=== PATIENT | male | born 1935 | race Caucasian/White ===

== ENCOUNTER → 2018-02-23 07:31 | Outpatient (CLI) | payer MEDICARE, OTHER, SELFPAY ==
[2018-02-23 07:54] LABS: Hematocrit 42.3 % (41-53); Hemoglobin 13.8 g/dL (13.5-17.5); Mean Corpuscular HGB Conc 32.6 % (30-36); Mean Corpuscular Hemoglobin 31.2 PG (26-34); Mean Corpuscular Volume 95.8 fL (80-100); Platelet Count 148 X10^3/uL (150-400); Red Blood Cell Count 4.42 X10^6/uL (4.5-5.9); Red Cell Distribution Width 13.7 % (11.6-14.8)
[2018-02-23 08:07] LABS: Alanine Aminotransferase 39 IU/L (21-72); Albumin 4.1 g/dL (3.5-5.0); Albumin Globulin Ratio 1.7 (1.0-2.8); Alkaline Phosphatase 60 U/L (38-126); Aspartate Aminotransferase 34 IU/L (17-59); BUN Creatinine Ratio 21.3 (6-22); Bilirubin Total 0.8 mg/dL (0.2-1.3); Blood Urea Nitrogen 17 mg/dL (9-20); Calcium 9.4 mg/dL (8.4-10.2); Carbon Dioxide 30 mmol/L (22-32); Chloride 104 mmol/L (98-107); Cholesterol 131 mg/dL (140-199); Estimated Glomerular Filt Rate > 60.0 mL/min (>60); Globulin 2.4 g/dL (1.7-4.1); Glucose 95 mg/dL (80-110); HDL Cholesterol 46 mg/dL (40-60); HEMOLYSIS 17 (0-50); LDL Cholesterol Calculated 72 mg/dL (<100); Potassium 5.1 mmol/L (3.4-5.1); Sodium 142 mmol/L (137-145); Total Protein 6.5 g/dL (6.3-8.2); Triglycerides 65 mg/dL (35-150)
[2018-02-23 08:14] LABS: Add Manual Diff / Slide Review YES; White Blood Cell Count 56.9 X10^3/uL (4.5-11.0)
[2018-02-23 08:38] LABS: Neutrophils Absolute Manual 5121 /uL (3000-5900); Total Cells Counted 100
[2018-02-23 08:40] LABS: Smudge Cells 1+
[2018-02-23 08:48] LABS: Thyroid Stimulating Hormone 2.06 uIU/mL (0.47-4.68)
== END ==
PROVIDERS: Nurse Practitioner Gerontology; PCP Family Medicine; Visit Provider Internal Medicine Cardiovascular Disease
DX: E78.5 Hyperlipidemia, unspecified (principal); I48.1 Persistent atrial fibrillation; Z79.01 Long term (current) use of anticoagulants
CPT/HCPCS: 36415; 80053; 80061; 84443; 85025

== ENCOUNTER → 2018-03-20 11:43 | Outpatient (CLI) | payer MEDICARE, OTHER, SELFPAY | PROVIDERS: PCP Family Medicine; Visit Provider Nurse Practitioner Gerontology | DX: C91.90 Lymphoid leukemia, unspecified not having achieved remission (principal) ==

== ENCOUNTER → 2018-03-28 11:19 | Outpatient (CLI) | payer MEDICARE, OTHER, SELFPAY ==
[2018-03-28 11:30] LABS: Bacteria Urine None Seen; RBC Urine None Seen (0-5/HPF); WBC Urine None Seen (0-5/HPF)
[2018-03-28 11:46] LABS: Appearance Urine UA CLEAR; Bilirubin Urine UA NEGATIVE (NEGATIVE); Color Urine UA YELLOW; Glucose Urine UA NEGATIVE (Normal); Ketones Urine UA NEGATIVE (NEGATIVE); Leukocyte Esterase Urine UA NEGATIVE (NEGATIVE); Nitrite Urine UA Negative (Negative); Occult Blood Urine UA NEGATIVE (Negative); Protein Urine UA NEGATIVE (Negative); Specific Gravity Urine UA 1.015 (1.000-1.035); Urobilinogen Urine UA 0.2 E.U./dL (0.2)
[2018-03-28 12:46] LABS: Culture Indicated Urine Cult Not Indicated; Squamous Epithelial Cell Urine 0-1 /HPF
== END ==
PROVIDERS: PCP Family Medicine; Visit Provider Orthopaedic Surgery
DX: M17.0 Bilateral primary osteoarthritis of knee (principal); M17.12 Unilateral primary osteoarthritis, left knee; M25.562 Pain in left knee
CPT/HCPCS: 81001

== ENCOUNTER 2018-03-29 10:05 | Day surgery (SDC) | payer MEDICARE, OTHER, SELFPAY ==
[2018-03-20 10:57] VITALS: BMI 25.4
[2018-03-29] VITALS (11 sets, daily range): BP systolic 105–152; BP diastolic 62–98; PULSE 57–112; RESP 14–18; TEMP 36.1–36.7; O2SAT 91–100; BMI 25.3
[2018-03-29] MEDS: LACTATED RINGERS 1,000 ML 42 ML IV ×2 (11:15→14:55)
[2018-03-29] MEDS: CELECOXIB 200 MG CAPSULE PO (11:16)
[2018-03-29] MEDS: PREGABALIN 75 MG CAPSULE PO (11:16)
[2018-03-29] MEDS: ACETAMINOPHEN 325 MG TABLET 975 MG PO ×3 (11:16→21:40)
[2018-03-29] MEDS: VANCOMYCIN 1,000 MG/200 ML FROZ.PIGGY 200 MG IV (11:24)
--- NOTE | 2018-03-29 12:15 | PM.PREOP ---
Pre-operative Note Interval Note Pre-op Check: Yes History & Physical Reviewed by Physician and Yes Exam Performed Changes: Yes
--- NOTE | 2018-03-29 12:19 | P.OP_ITS ---
Operative Date/Time/Diagnoses Date of procedure: 03/29/18 Time of procedure: 12:54 Pre-op diagnosis: Left knee osteoarthritis Post-op diagnosis: same Procedure & Clinicians Procedure: Left total knee arthroplasty Same procedure as scheduled: Yes Indications: The patient has had progressively worsening left knee pain with radiographic changes consistent with arthritis. Non-operative management has failed and the patient has requested total knee replacement. The risks, benefits and alternatives to surgery were discussed with the patient prior to proceeding. Risks discussed included, but were not limited to, failure to relieve pain, stiffness, infection, nerve damage, deep venous thrombosis, pulmonary embolism, stroke, coma, heart attack, permanent paralysis and , as well as the potential need for eventual revision of the prosthetic. Surgeon: Janice Perry Supervisor Acoustical Tile Carpenters: Diana Ma Anesthesia Type: General and Spinal Operative Notes Findings: Severe left knee osteoarthritis, adequate stability Closure Type: primary Specimen(s): none sent Implants & Drains: Perry and Nephnasreen Browning BCS2 FEMUR 6, TIBIA 5, POLY 9, PATELLA 35 BY 9 Estimated Blood Loss (mL): 200 Blood products transfused: none Tourniquet time (min): 75 Procedure in detail: THE PATIENT WAS SEEN IN THE PRE-OPERATIVE AREA, WHERE THE PATIENT IDENTIFIED THE LEFT KNEE THE OPERATIVE SITE AND THIS WAS MARKED WITH MY INITIALS. THE PATIENT RECEIVED PRE-OPERATIVE ANTIBIOTICS, AND WAS TAKEN TO THE OPERATING ROOM AND PLACED ON THE OPERATIVE TABLE IN THE SUPINE POSITION. AFTER SATISFACTORY ANESTHESIA, A AD OPERATIONS SPECIALIST OUT WAS PERFORMED. THE LEFT LEG WAS ENCIRCLED WITH A TOURNIQUET ABOUT THE PROXIMAL THIGH, AND THE LEG WAS PREPARED FROM THE TOES TO THE TOURNIQUET WITH CHLOROPREP IN THE USUAL FASHION AND DRAPED THROUGH STERILE DRAPES. THE LEG WAS ELEVATED AND EXSANGUINATED WITH [employer] BANDAGE AND THE TOURNIQUET INFLATED TO [250] MMHG PRESSURE. THE KNEE WAS APPROACHED THROUGH AN APPROXIMATELY 18 CM INCISION CENTERED OVER THE PATELLA AND CARRIED INTO THE KNEE THROUGH A MEDIAL PARAPATELLAR ARTHROTOMY. A PORTION OF THE MEDIAL AND LATERAL MENISCUS WAS RESECTED. SOFT TISSUE WAS CAREFULLY MOBILIZED AROUND THE PATELLA THE PATELLA WAS MEASURED WITH A CALIPER. BONE WAS RESECTED FROM THE PATELLA AND THE PATELLAR HEIGHT WAS RECONSTITUTED WITH UP AN APPROPRIATE SIZED PATELLAR COMPONENT. FOR A COVER WAS THEN PLACED ON THE PATELLA. A SMALL AMOUNT OF ADDITIONAL MEDIAL AND LATERAL MENISCUS WAS RESECTED. THE VISIONARE GUIDE FIT WELL TO THE DISTAL FEMUR. IT LOOKED LIKE AN APPROPRIATE DISTAL FEMORAL CUT AND THE CUT WAS MADE WITHOUT DIFFICULTY. THE ROTATION WAS ASSESSED AND THE APPROPRIATE SIZE FEMORAL GUIDE WAS PLACED ON THE DISTAL FEMUR AND FINISHING CUTS WERE MADE. THERE IS NO EVIDENCE OF NOTCHING. THE ANTERIOR, POSTERIOR AND CHAMFER CUTS WERE THEN MADE. THE POSTERIOR OSTEOPHYTES AND SOFT TISSUES WERE THEN REMOVED. THE POSTERIOR CAPSULE WAS INJECTED WITH PART OF A MIXTURE OF 60 ML 0.25% MARCAINE MIXED WITH 20 ML EXPAREL FOR POST OPERATIVE PAIN CONTROL. THE REMAINDER OF THIS MIXTURE WAS INJECTED INTO THE CAPSULE AND SUBCUTANEOUS TISSUES DURING CEMENT CURING. THE TIBIA WAS PREPARED AND THE VISIONAIRE GUIDE FIT WELL TO THE DISTAL TIBIA. THE ROTATION WAS ASSESSED. THE PATIENT WAS PLACED IN EXTENSION RESIDUAL MEDIAL AND LATERAL MENISCUS WELL ANY RESIDUAL BONE WAS CAREFULLY RESECTED. [NO] ADDITIONAL TIBIA WAS RESECTED. HEMOSTASIS WAS ACHIEVED ESPECIALLY POSTERIORLY. ADDITIONAL LOCAL WAS INJECTED INTO THE POSTERIOR CAPSULE. THE EXTENSION GAP WAS ASSESSED AND ADDITIONAL RELEASES FOR GAP BALANCING WERE PERFORMED NECESSARY. IT WAS CHECKED WITH THE GAP PAPER MILL MANAGER. THE FEMORAL COMPONENT WAS TRIAL WAS PLACED AND THE NOTCH WAS FINISHED. TRIAL TIBIAL AND FEMORAL COMPONENTS WERE THEN PLACED AND THE KNEE PLACED THROUGH A RANGE OF MOTION. RANGE OF MOTION WAS [ 0-130], WITH GOOD STABILITY THROUGHOUT THE RANGE. THE TRIALS WERE THEN REMOVED, AND THE TIBIA WAS FINISHED. THE BONE WAS PREPARED WITH PULSATILE LAVAGE, AND DRIED WITH A SPONGE. CEMENT WAS APPLIED AND THE FINAL PROSTHETICS PLACED. EXCESS CEMENT WAS REMOVED DURING AND AFTER CEMENT CURING. A BRIEF BETADINE SOAK WAS PERFORMED. AFTER CONFIRMING THERE WAS NO EXTRUDED CEMENT POSTERIORLY, THE FINAL TIBIAL INSERT WAS PLACED. THE KNEE WAS COPIOUSLY IRRIGATED AND THE TOURNIQUET DEFLATED. HEMOSTASIS WAS OBTAINED WITH THE BOVIE. A DRAIN WAS PLACED AND BROUGHT OUT SUPEROLATERALLY. THE CAPSULE WAS CLOSED WITH INTERRUPTED # 1 BLACK BRAIDED SUTURE. THE TRACKING OF THE PATELLA WAS SPECIFICALLY TESTED. THE SUBCUTANEOUS LAYER WAS CLOSED WITH BARBED SUTURES, AND THE SKIN WITH A RUNNING 3-0 V-LOCK SUTURE AND SURGICAL GLUE. AN AQUACEL AG DRESSING WAS APPLIED AND THE PATIENT WAS TAKEN TO RECOVERY HAVING TOLERATED THE PROCEDURE WELL. Complications: none Condition: stable Disposition: same day surgery Plan for aftercare: The patient will be maintained on a standard total knee replacement protocol with weight bearing as tolerated. The patient will receive PRADAXA and sequential compression devices for DVT prophylaxis. The patient will be discharged home when safe for the home environment.
[2018-03-29] MEDS: CEFAZOLIN 2 GM/100 ML FROZ.PIGGY IV ×2 (12:25→19:43)
--- NOTE | 2018-03-29 13:02 | SUR.OPER ---
Supine on padded OR bed. Pillow under head, arms secured on padded armboards <90 degree abduction. Safety belt across torso. Non-operative leg secured with tape over blanket over lower leg. Operative leg secured in DeMayo/Brad positioner. Foam padded brace at thigh of operative leg.
[2018-03-29] MEDS: BUPIVACAINE LIPOSOME 266 MG/20 ML VIAL INJ (13:11)
[2018-03-29] MEDS: BUPIVACAINE 0.25% W/ EPI VIAL 50 ML INJ (13:11)
[2018-03-29] MEDS: POVIDONE-IODINE 15 ML, SODIUM CHLORIDE 0.9% 250 ML TOP (13:13)
--- NOTE | 2018-03-29 14:46 | DI.RAD.S_ITS ---
PROCEDURE: XR KNEE LT 1TO2V INDICATIONS: LEFT TOTAL KNEE TECHNIQUE: 2 view(s) of the knee acquired. COMPARISON: None. FINDINGS: Bones: Patient is status post knee joint arthroplasty. Hardware components are in expected positions. Visualized bony structures are intact. Soft tissues: Overlying postoperative changes are noted. A postoperative drain has been placed. IMPRESSION: Normal postoperative examination. Dictated by: Nando Cooley M.D. on 03/29/2018 at 14:53 Approved by: Nando Cooley M.D. on 03/29/2018 at 14:54
[2018-03-29] MEDS: OXYCODONE IR 5 MG TABLET PO ×2 (16:47→21:54)
[2018-03-29] MEDS: LACTATED RINGERS 1,000 ML 125 ML IV (16:50)
[2018-03-29] MEDS: ONDANSETRON 4 MG/2 ML INJ IV (19:43)
[2018-03-29] MEDS: DOCUSATE 100 MG CAPSULE PO (20:25)
[2018-03-29] MEDS: ASPIRIN EC 81 MG TABLET PO (20:25)
[2018-03-30 00:08] VITALS: BP 139/71; PULSE 84; RESP 18; TEMP 37; O2SAT 98
[2018-03-30] MEDS: OXYCODONE IR 5 MG TABLET PO ×2 (02:33→07:48)
[2018-03-30] MEDS: CEFAZOLIN 2 GM/100 ML FROZ.PIGGY IV (03:37)
[2018-03-30 05:19] VITALS: BP 120/65; PULSE 83; RESP 18; TEMP 36.7; O2SAT 95
[2018-03-30 06:15] LABS: Hematocrit 36.4 % (41-53); Hemoglobin 12.1 g/dL (13.5-17.5)
--- NOTE | 2018-03-30 07:36 | PM.DS.1 ---
History of Present Illness Date Patient Seen: 03/30/18 Chief complaint: *[id number] left total knee arthroplasty *OPB* Narrative: Patient was seen bedside postop day 1. Status post left TKA. Patient is doing well as pain was well controlled and he is ready to go home today. Discharge Providers Primary care physician: Tiffani Son DO Consults: 03/29/18 16:31 Consult to Discharge Planning Routine Comment: Consult to Physical Therapy Evaluate & Treat Comment: Physician Instructions: postop TKA protocol Consult to Respiratory Therapy Evaluate & Treat Comment: Physician Instructions: Evaluate and treat Discharge provider: Salome Cantu PA-C Summary Discharge Diagnosis: Left knee osteoarthritis Hospital Course: Patient was admitted post left total knee replacement on 03/29/2018. Tolerated the procedure well with no major complications. Was seen by Physical therapy recommending be discharged home with outpatient PT. Patient was stable and ready for discharge on 03/30/2018. Condition patient discharged improved code status is full. Status at Discharge Cognitive/behavioral status at discharge: Alert and oriented x4 Functional status at discharge: uses cane/walker Overall status at discharge: patient is progressing back to baseline Time Spent with Patient Less than 30 minutes Exam Vital Signs (past 8 hours): - 03/30/18 00:08 03/30/18 05:19 Temperature 98.6 F 98.1 F Pulse Rate 84 83 Respiratory Rate 18 18 Blood Pressure 139/71 H 120/65 Pulse Oximetry 98 95 Oxygen Delivery Method Room Air Narrative Exam Narrative: Patient is well-developed well-nourished in no acute distress. Patient alert oriented x3. Examination of the left knee shows the surgical dressings are clean dry and intact with minimal drainage. There is minimal drainage in his Hemovac. He has full range of motion at the ankle is calves are soft and compressible. He is neurovascularly intact in this extremity. Objective Labs Result Diagrams: 03/30/18 05:57 Labs: Laboratory Results - last 24 hr 03/30/18 05:57 Hgb 12.1 L Hct 36.4 L Discharge Plan Discharge Plan Patient Disposition: Home, Self-Care Discharge Med Rec/Prescriptions Prescriptions: New acetaminophen 325 mg Tablet 1,000 mg PO TID Qty: 0 RF: 0 aspirin 81 mg Tablet,Delayed Release (Dr/Ec) 81 mg PO BID Qty: 0 RF: 0 docusate sodium 100 mg Capsule 100 mg PO BID Qty: 0 RF: 0 oxycodone 5 mg Tablet 5 mg PO Q3HR PRN (Reason: Pain, Moderate (4-6)) Qty: 0 RF: 0 Continue amlodipine [Norvasc] 5 MG tablet 5 mg PO QDAY Qty: 90 RF: 3 varicella-zoster [id number]-AS01B (PF) [Shingrix (PF)] 50 mcg/0.5 mL suspension for reconstitution 0.5 ml IM ONCE Qty: 1 RF: 0 acetaminophen [Tylenol Extra Strength] 500 mg Tablet 1,000 mg PO QAM RF: 0 dabigatran etexilate [Pradaxa] 150 mg Capsule 150 mg PO BID RF: 0 atorvastatin [Lipitor] 20 MG tablet 20 mg PO QAM RF: 0 irbesartan-hydrochlorothiazide 150 MG/12.5 MG tablet 2 tab PO QAM RF: 0 Discharge Orders: Discharge (Order); Ordered 03/30/18 Ordered By: Salome Cantu Provider Discharge Instructions Diet: Diet as Tolerated and Regular Wound Care Report to your healthcare provider any signs of infection, such as:: chills, fever, night sweats, increased pain and unusual drainage Dressing: Keep letty wrap on until tomorrow, keep Aqaucel dressing on until second post-op visit. Visit Report/Discharge Packet Instructions: DI for Knee Replacement Stand Alone Forms: Surgery Discharge Discharge Data Primary Care Provider: Tiffani Son Attending Provider: Janice Perry
[2018-03-30 07:40] VITALS: BP 118/70; PULSE 76; RESP 18; TEMP 36.7; O2SAT 97
[2018-03-30] MEDS: hydroCHLOROthiazide 12.5 MG CAPSULE PO (08:57)
[2018-03-30] MEDS: AMLODIPINE 5 MG TABLET PO (08:57)
[2018-03-30] MEDS: ATORVASTATIN 20 MG TABLET PO (08:57)
[2018-03-30] MEDS: ASPIRIN EC 81 MG TABLET PO (08:58)
[2018-03-30] MEDS: DOCUSATE 100 MG CAPSULE PO (08:58)
[2018-03-30] MEDS: IRBESARTAN 150 MG TABLET PO (08:59)
--- NOTE | 2018-03-30 09:10 | PT.IPTN ---
Current Diagnoses Unilateral primary osteoarthritis, left knee (03/29/18) Surgery Performed Operation Date: 03/29/18 12:00 Actual Procedures p Left Total Knee Arthroplasty(Left) - Janice Perry MD Physical Therapy Treatment Note M2 PT-IP Current Condition Start: 03/29/18 17:18 Freq: NEEDED Status: Active Protocol: Document 03/29/18 17:19 EA (Rec: 03/29/18 17:33 EA [id number]) Physical Therapy Current Condition Current Condition Evaluation Date 03/29/18 Treatment Diagnosis Left TKA Onset Date 03/29/18 Weight Bearing Status Weight Bearing Status Full Weight Bearing M3 PT-IP Subjective Start: 03/29/18 17:18 Freq: NEEDED Status: Active Protocol: Document 03/30/18 09:10 GGD (Rec: 03/30/18 11:31 GGD [id number]) Subjective Physical Therapy Visit Type Type Treatment Note Visit Start Time 08:40 Visit Stop Time 09:10 Total Visit Minutes 30 Number of POWER OPERATOR Visits 1 Physical Therapy Visit Comments Patient Comments Pt states he doing go and feels ready to go home. Therapy Pain Assessment Pain When Pain Assessed At Rest Pain Present Pain Present Pain Reported Location Left Knee Intensity 1 Scale Used Numeric (1 - 10) M4 PT-IP Mobility and Gait Start: 03/29/18 17:18 Freq: NEEDED Status: Active Protocol: Document 03/30/18 09:10 GGD (Rec: 03/30/18 11:31 GGD [id number]) PT-Transfer Assessment Sit to and From Stand Sit to and from Stand Contact Guard Assistance Equipment Transfer Assistive Device Gait Belt Front Wheeled Walker Transfers Transfer Destination Chair Gait Assessment Gait Gait Assistance Required: Standby Assistance Distance (Feet) (feet) 80 Assistive Devices Assistive Device Gait Belt Front Wheeled Walker Gait Deviations General Gait Pattern Antalgic Factors Limiting Gait Function Factors Limiting Gait Function Decreased Activity Tolerance Decreased Strength Limited Range of Motion Pain Comments Gait Comments cues for gait techinque. M5 PT-IP Objective Assessments Start: 03/29/18 17:18 Freq: NEEDED Status: Active Protocol: Document 03/29/18 17:19 EA (Rec: 03/29/18 17:33 EA [id number]) Orientation Orientation/Cognition Level of Alertness Alert Orientation Date Year Place Language Function Ability No Deficits Noted Safety Awareness Understands Safety Issues Memory Description No Deficits Noted Gross Range of Motion Upper Extremity ROM Assessment Within Functional Limits Lower Extremity ROM Assessment Within Functional Limits Impairments left knee ROM: 0-45 knee flexion Strength Upper Extremity Strength Assessment Within Functional Limits Lower Extremity Strength Assessment Within Functional Limits Hip HIP ABD/ Flexion 3+/5 with pain Knee not tested due to pre-caution Ankle WFL Coordination Assessment Gross Coordination Gross Coordination WNL Assessment Finger to Nose Test Normal Performance Pronation/Supination Test Normal Performance Foot Tapping Test Normal Performance Heel on Mehta Test Normal Performance Sensation Assessment Sensation Gross Sensation WNL Light Touch Intact Proprioception (Position) Intact M6 PT-IP Treatment Start: 03/29/18 17:18 Freq: NEEDED Status: Active Protocol: Document 03/30/18 09:10 GGD (Rec: 03/30/18 11:31 GGD [id number]) Physical Therapy Treatment Exercises Exercises Ankle Pumps Quad Sets Heel Slides Straight Leg Raises Short Arc Quads Seated Knee Flexion/Extension M7 PT-IP Assessment and Plan Start: 03/29/18 17:18 Freq: NEEDED Status: Active Protocol: Document 03/30/18 09:10 GGD (Rec: 03/30/18 11:31 GGD [id number]) PT Summary Assessment and Plan Summary Assessment Summary Pt improved with gait. He had no unsteadiness with gait or LOB. He needed cues for knee flexion with gait. Frequency of Treatment Frequency Of Treatment Twice a Day Treatment Plan Physical Therapy Treatment Plan Bed Mobility Training Transfer Training Gait Training Therapeutic Exercise Balance Retraining Post Op Education Discharge Planning Hot or Cold Pack Neuromuscular Re-ed Manual Therapy Recommendations To Nursing Amount of Assist Needed Standby Assistance Discharge Recommendations PT Discharge Recommendations Home with Assistance
[2018-03-30] MEDS: DABIGATRAN 75 MG CAPSULE 150 MG PO (09:36)
[2018-03-30] MEDS: ACETAMINOPHEN 325 MG TABLET 975 MG PO (09:44)
--- NOTE | 2018-03-30 12:17 | PC.NURSE ---
Pt taken by wheelchair to ER entrance. Pain is tolerable. IV removed prior to departure.
--- NOTE | 2018-03-30 12:19 | CM.DANOTE ---
Discharge Planning/Care Management CM Discharge Assessment Start: 03/30/18 12:17 Freq: Status: Active Protocol: Document 03/30/18 12:18 (Rec: 03/30/18 12:19 [id number]) Discharge Planning Assessment History Provided By Patient Medical Record Has Patient been admitted in last 30 No days? Is this patient on Medicare? Yes Prior Living Arrangements House Household Members spouse Type of transporation used prior to Drives own vehicle admit Independent with ADL's Yes Is patient alert and oriented? Yes Referrals Initiated None needed Discharge Plan Home Transportation Arrangement SPOUSE TO DRIVE PATIENT HOME. Review Status Complete Next Review Type Discharge Review
== END 2018-03-30 12:19 | disposition home or self-care (01) ==
LOC: OR 10:09 → AC 10:10
PROVIDERS: Family Provider Internal Medicine; PCP Family Medicine; Visit Provider Orthopaedic Surgery
PROC: 0SRD0JZ Replacement of Left Knee Joint with Synthetic Substitute, Open Approach (ICD-10-PCS; CPT 27447; principal; 2018-03-29 12:00)
DX: M17.12 Unilateral primary osteoarthritis, left knee (principal); Z87.891 Personal history of nicotine dependence
CPT/HCPCS: 27447; 36415; 73560; 85014; 85018; 97116; 97161; 97530; 97535; C1776; C9290; J0690; J2250; J2405; J2704; J3010; J3370

== ENCOUNTER → 2018-05-10 08:05 | Outpatient (CLI) | payer MEDICARE, OTHER, SELFPAY ==
[2018-03-29 16:55] VITALS: BMI 25.3
[2018-05-10 08:28] LABS: Hematocrit 37.7 % (41-53); Hemoglobin 12.2 g/dL (13.5-17.5); Mean Corpuscular HGB Conc 32.4 % (30-36); Mean Corpuscular Hemoglobin 29.8 PG (26-34); Mean Corpuscular Volume 91.9 fL (80-100); Platelet Count 219 X10^3/uL (150-400); Red Cell Distribution Width 14.5 % (11.6-14.8)
[2018-05-10 08:36] LABS: Alanine Aminotransferase 27 IU/L (21-72); Albumin 3.9 g/dL (3.5-5.0); Albumin Globulin Ratio 1.6 (1.0-2.8); Alkaline Phosphatase 78 U/L (38-126); Aspartate Aminotransferase 24 IU/L (17-59); BUN Creatinine Ratio 17.5 (6-22); Bilirubin Total 0.7 mg/dL (0.2-1.3); Blood Urea Nitrogen 14 mg/dL (9-20); Calcium 9.4 mg/dL (8.4-10.2); Carbon Dioxide 30 mmol/L (22-32); Chloride 105 mmol/L (98-107); Estimated Glomerular Filt Rate > 60.0 mL/min (>60); Globulin 2.4 g/dL (1.7-4.1); Glucose 94 mg/dL (80-110); HEMOLYSIS < 15 (0-50); Lactate Dehydrogenase 424 U/L (313-618); Potassium 4.5 mmol/L (3.4-5.1); Sodium 143 mmol/L (137-145); Total Protein 6.3 g/dL (6.3-8.2)
[2018-05-10 08:39] LABS: Add Manual Diff / Slide Review YES; White Blood Cell Count 69.8 X10^3/uL (4.5-11.0)
--- NOTE | 2018-05-10 09:02 | PC.NURSE ---
Critical lab result received WBC 71.2, lymphocytes 89.5. feed elevator worker aware.
[2018-05-10 09:19] LABS: Neutrophils Absolute Manual 6282 /uL (3000-5900); Total Cells Counted 100
[2018-05-10 09:23] LABS: Smudge Cells 2+
== END ==
PROVIDERS: Nurse Practitioner Gerontology; Family Provider Internal Medicine; PCP Family Medicine; Visit Provider Internal Medicine Hematology & Oncology
DX: C91.90 Lymphoid leukemia, unspecified not having achieved remission (principal)
CPT/HCPCS: 36415; 80053; 83615; 85025

== ENCOUNTER → 2018-06-07 13:23 | Outpatient (CLI) | payer MEDICARE, OTHER, SELFPAY ==
[2018-03-29 16:55] VITALS: BMI 25.3
[2018-06-07 14:01] LABS: Hemoglobin 12.2 g/dL (13.5-17.5); Mean Corpuscular Volume 92.9 fL (80-100)
[2018-06-07 14:07] LABS: Hematocrit 38.8 % (41-53); Mean Corpuscular HGB Conc 31.4 % (30-36); Mean Corpuscular Hemoglobin 29.2 PG (26-34); Platelet Count 197 X10^3/uL (150-400); Red Blood Cell Count 4.18 X10^6/uL (4.5-5.9)
[2018-06-07 14:10] LABS: Add Manual Diff / Slide Review YES; White Blood Cell Count 73.7 X10^3/uL (4.5-11.0)
[2018-06-07 14:20] LABS: Alanine Aminotransferase 34 IU/L (21-72); Albumin 3.9 g/dL (3.5-5.0); Albumin Globulin Ratio 1.8 (1.0-2.8); Alkaline Phosphatase 60 U/L (38-126); Aspartate Aminotransferase 32 IU/L (17-59); BUN Creatinine Ratio 28.8 (6-22); Bilirubin Total 0.6 mg/dL (0.2-1.3); Blood Urea Nitrogen 23 mg/dL (9-20); Calcium 9.2 mg/dL (8.4-10.2); Carbon Dioxide 24 mmol/L (22-32); Chloride 107 mmol/L (98-107); Estimated Glomerular Filt Rate > 60.0 mL/min (>60); Globulin 2.2 g/dL (1.7-4.1); Glucose 114 mg/dL (80-110); HEMOLYSIS < 15 (0-50); Lactate Dehydrogenase 507 U/L (313-618); Potassium 4.2 mmol/L (3.4-5.1); Sodium 143 mmol/L (137-145); Total Protein 6.1 g/dL (6.3-8.2)
[2018-06-07 14:24] LABS: Anisocytosis 1+; Neutrophils Absolute Manual 14740 /uL (3000-5900); Poikilocytosis 1+; Total Cells Counted 100
[2018-06-07 14:25] LABS: Ovalocytes 1+; Smudge Cells 2+
== END ==
PROVIDERS: Family Provider Internal Medicine; PCP Family Medicine; Visit Provider Internal Medicine Hematology & Oncology
DX: C91.90 Lymphoid leukemia, unspecified not having achieved remission (principal)
CPT/HCPCS: 36415; 80053; 83615; 85025

== ENCOUNTER → 2018-07-09 10:14 | Outpatient (CLI) | payer MEDICARE, OTHER, SELFPAY ==
[2018-03-29 16:55] VITALS: BMI 25.3
[2018-07-09 12:14] LABS: Prostate Specific Antigen 0.294 ng/mL (0.10-4.00)
== END ==
PROVIDERS: Family Provider Family Medicine; PCP Family Medicine; Visit Provider Urology
DX: C61 Malignant neoplasm of prostate (principal)
CPT/HCPCS: 36415; 84153

== ENCOUNTER → 2018-09-03 14:52 | Outpatient (REF) | payer MEDICARE, OTHER, SELFPAY ==
[2018-03-29 16:55] VITALS: BMI 25.3
== END ==
LOC: LAB 14:52
PROVIDERS: Family Provider Family Medicine; PCP Family Medicine; Visit Provider Physician Assistant
DX: Z48.817 Encounter for surgical aftercare following surgery on the skin and subcutaneous tissue (principal)
CPT/HCPCS: 87070; 87075; 87186; 87205

== ENCOUNTER → 2018-10-17 08:13 | Outpatient (CLI) | payer MEDICARE, OTHER, SELFPAY ==
[2018-03-29 16:55] VITALS: BMI 25.3
[2018-10-17 08:42] LABS: Alanine Aminotransferase 37 IU/L (21-72); Albumin 4.1 g/dL (3.5-5.0); Albumin Globulin Ratio 1.8 (1.0-2.8); Alkaline Phosphatase 59 U/L (38-126); Aspartate Aminotransferase 31 IU/L (17-59); BUN Creatinine Ratio 22.5 (6-22); Bilirubin Total 0.8 mg/dL (0.2-1.3); Blood Urea Nitrogen 18 mg/dL (9-20); Calcium 9.2 mg/dL (8.4-10.2); Carbon Dioxide 27 mmol/L (22-32); Chloride 103 mmol/L (98-107); Estimated Glomerular Filt Rate > 60.0 mL/min (>60); Globulin 2.3 g/dL (1.7-4.1); Glucose 88 mg/dL (80-110); HEMOLYSIS < 15 (0-50); Lactate Dehydrogenase 509 U/L (313-618); Potassium 4.7 mmol/L (3.4-5.1); Sodium 138 mmol/L (137-145); Total Protein 6.4 g/dL (6.3-8.2)
[2018-10-17 08:52] LABS: Hematocrit 39.4 % (41-53); Mean Corpuscular HGB Conc 30.5 % (30-36); Mean Corpuscular Volume 91.8 fL (80-100); Platelet Count 141 X10^3/uL (150-400); Red Blood Cell Count 4.29 X10^6/uL (4.5-5.9); Red Cell Distribution Width 15.5 % (11.6-14.8)
[2018-10-17 08:55] LABS: Add Manual Diff / Slide Review YES
[2018-10-17 09:15] LABS: Neutrophils Absolute Manual 0 /uL (3000-5900); RBC Morphology Normal Morphology; Smudge Cells 2+; Total Cells Counted 100
[2018-10-18 13:41] LABS: Beta-2-Microglobulin 3.41 mg/L (< 2.52)
== END ==
PROVIDERS: Family Provider Family Medicine; PCP Family Medicine; Visit Provider Internal Medicine Hematology & Oncology
DX: C91.10 Chronic lymphocytic leukemia of B-cell type not having achieved remission (principal); I48.91 Unspecified atrial fibrillation
CPT/HCPCS: 36415; 80053; 82232; 83615; 85025

== ENCOUNTER → 2019-02-19 09:38 | Outpatient (CLI) | payer MEDICARE, OTHER, SELFPAY ==
[2018-03-29 16:55] VITALS: BMI 25.3
== END ==
PROVIDERS: Family Provider Family Medicine; PCP Family Medicine; Visit Provider Internal Medicine Hematology & Oncology
DX: C95.90 Leukemia, unspecified not having achieved remission (principal)
CPT/HCPCS: 36415; 81263; 81405; 82232; 88184; 88185; 88237; 88264; 88271

== ENCOUNTER → 2019-03-18 07:24 | Outpatient (CLI) | payer MEDICARE, OTHER, SELFPAY ==
[2018-03-29 16:55] VITALS: BMI 25.3
[2019-03-18 08:35] LABS: BUN Creatinine Ratio 26.3 (6-22); Blood Urea Nitrogen 21 mg/dL (9-20); Calcium 9.4 mg/dL (8.4-10.2); Carbon Dioxide 28 mmol/L (22-32); Chloride 104 mmol/L (98-107); Cholesterol 143 mg/dL (140-199); Estimated Glomerular Filt Rate > 60.0 mL/min (>60); Glucose 101 mg/dL (80-110); HDL Cholesterol 36 mg/dL (40-60); HEMOLYSIS < 15 (0-50); LDL Cholesterol Calculated 93 mg/dL (<100); Potassium 4.2 mmol/L (3.4-5.1); Sodium 138 mmol/L (137-145); Triglycerides 68 mg/dL (35-150)
[2019-03-18 08:40] LABS: Hematocrit 36.5 % (41-53); Hemoglobin 11.2 g/dL (13.5-17.5); Mean Corpuscular HGB Conc 30.6 % (30-36); Mean Corpuscular Hemoglobin 28.3 PG (26-34); Mean Corpuscular Volume 92.3 fL (80-100); Platelet Count 125 X10^3/uL (150-400); Red Blood Cell Count 3.95 X10^6/uL (4.5-5.9); Red Cell Distribution Width 15.7 % (11.6-14.8)
[2019-03-18 08:50] LABS: Add Manual Diff / Slide Review YES; White Blood Cell Count 113.2 X10^3/uL (4.5-11.0)
[2019-03-18 09:27] LABS: Neutrophils Absolute Manual 5660 /uL (3000-5900); Total Cells Counted 100
[2019-03-18 09:28] LABS: Smudge Cells 1+
== END ==
PROVIDERS: PCP Family Medicine; Visit Provider Internal Medicine Cardiovascular Disease
DX: I10 Essential (primary) hypertension (principal); E78.5 Hyperlipidemia, unspecified
CPT/HCPCS: 36415; 80048; 80061; 85025

== ENCOUNTER → 2019-03-20 14:20 | Outpatient (CLI) | payer MEDICARE, OTHER, SELFPAY ==
[2018-03-20 12:35] LABS: Hematocrit 41.4 % (41-53); Hemoglobin 13.5 g/dL (13.5-17.5); Mean Corpuscular HGB Conc 32.7 % (30-36); Mean Corpuscular Volume 94.7 fL (80-100); Platelet Count 159 X10^3/uL (150-400); Red Blood Cell Count 4.37 X10^6/uL (4.5-5.9); Red Cell Distribution Width 13.8 % (11.6-14.8)
[2018-03-20 12:47] LABS: White Blood Cell Count 56.3 X10^3/uL (4.5-11.0)
[2018-03-20 12:59] LABS: Alanine Aminotransferase 40 IU/L (21-72); Albumin 4.2 g/dL (3.5-5.0); Albumin Globulin Ratio 1.8 (1.0-2.8); Alkaline Phosphatase 71 U/L (38-126); Aspartate Aminotransferase 36 IU/L (17-59); BUN Creatinine Ratio 16.7 (6-22); Bilirubin Total 0.9 mg/dL (0.2-1.3); Blood Urea Nitrogen 15 mg/dL (9-20); Calcium 9.7 mg/dL (8.4-10.2); Carbon Dioxide 29 mmol/L (22-32); Chloride 103 mmol/L (98-107); Estimated Glomerular Filt Rate > 60.0 mL/min (>60); Globulin 2.3 g/dL (1.7-4.1); Glucose 93 mg/dL (80-110); HEMOLYSIS < 15 (0-50); Lactate Dehydrogenase 519 U/L (313-618); Neutrophils Absolute Manual 9571 /uL (3000-5900); Potassium 4.5 mmol/L (3.4-5.1); RBC Morphology Normal Morphology; Sodium 139 mmol/L (137-145); Total Cells Counted 100; Total Protein 6.5 g/dL (6.3-8.2)
[2018-03-20 13:00] LABS: Smudge Cells 4+
[2018-03-22 15:14] LABS: Beta-2-Microglobulin 3.26 mg/L (< 2.52)
[2018-03-29 16:55] VITALS: BMI 25.3
== END ==
PROVIDERS: Family Provider Family Medicine; PCP Family Medicine; Visit Provider Nurse Practitioner Gerontology
DX: C91.90 Lymphoid leukemia, unspecified not having achieved remission (principal)
CPT/HCPCS: 36415; 80053; 82232; 83615; 85025

== ENCOUNTER → 2019-07-08 13:40 | Oncology outpatient (ONC) | payer MEDICARE, OTHER, SELFPAY ==
[2018-02-23 12:45] VITALS: BP 142/77; PULSE 74; RESP 16; TEMP 36.8; O2SAT 98
--- NOTE | 2018-02-23 13:32 | ONC.APRN.PN ---
Assessment and Plan (1) CLL (chronic lymphocytic leukemia) Current visit: No Status: Acute 02/23/18 13:34 Patient a very pleasant 82-year-old male with an underlying diagnosis of CLL. Patient has measurable disease in the marrow and lymph nodes. Prognosis based on DARBY stage as well as FISH is excellent. Specifically DARBY stage I and del 13q. Patient's CBC demonstrates a white count that is very slowly climbing upward. Thirty-eight, 44, 45, 56. Reassuringly hemoglobin normal at 13.9 hematocrit also normal 42.3. Platelets 148. Lymphocytes are high at 62 atypical lymphs 24%. Alkaline phosphatase normal at 60. Renal function is normal. No red flags whatsoever on exam today. In fact the patient reports his night sweats are less intense also less frequent. He has no palpable adenopathy no hepatosplenomegaly. I will have the patient return in 1 month for repeat CBC. If white count continues to climb I will have him see 1 of the oncologists. Otherwise return to clinic in 3 months for provider visit, CBC, CMP, LDH, beta microglobulin. During the interval he will undergo Right TKR. Patient and verbalize understanding and agree with above POC. 02/23/18 13:43 - Time Spent with Patient 35 mins PN -Subjective Interval history: The patient is a 82 year old Male who is being seen in the clinic 02/23/2018. He carries a diagnosis of chronic lymphocytic leukemia with a del 13q (good prognosis). Rubin presents for 3 month clinical evaluation today. he has no new complaints whatsoever on exam today, overall feeling well. He is scheduled with Dr Janice Perry for Right TKR march 29, this has been delayed twice due to a fib (on pradaxa ). He states he is having fewer night sweats. Now only very intermittently. He denies recent illness or infections. No change with activity tolerance, he continues to walk his dog Rosalba (excentos) daily x 60 minutes. No chest pain, no shortness of breath. No change in appetite, weight is stable. Specifically no early satiety. No new lumps or bumps. No new pain. Past Medical History The patient's past medical history is significant for: 1) Chronic lymphocytic leukemia. Diagnosis: -08/17/2017. Peripheral Flow cytometry. Abnormal CD5 positive monoclonal B-cell population identified. CD10 negative. Abnormal B-cell comprised 70% and the total white blood cell count. No blasts identified. Clinical staging workup: -09/01/2017. CT neck chest abdomen and pelvis with contrast. Subcentimeter adenopathy in the neck, axilla, and mediastinum. Nonspecific abnormality head of the pancreas measuring 85 mm identified. -09/08/2017. Bone marrow biopsy with aspirate. Hypercellular marrow (75% cellularity) with extensive involvement of CLL. Adequate background trilineage hematopoiesis. Megakaryocyte hyperplasia. No reticulin fibrosis. Decreased stainable iron. Flow cytometry from the aspirate confirming CD5 positive B-cell population with immunophenotype consistent with CLL. Prognosis: -Darby stage I -CLL FISH panel: Deletion 13 q. 2) Arrythmia 3) Prostate cancer, status post radiation Aug-October 2017. Dr. Conklin. In remission. 4) Hypertension 5) Hypercholesterolemia. Results - Imaging Additional studies: Procedures CLOSURE SKIN & SUBCUTANEOUS NEC (01/24/10) Closed [endoscopic] biopsy of large intestine (10/08/13) Endoscopic polypectomy of large intestine (10/08/13) Home Medications and Allergies Home Medications Medication Instructions Recorded Confirmed Type amlodipine [Norvasc] 5 mg PO QDAY #90 tab 12/01/17 02/21/18 Rx atorvastatin [Lipitor] 20 mg PO HS #90 tab 12/01/17 02/21/18 Rx irbesartan-hydrochlorothiazide 2 tab PO QDAY #180 tab 12/01/17 02/21/18 Rx dabigatran etexilate 150 mg capsule 150 mg PO BID #180 cap 01/17/18 02/21/18 Rx varicella-zoster glycoE [id number] 0.5 ml IM ONCE #1 each 02/21/18 Rx adj(PF) 50 mcg/0.5 mL IM susp, kit Allergies Allergy/AdvReac Type Severity Reaction Status Date / Time No Known Allergies Allergy Uncoded 12/06/17 11:53 Exam Vital signs: Last Vital Signs Temp 98.2 F 02/23/18 12:45 Pulse 74 02/23/18 12:45 Resp 16 02/23/18 12:45 BP 142/77 H 02/23/18 12:45 Pulse Ox 98 02/23/18 12:45 Narrative: well appearing - Constitutional positive no acute distress, positive average body habitus - Routine HEENT Exam Eye: Present: conjunctivae pink. Absent: conjunctival icterus, scleral injection ENT: Absent: mucous membranes moist - Routine Neck Exam Absent: supple, lymphadenopathy - Routine Chest/Breast/Axilla Exam Axillae: Absent: lymphadenopathy, mass - Routine Respiratory Exam Present: Clear to auscultation bilaterally. Absent: rales, rhonchi, wheezes - Routine Cardiovascular Exam Present: RRR, S1, S2. Absent: JVD Comments: not in a fib at time of exam - Routine Abdominal Exam Present: soft, normoactive bowel sounds. Absent: tenderness, distended, organomegaly, mass Palpation/Percussion: Absent: hepatomegaly, splenomegaly - Routine Extremities Exam Absent: edema, calf tenderness - Routine Skin Exam Present: intact, normal turgor. Absent: petechiae, rash - Routine Neurological Exam Present: alert, oriented X3 - Routine Psychiatric Exam Present: normal affect
--- NOTE | 2018-03-20 16:37 | PC.NURSE ---
WBC elevated to 56.3 only slightly higher than when he was seen by THERAPIST OCCUPATIONAL in late January and he was considered stable by her at that time. Pt is schedule for a LI on Mar 29. Follow up with THERAPIST OCCUPATIONAL will be on May 28.
--- NOTE | 2018-05-11 15:11 | P.PNONC_ITS ---
PN -Subjective Interval history: INTERIM EVENTS Patient reported that he underwent left knee total replacement on March 29, 2018. He is still having mild knee pain. He is using cane today in the clinic. Otherwise patient reports that he has good appetite. Likely due to recent surgery, patient lost some weight from 80.966 kg on 02/21/2018 to current 76.1. He denies any fever or chills. Patient continues to experience night sweats, but he claims that the symptoms are getting better. He used to have to change clothes quite often, now it is much less so. He denies any shortness of breath or chest pain. He denies any abdominal pain, bloating or fullness, diarrhea or constipation. He denies any musculoskeletal pain Pred pain denies any lumps and bumps. ONCOLOGICAL HISTORY Diagnosis: : CLL, diagnosed by peripheral flow cytometry. Abnormal CD5 positive monoclonal B-cell population identified. CD10 negative. Abnormal B-cell comprised 70% and the total white blood cell count. No blasts identified. 09/01/2017: CT neck chest abdomen and pelvis with contrast: subcentimeter adenopathy in the neck, axilla, and mediastinum. Nonspecific abnormality head of the pancreas measuring 85 mm identified. 09/08/2017: Bone marrow biopsy with aspirate: Hypercellular marrow for age (75% cellularity) with extensive involvement of CLL. Adequate background trilineage hematopoiesis. Megakaryocyte hyperplasia. No reticulin fibrosis. Decreased stainable iron. Flow cytometry from the aspirate confirming CD5 positive B- cell population with immunophenotype consistent with CLL. CLL FISH: del 13q. Darby stage I Comorbidities: Arrythmia, Prostate cancer, status post radiation Aug-October 2017. Dr. Conklin. In remission., Hypertension and Hypercholesterolemia. - Additional ROS All systems PM: reviewed and no additional remarkable complaints except as stated Home Medications and Allergies Home Medications Medication Instructions Recorded Confirmed Type amlodipine [Norvasc] 5 mg PO QDAY #90 tab 12/01/17 03/29/18 Rx varicella-zoster glycoE [id number] 0.5 ml IM ONCE #1 each 02/21/18 03/30/18 Rx adj(PF) 50 mcg/0.5 mL IM susp, kit acetaminophen [Tylenol Extra 1,000 mg PO QAM 03/20/18 03/29/18 History Strength] atorvastatin [Lipitor] 20 mg PO QAM 03/20/18 03/29/18 History irbesartan-hydrochlorothiazide 2 tab PO QAM 03/20/18 03/29/18 History acetaminophen 1,000 mg PO TID #0 tab 03/30/18 Rx aspirin 81 mg PO BID #0 tab 03/30/18 Rx docusate sodium 100 mg PO BID #0 cap 03/30/18 Rx oxycodone 5 mg PO Q3HR PRN #0 tab 03/30/18 Rx dabigatran etexilate 150 mg capsule 150 mg PO BID #180 cap 04/02/18 Rx oxycodone Q4-6H PRN 05/11/18 History Allergies Allergy/AdvReac Type Severity Reaction Status Date / Time No Known Allergies Allergy Uncoded 12/06/17 11:53 Exam Vital signs: Temperature 96.7, heart rate 71, respiratory rate 18, blood pressure 134/82, saturation 97% on room air, weight 171.9 lb. Narrative: General: WDWN, NAD, accompanied by her , He is with cane s/p recent left knee replacement. pleasant and very cooperative. HEENT: Normocephalic atraumatic, extraocular muscle movement intact. Pupils are round equal and reactive to light and accommodations. Anicteric sclera. Neck: Supple, no palpable thyromegaly and no palpable lymph nodes. Respiratory: Clear to auscultation, no wheezes. Cardiovascular regular rate and rhythm, S1-S2 normal, no murmurs gallops or rubs. Abdomen: Soft nontender, bowel sounds normal, no palpable organomegaly. Lower extremities: No palpable pedal edema. Neurological exam: Patient is awake and alert and oriented x3, nonfocal on my examination Results - Labs . Labs from May 10, 2018. WBC 69.8, hemoglobin 12.2, hematocrit 37.7, platelets 219 - Imaging Additional studies: Procedures CLOSURE SKIN & SUBCUTANEOUS NEC (01/24/10) Closed [endoscopic] biopsy of large intestine (10/08/13) Endoscopic polypectomy of large intestine (10/08/13) Assessment and Plan (1) CLL (chronic lymphocytic leukemia) Current visit: Yes I reviewed the lab results with the patient. I explained to the patient at his that overall the total white cell count is slowly climbing up. The hemoglobin and hematocrit level have been stable but it is lower than before. The platelet counts have been stable. I talked with the patient since he is just 3 weeks after the left knee replacement and he is still in the process of recuperation, and clinically there is no clear evidence of B symptoms, and there is no palpable enlarged spleen or enlarged liver or enlarged lymph nodes, I would recommend that we continue current active surveillance but more frequent than before. I will bring him back in about 1 month and I will repeat the CBC and CMP with LDH. Patient will continue to take Pradaxa for the diagnosis of his atrial fibrillation.
[2018-05-11 15:18] VITALS: BP 129/79; PULSE 92; RESP 18; TEMP 36.7; O2SAT 98
[2018-06-08 08:09] VITALS: BP 133/71; PULSE 69; RESP 16; TEMP 36.9; O2SAT 100
--- NOTE | 2018-06-08 08:13 | P.PNONC_ITS ---
PN -Subjective Interval history: Chief Complaint: 82-year-old gentleman with Darby stage 0 CLL on active surveillance. Interim events Since his previous visit, patient reported that the left knee has improved every day. Patient had a surgery to the left knee on March 29, 2018. He said he does not have any night sweats or fever. He denies any enlarged lymph nodes. He denies nausea or vomiting. He denies any abdominal pain or fullness. Patient has had CLL book and he is reading. He is aware of the Darby stage. His weight has been slowly increasing. Oncological history Diagnosis: : CLL, diagnosed by peripheral flow cytometry. Abnormal CD5 positive monoclonal B-cell population identified. CD10 negative. Abnormal B-cell comprised 70% and the total white blood cell count. No blasts identified. 09/01/2017: CT neck chest abdomen and pelvis with contrast: subcentimeter adenopathy in the neck, axilla, and mediastinum. Nonspecific abnormality head of the pancreas measuring 85 mm identified. 09/08/2017: Bone marrow biopsy with aspirate: Hypercellular marrow for age (75% cellularity) with extensive involvement of CLL. Adequate background trilineage hematopoiesis. Megakaryocyte hyperplasia. No reticulin fibrosis. Decreased stainable iron. Flow cytometry from the aspirate confirming CD5 positive B- cell population with immunophenotype consistent with CLL. CLL FISH: del 13q. Darby stage 0 Comorbidities: Arrythmia, Prostate cancer, status post radiation Aug-October 2017. Dr. Conklin. In remission., Hypertension and Hypercholesterolemia. - Additional ROS All systems PM: reviewed and no additional remarkable complaints except as stated Home Medications and Allergies Home Medications Medication Instructions Recorded Confirmed Type amlodipine [Norvasc] 5 mg PO QDAY #90 tab 12/01/17 05/17/18 Rx varicella-zoster glycoE [id number] 0.5 ml IM ONCE #1 each 02/21/18 05/17/18 Rx adj(PF) 50 mcg/0.5 mL IM susp, kit acetaminophen [Tylenol Extra 1,000 mg PO QAM 03/20/18 05/17/18 History Strength] atorvastatin [Lipitor] 20 mg PO QAM 03/20/18 05/17/18 History irbesartan-hydrochlorothiazide 2 tab PO QAM 03/20/18 05/17/18 History acetaminophen 1,000 mg PO TID #0 tab 03/30/18 05/17/18 Rx oxycodone 5 mg PO Q3HR PRN #0 tab 03/30/18 05/17/18 Rx dabigatran etexilate 150 mg capsule 150 mg PO BID #180 cap 04/02/18 05/17/18 Rx oxycodone Q4-6H PRN 05/11/18 05/17/18 History Allergies Allergy/AdvReac Type Severity Reaction Status Date / Time No Known Drug Allergies Allergy Verified 06/08/18 08:11 Exam Vital signs: Temperature 98.4?, heart rate 69, respiratory rate 16, blood pressure 133/71, oxygenation 100% on room air, weight 77.2 kilos, ECOG 1. Narrative: Constitutional: Well developed, well nourished, not in any acute respiratory distress, average body habitus, well groomed, pleasant and cooperative. HEENT: Normocephalic atraumatic. Extraocular muscle movement intact. Pupils are round, equal and reactive to light and accommodations. Anicteric sclera. No hearing difficulty; Oral mucus membrane moist and without ulcers. Neck: Supple, symmetrical, and tracheal midline; No palpable thyromegaly and no palpable lymph nodes. Respiratory: No use of accessory muscles. Clear to auscultation, and no wheezes or rales or rubs. Cardiovascular: Regular rate and rhythm, S1 and S2 normal, no murmurs gallops or rubs. No JVD. No pitting edema of lower extremities. Abdomen: Soft, nontender, non-distended, bowel sounds normal, no palpable organomegaly, no hernia, no palpable masses. Lower extremities: No palpable pedal edema. Lymphatic: no palpable lymph nodes in the neck, axillae, or groins. Musculoskeletal: normal gait and station, no clubbing, no cyanosis, no pitting edema. Skin: no rashes, no ulcers, no petechiae Neurological: Awake and alert and oriented x3. CN II-XII grossly intact. No focal motor or sensory deficit. Psychiatric: Good judgment, good insight, normal affect, normal thought process , cooperative, no depression, no anxiety. Results - Labs Lab results from June 07, 2018: WBC 73.7, hemoglobin 12.2, hematocrit 38.8, platelets 197, PSA is 0.443, LDH 507, - Imaging Additional studies: Procedures CLOSURE SKIN & SUBCUTANEOUS NEC (01/24/10) Closed [endoscopic] biopsy of large intestine (10/08/13) Endoscopic polypectomy of large intestine (10/08/13) Assessment and Plan (1) CLL (chronic lymphocytic leukemia) Darby stage 0. No B symptoms, no lymphadenopathy or hepatosplenomegaly, no anemia and no thrombocytopenia. I talked with the patient that I will continue current active surveillance. I will bring the patient back in about a month and repeat CBC CMP, beta 2 microglobulin, and LDH. (2) Atrial fibrillation with controlled ventricular response Patient is being followed by his primary care provider. I encouraged the patient continue to take Pradaxa as instructed. - Time Spent with Patient Plan to have the patient come back in 1 month, repeat CBC, CMP, LDH, and beta 2 microglobulin.
[2018-07-09 10:20] LABS: Hematocrit 40.4 % (41-53); Hemoglobin 12.8 g/dL (13.5-17.5); Mean Corpuscular HGB Conc 31.6 % (30-36); Mean Corpuscular Hemoglobin 28.7 PG (26-34); Mean Corpuscular Volume 90.9 fL (80-100); Platelet Count 200 X10^3/uL (150-400); Red Blood Cell Count 4.44 X10^6/uL (4.5-5.9); Red Cell Distribution Width 15.2 % (11.6-14.8)
[2018-07-09 10:27] LABS: Add Manual Diff / Slide Review YES; White Blood Cell Count 81.1 X10^3/uL (4.5-11.0)
[2018-07-09 10:36] LABS: Alanine Aminotransferase 33 IU/L (21-72); Albumin 4.3 g/dL (3.5-5.0); Alkaline Phosphatase 71 U/L (38-126); Aspartate Aminotransferase 34 IU/L (17-59); BUN Creatinine Ratio 18.9 (6-22); Bilirubin Total 0.5 mg/dL (0.2-1.3); Blood Urea Nitrogen 17 mg/dL (9-20); Calcium 9.3 mg/dL (8.4-10.2); Carbon Dioxide 27 mmol/L (22-32); Chloride 104 mmol/L (98-107); Estimated Glomerular Filt Rate > 60.0 mL/min (>60); Globulin 2.2 g/dL (1.7-4.1); Glucose 120 mg/dL (80-110); HEMOLYSIS < 15 (0-50); Lactate Dehydrogenase 584 U/L (313-618); Potassium 4.4 mmol/L (3.4-5.1); Sodium 142 mmol/L (137-145); Total Protein 6.5 g/dL (6.3-8.2)
--- NOTE | 2018-07-09 10:50 | PC.NURSE ---
critical value WBC 81.1 called in by Alfredo in lab. Lab result placed in Dr Toure's box for review today. Pt sees on 07/13. Previous WBC was 73. Note attached to labs asking if anything needs to be done today.
[2018-07-09 11:14] LABS: Neutrophils Absolute Manual 6488 /uL (3000-5900); RBC Morphology Normal Morphology; Smudge Cells 2+; Total Cells Counted 100
[2018-07-11 15:41] LABS: Beta-2-Microglobulin 3.76 mg/L (< 2.52)
[2018-07-13 14:45] VITALS: BP 146/95; PULSE 100; RESP 20; TEMP 36.6; O2SAT 97
--- NOTE | 2018-07-13 14:45 | ONC.PN ---
PN -Subjective Interval history: 82-year-old gentleman with CLL on active surveillance. After the Mar 29, 2018 left knee surgery, the left keen swelling has been getting better. Dr. Janice Perry did the surgery. No shortness of breath. About 3 weeks ago, he had a cold, and now still with some dry cough. No black-out. No palpitation. No chest pain. He continues to complain of persistent but stable night sweats. No weight loss. No low loss of appetite. Oncology History : : CLL, diagnosed by peripheral flow cytometry. Abnormal CD5 positive monoclonal B-cell population identified. CD10 negative. Abnormal B-cell comprised 70% and the total white blood cell count. No blasts identified. 09/01/2017: CT neck chest abdomen and pelvis with contrast: subcentimeter adenopathy in the neck, axilla, and mediastinum. Nonspecific abnormality head of the pancreas measuring 85 mm identified. 09/08/2017: Bone marrow biopsy with aspirate: Hypercellular marrow for age (75% cellularity) with extensive involvement of CLL. Adequate background trilineage hematopoiesis. Megakaryocyte hyperplasia. No reticulin fibrosis. Decreased stainable iron. Flow cytometry from the aspirate confirming CD5 positive B-cell population with immunophenotype consistent with CLL. CLL FISH: del 13q. Comorbidities: Arrythmia, Prostate cancer, status post radiation Aug-October 2017. Dr. Conklin. In remission., Hypertension and Hypercholesterolemia. - Patient Self-Reported Symptoms SR Constitution: Weight loss/gain SR Genitourinary issues: Frequent urination - Additional ROS All systems PM: reviewed and no additional remarkable complaints except as stated Home Medications and Allergies Home Medications Medication Instructions Recorded Confirmed Type amlodipine [Norvasc] 5 mg PO QDAY #90 tab 12/01/17 07/13/18 Rx varicella-zoster glycoE [id number] 0.5 ml IM ONCE #1 each 02/21/18 07/13/18 Rx adj(PF) 50 mcg/0.5 mL IM susp, kit acetaminophen [Tylenol Extra 1,000 mg PO QAM 03/20/18 07/13/18 History Strength] atorvastatin [Lipitor] 25 mg PO QAM 03/20/18 07/13/18 History irbesartan-hydrochlorothiazide 2 tab PO QAM 07/24/18 11/16/18 History oxycodone 1 - 2 tab PO Q4-6H PRN 05/11/18 07/13/18 History dabigatran etexilate 150 mg capsule 150 mg PO BID #180 cap 07/02/18 07/13/18 Rx Allergies Allergy/AdvReac Type Severity Reaction Status Date / Time No Known Drug Allergies Allergy Verified 06/08/18 08:11 Exam Vital signs: Last Vital Signs Temp 97.9 F 07/13/18 14:45 Pulse 100 H 07/13/18 14:45 Resp 20 07/13/18 14:45 BP 146/95 H 07/13/18 14:45 Pulse Ox 97 07/13/18 14:45 ECOG 1 Narrative: Constitutional: Well developed, well nourished, not in any acute respiratory distress, average body habitus, well groomed, pleasant and cooperative. Accompanied by his to the clinic today. HEENT: Normocephalic atraumatic. Extraocular muscle movement intact. Pupils are round, equal and reactive to light and accommodations. Anicteric sclera. No hearing difficulty; Oral mucus membrane moist and without ulcers. Neck: Supple, symmetrical, and tracheal midline; No palpable thyromegaly and no palpable lymph nodes. Respiratory: No use of accessory muscles. Clear to auscultation, and no wheezes or rales or rubs. Cardiovascular: Regular rate and rhythm, S1 and S2 normal, no murmurs gallops or rubs. No JVD. No pitting edema of lower extremities. Abdomen: Soft, nontender, non-distended, bowel sounds normal, no palpable organomegaly, no hernia, no palpable masses. Lower extremities: No palpable pedal edema. Lymphatic: Tiny probably 0.5-1 cm lymph nodes palpable in the axilla bilaterally. No palpable lymph nodes in the neck. Musculoskeletal: normal gait and station, no clubbing, no cyanosis, no pitting edema. Skin: no rashes, no ulcers, no petechiae Neurological: Awake and alert and oriented x3. CN II-XII grossly intact. No focal motor or sensory deficit. Psychiatric: Good judgment, good insight, normal affect, normal thought process, cooperative, no depression, no anxiety. Results - Labs Laboratory Last Values WBC 81.1 X10^3/uL (4.5-11.0) H* 07/09/18 10:07 RBC 4.44 X10^6/uL (4.5-5.9) L 07/09/18 10:07 Hgb 12.8 g/dL (13.5-17.5) L 07/09/18 10:07 Hct 40.4 % (41-53) L 07/09/18 10:07 MCV 90.9 fL (80-100) 07/09/18 10:07 MCH 28.7 PG (26-34) 07/09/18 10:07 MCHC 31.6 % (30-36) 07/09/18 10:07 RDW 15.2 % (11.6-14.8) H 07/09/18 10:07 Plt Count 200 X10^3/uL (150-400) 07/09/18 10:07 Neut % (Auto) Not Reportable 07/09/18 10:07 Lymph % (Auto) Not Reportable 07/09/18 10:07 [place] % (Auto) Not Reportable 07/09/18 10:07 Eos % (Auto) Not Reportable 07/09/18 10:07 Baso % (Auto) Not Reportable 07/09/18 10:07 Total Counted 100 07/09/18 10:07 Seg Neutrophils % 8.0 % (38-70) L 07/09/18 10:07 Lymphocytes % (Manual) 52.0 % (25-45) H 07/09/18 10:07 Atypical Lymphs % 35.0 % (-0) H 07/09/18 10:07 Monocytes % (Manual) 4.0 % (2-11) 07/09/18 10:07 Eosinophils % (Manual) 1.0 % (2-4) L 07/09/18 10:07 Neutrophils # (Manual) 6488 /uL (1693-0725) H 07/09/18 10:07 Smudge Cells 2+ H 07/09/18 10:07 RBC Morphology Normal morphology 07/09/18 10:07 Sodium 142 mmol/L (137-145) 07/09/18 10:07 Potassium 4.4 mmol/L (3.4-5.1) 07/09/18 10:07 Chloride 104 mmol/L (98-107) 07/09/18 10:07 Carbon Dioxide 27 mmol/L (22-32) 07/09/18 10:07 BUN 17 mg/dL (9-20) 07/09/18 10:07 Creatinine 0.90 mg/dL (0.66-1.25) 07/09/18 10:07 Estimated GFR > 60.0 mL/min (>60) 07/09/18 10:07 BUN/Creatinine Ratio 18.9 (6-22) 07/09/18 10:07 Glucose 120 mg/dL (80-110) H 07/09/18 10:07 Calcium 9.3 mg/dL (8.4-10.2) 07/09/18 10:07 Total Bilirubin 0.5 mg/dL (0.2-1.3) 07/09/18 10:07 AST 34 IU/L (17-59) 07/09/18 10:07 ALT 33 IU/L (21-72) 07/09/18 10:07 Alkaline Phosphatase 71 U/L (38-126) 07/09/18 10:07 Lactate Dehydrogenase 584 U/L (313-618) 07/09/18 10:07 Total Protein 6.5 g/dL (6.3-8.2) 07/09/18 10:07 Albumin 4.3 g/dL (3.5-5.0) 07/09/18 10:07 Globulin 2.2 g/dL (1.7-4.1) 07/09/18 10:07 Albumin/Globulin Ratio 2.0 (1.0-2.8) 07/09/18 10:07 Bhjp-3-[id number] 3.76 mg/L (< 2.52) H 07/09/18 10:07 - Imaging Additional studies: Procedures CLOSURE SKIN & SUBCUTANEOUS NEC (01/24/10) Closed [endoscopic] biopsy of large intestine (10/08/13) Endoscopic polypectomy of large intestine (10/08/13) Assessment and Plan (1) CLL (chronic lymphocytic leukemia) Problem details: Diagnosed 08/17/2017 by peripheral flow cytometry. CT 09/01/2017 NCAP: subcentimeter adenopathy in the neck, axilla, and mediastinum. BMB/Bx (09/08/2017): hypercellular marrow for age (75% cellularity) with extensive involvement of CLL. Adequate background trilineage hematopoiesis. Megakaryocyte hyperplasia. No reticulin fibrosis. Decreased stainable iron. Flow cytometry from the BM aspirate confirming CD5 positive B-cell population with immunophenotype consistent with CLL. CLL FISH: del 13q. Assessment: Once again I reviewed the indications for initiating the treatment with CLL. I talked with the patient and his that the absolute white cell count is not an absolute indication for starting any treatment. More importantly, we are looking at whether the patient has severe B symptoms, anemia or thrombocytopenia, or bulky lymph nodes or splenomegaly etc. After discussing with the patient, he is adamant that he would like to continue the current surveillance, and will come back in about a month for evaluation. We will repeat CBC, CMP, LDH, B2M. Plan: RTC in one month, CBC, CMP, LDH, B2M. (2) Atrial fibrillation with controlled ventricular response Patient is being followed by his primary care provider. I encouraged the patient continue to take Pradaxa as instructed.
--- NOTE | 2018-07-13 14:52 | P.PNONC_ITS ---
PN -Subjective Interval history: 82-year-old gentleman with CLL on active surveillance. After the Mar 29, 2018 left knee surgery, the left keen swelling has been getting better. Dr. Janice Perry did the surgery. No shortness of breath. About 3 weeks ago, he had a cold , and now still with some dry cough. No black-out. No palpitation. No chest pain. He continues to complain of persistent but stable night sweats. No weight loss. No low loss of appetite. Oncology History : : CLL, diagnosed by peripheral flow cytometry. Abnormal CD5 positive monoclonal B-cell population identified. CD10 negative. Abnormal B-cell comprised 70% and the total white blood cell count. No blasts identified. 09/01/2017: CT neck chest abdomen and pelvis with contrast: subcentimeter adenopathy in the neck, axilla, and mediastinum. Nonspecific abnormality head of the pancreas measuring 85 mm identified. 09/08/2017: Bone marrow biopsy with aspirate: Hypercellular marrow for age (75% cellularity) with extensive involvement of CLL. Adequate background trilineage hematopoiesis. Megakaryocyte hyperplasia. No reticulin fibrosis. Decreased stainable iron. Flow cytometry from the aspirate confirming CD5 positive B- cell population with immunophenotype consistent with CLL. CLL FISH: del 13q. Comorbidities: Arrythmia, Prostate cancer, status post radiation Aug-October 2017. Dr. Conklin. In remission., Hypertension and Hypercholesterolemia. - Patient Self-Reported Symptoms SR Constitution: Weight loss/gain SR Genitourinary issues: Frequent urination - Additional ROS All systems PM: reviewed and no additional remarkable complaints except as stated Home Medications and Allergies Home Medications Medication Instructions Recorded Confirmed Type amlodipine [Norvasc] 5 mg PO QDAY #90 tab 12/01/17 07/13/18 Rx varicella-zoster glycoE [id number] 0.5 ml IM ONCE #1 each 02/21/18 07/13/18 Rx adj(PF) 50 mcg/0.5 mL IM susp, kit acetaminophen [Tylenol Extra 1,000 mg PO QAM 03/20/18 07/13/18 History Strength] atorvastatin [Lipitor] 25 mg PO QAM 03/20/18 07/13/18 History irbesartan-hydrochlorothiazide 2 tab PO QAM 07/24/18 11/16/18 History oxycodone 1 - 2 tab PO Q4-6H PRN 05/11/18 07/13/18 History dabigatran etexilate 150 mg capsule 150 mg PO BID #180 cap 07/02/18 07/13/18 Rx Allergies Allergy/AdvReac Type Severity Reaction Status Date / Time No Known Drug Allergies Allergy Verified 06/08/18 08:11 Exam Vital signs: Last Vital Signs Temp 97.9 F 07/13/18 14:45 Pulse 100 H 07/13/18 14:45 Resp 20 07/13/18 14:45 BP 146/95 H 07/13/18 14:45 Pulse Ox 97 07/13/18 14:45 ECOG 1 Narrative: Constitutional: Well developed, well nourished, not in any acute respiratory distress, average body habitus, well groomed, pleasant and cooperative. Accompanied by his to the clinic today. HEENT: Normocephalic atraumatic. Extraocular muscle movement intact. Pupils are round, equal and reactive to light and accommodations. Anicteric sclera. No hearing difficulty; Oral mucus membrane moist and without ulcers. Neck: Supple, symmetrical, and tracheal midline; No palpable thyromegaly and no palpable lymph nodes. Respiratory: No use of accessory muscles. Clear to auscultation, and no wheezes or rales or rubs. Cardiovascular: Regular rate and rhythm, S1 and S2 normal, no murmurs gallops or rubs. No JVD. No pitting edema of lower extremities. Abdomen: Soft, nontender, non-distended, bowel sounds normal, no palpable organomegaly, no hernia, no palpable masses. Lower extremities: No palpable pedal edema. Lymphatic: Tiny probably 0.5-1 cm lymph nodes palpable in the axilla bilaterally. No palpable lymph nodes in the neck. Musculoskeletal: normal gait and station, no clubbing, no cyanosis, no pitting edema. Skin: no rashes, no ulcers, no petechiae Neurological: Awake and alert and oriented x3. CN II-XII grossly intact. No focal motor or sensory deficit. Psychiatric: Good judgment, good insight, normal affect, normal thought process , cooperative, no depression, no anxiety. Results - Labs Laboratory Last Values WBC 81.1 X10^3/uL (4.5-11.0) H* 07/09/18 10:07 RBC 4.44 X10^6/uL (4.5-5.9) L 07/09/18 10:07 Hgb 12.8 g/dL (13.5-17.5) L 07/09/18 10:07 Hct 40.4 % (41-53) L 07/09/18 10:07 MCV 90.9 fL (80-100) 07/09/18 10:07 MCH 28.7 PG (26-34) 07/09/18 10:07 MCHC 31.6 % (30-36) 07/09/18 10:07 RDW 15.2 % (11.6-14.8) H 07/09/18 10:07 Plt Count 200 X10^3/uL (150-400) 07/09/18 10:07 Neut % (Auto) Not Reportable 07/09/18 10:07 Lymph % (Auto) Not Reportable 07/09/18 10:07 [place] % (Auto) Not Reportable 07/09/18 10:07 Eos % (Auto) Not Reportable 07/09/18 10:07 Baso % (Auto) Not Reportable 07/09/18 10:07 Total Counted 100 07/09/18 10:07 Seg Neutrophils % 8.0 % (38-70) L 07/09/18 10:07 Lymphocytes % (Manual) 52.0 % (25-45) H 07/09/18 10:07 Atypical Lymphs % 35.0 % (-0) H 07/09/18 10:07 Monocytes % (Manual) 4.0 % (2-11) 07/09/18 10:07 Eosinophils % (Manual) 1.0 % (2-4) L 07/09/18 10:07 Neutrophils # (Manual) 6488 /uL (1659-5156) H 07/09/18 10:07 Smudge Cells 2+ H 07/09/18 10:07 RBC Morphology Normal morphology 07/09/18 10:07 Sodium 142 mmol/L (137-145) 07/09/18 10:07 Potassium 4.4 mmol/L (3.4-5.1) 07/09/18 10:07 Chloride 104 mmol/L (98-107) 07/09/18 10:07 Carbon Dioxide 27 mmol/L (22-32) 07/09/18 10:07 BUN 17 mg/dL (9-20) 07/09/18 10:07 Creatinine 0.90 mg/dL (0.66-1.25) 07/09/18 10:07 Estimated GFR > 60.0 mL/min (>60) 07/09/18 10:07 BUN/Creatinine Ratio 18.9 (6-22) 07/09/18 10:07 Glucose 120 mg/dL (80-110) H 07/09/18 10:07 Calcium 9.3 mg/dL (8.4-10.2) 07/09/18 10:07 Total Bilirubin 0.5 mg/dL (0.2-1.3) 07/09/18 10:07 AST 34 IU/L (17-59) 07/09/18 10:07 ALT 33 IU/L (21-72) 07/09/18 10:07 Alkaline Phosphatase 71 U/L (38-126) 07/09/18 10:07 Lactate Dehydrogenase 584 U/L (313-618) 07/09/18 10:07 Total Protein 6.5 g/dL (6.3-8.2) 07/09/18 10:07 Albumin 4.3 g/dL (3.5-5.0) 07/09/18 10:07 Globulin 2.2 g/dL (1.7-4.1) 07/09/18 10:07 Albumin/Globulin Ratio 2.0 (1.0-2.8) 07/09/18 10:07 Xsvn-4-Rxdjccfcduujf 3.76 mg/L (< 2.52) H 07/09/18 10:07 - Imaging Additional studies: Procedures CLOSURE SKIN & SUBCUTANEOUS NEC (01/24/10) Closed [endoscopic] biopsy of large intestine (10/08/13) Endoscopic polypectomy of large intestine (10/08/13) Assessment and Plan (1) CLL (chronic lymphocytic leukemia) Problem details: Diagnosed 08/17/2017 by peripheral flow cytometry. CT 2017 NCAP: subcentimeter adenopathy in the neck, axilla, and mediastinum. BMB/ Bx (09/08/2017): hypercellular marrow for age (75% cellularity) with extensive involvement of CLL. Adequate background trilineage hematopoiesis. Megakaryocyte hyperplasia. No reticulin fibrosis. Decreased stainable iron. Flow cytometry from the BM aspirate confirming CD5 positive B-cell population with immunophenotype consistent with CLL. CLL FISH: del 13q. Assessment: Once again I reviewed the indications for initiating the treatment with CLL. I talked with the patient and his that the absolute white cell count is not an absolute indication for starting any treatment. More importantly , we are looking at whether the patient has severe B symptoms, anemia or thrombocytopenia, or bulky lymph nodes or splenomegaly etc. After discussing with the patient, he is adamant that he would like to continue the current surveillance, and will come back in about a month for evaluation. We will repeat CBC, CMP, LDH, B2M. Plan: RTC in one month, CBC, CMP, LDH, B2M. (2) Atrial fibrillation with controlled ventricular response Patient is being followed by his primary care provider. I encouraged the patient continue to take Pradaxa as instructed.
[2018-08-07 09:36] LABS: Hematocrit 38.1 % (41-53); Hemoglobin 12.3 g/dL (13.5-17.5); Mean Corpuscular HGB Conc 32.3 % (30-36); Mean Corpuscular Volume 89.9 fL (80-100); Platelet Count 170 X10^3/uL (150-400); Red Blood Cell Count 4.24 X10^6/uL (4.5-5.9); Red Cell Distribution Width 15.4 % (11.6-14.8)
[2018-08-07 09:38] LABS: Add Manual Diff / Slide Review YES
[2018-08-07 09:40] LABS: Alanine Aminotransferase 37 IU/L (21-72); Albumin Globulin Ratio 1.8 (1.0-2.8); Alkaline Phosphatase 67 U/L (38-126); Aspartate Aminotransferase 31 IU/L (17-59); BUN Creatinine Ratio 21.4 (6-22); Bilirubin Total 0.8 mg/dL (0.2-1.3); Blood Urea Nitrogen 15 mg/dL (9-20); Calcium 9.1 mg/dL (8.4-10.2); Carbon Dioxide 25 mmol/L (22-32); Chloride 105 mmol/L (98-107); Estimated Glomerular Filt Rate > 60.0 mL/min (>60); Globulin 2.2 g/dL (1.7-4.1); Glucose 72 mg/dL (80-110); HEMOLYSIS < 15 (0-50); Lactate Dehydrogenase 507 U/L (313-618); Potassium 4.3 mmol/L (3.4-5.1); Sodium 142 mmol/L (137-145); Total Protein 6.2 g/dL (6.3-8.2)
[2018-08-07 09:54] LABS: Neutrophils Absolute Manual 2070 /uL (3000-5900); RBC Morphology Normal Morphology; Smudge Cells 1+; Total Cells Counted 100
--- NOTE | 2018-08-07 13:17 | PC.NURSE ---
Critical value of WBC 69 reported by lab. This result was faxed over to Dr Toure at [facility]. Noted previous WBC count was higher a month ago at 81. Pt sees Dr Toure next week.
[2018-08-08 17:01] LABS: Beta-2-Microglobulin 3.63 mg/L (< 2.52)
--- NOTE | 2018-08-13 13:33 | ONC.PN ---
PN -Subjective Interval history: 82-year-old gentleman with CLL on active surveillance. He came in here today for scheduled follow-up visit. Clinically patient reports no new signs or symptoms. His left knee surgery has recuperated very nice. He is walking without any problems. He denies any fever or chills. Patient continues to have night sweats which has been stable. Patient denies any shortness of breath. Patient continues to have atrial fibrillation and is taking Pradaxa. He is going to see medical grade shoemaker next week. Oncology History : : CLL, diagnosed by peripheral flow cytometry. Abnormal CD5 positive monoclonal B-cell population identified. CD10 negative. Abnormal B-cell comprised 70% and the total white blood cell count. No blasts identified. 09/01/2017: CT neck chest abdomen and pelvis with contrast: subcentimeter adenopathy in the neck, axilla, and mediastinum. Nonspecific abnormality head of the pancreas measuring 85 mm identified. 09/08/2017: Bone marrow biopsy with aspirate: Hypercellular marrow for age (75% cellularity) with extensive involvement of CLL. Adequate background trilineage hematopoiesis. Megakaryocyte hyperplasia. No reticulin fibrosis. Decreased stainable iron. Flow cytometry from the aspirate confirming CD5 positive B-cell population with immunophenotype consistent with CLL. CLL FISH: del 13q. Comorbidities: Arrythmia, Prostate cancer, status post radiation Aug-October 2017. Dr. Conklin. In remission., Hypertension and Hypercholesterolemia. - Patient Self-Reported Symptoms SR Constitution: Weight loss/gain SR ears, nose, mouth, throat issues: Cough SR respiratory issues: Cough, Mucous SR Genitourinary issues: Frequent urination - Additional ROS All systems PM: reviewed and no additional remarkable complaints except as stated Home Medications and Allergies Home Medications Medication Instructions Recorded Confirmed Type amlodipine [Norvasc] 5 mg PO QDAY #90 tab 12/01/17 07/27/18 Rx atorvastatin [Lipitor] 25 mg PO QAM 03/20/18 07/27/18 History irbesartan-hydrochlorothiazide 2 tab PO QAM 03/20/18 07/27/18 History dabigatran etexilate 150 mg capsule 150 mg PO BID #180 cap 07/02/18 07/27/18 Rx fluticasone 50 mcg/actuation nasal 2 spray NASAL DAILY #9.9 gram 07/27/18 Rx spray,suspension Allergies Allergy/AdvReac Type Severity Reaction Status Date / Time No Known Drug Allergies Allergy Verified 07/27/18 10:25 Exam Vital signs: Last Vital Signs Temp 97.9 F 07/13/18 14:45 Pulse 100 H 07/13/18 14:45 Resp 20 07/13/18 14:45 BP 146/95 H 07/13/18 14:45 Pulse Ox 97 07/13/18 14:45 ECOG 1 Narrative: Constitutional: Well developed, well nourished, not in any acute respiratory distress, average body habitus, well groomed, pleasant and cooperative. Accompanied by his to the clinic today. HEENT: Normocephalic atraumatic. Extraocular muscle movement intact. Pupils are round, equal and reactive to light and accommodations. Anicteric sclera. No hearing difficulty; Oral mucus membrane moist and without ulcers. Neck: Supple, symmetrical, and tracheal midline; No palpable thyromegaly and no palpable lymph nodes. Respiratory: No use of accessory muscles. Clear to auscultation, and no wheezes or rales or rubs. Cardiovascular: Regular rate and rhythm, S1 and S2 normal, no murmurs gallops or rubs. No JVD. No pitting edema of lower extremities. Abdomen: Soft, nontender, non-distended, bowel sounds normal, no palpable organomegaly, no hernia, no palpable masses. Lower extremities: No palpable pedal edema. Lymphatic: Tiny probably 0.5-1 cm lymph nodes palpable in the axilla bilaterally. No palpable lymph nodes in the neck. Musculoskeletal: normal gait and station, no clubbing, no cyanosis, no pitting edema. Skin: no rashes, no ulcers, no petechiae Neurological: Awake and alert and oriented x3. CN II-XII grossly intact. No focal motor or sensory deficit. Psychiatric: Good judgment, good insight, normal affect, normal thought process, cooperative, no depression, no anxiety. Results - Labs Laboratory Last Values WBC 69.0 X10^3/uL (4.5-11.0) H* 08/07/18 09:10 RBC 4.24 X10^6/uL (4.5-5.9) L 08/07/18 09:10 Hgb 12.3 g/dL (13.5-17.5) L 08/07/18 09:10 Hct 38.1 % (41-53) L 08/07/18 09:10 MCV 89.9 fL (80-100) 08/07/18 09:10 MCH 29.0 PG (26-34) 08/07/18 09:10 MCHC 32.3 % (30-36) 08/07/18 09:10 RDW 15.4 % (11.6-14.8) H 08/07/18 09:10 Plt Count 170 X10^3/uL (150-400) 08/07/18 09:10 Neut % (Auto) Not Reportable 08/07/18 09:10 Lymph % (Auto) Not Reportable 08/07/18 09:10 [place] % (Auto) Not Reportable 08/07/18 09:10 Eos % (Auto) Not Reportable 08/07/18 09:10 Baso % (Auto) Not Reportable 08/07/18 09:10 Total Counted 100 08/07/18 09:10 Seg Neutrophils % 3.0 % (38-70) L 08/07/18 09:10 Lymphocytes % (Manual) 76.0 % (25-45) H 08/07/18 09:10 Atypical Lymphs % 9.0 % (-0) H 08/07/18 09:10 Monocytes % (Manual) 11.0 % (2-11) 08/07/18 09:10 Eosinophils % (Manual) 1.0 % (2-4) L 08/07/18 09:10 Neutrophils # (Manual) 2070 /uL (6303-7953) L 08/07/18 09:10 Smudge Cells 1+ H 08/07/18 09:10 RBC Morphology Normal morphology 08/07/18 09:10 Sodium 142 mmol/L (137-145) 08/07/18 09:10 Potassium 4.3 mmol/L (3.4-5.1) 08/07/18 09:10 Chloride 105 mmol/L (98-107) 08/07/18 09:10 Carbon Dioxide 25 mmol/L (22-32) 08/07/18 09:10 BUN 15 mg/dL (9-20) 08/07/18 09:10 Creatinine 0.70 mg/dL (0.66-1.25) 08/07/18 09:10 Estimated GFR > 60.0 mL/min (>60) 08/07/18 09:10 BUN/Creatinine Ratio 21.4 (6-22) 08/07/18 09:10 Glucose 72 mg/dL (80-110) L 08/07/18 09:10 Calcium 9.1 mg/dL (8.4-10.2) 08/07/18 09:10 Total Bilirubin 0.8 mg/dL (0.2-1.3) 08/07/18 09:10 AST 31 IU/L (17-59) 08/07/18 09:10 ALT 37 IU/L (21-72) 08/07/18 09:10 Alkaline Phosphatase 67 U/L (38-126) 08/07/18 09:10 Lactate Dehydrogenase 507 U/L (313-618) 08/07/18 09:10 Total Protein 6.2 g/dL (6.3-8.2) L 08/07/18 09:10 Albumin 4.0 g/dL (3.5-5.0) 08/07/18 09:10 Globulin 2.2 g/dL (1.7-4.1) 08/07/18 09:10 Albumin/Globulin Ratio 1.8 (1.0-2.8) 08/07/18 09:10 Cajg-3-Rhyqdzxdgtrfn 3.63 mg/L (< 2.52) H 08/07/18 09:10 - Imaging Additional studies: Procedures CLOSURE SKIN & SUBCUTANEOUS NEC (01/24/10) Closed [endoscopic] biopsy of large intestine (10/08/13) Endoscopic polypectomy of large intestine (10/08/13) Assessment and Plan (1) CLL (chronic lymphocytic leukemia) Problem details: Diagnosed 08/17/2017 by peripheral flow cytometry. CT 09/01/2017 NCAP: subcentimeter adenopathy in the neck, axilla, and mediastinum. BMB/Bx (09/08/2017): hypercellular marrow for age (75% cellularity) with extensive involvement of CLL. Adequate background trilineage hematopoiesis. Megakaryocyte hyperplasia. No reticulin fibrosis. Decreased stainable iron. Flow cytometry from the BM aspirate confirming CD5 positive B-cell population with immunophenotype consistent with CLL. CLL FISH: del 13q. Assessment: I reviewed today's lab results and also did physical examination. I do not think there is any evidence of progression of his underlying CLL. I will continue current active surveillance. Plan: RTC in TWO months, CBC, CMP, LDH, B2M. Instructed him to call for any concerns or questions. (2) Atrial fibrillation with controlled ventricular response Patient is being followed by his primary care provider. I encouraged the patient continue to take Pradaxa as instructed.
--- NOTE | 2018-08-13 13:43 | P.PNONC_ITS ---
PN -Subjective Interval history: 82-year-old gentleman with CLL on active surveillance. He came in here today for scheduled follow-up visit. Clinically patient reports no new signs or symptoms. His left knee surgery has recuperated very nice. He is walking without any problems. He denies any fever or chills. Patient continues to have night sweats which has been stable. Patient denies any shortness of breath. Patient continues to have atrial fibrillation and is taking Pradaxa. He is going to see wood heel cementer next week. Oncology History : : CLL, diagnosed by peripheral flow cytometry. Abnormal CD5 positive monoclonal B-cell population identified. CD10 negative. Abnormal B-cell comprised 70% and the total white blood cell count. No blasts identified. 09/01/2017: CT neck chest abdomen and pelvis with contrast: subcentimeter adenopathy in the neck, axilla, and mediastinum. Nonspecific abnormality head of the pancreas measuring 85 mm identified. 09/08/2017: Bone marrow biopsy with aspirate: Hypercellular marrow for age (75% cellularity) with extensive involvement of CLL. Adequate background trilineage hematopoiesis. Megakaryocyte hyperplasia. No reticulin fibrosis. Decreased stainable iron. Flow cytometry from the aspirate confirming CD5 positive B- cell population with immunophenotype consistent with CLL. CLL FISH: del 13q. Comorbidities: Arrythmia, Prostate cancer, status post radiation Aug-October 2017. Dr. Conklin. In remission., Hypertension and Hypercholesterolemia. - Patient Self-Reported Symptoms SR Constitution: Weight loss/gain SR ears, nose, mouth, throat issues: Cough SR respiratory issues: Cough, Mucous SR Genitourinary issues: Frequent urination - Additional ROS All systems PM: reviewed and no additional remarkable complaints except as stated Home Medications and Allergies Home Medications Medication Instructions Recorded Confirmed Type amlodipine [Norvasc] 5 mg PO QDAY #90 tab 12/01/17 07/27/18 Rx atorvastatin [Lipitor] 25 mg PO QAM 03/20/18 07/27/18 History irbesartan-hydrochlorothiazide 2 tab PO QAM 03/20/18 07/27/18 History dabigatran etexilate 150 mg capsule 150 mg PO BID #180 cap 07/02/18 07/27/18 Rx fluticasone 50 mcg/actuation nasal 2 spray NASAL DAILY #9.9 gram 07/27/18 Rx spray,suspension Allergies Allergy/AdvReac Type Severity Reaction Status Date / Time No Known Drug Allergies Allergy Verified 07/27/18 10:25 Exam Vital signs: Last Vital Signs Temp 97.9 F 07/13/18 14:45 Pulse 100 H 07/13/18 14:45 Resp 20 07/13/18 14:45 BP 146/95 H 07/13/18 14:45 Pulse Ox 97 07/13/18 14:45 ECOG 1 Narrative: Constitutional: Well developed, well nourished, not in any acute respiratory distress, average body habitus, well groomed, pleasant and cooperative. Accompanied by his to the clinic today. HEENT: Normocephalic atraumatic. Extraocular muscle movement intact. Pupils are round, equal and reactive to light and accommodations. Anicteric sclera. No hearing difficulty; Oral mucus membrane moist and without ulcers. Neck: Supple, symmetrical, and tracheal midline; No palpable thyromegaly and no palpable lymph nodes. Respiratory: No use of accessory muscles. Clear to auscultation, and no wheezes or rales or rubs. Cardiovascular: Regular rate and rhythm, S1 and S2 normal, no murmurs gallops or rubs. No JVD. No pitting edema of lower extremities. Abdomen: Soft, nontender, non-distended, bowel sounds normal, no palpable organomegaly, no hernia, no palpable masses. Lower extremities: No palpable pedal edema. Lymphatic: Tiny probably 0.5-1 cm lymph nodes palpable in the axilla bilaterally. No palpable lymph nodes in the neck. Musculoskeletal: normal gait and station, no clubbing, no cyanosis, no pitting edema. Skin: no rashes, no ulcers, no petechiae Neurological: Awake and alert and oriented x3. CN II-XII grossly intact. No focal motor or sensory deficit. Psychiatric: Good judgment, good insight, normal affect, normal thought process , cooperative, no depression, no anxiety. Results - Labs Laboratory Last Values WBC 69.0 X10^3/uL (4.5-11.0) H* 08/07/18 09:10 RBC 4.24 X10^6/uL (4.5-5.9) L 08/07/18 09:10 Hgb 12.3 g/dL (13.5-17.5) L 08/07/18 09:10 Hct 38.1 % (41-53) L 08/07/18 09:10 MCV 89.9 fL (80-100) 08/07/18 09:10 MCH 29.0 PG (26-34) 08/07/18 09:10 MCHC 32.3 % (30-36) 08/07/18 09:10 RDW 15.4 % (11.6-14.8) H 08/07/18 09:10 Plt Count 170 X10^3/uL (150-400) 08/07/18 09:10 Neut % (Auto) Not Reportable 08/07/18 09:10 Lymph % (Auto) Not Reportable 08/07/18 09:10 [place] % (Auto) Not Reportable 08/07/18 09:10 Eos % (Auto) Not Reportable 08/07/18 09:10 Baso % (Auto) Not Reportable 08/07/18 09:10 Total Counted 100 08/07/18 09:10 Seg Neutrophils % 3.0 % (38-70) L 08/07/18 09:10 Lymphocytes % (Manual) 76.0 % (25-45) H 08/07/18 09:10 Atypical Lymphs % 9.0 % (-0) H 08/07/18 09:10 Monocytes % (Manual) 11.0 % (2-11) 08/07/18 09:10 Eosinophils % (Manual) 1.0 % (2-4) L 08/07/18 09:10 Neutrophils # (Manual) 2070 /uL (2299-4180) L 08/07/18 09:10 Smudge Cells 1+ H 08/07/18 09:10 RBC Morphology Normal morphology 08/07/18 09:10 Sodium 142 mmol/L (137-145) 08/07/18 09:10 Potassium 4.3 mmol/L (3.4-5.1) 08/07/18 09:10 Chloride 105 mmol/L (98-107) 08/07/18 09:10 Carbon Dioxide 25 mmol/L (22-32) 08/07/18 09:10 BUN 15 mg/dL (9-20) 08/07/18 09:10 Creatinine 0.70 mg/dL (0.66-1.25) 08/07/18 09:10 Estimated GFR > 60.0 mL/min (>60) 08/07/18 09:10 BUN/Creatinine Ratio 21.4 (6-22) 08/07/18 09:10 Glucose 72 mg/dL (80-110) L 08/07/18 09:10 Calcium 9.1 mg/dL (8.4-10.2) 08/07/18 09:10 Total Bilirubin 0.8 mg/dL (0.2-1.3) 08/07/18 09:10 AST 31 IU/L (17-59) 08/07/18 09:10 ALT 37 IU/L (21-72) 08/07/18 09:10 Alkaline Phosphatase 67 U/L (38-126) 08/07/18 09:10 Lactate Dehydrogenase 507 U/L (313-618) 08/07/18 09:10 Total Protein 6.2 g/dL (6.3-8.2) L 08/07/18 09:10 Albumin 4.0 g/dL (3.5-5.0) 08/07/18 09:10 Globulin 2.2 g/dL (1.7-4.1) 08/07/18 09:10 Albumin/Globulin Ratio 1.8 (1.0-2.8) 08/07/18 09:10 Onyc-7-[place]ots[place]ppwslyk 3.63 mg/L (< 2.52) H 08/07/18 09:10 - Imaging Additional studies: Procedures CLOSURE SKIN & SUBCUTANEOUS NEC (01/24/10) Closed [endoscopic] biopsy of large intestine (10/08/13) Endoscopic polypectomy of large intestine (10/08/13) Assessment and Plan (1) CLL (chronic lymphocytic leukemia) Problem details: Diagnosed 08/17/2017 by peripheral flow cytometry. CT 09/01/2017 NCAP: subcentimeter adenopathy in the neck, axilla, and mediastinum. BMB/Bx (2017): hypercellular marrow for age (75% cellularity) with extensive involvement of CLL. Adequate background trilineage hematopoiesis. Megakaryocyte hyperplasia. No reticulin fibrosis. Decreased stainable iron. Flow cytometry from the BM aspirate confirming CD5 positive B-cell population with immunophenotype consistent with CLL. CLL FISH: del 13q. Assessment: I reviewed today's lab results and also did physical examination. I do not think there is any evidence of progression of his underlying CLL. I will continue current active surveillance. Plan: RTC in TWO months, CBC, CMP, LDH, B2M. Instructed him to call for any concerns or questions. (2) Atrial fibrillation with controlled ventricular response Patient is being followed by his primary care provider. I encouraged the patient continue to take Pradaxa as instructed.
--- NOTE | 2018-10-22 14:35 | P.PNONC_ITS ---
PN -Subjective Interval history: 83-year-old gentleman with CLL on active surveillance. He came in here today for scheduled follow-up visit. Clinically patient reports no new signs or symptoms. He denies any fever or chills. Patient continues to have some night sweats which has improved since last visit. Patient denies any shortness of jaret th. He denies any lumps or bumps. Patient continues to have atrial fibrillation and is taking Pradaxa. Oncology History : : CLL, diagnosed by peripheral flow cytometry. Abnormal CD5 positive monoclonal B-cell population identified. CD10 negative. Abnormal B-cell comprised 70% and the total white blood cell count. No blasts identified. 09/01/2017: CT neck chest abdomen and pelvis with contrast: subcentimeter adenopathy in the neck, axilla, and mediastinum. Nonspecific abnormality head of the pancreas measuring 85 mm identified. 09/08/2017: Bone marrow biopsy with aspirate: Hypercellular marrow for age (75% cellularity) with extensive involvement of CLL. Adequate background trilineage hematopoiesis. Megakaryocyte hyperplasia. No reticulin fibrosis. Decreased stainable iron. Flow cytometry from the aspirate confirming CD5 positive B-cell population with immunophenotype consistent with CLL. CLL FISH: del 13q. Comorbidities: Arrythmia, Prostate cancer, status post radiation Aug-October 2017. Dr. Conklin. In remission., Hypertension and Hypercholesterolemia. - Patient Self-Reported Symptoms SR Constitution: Weight loss/gain SR ears, nose, mouth, throat issues: Cough SR respiratory issues: Cough, Mucous SR Genitourinary issues: Frequent urination - Additional ROS All systems PM: reviewed and no additional remarkable complaints except as stated Home Medications and Allergies Home Medications Medication Instructions Recorded Confirmed Type amlodipine [Norvasc] 5 mg PO QDAY #90 tab 12/01/17 09/21/18 Rx irbesartan-hydrochlorothiazide 2 tab PO QAM 03/20/18 09/21/18 History dabigatran etexilate 150 mg capsule 150 mg PO BID #180 cap 07/02/18 09/21/18 Rx atorvastatin 20 mg tablet 20 mg PO QAM tab 09/21/18 09/21/18 History Allergies Allergy/AdvReac Type Severity Reaction Status Date / Time No Known Drug Allergies Allergy Verified 09/21/18 15:34 Exam Vital signs: Last Vital Signs Temp 97.8 F 02/25/19 14:37 Pulse 70 10/22/18 14:37 Resp 18 10/22/18 14:37 BP 130/72 10/22/18 14:37 Pulse Ox 97 10/22/18 14:37 ECOG 1 Narrative: Constitutional: Well developed, well nourished, NAD, well groomed, pleasant and cooperative. Accompanied by his to the clinic today. HEENT: Normocephalic atraumatic. Extraocular muscle movement intact. Pupils are round, equal and reactive to light and accommodations. Anicteric sclera. No hearing difficulty; Oral mucus membrane moist and without ulcers. Neck: Supple, symmetrical, and tracheal midline; No palpable thyromegaly and no palpable lymph nodes. Respiratory: No use of accessory muscles. Clear to auscultation, and no wheezes or rales or rubs. Cardiovascular: Regular rate and rhythm, S1 and S2 normal, no murmurs gallops or rubs. No JVD. No pitting edema of lower extremities. Abdomen: Soft, nontender, non-distended, bowel sounds normal, no palpable organomegaly, no hernia, no palpable masses. Lower extremities: No palpable pedal edema. Lymphatic: Tiny probably 0.5-1 cm lymph nodes palpable in the axilla bilaterall y. No palpable lymph nodes in the neck. Musculoskeletal: normal gait and station, no clubbing, no cyanosis, no pitting edema. Skin: no rashes, no ulcers, no petechiae Neurological: Awake and alert and oriented x3. CN II-XII grossly intact. No focal motor or sensory deficit. Psychiatric: Good judgment, good insight, normal affect, normal thought process, cooperative, no depression, no anxiety. Results - Labs 10/17/2018, WBC 87.0, RBC 4.29, hemoglobin 12.0, hematocrit 39.4, platelets 141, percent lymphocytes 76%. Sodium 138, potassium 4.7, chloride 103, BUN 18, creatinine 0.8, BUN 22.5, glucose 88, calcium 9.2, total bilirubin 0.8, AST 31, ALT 37, alk-phos 59, LDH 509, total protein 6.4, albumin 4.1, beta 2 microglobulin 3.41. - Imaging Additional studies: Procedures CLOSURE SKIN & SUBCUTANEOUS NEC (01/24/10) Closed [endoscopic] biopsy of large intestine (10/08/13) Endoscopic polypectomy of large intestine (10/08/13) Assessment and Plan (1) CLL (chronic lymphocytic leukemia) Problem details: Diagnosed 08/17/2017 by peripheral flow cytometry. CT 09/01/2017 NCAP: subcentimeter adenopathy in the neck, axilla, and mediastinum. BMB/Bx (09/08/2017): hypercellular marrow for age (75% cellularity) with extensive involvement of CLL. Adequate background trilineage hematopoiesis. Megakaryocyte hyperplasia. No reticulin fibrosis. Decreased stainable iron. Flow cytometry from the BM aspirate confirming CD5 positive B-cell population with immunophenotype consistent with CLL. CLL FISH: del 13q. Assessment: I reviewed today's lab results. Patient's white cell count slightly increased. Patient has a stable hemoglobin and stable platelets. On my physical examination, no splenomegaly palpable. I talked with the patient that clinically, I think that his symptoms signs or symptoms are stable. I would recommend continue active surveillance. Plan: 1. RTC in 2 months, CBC, CMP, LDH, B2M. 2. Instructed him to call for any concerns or questions. (2) Atrial fibrillation with controlled ventricular response Assessment and Plan: Patient is being followed by his primary care provider. I encouraged the patient continue to take Pradaxa as instructed.
[2018-10-22 14:37] VITALS: BP 130/72; PULSE 70; RESP 18; TEMP 36.6; O2SAT 97
[2018-12-17 08:07] LABS: Hematocrit 39.6 % (41-53); Hemoglobin 12.2 g/dL (13.5-17.5); Mean Corpuscular HGB Conc 30.7 % (30-36); Mean Corpuscular Hemoglobin 28.3 PG (26-34); Mean Corpuscular Volume 92.2 fL (80-100); Platelet Count 132 X10^3/uL (150-400); Red Cell Distribution Width 15.9 % (11.6-14.8)
[2018-12-17 08:09] LABS: Add Manual Diff / Slide Review YES
[2018-12-17 08:27] LABS: Alanine Aminotransferase 30 IU/L (21-72); Albumin Globulin Ratio 2.1 (1.0-2.8); Alkaline Phosphatase 68 U/L (38-126); Aspartate Aminotransferase 23 IU/L (17-59); BUN Creatinine Ratio 18.9 (6-22); Bilirubin Total 0.7 mg/dL (0.2-1.3); Blood Urea Nitrogen 17 mg/dL (9-20); Calcium 9.1 mg/dL (8.4-10.2); Carbon Dioxide 26 mmol/L (22-32); Chloride 105 mmol/L (98-107); Estimated Glomerular Filt Rate > 60.0 mL/min (>60); Globulin 1.9 g/dL (1.7-4.1); Glucose 96 mg/dL (80-110); HEMOLYSIS < 15 (0-50); Lactate Dehydrogenase 458 U/L (313-618); Potassium 3.5 mmol/L (3.4-5.1); Sodium 140 mmol/L (137-145); Total Protein 5.9 g/dL (6.3-8.2)
[2018-12-17 08:30] LABS: Neutrophils Absolute Manual 4212 /uL (3000-5900); Total Cells Counted 100
[2018-12-17 08:32] LABS: RBC Morphology Normal Morphology
[2018-12-17 08:33] LABS: Smudge Cells 2+
[2018-12-17 08:52] LABS: White Blood Cell Count 105.3 X10^3/uL (4.5-11.0)
--- NOTE | 2018-12-17 09:12 | PC.NURSE ---
Received critical lab result, WBC 105.3. Pt's previous WBC on 10/17/18 was 87.0. Pt has appt with Dr. Toure on 12/20. Will notify Dr. Toure of results.
--- NOTE | 2018-12-18 10:41 | PC.NURSE ---
dr. Toure aware of most WBC result, no new orders received.
[2018-12-20 13:03] VITALS: BP 131/89; PULSE 85; RESP 18; TEMP 36.8; O2SAT 97
--- NOTE | 2018-12-20 13:19 | P.PNONC_ITS ---
PN -Subjective Interval history: 83-year-old gentleman with CLL on active surveillance. He came in here today for scheduled follow-up visit. He is accompanied by his . Patient said that he does not have any new symptoms. More specifically, patient denies any fever or chills. He denies weight loss or night sweats. Denies nausea or vomi ting. Denies abdominal pain or fullness. Denies any bleeding events. Patient continues to have atrial fibrillation and is taking Pradaxa. Oncology History : : CLL, diagnosed by peripheral flow cytometry. Abnormal CD5 positive monoclonal B-cell population identified. CD10 negative. Abnormal B-cell comprised 70% and the total white blood cell count. No blasts identified. 09/01/2017: CT neck chest abdomen and pelvis with contrast: subcentimeter adenopathy in the neck, axilla, and mediastinum. Nonspecific abnormality head of the pancreas measuring 85 mm identified. 09/08/2017: Bone marrow biopsy with aspirate: Hypercellular marrow for age (75% cellularity) with extensive involvement of CLL. Adequate background trilineage hematopoiesis. Megakaryocyte hyperplasia. No reticulin fibrosis. Decreased stainable iron. Flow cytometry from the aspirate confirming CD5 positive B-cell population with immunophenotype consistent with CLL. CLL FISH: del 13q. Comorbidities: Arrythmia, Prostate cancer, status post radiation Aug-October 2017. Dr. Conklin. In remission., Hypertension and Hypercholesterolemia. - Patient Self-Reported Symptoms SR Constitution: Weight loss/gain SR ears, nose, mouth, throat issues: Cough SR respiratory issues: Cough, Mucous SR Genitourinary issues: Frequent urination - Additional ROS All systems PM: reviewed and no additional remarkable complaints except as state d Home Medications and Allergies Home Medications Medication Instructions Recorded Confirmed Type amlodipine [Norvasc] 5 mg PO QDAY #90 tab 12/01/17 12/20/18 Rx irbesartan-hydrochlorothiazide 2 tab PO QAM 03/20/18 12/20/18 History dabigatran etexilate 150 mg capsule 150 mg PO BID #180 cap 07/02/18 12/20/18 Rx atorvastatin 20 mg tablet 20 mg PO QAM tab 09/21/18 12/20/18 History Allergies Allergy/AdvReac Type Severity Reaction Status Date / Time No Known Drug Allergies Allergy Verified 09/21/18 15:34 Exam Vital signs: Vital Signs Temp Pulse Resp BP Pulse Ox 12/20/18 13:03 98.3 F 85 18 131/89 97 Intake and Output 12/19/18 12/20/18 12/20/18 23:59 07:59 15:59 Other: Weight 79.5 kg Patient Weight 12/20/18 23:59 Weight 79.5 kg ECOG 1 Narrative: Constitutional: Well developed, well nourished, NAD, well groomed, pleasant and cooperative. Accompanied by his to the clinic today. HEENT: Normocephalic atraumatic. Extraocular muscle movement intact. Pupils are round, equal and reactive to light and accommodations. Anicteric sclera. No hearing difficulty; Oral mucus membrane moist and without ulcers. Neck: Supple, symmetrical, and tracheal midline; No palpable thyromegaly and no palpable lymph nodes. Respiratory: No use of accessory muscles. Clear to auscultation, and no wheezes or rales or rubs. Cardiovascular: Regular rate and rhythm, S1 and S2 normal, no murmurs gallops or rubs. No JVD. No pitting edema of lower extremities. Abdomen: Soft, nontender, non-distended, bowel sounds normal, no palpable organomegaly, no hernia, no palpable masses. Lower extremities: No palpable pedal edema. Lymphatic: Tiny probably 0.5-1 cm lymph nodes palpable in the axilla bilaterally. No palpable lymph nodes in the neck. Musculoskeletal: normal gait and station, no clubbing, no cyanosis, no pitting edema. Skin: no rashes, no ulcers, no petechiae Neurological: Awake and alert and oriented x3. CN II-XII grossly intact. No focal motor or sensory deficit. Psychiatric: Good judgment, good insight, normal affect, normal thought process, cooperative, no depression, no anxiety. Results - Labs Laboratory Last Values WBC 105.3 X10^3/uL (4.5-11.0) H* 12/17/18 07:25 RBC 4.30 X10^6/uL (4.5-5.9) L 12/17/18 07:25 Hgb 12.2 g/dL (13.5-17.5) L 12/17/18 07:25 Hct 39.6 % (41-53) L 12/17/18 07:25 MCV 92.2 fL (80-100) 12/17/18 07:25 MCH 28.3 PG (26-34) 12/17/18 07:25 MCHC 30.7 % (30-36) 12/17/18 07:25 RDW 15.9 % (11.6-14.8) H 12/17/18 07:25 Plt Count 132 X10^3/uL (150-400) L 12/17/18 07:25 Neut % (Auto) Not Reportable 12/17/18 07:25 Lymph % (Auto) Not Reportable 12/17/18 07:25 [place] % (Auto) Not Reportable 12/17/18 07:25 Eos % (Auto) Not Reportable 12/17/18 07:25 Baso % (Auto) Not Reportable 12/17/18 07:25 Lymph # (Auto) Not Reportable 12/17/18 07:25 [place] # (Auto) Not Reportable 12/17/18 07:25 Baso # (Auto) Not Reportable 12/17/18 07:25 Total Counted 100 12/17/18 07:25 Seg Neutrophils % 4.0 % (38-70) L 12/17/18 07:25 Lymphocytes % (Manual) 56.0 % (25-45) H 12/17/18 07:25 Atypical Lymphs % 39.0 % (-0) H 12/17/18 07:25 Monocytes % (Manual) 1.0 % (2-11) L 12/17/18 07:25 Eosinophils % (Manual) 1.0 % (2-4) L 08/07/18 09:10 Neutrophils # (Manual) 4212 /uL (6895-3238) 12/17/18 07:25 Smudge Cells 2+ H 12/17/18 07:25 RBC Morphology Normal morphology 12/17/18 07:25 Sodium 140 mmol/L (137-145) 12/17/18 07:25 Potassium 3.5 mmol/L (3.4-5.1) 12/17/18 07:25 Chloride 105 mmol/L (98-107) 12/17/18 07:25 Carbon Dioxide 26 mmol/L (22-32) 12/17/18 07:25 BUN 17 mg/dL (9-20) 12/17/18 07:25 Creatinine 0.90 mg/dL (0.66-1.25) 12/17/18 07:25 Estimated GFR > 60.0 mL/min (>60) 12/17/18 07:25 BUN/Creatinine Ratio 18.9 (6-22) 12/17/18 07:25 Glucose 96 mg/dL (80-110) 12/17/18 07:25 Calcium 9.1 mg/dL (8.4-10.2) 12/17/18 07:25 Total Bilirubin 0.7 mg/dL (0.2-1.3) 12/17/18 07:25 AST 23 IU/L (17-59) 12/17/18 07:25 ALT 30 IU/L (21-72) 12/17/18 07:25 Alkaline Phosphatase 68 U/L (38-126) 12/17/18 07:25 Lactate Dehydrogenase 458 U/L (313-618) 12/17/18 07:25 Total Protein 5.9 g/dL (6.3-8.2) L 12/17/18 07:25 Albumin 4.0 g/dL (3.5-5.0) 12/17/18 07:25 Globulin 1.9 g/dL (1.7-4.1) 12/17/18 07:25 Albumin/Globulin Ratio 2.1 (1.0-2.8) 12/17/18 07:25 Tyqd-7-Tyfbgjeggxjuf 3.30 mg/L (< 2.52) H 12/17/18 07:25 - Imaging Additional studies: Procedures CLOSURE SKIN & SUBCUTANEOUS NEC (01/24/10) Closed [endoscopic] biopsy of large intestine (10/08/13) Endoscopic polypectomy of large intestine (10/08/13) Assessment and Plan (1) CLL (chronic lymphocytic leukemia) Problem details: Diagnosed 08/17/2017 by peripheral flow cytometry. CT 09/01/2017 NCAP: subcentimeter adenopathy in the neck, axilla, and mediastinum. BMB/Bx (09/08/2017): hypercellular marrow for age (75% cellularity) with extensive involvement of CLL. Adequate background trilineage hematopoiesis. Megakaryocyte hyperplasia. No reticulin fibrosis. Decreased stainable iron. Flow cytometry from the BM aspirate confirming CD5 positive B-cell population with immunophenotype consistent with CLL. CLL FISH: del 13q. Assessment: I reviewed today's lab results. Patient's white cell count increased signifcantly . Patient has a stable hemoglobin. But his platelets seem to be slowing drifting down. On my physical examination, no splenomegaly palpable. I talked with the patient that I will monitor him more frequently. I will bring the patient back in a month and repeat the laboratory tests. If the thrombocytopenia continues to get worse, I will recommend we start treatment with venetoclax Plan: 1. RTC in 1 month, CBC, CMP, LDH, B2M. 2. Instructed him to call for any concerns or questions. (2) Atrial fibrillation with controlled ventricular response Assessment and Plan: Patient is being followed by his primary care provider. I encouraged the patient continue to take Pradaxa as instructed.
[2019-01-09 12:24] LABS: Hematocrit 38.3 % (41-53); Hemoglobin 11.9 g/dL (13.5-17.5); Mean Corpuscular Hemoglobin 28.2 PG (26-34); Platelet Count 138 X10^3/uL (150-400)
[2019-01-09 12:27] LABS: Add Manual Diff / Slide Review YES; White Blood Cell Count 116.7 X10^3/uL (4.5-11.0)
[2019-01-09 12:32] LABS: Alanine Aminotransferase 33 IU/L (21-72); Albumin 4.3 g/dL (3.5-5.0); Alkaline Phosphatase 79 U/L (38-126); Aspartate Aminotransferase 37 IU/L (17-59); BUN Creatinine Ratio 21.3 (6-22); Bilirubin Total 0.9 mg/dL (0.2-1.3); Blood Urea Nitrogen 17 mg/dL (9-20); Calcium 9.3 mg/dL (8.4-10.2); Carbon Dioxide 24 mmol/L (22-32); Chloride 104 mmol/L (98-107); Estimated Glomerular Filt Rate > 60.0 mL/min (>60); Globulin 2.2 g/dL (1.7-4.1); Glucose 96 mg/dL (80-110); HEMOLYSIS < 15 (0-50); Lactate Dehydrogenase 630 U/L (313-618); Potassium 4.4 mmol/L (3.4-5.1); Sodium 138 mmol/L (137-145); Total Protein 6.5 g/dL (6.3-8.2)
[2019-01-09 12:47] LABS: Neutrophils Absolute Manual 2334 /uL (3000-5900); RBC Morphology Normal Morphology; Smudge Cells 2+; Total Cells Counted 100
[2019-01-11 12:15] LABS: Beta-2-Microglobulin 3.57 mg/L (< 2.52)
--- NOTE | 2019-01-14 09:25 | P.PNONC_ITS ---
PN -Subjective Interval history: 83-year-old gentleman with CLL on active surveillance. He came in here today for scheduled follow-up visit. Patient said that he does not have any new symptoms. He denies any fever or chills. He denies weight loss or night sweats. Denies nausea or vomiting. Denies abdominal pain or fullness. Denies any blee ding events. Patient continues to have atrial fibrillation and is taking Pradaxa. Oncology History : : CLL, diagnosed by peripheral flow cytometry. Abnormal CD5 positive monoclonal B-cell population identified. CD10 negative. Abnormal B-cell comprised 70% and the total white blood cell count. No blasts identified. 09/01/2017: CT neck chest abdomen and pelvis with contrast: subcentimeter adenopathy in the neck, axilla, and mediastinum. Nonspecific abnormality head of the pancreas measuring 85 mm identified. 09/08/2017: Bone marrow biopsy with aspirate: Hypercellular marrow for age (75% cellularity) with extensive involvement of CLL. Adequate background trilineage hematopoiesis. Megakaryocyte hyperplasia. No reticulin fibrosis. Decreased stainable iron. Flow cytometry from the aspirate confirming CD5 positive B-cell population with immunophenotype consistent with CLL. CLL FISH: del 13q. Comorbidities: Arrythmia, Prostate cancer, status post radiation Aug-October 2017. Dr. Conklin. In remission., Hypertension and Hypercholesterolemia. - Patient Self-Reported Symptoms SR Constitution: Weight loss/gain SR ears, nose, mouth, throat issues: Cough SR respiratory issues: Cough, Mucous SR Genitourinary issues: Frequent urination - Additional ROS All systems PM: reviewed and no additional remarkable complaints except as stated Home Medications and Allergies Home Medications Medication Instructions Recorded Confirmed Type amlodipine [Norvasc] 5 mg PO QDAY #90 tab 12/01/17 01/14/19 Rx dabigatran etexilate 150 mg capsule 150 mg PO BID #180 cap 12/28/18 01/14/19 Rx atorvastatin 20 mg tablet 20 mg PO QAM #90 tab 01/02/19 01/14/19 Rx irbesartan 150 2 tab PO QAM #180 tab 01/02/19 01/14/19 Rx mg-hydrochlorothiazide 12.5 mg tablet Allergies Allergy/AdvReac Type Severity Reaction Status Date / Time No Known Drug Allergies Allergy Verified 09/21/18 15:34 Exam Vital signs: Last Vital Signs Temp 98.1 F 01/14/19 14:57 Pulse 88 01/14/19 14:57 Resp 16 01/14/19 14:57 BP 144/83 H 01/14/19 14:57 Pulse Ox 96 01/14/19 14:57 ECOG 1 Narrative: Constitutional: Well developed, well nourished, NAD, well groomed, pleasant and cooperative. Accompanied by his to the clinic today. HEENT: Normocephalic atraumatic. Extraocular muscle movement intact. Pupils are round, equal and reactive to light and accommodations. Anicteric sclera. No hearing difficulty; Oral mucus membrane moist and without ulcers. Neck: Supple, symmetrical, and tracheal midline; No palpable thyromegaly and no palpable lymph nodes. Respiratory: No use of accessory muscles. Clear to auscultation, and no wheezes or rales or rubs. Cardiovascular: Regular rate and rhythm, S1 and S2 normal, no murmurs gallops or rubs. No JVD. No pitting edema of lower extremities. Abdomen: Soft, nontender, non-distended, bowel sounds normal, no palpable organomegaly, no hernia, no palpable masses. Lower extremities: No palpable pedal edema. Lymphatic: Tiny probably 0.5-1 cm lymph nodes palpable in the axilla bilaterally. No palpable lymph nodes in the neck. Musculoskeletal: normal gait and station, no clubbing, no cyanosis, no pitting edema. Skin: no rashes, no ulcers, no petechiae Neurological: Awake and alert and oriented x3. CN II-XII grossly intact. No focal motor or sensory deficit. Psychiatric: Good judgment, good insight, normal affect, normal thought process, cooperative, no depression, no anxiety. Results - Labs Laboratory Last Values WBC 116.7 X10^3/uL (4.5-11.0) H* 01/09/19 12:10 RBC 4.20 X10^6/uL (4.5-5.9) L 01/09/19 12:10 Hgb 11.9 g/dL (13.5-17.5) L 01/09/19 12:10 Hct 38.3 % (41-53) L 01/09/19 12:10 MCV 91.0 fL (80-100) 01/09/19 12:10 MCH 28.2 PG (26-34) 01/09/19 12:10 MCHC 31.0 % (30-36) 01/09/19 12:10 RDW 16.0 % (11.6-14.8) H 01/09/19 12:10 Plt Count 138 X10^3/uL (150-400) L 01/09/19 12:10 Neut % (Auto) Not Reportable 01/09/19 12:10 Lymph % (Auto) Not Reportable 01/09/19 12:10 [place] % (Auto) Not Reportable 01/09/19 12:10 Eos % (Auto) Not Reportable 01/09/19 12:10 Baso % (Auto) Not Reportable 01/09/19 12:10 Lymph # (Auto) Not Reportable 01/09/19 12:10 [place] # (Auto) Not Reportable 01/09/19 12:10 Baso # (Auto) Not Reportable 01/09/19 12:10 Total Counted 100 01/09/19 12:10 Seg Neutrophils % 2.0 % (38-70) L 01/09/19 12:10 Lymphocytes % (Manual) 87.0 % (25-45) H 01/09/19 12:10 Atypical Lymphs % 10.0 % (-0) H 01/09/19 12:10 Monocytes % (Manual) 1.0 % (2-11) L 01/09/19 12:10 Eosinophils % (Manual) 1.0 % (2-4) L 08/07/18 09:10 Neutrophils # (Manual) 2334 /uL (9285-0072) L 01/09/19 12:10 Smudge Cells 2+ H 01/09/19 12:10 RBC Morphology Normal morphology 01/09/19 12:10 Sodium 138 mmol/L (137-145) 01/09/19 12:10 Potassium 4.4 mmol/L (3.4-5.1) 01/09/19 12:10 Chloride 104 mmol/L (98-107) 01/09/19 12:10 Carbon Dioxide 24 mmol/L (22-32) 01/09/19 12:10 BUN 17 mg/dL (9-20) 01/09/19 12:10 Creatinine 0.80 mg/dL (0.66-1.25) 01/09/19 12:10 Estimated GFR > 60.0 mL/min (>60) 01/09/19 12:10 BUN/Creatinine Ratio 21.3 (6-22) 01/09/19 12:10 Glucose 96 mg/dL (80-110) 01/09/19 12:10 Uric Acid 6.0 mg/dL (3.5-8.5) 01/09/19 12:10 Calcium 9.3 mg/dL (8.4-10.2) 01/09/19 12:10 Total Bilirubin 0.9 mg/dL (0.2-1.3) 01/09/19 12:10 AST 37 IU/L (17-59) 01/09/19 12:10 ALT 33 IU/L (21-72) 01/09/19 12:10 Alkaline Phosphatase 79 U/L (38-126) 01/09/19 12:10 Lactate Dehydrogenase 630 U/L (313-618) H 01/09/19 12:10 Total Protein 6.5 g/dL (6.3-8.2) 01/09/19 12:10 Albumin 4.3 g/dL (3.5-5.0) 01/09/19 12:10 Globulin 2.2 g/dL (1.7-4.1) 01/09/19 12:10 Albumin/Globulin Ratio 2.0 (1.0-2.8) 01/09/19 12:10 Gmhc-5-Lpafszynjilri 3.57 mg/L (< 2.52) H 01/09/19 12:10 - Imaging Additional studies: Procedures CLOSURE SKIN & SUBCUTANEOUS NEC (01/24/10) Closed [endoscopic] biopsy of large intestine (10/08/13) Endoscopic polypectomy of large intestine (10/08/13) Assessment and Plan (1) CLL (chronic lymphocytic leukemia) Overview: Diagnosed 08/17/2017 by peripheral flow cytometry. CT 09/01/2017 NCAP: subcentimeter adenopathy in the neck, axilla, and mediastinum. BMB/Bx (09/08/2017): hypercellular marrow for age (75% cellularity) with extensive involvement of CLL. Adequate background trilineage hematopoiesis. Megakaryocyte hyperplasia. No reticulin fibrosis. Decreased stainable iron. Flow cytometry from the BM aspirate confirming CD5 positive B-cell population with immunophenotype consistent with CLL. CLL FISH: del 13q. Assessment: I reviewed the lab tests with the patient. Patient's LDH level is increased at the hemoglobin level slightly decreased compared to last visit. I am going to bring him back in about a month and repeat the tests. We will decide about if we need to start treatment for example with venetoclax Plan: 1. RTC in 1 month, CBC, CMP, LDH, B2M. 2. Instructed him to call for any concerns or questions. (2) Atrial fibrillation with controlled ventricular response Assessment and Plan: Patient is being followed by his primary care provider. I encouraged the patient continue to take Pradaxa as instructed.
[2019-01-14 14:57] VITALS: BP 144/83; PULSE 88; RESP 16; TEMP 36.7; O2SAT 96
[2019-02-12 09:58] LABS: Hemoglobin 11.1 g/dL (13.5-17.5); Mean Corpuscular Hemoglobin 28.7 PG (26-34); Mean Corpuscular Volume 92.7 fL (80-100); Platelet Count 132 X10^3/uL (150-400); Red Blood Cell Count 3.88 X10^6/uL (4.5-5.9); Red Cell Distribution Width 16.5 % (11.6-14.8)
[2019-02-12 09:59] LABS: Add Manual Diff / Slide Review YES; White Blood Cell Count 107.6 X10^3/uL (4.5-11.0)
--- NOTE | 2019-02-12 10:06 | PC.NURSE ---
Recieved critical lab value call from lab WBC 107.6. Triage aware.
[2019-02-12 10:17] LABS: Neutrophils Absolute Manual 2152 /uL (3000-5900); Platelet Morphology Comment U2; RBC Morphology Normal Morphology; Total Cells Counted 100
[2019-02-12 10:33] LABS: Alanine Aminotransferase 33 IU/L (21-72); Alkaline Phosphatase 69 U/L (38-126); Aspartate Aminotransferase 34 IU/L (17-59); BUN Creatinine Ratio 21.3 (6-22); Bilirubin Total 0.7 mg/dL (0.2-1.3); Blood Urea Nitrogen 17 mg/dL (9-20); Calcium 9.5 mg/dL (8.4-10.2); Carbon Dioxide 27 mmol/L (22-32); Chloride 106 mmol/L (98-107); Estimated Glomerular Filt Rate > 60.0 mL/min (>60); Glucose 99 mg/dL (80-110); HEMOLYSIS < 15 (0-50); Lactate Dehydrogenase 510 U/L (313-618); Potassium 4.6 mmol/L (3.4-5.1); Sodium 140 mmol/L (137-145)
[2019-02-18 11:46] VITALS: BP 131/71; PULSE 91; RESP 16; TEMP 36.8; O2SAT 99
--- NOTE | 2019-02-18 11:50 | P.PNONC_ITS ---
PN -Subjective Interval history: 83-year-old gentleman with CLL on active surveillance. Patient continues to have atrial fibrillation and is taking Pradaxa. Patient reported that since his previous visit, patient has felt that he is more tired than before. Usually in the afternoon he has to stay in house. He denies any fever or chills. Denies any new lumps and bumps. Oncology History : : CLL, diagnosed by peripheral flow cytometry. Abnormal CD5 positive monoclonal B-cell population identified. CD10 negative. Abnormal B-cell comprised 70% and the total white blood cell count. No blasts identified. 09/01/2017: CT neck chest abdomen and pelvis with contrast: subcentimeter adenopathy in the neck, axilla, and mediastinum. Nonspecific abnormality head of the pancreas measuring 85 mm identified. 09/08/2017: Bone marrow biopsy with aspirate: Hypercellular marrow for age (75% cellularity) with extensive involvement of CLL. Adequate background trilineage hematopoiesis. Megakaryocyte hyperplasia. No reticulin fibrosis. Decreased stainable iron. Flow cytometry from the aspirate confirming CD5 positive B-cell population with immunophenotype consistent with CLL. CLL FISH: del 13q. Comorbidities: Arrythmia, Prostate cancer, status post radiation Aug-October 2017. Dr. Conklin. In remission., Hypertension and Hypercholesterolemia. - Patient Self-Reported Symptoms SR Constitution: Weight loss/gain SR ears, nose, mouth, throat issues: Cough SR respiratory issues: Cough, Mucous SR Genitourinary issues: Frequent urination - Additional ROS All systems PM: reviewed and no additional remarkable complaints except as stated Home Medications and Allergies Home Medications Medication Instructions Recorded Confirmed Type dabigatran etexilate 150 mg capsule 150 mg PO BID #180 cap 12/28/18 02/18/19 Rx atorvastatin 20 mg tablet 20 mg PO QAM #90 tab 01/02/19 02/18/19 Rx irbesartan 150 2 tab PO QAM #180 tab 01/02/19 02/18/19 Rx mg-hydrochlorothiazide 12.5 mg tablet amlodipine [Norvasc] 5 mg PO QDAY #90 tab 01/22/19 02/18/19 Rx Allergies Allergy/AdvReac Type Severity Reaction Status Date / Time No Known Drug Allergies Allergy Verified 09/21/18 15:34 Exam Vital signs: Last Vital Signs Temp 98.2 F 02/18/19 11:46 Pulse 91 H 02/18/19 11:46 Resp 16 02/18/19 11:46 BP 131/71 02/18/19 11:46 Pulse Ox 99 02/18/19 11:46 ECOG 1 Narrative: Constitutional: Well developed, well nourished, NAD, well groomed, pleasant and cooperative. Accompanied by his to the clinic today. HEENT: Normocephalic atraumatic. Extraocular muscle movement intact. Pupils are round, equal and reactive to light and accommodations. Anicteric sclera. No hearing difficulty; Oral mucus membrane moist and without ulcers. Neck: Supple, symmetrical, and tracheal midline; No palpable thyromegaly and no palpable lymph nodes. Respiratory: No use of accessory muscles. Clear to auscultation, and no wheezes or rales or rubs. Cardiovascular: Regular rate and rhythm, S1 and S2 normal, no murmurs gallops or rubs. No JVD. No pitting edema of lower extremities. Abdomen: Soft, nontender, non-distended, bowel sounds normal, no palpable organomegaly, no hernia, no palpable masses. Lower extremities: No palpable pedal edema. Lymphatic: Tiny probably 0.5-1 cm lymph nodes palpable in the axilla bilaterally. No palpable lymph nodes in the neck. Musculoskeletal: normal gait and station, no clubbing, no cyanosis, no pitting edema. Skin: no rashes, no ulcers, no petechiae Neurological: Awake and alert and oriented x3. CN II-XII grossly intact. No focal motor or sensory deficit. Psychiatric: Good judgment, good insight, normal affect, normal thought process, cooperative, no depression, no anxiety. Results - Labs Laboratory Last Values WBC 107.6 X10^3/uL (4.5-11.0) H* 02/12/19 09:41 RBC 3.88 X10^6/uL (4.5-5.9) L 02/12/19 09:41 Hgb 11.1 g/dL (13.5-17.5) L 02/12/19 09:41 Hct 36.0 % (41-53) L 02/12/19 09:41 MCV 92.7 fL (80-100) 02/12/19 09:41 MCH 28.7 PG (26-34) 02/12/19 09:41 MCHC 31.0 % (30-36) 02/12/19 09:41 RDW 16.5 % (11.6-14.8) H 02/12/19 09:41 Plt Count 132 X10^3/uL (150-400) L 02/12/19 09:41 Neut % (Auto) Not Reportable 02/12/19 09:41 Lymph % (Auto) Not Reportable 02/12/19 09:41 [place] % (Auto) Not Reportable 02/12/19 09:41 Eos % (Auto) Not Reportable 02/12/19 09:41 Baso % (Auto) Not Reportable 02/12/19 09:41 Lymph # (Auto) Not Reportable 02/12/19 09:41 [place] # (Auto) Not Reportable 02/12/19 09:41 Baso # (Auto) Not Reportable 02/12/19 09:41 Total Counted 100 02/12/19 09:41 Seg Neutrophils % 2.0 % (38-70) L 02/12/19 09:41 Lymphocytes % (Manual) 81.0 % (25-45) H 02/12/19 09:41 Atypical Lymphs % 11.0 % (-0) H 02/12/19 09:41 Monocytes % (Manual) 4.0 % (2-11) 02/12/19 09:41 Eosinophils % (Manual) 2.0 % (2-4) 02/12/19 09:41 Neutrophils # (Manual) 2152 /uL (1879-2890) L 02/12/19 09:41 Smudge Cells 2+ H 01/09/19 12:10 Plt Morphology Comment U2 02/12/19 09:41 RBC Morphology Normal morphology 02/12/19 09:41 Sodium 140 mmol/L (137-145) 02/12/19 09:41 Potassium 4.6 mmol/L (3.4-5.1) 02/12/19 09:41 Chloride 106 mmol/L (98-107) 02/12/19 09:41 Carbon Dioxide 27 mmol/L (22-32) 02/12/19 09:41 BUN 17 mg/dL (9-20) 02/12/19 09:41 Creatinine 0.80 mg/dL (0.66-1.25) 02/12/19 09:41 Estimated GFR > 60.0 mL/min (>60) 02/12/19 09:41 BUN/Creatinine Ratio 21.3 (6-22) 02/12/19 09:41 Glucose 99 mg/dL (80-110) 02/12/19 09:41 Uric Acid 6.0 mg/dL (3.5-8.5) 01/09/19 12:10 Calcium 9.5 mg/dL (8.4-10.2) 02/12/19 09:41 Total Bilirubin 0.7 mg/dL (0.2-1.3) 02/12/19 09:41 AST 34 IU/L (17-59) 02/12/19 09:41 ALT 33 IU/L (21-72) 02/12/19 09:41 Alkaline Phosphatase 69 U/L (38-126) 02/12/19 09:41 Lactate Dehydrogenase 510 U/L (313-618) 02/12/19 09:41 Total Protein 6.0 g/dL (6.3-8.2) L 02/12/19 09:41 Albumin 4.0 g/dL (3.5-5.0) 02/12/19 09:41 Globulin 2.0 g/dL (1.7-4.1) 02/12/19 09:41 Albumin/Globulin Ratio 2.0 (1.0-2.8) 02/12/19 09:41 Dclq-9-Zossyprivbpfk 3.57 mg/L (< 2.52) H 01/09/19 12:10 - Imaging Additional studies: Procedures CLOSURE SKIN & SUBCUTANEOUS NEC (01/24/10) Closed [endoscopic] biopsy of large intestine (10/08/13) Endoscopic polypectomy of large intestine (10/08/13) Assessment and Plan (1) CLL (chronic lymphocytic leukemia) Overview: Diagnosed 08/17/2017 by peripheral flow cytometry. CT 09/01/2017 NCAP: subcentimeter adenopathy in the neck, axilla, and mediastinum. BMB/Bx ( 09/08/2017): hypercellular marrow for age (75% cellularity) with extensive involvement of CLL. Adequate background trilineage hematopoiesis. Megakaryocyte hyperplasia. No reticulin fibrosis. Decreased stainable iron. Flow cytometry from the BM aspirate confirming CD5 positive B-cell population with immunophenotype consistent with CLL. CLL FISH: del 13q. Assessment: Today I reviewed the lab tests with the patient. Patient has is slowly declining hemoglobin as well as platelet counts. Clinically he is complaining more fatigue. I talked with him and his that I would recommend a more complete restaging studies and will discuss proceeding with therapy with venetoclax with or without obinutuzumab. Plan: 1. PET CT 2. PB for FISH CLL, IgVH mutation analysis, and p53 mutation analysis 3. RTC in 2 weeks for follow up visit. 4. Instructed him to call for any concerns or questions. (2) Atrial fibrillation with controlled ventricular response Assessment and Plan: Patient is being followed by his primary care provider. I encouraged the patient continue to take Pradaxa as instructed.
[2019-03-18 11:48] VITALS: BP 120/67; PULSE 80; RESP 20; TEMP 36.4; O2SAT 98
--- NOTE | 2019-03-18 12:30 | P.PNONC_ITS ---
PN -Subjective Interval history: 83-year-old gentleman with CLL on active surveillance. Patient continues to have atrial fibrillation and is taking Pradaxa. He reports more tired, and run down easily. no fever, no chills. He denies any fever or chills. Denies any new lumps and bumps. Oncology History : : CLL, diagnosed by peripheral flow cytometry. Abnormal CD5 positive monoclonal B-cell population identified. CD10 negative. Abnormal B-cell comprised 70% and the total white blood cell count. No blasts identified. 09/01/2017: CT neck chest abdomen and pelvis with contrast: subcentimeter adenopathy in the neck, axilla, and mediastinum. Nonspecific abnormality head of the pancreas measuring 85 mm identified. 09/08/2017: Bone marrow biopsy with aspirate: Hypercellular marrow for age (75% cellularity) with extensive involvement of CLL. Adequate background trilineage hematopoiesis. Megakaryocyte hyperplasia. No reticulin fibrosis. Decreased stainable iron. Flow cytometry from the aspirate confirming CD5 positive B-cell population with immunophenotype consistent with CLL. CLL FISH: del 13q. Comorbidities: Arrythmia, Prostate cancer, status post radiation Aug-October 2017. Dr. Conklin. In remission., Hypertension and Hypercholesterolemia. - Patient Self-Reported Symptoms SR Constitution: Weight loss/gain SR ears, nose, mouth, throat issues: Cough SR respiratory issues: Cough, Mucous SR Genitourinary issues: Frequent urination SR Hematologic issues: Bleeding/bruising - Additional ROS All systems PM: reviewed and no additional remarkable complaints except as stated Home Medications and Allergies Home Medications Medication Instructions Recorded Confirmed Type atorvastatin 20 mg tablet 20 mg PO QAM #90 tab 01/02/19 03/18/19 Rx irbesartan 150 2 tab PO QAM #180 tab 01/02/19 03/18/19 Rx mg-hydrochlorothiazide 12.5 mg tablet RX: amlodipine [Norvasc] 5 mg PO QDAY #90 tab 01/22/19 03/18/19 Rx apixaban 5 mg tablet 5 mg PO BID #60 tab 03/22/19 Rx Allergies Allergy/AdvReac Type Severity Reaction Status Date / Time No Known Drug Allergies Allergy Verified 09/21/18 15:34 Exam Vital signs: Vital Signs Temp Pulse Resp BP Pulse Ox 03/18/19 11:48 97.6 F 80 20 120/67 98 Intake and Output 03/17/19 03/18/19 03/18/19 23:59 07:59 15:59 Other: Weight 79.7 kg Patient Weight 03/18/19 23:59 Weight 79.7 kg - Constitutional positive no acute distress, positive cooperative - Routine HEENT Exam Head: Present: normocephalic, atraumatic Eye: Present: EOMI, PERRL, normal accommodation. Absent: conjunctival icterus - Routine Neck Exam Present: supple - Routine Respiratory Exam Present: Clear to auscultation bilaterally. Absent: wheezes - Routine Cardiovascular Exam Present: RRR, S1, S2. Absent: murmur, gallop, rubs - Routine Abdominal Exam Present: soft, normoactive bowel sounds. Absent: tenderness, distended, organomegaly - Routine Extremities Exam Absent: edema - Routine Neurological Exam Present: alert, oriented X3, CN II-XII intact. Absent: sensory deficit, motor deficit - Routine Psychiatric Exam Present: normal affect Results - Labs Laboratory Last Values WBC 107.6 X10^3/uL (4.5-11.0) H* 02/12/19 09:41 RBC 3.88 X10^6/uL (4.5-5.9) L 02/12/19 09:41 Hgb 11.1 g/dL (13.5-17.5) L 02/12/19 09:41 Hct 36.0 % (41-53) L 02/12/19 09:41 MCV 92.7 fL (80-100) 02/12/19 09:41 MCH 28.7 PG (26-34) 02/12/19 09:41 MCHC 31.0 % (30-36) 02/12/19 09:41 RDW 16.5 % (11.6-14.8) H 02/12/19 09:41 Plt Count 132 X10^3/uL (150-400) L 02/12/19 09:41 Neut % (Auto) Not Reportable 02/12/19 09:41 Lymph % (Auto) Not Reportable 02/12/19 09:41 [place] % (Auto) Not Reportable 02/12/19 09:41 Eos % (Auto) Not Reportable 02/12/19 09:41 Baso % (Auto) Not Reportable 02/12/19 09:41 Lymph # (Auto) Not Reportable 02/12/19 09:41 [place] # (Auto) Not Reportable 02/12/19 09:41 Baso # (Auto) Not Reportable 02/12/19 09:41 Total Counted 100 02/12/19 09:41 Seg Neutrophils % 2.0 % (38-70) L 02/12/19 09:41 Lymphocytes % (Manual) 81.0 % (25-45) H 02/12/19 09:41 Atypical Lymphs % 11.0 % (-0) H 02/12/19 09:41 Monocytes % (Manual) 4.0 % (2-11) 02/12/19 09:41 Eosinophils % (Manual) 2.0 % (2-4) 02/12/19 09:41 Neutrophils # (Manual) 2152 /uL (6451-2758) L 02/12/19 09:41 Smudge Cells 2+ H 01/09/19 12:10 Plt Morphology Comment U2 02/12/19 09:41 RBC Morphology Normal morphology 02/12/19 09:41 Sodium 140 mmol/L (137-145) 02/12/19 09:41 Potassium 4.6 mmol/L (3.4-5.1) 02/12/19 09:41 Chloride 106 mmol/L (98-107) 02/12/19 09:41 Carbon Dioxide 27 mmol/L (22-32) 02/12/19 09:41 BUN 17 mg/dL (9-20) 02/12/19 09:41 Creatinine 0.80 mg/dL (0.66-1.25) 02/12/19 09:41 Estimated GFR > 60.0 mL/min (>60) 02/12/19 09:41 BUN/Creatinine Ratio 21.3 (6-22) 02/12/19 09:41 Glucose 99 mg/dL (80-110) 02/12/19 09:41 Uric Acid 6.0 mg/dL (3.5-8.5) 01/09/19 12:10 Calcium 9.5 mg/dL (8.4-10.2) 02/12/19 09:41 Total Bilirubin 0.7 mg/dL (0.2-1.3) 02/12/19 09:41 AST 34 IU/L (17-59) 02/12/19 09:41 ALT 33 IU/L (21-72) 02/12/19 09:41 Alkaline Phosphatase 69 U/L (38-126) 02/12/19 09:41 Lactate Dehydrogenase 510 U/L (313-618) 02/12/19 09:41 Total Protein 6.0 g/dL (6.3-8.2) L 02/12/19 09:41 Albumin 4.0 g/dL (3.5-5.0) 02/12/19 09:41 Globulin 2.0 g/dL (1.7-4.1) 02/12/19 09:41 Albumin/Globulin Ratio 2.0 (1.0-2.8) 02/12/19 09:41 Yxez-1-Vbsjgtqkkhgbm 3.57 mg/L (< 2.52) H 01/09/19 12:10 - Imaging Additional studies: Procedures CLOSURE SKIN & SUBCUTANEOUS NEC (01/24/10) Closed [endoscopic] biopsy of large intestine (10/08/13) Endoscopic polypectomy of large intestine (10/08/13) Assessment and Plan (1) CLL (chronic lymphocytic leukemia) Overview: Diagnosed 08/17/2017 by peripheral flow cytometry. CT 09/01/2017 NCAP: subcentimeter adenopathy in the neck, axilla, and mediastinum. BMB/Bx (09/08/2017): hypercellular marrow for age (75% cellularity) with extensive involvement of CLL. Adequate background trilineage hematopoiesis. Megakaryocyte hyperplasia. No reticulin fibrosis. Decreased stainable iron. Flow cytometry from the BM aspirate confirming CD5 positive B-cell population with immunophenotype consistent with CLL. CLL FISH: del 13q. Assessment: I reviewed the PET scan results with the patient. It showed that the spleen is enlarged. But it did not show any bulky lymphadenopathy. Clinically patient has some symptoms including grade 1 fatigue. 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 Overall patient has aN intermediate risk category. Patient said that the have a plan to travel for the next couple of months. Today I focused our discussion on the newly approved regimen venetoclax adn obinutuzumab. I talked with them that this is a highly effective treatment with a defined duration compared to the other regimen people usually use, for example, ibrutinib. In his situation, because of the occurrence of atrial fibrillation and he is on chronic anticoagulation, ibrutinib is not the ideal option. Patient voiced understanding., I also give a copy of the FDA approval note. Patient said they are going to think about it and talk with their kids. When he comes back for the follow-up visit, he will talk about if they will proceed with treatment. Plan: 1. RTC on 06/03/2019, CBC, CMP 2. Instructed him to call for any concerns or questions. (2) Atrial fibrillation with controlled ventricular response Assessment and Plan: Patient is being followed by his primary care provider. I encouraged the patient continue to take Pradaxa as instructed.
--- NOTE | 2019-03-19 10:50 | ONC.SCHED ---
Left msg for patient to reschedule his apt
--- NOTE | 2019-03-25 10:07 | ONC.SCHED ---
Patient left to make a schedule change and I returned the call.
[2019-05-23 09:15] LABS: Hematocrit 34.5 % (41-53); Mean Corpuscular HGB Conc 31.9 % (30-36); Mean Corpuscular Hemoglobin 29.9 PG (26-34); Mean Corpuscular Volume 93.6 fL (80-100); Platelet Count 139 X10^3/uL (150-400); Red Blood Cell Count 3.69 X10^6/uL (4.5-5.9); Red Cell Distribution Width 17.6 % (11.6-14.8)
[2019-05-23 09:17] LABS: Alanine Aminotransferase 25 IU/L (21-72); Albumin 4.2 g/dL (3.5-5.0); Albumin Globulin Ratio 1.9 (1.0-2.8); Alkaline Phosphatase 74 U/L (38-126); Aspartate Aminotransferase 44 IU/L (17-59); BUN Creatinine Ratio 23.8 (6-22); Bilirubin Total 0.9 mg/dL (0.2-1.3); Blood Urea Nitrogen 19 mg/dL (9-20); Calcium 9.4 mg/dL (8.4-10.2); Carbon Dioxide 27 mmol/L (22-32); Chloride 104 mmol/L (98-107); Estimated Glomerular Filt Rate > 60.0 mL/min (>60); Globulin 2.2 g/dL (1.7-4.1); Glucose 90 mg/dL (80-110); HEMOLYSIS < 15 (0-50); Potassium 4.1 mmol/L (3.4-5.1); Sodium 141 mmol/L (137-145); Total Protein 6.4 g/dL (6.3-8.2); Uric Acid 6.9 mg/dL (3.5-8.5)
[2019-05-23 09:18] LABS: Cholesterol 145 mg/dL (140-199); HDL Cholesterol 40 mg/dL (40-60); LDL Cholesterol Calculated 92 mg/dL (<100); Triglycerides 65 mg/dL (35-150)
[2019-05-23 09:19] LABS: Add Manual Diff / Slide Review YES; White Blood Cell Count 169.2 X10^3/uL (4.5-11.0)
[2019-05-23 09:59] LABS: Neutrophils Absolute Manual 5076 /uL (3000-5900); Total Cells Counted 100
[2019-05-23 10:01] LABS: Smudge Cells 2+
--- NOTE | 2019-05-23 11:01 | PC.NURSE ---
Dr. roman aware of pt's WBC 169.2, no new orders received.
[2019-05-30 15:43] VITALS: BP 135/81; PULSE 74; RESP 18; TEMP 36.9; O2SAT 98
--- NOTE | 2019-05-30 16:04 | ONC.PN ---
PN -Subjective Interval history: ID/CC: 83-year-old gentleman with CLL on active surveillance. Interim Events: He is reporting mild night sweats. Weight stable. No fever. No new lumps. No abdominal pain, and no bleeding. Oncology History : : CLL, diagnosed by peripheral flow cytometry. Abnormal CD5 positive monoclonal B-cell population identified. CD10 negative. Abnormal B-cell comprised 70% and the total white blood cell count. No blasts identified. 09/01/2017: CT neck chest abdomen and pelvis with contrast: subcentimeter adenopathy in the neck, axilla, and mediastinum. Nonspecific abnormality head of the pancreas measuring 85 mm identified. 09/08/2017: Bone marrow biopsy with aspirate: Hypercellular marrow for age (75% cellularity) with extensive involvement of CLL. Adequate background trilineage hematopoiesis. Megakaryocyte hyperplasia. No reticulin fibrosis. Decreased stainable iron. Flow cytometry from the aspirate confirming CD5 positive B-cell population with immunophenotype consistent with CLL. CLL FISH: del 13q. Comorbidities: Arrythmia, Prostate cancer, status post radiation Aug-October 2017. Dr. Conklin. In remission., Hypertension and Hypercholesterolemia. - Patient Self-Reported Symptoms SR Constitution: Night Sweats SR ears, nose, mouth, throat issues: Cough SR respiratory issues: Cough, Mucous SR Genitourinary issues: Frequent urination SR Hematologic issues: Bleeding/bruising - Additional ROS All systems PM: reviewed and no additional remarkable complaints except as stated Home Medications and Allergies Home Medications Medication Instructions Recorded Confirmed Type atorvastatin 20 mg tablet 20 mg PO QAM #90 tab 01/02/19 05/30/19 Rx irbesartan 150 2 tab PO QAM #180 tab 01/02/19 05/30/19 Rx mg-hydrochlorothiazide 12.5 mg tablet amlodipine [Norvasc] 5 mg PO QDAY #90 tab 01/22/19 05/30/19 Rx apixaban 5 mg tablet 5 mg PO BID #60 tab 03/22/19 05/30/19 Rx Allergies Allergy/AdvReac Type Severity Reaction Status Date / Time No Known Drug Allergies Allergy Verified 09/21/18 15:34 Exam Vital signs: Vital Signs Temp Pulse Resp BP Pulse Ox 05/30/19 15:43 98.4 F 74 18 135/81 98 Intake and Output 10/11/1305/30/19 05/30/19 07:59 15:59 23:59 Other: Weight 79.4 kg Patient Weight 05/30/19 23:59 Weight 79.4 kg - Constitutional positive no acute distress, positive obese, positive cooperative - Routine HEENT Exam Head: Present: normocephalic, atraumatic Eye: Present: EOMI, PERRL, normal accommodation. Absent: conjunctival icterus - Routine Neck Exam Present: supple, full ROM - Routine Chest/Breast/Axilla Exam Axillae: Absent: lymphadenopathy - Routine Respiratory Exam Present: Clear to auscultation bilaterally. Absent: wheezes - Routine Cardiovascular Exam Present: RRR, S1, S2. Absent: murmur, gallop, rubs - Routine Abdominal Exam Present: soft, normoactive bowel sounds. Absent: tenderness, distended, organomegaly - Routine Extremities Exam Absent: edema - Routine Neurological Exam Present: alert, oriented X3, CN II-XII intact. Absent: sensory deficit, motor deficit, normal reflexes - Routine Psychiatric Exam Present: normal affect, normal thought process Results - Labs Laboratory Last Values WBC 169.2 X10^3/uL (4.5-11.0) H* 05/23/19 07:42 RBC 3.69 X10^6/uL (4.5-5.9) L 05/23/19 07:42 Hgb 11.0 g/dL (13.5-17.5) L 05/23/19 07:42 Hct 34.5 % (41-53) L 05/23/19 07:42 MCV 93.6 fL (80-100) 05/23/19 07:42 MCH 29.9 PG (26-34) 05/23/19 07:42 MCHC 31.9 % (30-36) 05/23/19 07:42 RDW 17.6 % (11.6-14.8) H 05/23/19 07:42 Plt Count 139 X10^3/uL (150-400) L 05/23/19 07:42 Neut % (Auto) Not Reportable 05/23/19 07:42 Lymph % (Auto) Not Reportable 05/23/19 07:42 [place] % (Auto) Not Reportable 05/23/19 07:42 Eos % (Auto) Not Reportable 05/23/19 07:42 Baso % (Auto) Not Reportable 05/23/19 07:42 Lymph # (Auto) Not Reportable 05/23/19 07:42 [place] # (Auto) Not Reportable 05/23/19 07:42 Baso # (Auto) Not Reportable 05/23/19 07:42 Total Counted 100 05/23/19 07:42 Seg Neutrophils % 3.0 % (38-70) L 05/23/19 07:42 Lymphocytes % (Manual) 63.0 % (25-45) H 05/23/19 07:42 Atypical Lymphs % 28.0 % (-0) H 05/23/19 07:42 Monocytes % (Manual) 1.0 % (2-11) L 05/23/19 07:42 Eosinophils % (Manual) 2.0 % (2-4) 02/12/19 09:41 Blast Cells % 5.0 % (-0) H 05/23/19 07:42 Neutrophils # (Manual) 5076 /uL (7490-9985) 05/23/19 07:42 Smudge Cells 2+ H 05/23/19 07:42 Plt Morphology Comment U2 02/12/19 09:41 RBC Morphology See below 05/23/19 07:42 Sodium 141 mmol/L (137-145) 05/23/19 07:42 Potassium 4.1 mmol/L (3.4-5.1) 05/23/19 07:42 Chloride 104 mmol/L (98-107) 05/23/19 07:42 Carbon Dioxide 27 mmol/L (22-32) 05/23/19 07:42 BUN 19 mg/dL (9-20) 05/23/19 07:42 Creatinine 0.80 mg/dL (0.66-1.25) 05/23/19 07:42 Estimated GFR > 60.0 mL/min (>60) 05/23/19 07:42 BUN/Creatinine Ratio 23.8 (6-22) H 05/23/19 07:42 Glucose 90 mg/dL (80-110) 05/23/19 07:42 Uric Acid 6.9 mg/dL (3.5-8.5) 05/23/19 07:42 Calcium 9.4 mg/dL (8.4-10.2) 05/23/19 07:42 Total Bilirubin 0.9 mg/dL (0.2-1.3) 05/23/19 07:42 AST 44 IU/L (17-59) 05/23/19 07:42 ALT 25 IU/L (21-72) 05/23/19 07:42 Alkaline Phosphatase 74 U/L (38-126) 05/23/19 07:42 Lactate Dehydrogenase 510 U/L (313-618) 02/12/19 09:41 Total Protein 6.4 g/dL (6.3-8.2) 05/23/19 07:42 Albumin 4.2 g/dL (3.5-5.0) 05/23/19 07:42 Globulin 2.2 g/dL (1.7-4.1) 05/23/19 07:42 Albumin/Globulin Ratio 1.9 (1.0-2.8) 05/23/19 07:42 Boyf-0-Caucjvkcxxuxo 3.57 mg/L (< 2.52) H 01/09/19 12:10 Triglycerides 65 mg/dL (35-150) 05/23/19 07:42 Cholesterol 145 mg/dL (140-199) 05/23/19 07:42 LDL Cholesterol, Calc 92 mg/dL (<100) 05/23/19 07:42 HDL Cholesterol 40 mg/dL (40-60) 05/23/19 07:42 - Imaging Additional studies: Procedures CLOSURE SKIN & SUBCUTANEOUS NEC (01/24/10) Closed [endoscopic] biopsy of large intestine (10/08/13) Endoscopic polypectomy of large intestine (10/08/13) Assessment and Plan (1) CLL (chronic lymphocytic leukemia) Overview: Diagnosed 08/17/2017 by peripheral flow cytometry. CT 09/01/2017 NCAP: subcentimeter adenopathy in the neck, axilla, and mediastinum. BMB/Bx (09/08/2017): hypercellular marrow for age (75% cellularity) with extensive involvement of CLL. Adequate background trilineage hematopoiesis. Megakaryocyte hyperplasia. No reticulin fibrosis. Decreased stainable iron. Flow cytometry from the BM aspirate confirming CD5 positive B-cell population with immunophenotype consistent with CLL. CLL FISH: del 13q. Assessment: Today I talked with the patient about the treatment again. Patient's total white cell count continues to climb. However I emphasized that the absolute number of the to the white cell count is not it determining factor in deciding about the treatment. However patient does have gradually worsening anemia, gradually worsening thrombocytopenia even though mild and mild splenomegaly. Clinically patient has some night sweats. In my opinion it is reasonable to start therapy now. Patient has already set up a vacation until July 01. After discussion, we agreed to initiate therapy around 07/15/2019. Plan: 1. Pre-auth: Venetoclax/Obinutuzumab to be started 07/15/2019 2. RTC on 07/15/2019, CBC, CMP, uric acid (2) Atrial fibrillation with controlled ventricular response Assessment and Plan: Patient is being followed by his primary care provider. I encouraged the patient continue to take Pradaxa as instructed.
--- NOTE | 2019-06-04 13:58 | PC.NURSE ---
2nd OPINION: Patient called wanting to know if ok to put a hold on plan to start his venclexta/obinituzumab on 07/15. He is trying to get a referral from his primary for a second opinion. This nurse told him to just leave that date until he knows when he has an appt for the second opinion and that she will give this info on to Dr. Toure and will inform patient at [phone] of any response.
--- NOTE | 2019-06-11 10:23 | PC.NURSE ---
Jocelyn's was informed per this nurse that once they meet with Dr. Toure and have decided to go ahead with treatment here that they will fill out a consent form with him and a chemotherapy teaching will be scheduled in the week before treatment.
[2019-07-02 10:43] LABS: Hematocrit 34.8 % (41-53); Hemoglobin 11.1 g/dL (13.5-17.5); Mean Corpuscular Hemoglobin 30.2 PG (26-34); Mean Corpuscular Volume 94.6 fL (80-100); Platelet Count 126 X10^3/uL (150-400); Red Blood Cell Count 3.68 X10^6/uL (4.5-5.9); Red Cell Distribution Width 16.1 % (11.6-14.8)
[2019-07-02 10:45] LABS: Add Manual Diff / Slide Review YES; White Blood Cell Count 165.5 X10^3/uL (4.5-11.0)
[2019-07-02 10:59] LABS: HEMOLYSIS < 15 (0-50)
[2019-07-02 11:04] LABS: Alanine Aminotransferase 20 IU/L (<50); Albumin 4.1 g/dL (3.5-5.0); Alkaline Phosphatase 80 U/L (38-126); Aspartate Aminotransferase 31 IU/L (17-59); BUN Creatinine Ratio 27.5 (6-22); Blood Urea Nitrogen 22 mg/dL (9-20); Calcium 9.6 mg/dL (8.4-10.2); Carbon Dioxide 28 mmol/L (22-32); Chloride 105 mmol/L (98-107); Estimated Glomerular Filt Rate > 60.0 mL/min (>60); Globulin 2.1 g/dL (1.7-4.1); Glucose 89 mg/dL (80-110); Potassium 3.4 mmol/L (3.4-5.1); Sodium 139 mmol/L (137-145); Total Protein 6.2 g/dL (6.3-8.2); Uric Acid 7.6 mg/dL (3.5-8.5)
[2019-07-02 11:35] LABS: Neutrophils Absolute Manual 9930 /uL (3000-5900); Total Cells Counted 100
[2019-07-02 11:36] LABS: Smudge Cells 2+
[2019-07-02 11:48] LABS: Prostate Specific Antigen 0.193 ng/mL (0.10-4.00)
[2019-07-02 15:29] LABS: Cholesterol 164 mg/dL (140-199); HDL Cholesterol 36 mg/dL (40-60); LDL Cholesterol Calculated 111 mg/dL (<100); Triglycerides 86 mg/dL (35-150)
[2019-07-08 13:52] VITALS: BP 133/82; PULSE 85; RESP 16; TEMP 36.7; O2SAT 97
--- NOTE | 2019-07-08 13:55 | P.PNONC_ITS ---
PN -Subjective Interval history: ID/CC: 83-year-old gentleman with CLL on active surveillance. Interim Events: He is reporting the same amount of night sweats. Weight stable. No fever. No new lumps. No abdominal pain, and no bleeding. A little bit more tired. Oncology History : : CLL, diagnosed by peripheral flow cytometry. Abnormal CD5 positive monoclonal B-cell population identified. CD10 negative. Abnormal B-cell comprised 70% and the total white blood cell count. No blasts identified. 09/01/2017: CT neck chest abdomen and pelvis with contrast: subcentimeter adenopathy in the neck, axilla, and mediastinum. Nonspecific abnormality head of the pancreas measuring 85 mm identified. 09/08/2017: Bone marrow biopsy with aspirate: Hypercellular marrow for age (75% cellularity) with extensive involvement of CLL. Adequate background trilineage hematopoiesis. Megakaryocyte hyperplasia. No reticulin fibrosis. Decreased stainable iron. Flow cytometry from the aspirate confirming CD5 positive B-cell population with immunophenotype consistent with CLL. CLL FISH: del 13q. Comorbidities: Arrythmia, Prostate cancer, status post radiation Aug-October 2017. Dr. Conklin. In remission., Hypertension and Hypercholesterolemia. - Patient Self-Reported Symptoms SR Constitution: Night Sweats SR ears, nose, mouth, throat issues: Cough SR respiratory issues: Cough, Mucous SR Genitourinary issues: Frequent urination SR Hematologic issues: Bleeding/bruising - Additional ROS All systems PM: reviewed and no additional remarkable complaints except as stated Home Medications and Allergies Home Medications Medication Instructions Recorded Confirmed Type atorvastatin 20 mg tablet 20 mg PO QAM #90 tab 01/02/19 05/30/19 Rx irbesartan 150 2 tab PO QAM #180 tab 01/02/19 05/30/19 Rx mg-hydrochlorothiazide 12.5 mg tablet amlodipine [Norvasc] 5 mg PO QDAY #90 tab 01/22/19 05/30/19 Rx apixaban 5 mg tablet 5 mg PO BID #60 tab 03/22/19 05/30/19 Rx Allergies Allergy/AdvReac Type Severity Reaction Status Date / Time No Known Drug Allergies Allergy Verified 09/21/18 15:34 Exam Vital signs: Vital Signs Temp Pulse Resp BP Pulse Ox 07/08/19 13:52 98.1 F 85 16 133/82 97 Intake and Output 07/07/19 07/08/19 07/08/19 23:59 07:59 15:59 Other: Weight 80 kg Patient Weight 07/08/19 23:59 Weight 80 kg Narrative: Patient appears comfortable not in any acute respiratory distress. He is pleasant and cooperative. I did not perform a full physical examination. Results - Labs Laboratory Last Values WBC 165.5 X10^3/uL (4.5-11.0) H* 07/02/19 08:48 RBC 3.68 X10^6/uL (4.5-5.9) L 07/02/19 08:48 Hgb 11.1 g/dL (13.5-17.5) L 07/02/19 08:48 Hct 34.8 % (41-53) L 07/02/19 08:48 MCV 94.6 fL (80-100) 07/02/19 08:48 MCH 30.2 PG (26-34) 07/02/19 08:48 MCHC 32.0 % (30-36) 07/02/19 08:48 RDW 16.1 % (11.6-14.8) H 07/02/19 08:48 Plt Count 126 X10^3/uL (150-400) L 07/02/19 08:48 Neut % (Auto) Not Reportable 07/02/19 08:48 Lymph % (Auto) Not Reportable 07/02/19 08:48 M[place]at % (Auto) Not Reportable 07/02/19 08:48 Eos % (Auto) Not Reportable 07/02/19 08:48 Baso % (Auto) Not Reportable 07/02/19 08:48 Lymph # (Auto) Not Reportable 07/02/19 08:48 [place] # (Auto) Not Reportable 07/02/19 08:48 Baso # (Auto) Not Reportable 07/02/19 08:48 Total Counted 100 07/02/19 08:48 Seg Neutrophils % 6.0 % (38-70) L 07/02/19 08:48 Lymphocytes % (Manual) 71.0 % (25-45) H 07/02/19 08:48 Atypical Lymphs % 18.0 % (-0) H 07/02/19 08:48 Monocytes % (Manual) 5.0 % (2-11) 07/02/19 08:48 Eosinophils % (Manual) 2.0 % (2-4) 02/12/19 09:41 Blast Cells % 5.0 % (-0) H 05/23/19 07:42 Neutrophils # (Manual) 9930 /uL (4111-8364) H 07/02/19 08:48 Smudge Cells 2+ H 07/02/19 08:48 Plt Morphology Comment U2 02/12/19 09:41 RBC Morphology See below 07/02/19 08:48 Sodium 139 mmol/L (137-145) 07/02/19 08:48 Potassium 3.4 mmol/L (3.4-5.1) 07/02/19 08:48 Chloride 105 mmol/L (98-107) 07/02/19 08:48 Carbon Dioxide 28 mmol/L (22-32) 07/02/19 08:48 BUN 22 mg/dL (9-20) H 07/02/19 08:48 Creatinine 0.80 mg/dL (0.66-1.25) 07/02/19 08:48 Estimated GFR > 60.0 mL/min (>60) 07/02/19 08:48 BUN/Creatinine Ratio 27.5 (6-22) H 07/02/19 08:48 Glucose 89 mg/dL (80-110) 07/02/19 08:48 Uric Acid 7.6 mg/dL (3.5-8.5) 07/02/19 08:48 Calcium 9.6 mg/dL (8.4-10.2) 07/02/19 08:48 Total Bilirubin 1.0 mg/dL (0.2-1.3) 07/02/19 08:48 AST 31 IU/L (17-59) 07/02/19 08:48 ALT 20 IU/L (<50) 07/02/19 08:48 Alkaline Phosphatase 80 U/L (38-126) 07/02/19 08:48 Lactate Dehydrogenase 510 U/L (313-618) 02/12/19 09:41 Total Protein 6.2 g/dL (6.3-8.2) L 07/02/19 08:48 Albumin 4.1 g/dL (3.5-5.0) 07/02/19 08:48 Globulin 2.1 g/dL (1.7-4.1) 07/02/19 08:48 Albumin/Globulin Ratio 2.0 (1.0-2.8) 07/02/19 08:48 Csat-7-[id number] 3.57 mg/L (< 2.52) H 01/09/19 12:10 Triglycerides 86 mg/dL (35-150) 07/02/19 08:50 Cholesterol 164 mg/dL (140-199) 07/02/19 08:50 LDL Cholesterol, Calc 111 mg/dL (<100) H 07/02/19 08:50 HDL Cholesterol 36 mg/dL (40-60) L 07/02/19 08:50 Prostate Specific Ag 0.193 ng/mL (0.10-4.00) 07/02/19 08:48 - Imaging Additional studies: Procedures CLOSURE SKIN & SUBCUTANEOUS NEC (01/24/10) Closed [endoscopic] biopsy of large intestine (10/08/13) Endoscopic polypectomy of large intestine (10/08/13) Assessment and Plan (1) CLL (chronic lymphocytic leukemia) Overview: Diagnosed 08/17/2017 by peripheral flow cytometry. CT 09/01/2017 NCAP: subcentimeter adenopathy in the neck, axilla, and mediastinum. BMB/Bx (09/08/2017): hypercellular marrow for age (75% cellularity) with extensive involvement of CLL. Adequate background trilineage hematopoiesis. Megakaryocyte hyperplasia. No reticulin fibrosis. Decreased stainable iron. Flow cytometry from the BM aspirate confirming CD5 positive B-cell population with immunophenotype consistent with CLL. CLL FISH: del 13q. Assessment: Today is more of a information session. Currently he and his are interviewing multiple Cancer Centers in order to make a final decision where to get the treatment. He has set up appointments at [facility] and at [facility]. He asked several questions regarding the regimen of obinutuzumab and venetoclax. I explained to the patient that this is a regimen from [place] trial CLL14. It has shown a significant benefit in treating p atients with CLL compared to obinutuzumab and chlorambucil. It is a defined course of chemotherapy. I explained to the patient about the need for ramp-up of the venetoclax. I explained to him that venetoclax carries the risk of tumor lysis syndrome. Fatality has reported during the clinical trials. Patient voiced understanding. They are going to continue their interviewing process and will call us for follow-up visit. Plan: Patient will continue their interviewing process at [facility] and [facility] He will call us for follow up visit. (2) Atrial fibrillation with controlled ventricular response Patient is being followed by his primary care provider. I encouraged the patient continue to take Pradaxa as instructed.
== END ==
PROVIDERS: Family Provider Family Medicine; PCP Family Medicine; Visit Provider Internal Medicine Hematology & Oncology
DX: C91.10 Chronic lymphocytic leukemia of B-cell type not having achieved remission (principal); I10 Essential (primary) hypertension; E78.00 Pure hypercholesterolemia, unspecified; I48.91 Unspecified atrial fibrillation; Z79.01 Long term (current) use of anticoagulants; Z85.46 Personal history of malignant neoplasm of prostate
CPT/HCPCS: 36415; 80053; 80061; 82232; 83615; 84153; 84550; 85025; 99214; 99215

== ENCOUNTER → 2020-03-28 08:06 | Outpatient (CLI) | payer MEDICARE, OTHER, SELFPAY ==
[2018-03-29 16:55] VITALS: BMI 25.3
[2020-03-28 08:59] LABS: Add Manual Diff / Slide Review NO; Basophils Absolute Auto 0 /uL (0-100); Basophils Percent Auto 0.4 % (0-2); Eosinophils Absolute Auto 0 /uL (0-450); Eosinophils Percent Auto 0.2 % (2-4); Hematocrit 38.3 % (41-53); Hemoglobin 12.9 g/dL (13.5-17.5); Lymphocytes Absolute Auto 500 /uL (1100-4500); Lymphocytes Percent Auto 17.2 % (25-40); Mean Corpuscular HGB Conc 33.8 % (30-36); Mean Corpuscular Hemoglobin 30.8 PG (26-34); Mean Corpuscular Volume 90.9 fL (80-100); Monocytes Absolute Auto 500 /uL (0-900); Monocytes Percent Auto 15.8 % (3-14); Neutrophils Absolute Auto 2000 /uL (1500-7000); Neutrophils Percent Auto 66.4 % (50-75); Platelet Count 141 X10^3/uL (150-400); Red Blood Cell Count 4.21 X10^6/uL (4.5-5.9); Red Cell Distribution Width 18.7 % (11.6-14.8); White Blood Cell Count 3.1 X10^3/uL (4.5-11.0)
[2020-03-28 09:15] LABS: BUN Creatinine Ratio 22.2 (6-22); Blood Urea Nitrogen 16 mg/dL (9-20); Calcium 9.8 mg/dL (8.4-10.2); Carbon Dioxide 27 mmol/L (22-32); Chloride 108 mmol/L (98-107); Cholesterol 157 mg/dL (140-199); Estimated Glomerular Filt Rate > 60.0 mL/min (>60); Glucose 91 mg/dL (80-110); HDL Cholesterol 61 mg/dL (40-60); HEMOLYSIS < 15 (0-50); LDL Cholesterol Calculated 83 mg/dL (<100); Potassium 4.7 mmol/L (3.4-5.1); Sodium 140 mmol/L (137-145); Triglycerides 67 mg/dL (35-150)
== END ==
PROVIDERS: Family Provider Family Medicine; PCP Family Medicine; Referring Provider Internal Medicine Cardiovascular Disease; Visit Provider Internal Medicine Cardiovascular Disease
DX: I10 Essential (primary) hypertension (principal)
CPT/HCPCS: 36415; 80048; 80061; 85025

== ENCOUNTER → 2020-07-03 09:55 | Outpatient (CLI) | payer MEDICARE, OTHER, SELFPAY ==
[2018-03-29 16:55] VITALS: BMI 25.3
[2020-07-03 12:00] LABS: Alanine Aminotransferase 28 IU/L (<50); Albumin 4.2 g/dL (3.5-5.0); Albumin Globulin Ratio 1.8 (1.0-2.8); Alkaline Phosphatase 98 U/L (38-126); Aspartate Aminotransferase 30 IU/L (17-59); BUN Creatinine Ratio 21.9 (6-22); Bilirubin Total 1.5 mg/dL (0.2-1.3); Blood Urea Nitrogen 16 mg/dL (9-20); Calcium 9.5 mg/dL (8.4-10.2); Carbon Dioxide 27 mmol/L (22-32); Chloride 103 mmol/L (98-107); Cholesterol 130 mg/dL (140-199); Estimated Glomerular Filt Rate > 60.0 mL/min (>60); Globulin 2.4 g/dL (1.7-4.1); Glucose 89 mg/dL (80-110); HDL Cholesterol 49 mg/dL (40-60); HEMOLYSIS < 15 (0-50); LDL Cholesterol Calculated 69 mg/dL (<100); Potassium 3.9 mmol/L (3.4-5.1); Sodium 136 mmol/L (137-145); Total Protein 6.6 g/dL (6.3-8.2); Triglycerides 62 mg/dL (35-150)
[2020-07-03 12:30] LABS: Prostate Specific Antigen 0.221 ng/mL (0.10-4.00)
== END ==
PROVIDERS: Family Provider Family Medicine; PCP Family Medicine; Referring Provider Urology; Visit Provider Urology
DX: Z85.46 Personal history of malignant neoplasm of prostate (principal); E78.5 Hyperlipidemia, unspecified; I10 Essential (primary) hypertension; Z79.01 Long term (current) use of anticoagulants
CPT/HCPCS: 36415; 80053; 80061; 84153

== ENCOUNTER → 2020-09-23 10:19 | Outpatient (CLI) | payer MEDICARE, OTHER, SELFPAY ==
[2018-03-29 16:55] VITALS: BMI 25.3
[2020-09-23] MEDS: COVID-19 VACC #1, MRNA(MOD) 100 MCG/0.5 ML VIAL IM (10:23)
== END ==
PROVIDERS: Family Provider Family Medicine; PCP Family Medicine; Visit Provider Internal Medicine
DX: Z23 Encounter for immunization (principal)
CPT/HCPCS: 0011A; 91301

== ENCOUNTER → 2020-10-21 10:10 | Outpatient (CLI) | payer MEDICARE, OTHER, SELFPAY ==
[2018-03-29 16:55] VITALS: BMI 25.3
[2020-10-21] MEDS: COVID-19 VACC #2, MRNA(MOD) 100 MCG/0.5 ML VIAL IM (10:16)
== END ==
PROVIDERS: Family Provider Family Medicine; PCP Family Medicine; Visit Provider Internal Medicine
DX: Z23 Encounter for immunization (principal)
CPT/HCPCS: 0012A; 91301

== ENCOUNTER → 2021-04-22 08:09 | Outpatient (CLI) | payer MEDICARE, OTHER, SELFPAY ==
[2018-03-29 16:55] VITALS: BMI 25.3
[2021-04-22 08:46] LABS: Add Manual Diff / Slide Review NO; Basophils Absolute Auto 0 /uL (0-100); Basophils Percent Auto 0.7 % (0-2); Eosinophils Absolute Auto 100 /uL (0-450); Eosinophils Percent Auto 2.9 % (2-4); Hematocrit 40.7 % (41-53); Hemoglobin 13.6 g/dL (13.5-17.5); Lymphocytes Absolute Auto 800 /uL (1100-4500); Lymphocytes Percent Auto 17.6 % (25-40); Mean Corpuscular HGB Conc 33.4 % (30-36); Mean Corpuscular Hemoglobin 31.1 PG (26-34); Mean Corpuscular Volume 93.1 fL (80-100); Monocytes Absolute Auto 500 /uL (0-900); Monocytes Percent Auto 11.8 % (3-14); Neutrophils Absolute Auto 3000 /uL (1500-7000); Platelet Count 171 X10^3/uL (150-400); Red Blood Cell Count 4.37 X10^6/uL (4.5-5.9); White Blood Cell Count 4.5 X10^3/uL (4.5-11.0)
[2021-04-22 09:08] LABS: BUN Creatinine Ratio 23.4 (6-22); Blood Urea Nitrogen 15 mg/dL (9-20); Calcium 9.7 mg/dL (8.4-10.2); Carbon Dioxide 28 mmol/L (22-32); Chloride 105 mmol/L (98-107); Cholesterol 151 mg/dL (140-199); Estimated Glomerular Filt Rate > 60.0 mL/min (>60); Glucose 101 mg/dL (80-110); HDL Cholesterol 57 mg/dL (40-60); HEMOLYSIS < 15 (0-50); LDL Cholesterol Calculated 74 mg/dL (<100); Potassium 4.1 mmol/L (3.4-5.1); Sodium 139 mmol/L (137-145); Triglycerides 100 mg/dL (35-150)
== END ==
PROVIDERS: Family Provider Family Medicine; PCP Family Medicine; Referring Provider Internal Medicine Cardiovascular Disease; Visit Provider Internal Medicine Cardiovascular Disease
DX: E78.5 Hyperlipidemia, unspecified (principal); I10 Essential (primary) hypertension
CPT/HCPCS: 36415; 80048; 80061; 85025

== ENCOUNTER → 2021-06-28 12:26 | Outpatient (CLI) | payer MEDICARE, OTHER, SELFPAY ==
[2018-03-29 16:55] VITALS: BMI 25.3
[2021-06-28 13:12] LABS: COVID19 -Nasal RAPID POSITIVE (Negative)
== END ==
PROVIDERS: Family Provider Family Medicine; PCP Family Medicine; Visit Provider Nurse Practitioner Family
DX: U07.1 COVID-19 (principal)
CPT/HCPCS: 87635

== ENCOUNTER 2021-07-07 12:47 | Emergency (ER) | payer MEDICARE, OTHER, SELFPAY ==
[2021-07-05 10:22] VITALS: BMI 25.3
[2021-07-07 12:50] VITALS: BP 142/90; PULSE 115; RESP 28; TEMP 38.3; O2SAT 94
--- NOTE | 2021-07-07 13:23 | DI.RAD.S_ITS ---
PROCEDURE: XR CHEST 1V INDICATIONS: flu-like symptoms TECHNIQUE: One view of the chest was acquired. COMPARISON: [facility], , CHEST 2 VIEW, 03/28/2017, 8:24. FINDINGS: Surgical changes and devices: None. Lungs and pleura: Lungs are clear. No pleural effusions or pneumothorax. Mediastinum: The cardiac contours are within normal limits. The aorta demonstrates calcification and tortuosity. Bones and chest wall: No suspicious bony lesions. Age-appropriate bony degenerative changes are seen. Overlying soft tissues appear unremarkable. IMPRESSION: No focal infiltrates are seen. If there is clinical concern for a developing pulmonary process, a short-term followup chest series (with PA and lateral views, performed in deep inspiration) is suggested for further evaluation. Dictated by: Nando Cooley M.D. on 07/07/2021 at 12:50 Approved by: Nando Cooley M.D. on 07/07/2021 at 12:50
--- NOTE | 2021-07-07 13:42 | ED.FEVER ---
HPI - Fever General Chief Complaint: Fever Stated Complaint: Covid + 06/28, confusion,cough x14 Time Seen by Provider: 07/07/21 13:10 Source: patient Mode of arrival: Ambulatory Limitations: no limitations History of Present Illness HPI Narrative: Patient is a 85-year-old male with history of atrial fibrillation, stable CLL, prostate cancer, known COVID, presenting today day with fever body aches and decreased oral intake. He was diagnosed with COVID on the 29 of June started having symptoms the day before. He is fully vaccinated. He continues to have fever body aches and decreased appetite. Sent in by his ?better half for decreased appetite. He is currently in AFib rate is in the low 100s, anticoagulation with Eliquis. He denies any chest pain palpitation shortness of breath no nausea or vomiting. Feels like mouth is dry. Related Data Home Medications Medication Instructions Recorded Confirmed atorvastatin 20 mg tablet (Lipitor) 20 mg PO QPM tab 09/18/20 06/28/21 Previous Rx's Medication Instructions Recorded irbesartan 150 2 tab PO QAM #180 tab 01/02/19 mg-hydrochlorothiazide 12.5 mg tablet amlodipine 5 mg tablet (Norvasc) 5 mg PO QDAY #90 tab 01/22/19 apixaban 5 mg tablet (Eliquis) 5 mg PO BID #60 tab 03/22/19 benzonatate 100 mg capsule 100 mg PO BID PRN #20 cap 06/28/21 (Tesgail Denson) Allergies Allergy/AdvReac Type Severity Reaction Status Date / Time No Known Drug Allergies Allergy Verified 06/28/21 12:26 Review of Systems Review of Systems Narrative: GENERAL: See HPI HEENT: Denies sinus pain, ear pain, sore throat, difficulty swallowing, neck pain RESPIRATORY: Denies dyspnea, cough, wheezing, hemoptysis, sputum. CARDIOVASCULAR: Atrial fibrillation GASTROINTESTINAL: Denies nausea, vomiting, abdominal pain, diarrhea, constipation, melena. : Denies dysuria, frequency, incontinence, hematuria, urinary retention, flank pain. MUSCULOSKELETAL: Denies weakness, joint pain, or bony pain SKIN: No rash, no erythema, no pruritus NEUROLOGIC: Denies weakness, dizziness, headache, numbness, change in speech, confusion PSYCHIATRIC: No concerning psychosocial issues. 12 point review of systems is negative except for those stated above and HPI Patient History Medical History (Updated 07/07/21 @ 15:44 by Jami Munoz DO) Atrial fibrillation with controlled ventricular response (12/11/17) BCC (basal cell carcinoma), ear CLL (chronic lymphocytic leukemia) Hearing loss (~2007) History of cardiac radiofrequency ablation (RFA) (10/09/17) History of malignant neoplasm of prostate (12/01/17) Hyperlipidemia (10/09/17) Hypertension (10/09/17) Leukemia (~2016) Multiple actinic keratoses (08/13/02) Primary osteoarthritis of left knee (12/01/17) Prostate cancer (~2011) Skin cancer (~2009) Squamous cell skin cancer Vision abnormalities Surgical History (Updated 03/29/19 @ 20:30 by Devendra Toure MD) History of bilateral cataract extraction History of cardiac radiofrequency ablation (RFA) (~2003) History of cataract removal with insertion of prosthetic lens (~2014) History of inguinal hernia repair (~2012) History of knee replacement History of vasectomy Status post colonoscopy (10/08/13) Family History Brother Age: 79 Dementia Sister Age: 88 Dementia Brother No problems noted. Father No problems noted. Mother No problems noted. Sister No problems noted. Social History household members: spouse Smoking Status: Former smoker alcohol intake: current Smoking Status: Former smoker alcohol intake frequency: 0-2 drinks per day Substance Use Type: does not use Exam Initial Vital Signs Initial Vital Signs: Vital Signs Temperature 100.9 F H 07/07/21 12:50 Pulse Rate 115 H 07/07/21 12:50 Respiratory Rate 28 H 07/07/21 12:50 Blood Pressure 142/90 H 07/07/21 12:50 Pulse Oximetry 94 07/07/21 12:50 GENERAL: 85-year-old appears well and younger than stated age HEENT: Head atraumatic,EOMI, pupils reactive, face symmetric, dry mucous membranes CARDIOVASCULAR: Irregularly irregular no murmur RESPIRATORY: Breath sounds equal bilaterally, no wheezes rales or rhonchi. ABDOMEN: Soft, nontender. Normoactive bowel sounds all 4 quadrants. No guarding or rebound. EXTREMITIES: Normal range of motion, no clubbing or edema. Neurovascularly intact NEUROLOGICAL: Alert and oriented x4.Normal gait and speech. SKIN: Warm, dry, no laceration, no petechiae, no rashes or lesions. Course Orders Ordered: Discontinued Medications Acetaminophen (Acetaminophen 325 Mg Tablet) 975 mg PO NOW ONE Stop: 07/07/21 13:43 Last Admin: 07/07/21 14:11 Dose: 975 mg Documented by: MARLIN Sodium Chloride (Normal Saline 0.9%) 1,000 mls @ 250 mls/hr IV CONT LINSEY Last Infusion: 07/07/21 15:55 Dose: 0 mls/hr Documented by: Admin: 07/07/21 14:11 Dose: 250 mls/hr Documented by: MARLIN Sodium Chloride (Normal Saline 0.9%) 1,000 mls @ 200 mls/hr IV CONT LINSEY Last Admin: 07/07/21 13:49 Dose: Not Given Documented by: MARLIN Vital Signs Vital signs: Vital Signs - 8 hr 07/07/21 12:50 07/07/21 13:54 07/07/21 14:00 Temperature 100.9 F H Pulse Rate 115 H 105 H 102 H Respiratory Rate 28 H 17 17 Blood Pressure 142/90 H 107/70 Pulse Oximetry 94 95 94 07/07/21 14:30 07/07/21 15:00 07/07/21 15:30 Temperature Pulse Rate 102 H 96 H 100 H Respiratory Rate 25 H 17 16 Blood Pressure 126/82 133/82 107/63 Pulse Oximetry 97 92 95 MDM - Fever Lab Data Result diagrams: 07/07/21 13:06 07/07/21 13:06 Labs: Lab Results 07/07/21 07/07/21 07/07/21 Range/Units 13:06 13:06 13:06 WBC 3.5 L (4.5-11.0) X10^3/uL RBC 4.51 (4.5-5.9) X10^6/uL Hgb 14.2 (13.5-17.5) g/dL Hct 41.0 (41-53) % MCV 91.0 (80-100) fL MCH 31.5 (26-34) PG MCHC 34.6 (30-36) % RDW 14.5 (11.6-14.8) % Plt Count 168 (150-400) X10^3/uL Neut % (Auto) 77.7 H (50-75) % Lymph % (Auto) 11.6 L (25-40) % [place] % (Auto) 9.7 (3-14) % Eos % (Auto) 0.8 L (2-4) % Baso % (Auto) 0.2 (0-2) % Neut # (Auto) 2700 (8101-6961) /uL Lymph # (Auto) 400 L (7254-0692) /uL [place] # (Auto) 300 (0-900) /uL Eos # (Auto) 0 (0-450) /uL Baso # (Auto) 0 (0-100) /uL D-Dimer 267 H (<230) ng/mL Sodium (137-145) mmol/L Potassium (3.4-5.1) mmol/L Chloride (98-107) mmol/L Carbon Dioxide (22-32) mmol/L BUN (9-20) mg/dL Creatinine (0.66-1.25) mg/dL Estimated GFR (>60) mL/min BUN/Creatinine Ratio (6-22) Glucose (80-110) mg/dL Lactate (0.7-2.1) mmol/L Calcium (8.4-10.2) mg/dL Ferritin (18-464) ng/mL Total Bilirubin (0.2-1.3) mg/dL AST (17-59) IU/L ALT (<50) IU/L Alkaline Phosphatase (38-126) U/L Lactate Dehydrogenase (313-618) U/L Total Creatine Kinase (55-170) U/L CK-MB (CK-2) CK-MB (CK-2) Rel Index Troponin I (0.01-0.034) ng/mL C-Reactive Protein (<1.0) mg/dL NT-Pro-B Natriuret Pep (<450) pg/mL Total Protein (6.3-8.2) g/dL Albumin (3.5-5.0) g/dL Globulin (1.7-4.1) g/dL Albumin/Globulin Ratio (1.0-2.8) Procalcitonin 0.08 (<0.5) ng/mL 07/07/21 07/07/21 07/07/21 Range/Units 13:06 13:06 13:06 WBC (4.5-11.0) X10^3/uL RBC (4.5-5.9) X10^6/uL Hgb (13.5-17.5) g/dL Hct (41-53) % MCV (80-100) fL MCH (26-34) PG MCHC (30-36) % RDW (11.6-14.8) % Plt Count (150-400) X10^3/uL Neut % (Auto) (50-75) % Lymph % (Auto) (25-40) % [place] % (Auto) (3-14) % Eos % (Auto) (2-4) % Baso % (Auto) (0-2) % Neut # (Auto) (4318-9998) /uL Lymph # (Auto) (2902-4073) /uL [place] # (Auto) (0-900) /uL Eos # (Auto) (0-450) /uL Baso # (Auto) (0-100) /uL D-Dimer (<230) ng/mL Sodium 133 L (137-145) mmol/L Potassium 3.4 (3.4-5.1) mmol/L Chloride 96 L (98-107) mmol/L Carbon Dioxide 26 (22-32) mmol/L BUN 14 (9-20) mg/dL Creatinine 0.71 (0.66-1.25) mg/dL Estimated GFR > 60.0 (>60) mL/min BUN/Creatinine Ratio 19.7 (6-22) Glucose 107 (80-110) mg/dL Lactate 1.4 (0.7-2.1) mmol/L Calcium 9.1 (8.4-10.2) mg/dL Ferritin 237 (18-464) ng/mL Total Bilirubin 1.1 (0.2-1.3) mg/dL AST 46 (17-59) IU/L ALT 42 (<50) IU/L Alkaline Phosphatase 132 H (38-126) U/L Lactate Dehydrogenase 587 (313-618) U/L Total Creatine Kinase 63 (55-170) U/L CK-MB (CK-2) TNP CK-MB (CK-2) Rel Index TNP Troponin I < 0.012 (0.01-0.034) ng/mL C-Reactive Protein 3.4 H (<1.0) mg/dL NT-Pro-B Natriuret Pep 2170 H (<450) pg/mL Total Protein 6.6 (6.3-8.2) g/dL Albumin 4.2 (3.5-5.0) g/dL Globulin 2.4 (1.7-4.1) g/dL Albumin/Globulin Ratio 1.8 (1.0-2.8) Procalcitonin (<0.5) ng/mL Imaging Data Chest x-ray: Radiologist's Impression: PROCEDURE:? XR CHEST 1V ? INDICATIONS:? flu-like symptoms ? TECHNIQUE:? One view of the chest was acquired.? ? COMPARISON:? [facility], , CHEST 2 VIEW, 03/28/2017, 8:24. ? FINDINGS:? ? Surgical changes and devices:? None.? ? Lungs and pleura:? Lungs are clear.? No pleural effusions or pneumothorax.? ? Mediastinum:? The cardiac contours are within normal limits. The aorta demonstrates calcification and tortuosity. ? Bones and chest wall:? No suspicious bony lesions.? Age-appropriate bony degenerative changes are seen. ? Overlying soft tissues appear unremarkable.? IMPRESSION:? No focal infiltrates are seen. ? If there is clinical concern for a developing pulmonary process, a short-term followup chest series (with PA and lateral views, performed in deep inspiration) is suggested for further evaluation. ? ? ? Dictated by: Nando Cooley M.D. on 07/07/2021 at 12:50 ? ? ECG Data Interpretation: Atrial fibrillation rate [address] changes MDM Narrative Medical decision making narrative: Patient is a 85-year-old male well into his course of COVID surprisingly looks well. Slightly dehydrated with dry mucous membranes but tolerating oral fluids. He is not requiring oxygen does not appear septic. He is overall feeling significantly better. At this time discussed with him to increase fluids. Discharge Plan Departure Patient Disposition: Home Clinical Impression: COVID-19 Instructions: DI for COVID-19 (Suspected or Confirmed ) Activity Restrictions/Additional Instructions: * if you have not yet been vaccinated is still recommended and encouraged that you do so once your infection has passed At home: -Monitor oxygen with pulse oximeter. Less 90% 2 times -Wash hands frequently. -Stay isolated at home please follow the isolation instructions below. -Increase fluid intake. -you may take Tylenol as directed if needed for pain or fever Emergency warning signs for COVID-19: - Difficulty breathing or shortness of breath, oxygen less than 90% - Persistent pain or pressure in the chest - New confusion or inability to arouse - Bluish lips or face CDC Guidelines for home isolation: - Stay away from others - Limit contact with pets and animals: If you must care for a pet, wash your hands before and after interacting with them - Wear a mask while in public all places - Cover your mouth and nose with a tissue when you cough or sneeze. Dispose of tissues in a lined trash can and wash your hands immediately with soap and water for at least 20 seconds. If soap and water are not available, clean hands with alcohol-based hand acquisitions logistics analyst that contains at least 60% alcohol. - Clean your hands often with soap and water for at least 20 seconds - Avoid touching your eyes, nose and mouth with unwashed hands - Do not share dishes, drinking glasses, cups, eating utensils, towels, or bedding with other people in your home. After using these items, wash them thoroughly with soap and water or put in the desk clerk. - Clean high-touch surfaces in your isolation area (?sick room? and bathroom) every day; let a caregiver clean and disinfect high-touch surfaces in other areas of the home. Clean the area or item with soap and water or another detergent if it is dirty. Then, use a household disinfectant. Prescriptions: No Action benzonatate [Tessalon Perles] 100 mg capsule 100 mg PO BID PRN (Reason: cough) Qty: 20 RF: 0 irbesartan-hydrochlorothiazide 150-12.5 mg tablet 2 tab PO QAM Qty: 180 RF: 3 amlodipine [Norvasc] 5 mg tablet 5 mg PO QDAY Qty: 90 RF: 3 Eliquis 5 mg tablet 5 mg PO BID Qty: 60 RF: 0 atorvastatin [Lipitor] 20 mg tablet 20 mg PO QPM RF: 0 Referrals: Tiffani Son DO [Primary Care Provider] -
[2021-07-07 13:43] LABS: Add Manual Diff / Slide Review NO; Basophils Absolute Auto 0 /uL (0-100); Basophils Percent Auto 0.2 % (0-2); Eosinophils Absolute Auto 0 /uL (0-450); Eosinophils Percent Auto 0.8 % (2-4); Hemoglobin 14.2 g/dL (13.5-17.5); Lymphocytes Absolute Auto 400 /uL (1100-4500); Lymphocytes Percent Auto 11.6 % (25-40); Mean Corpuscular HGB Conc 34.6 % (30-36); Mean Corpuscular Hemoglobin 31.5 PG (26-34); Monocytes Absolute Auto 300 /uL (0-900); Monocytes Percent Auto 9.7 % (3-14); Neutrophils Absolute Auto 2700 /uL (1500-7000); Neutrophils Percent Auto 77.7 % (50-75); Platelet Count 168 X10^3/uL (150-400); Red Blood Cell Count 4.51 X10^6/uL (4.5-5.9); Red Cell Distribution Width 14.5 % (11.6-14.8); White Blood Cell Count 3.5 X10^3/uL (4.5-11.0)
[2021-07-07 13:52] LABS: Lactate (Lactic Acid) 1.4 mmol/L (0.7-2.1); Lactate Dehydrogenase 587 U/L (313-618)
[2021-07-07 13:54] VITALS: PULSE 105; RESP 17; O2SAT 95
[2021-07-07 13:54] LABS: Alanine Aminotransferase 42 IU/L (<50); Albumin 4.2 g/dL (3.5-5.0); Albumin Globulin Ratio 1.8 (1.0-2.8); Alkaline Phosphatase 132 U/L (38-126); Aspartate Aminotransferase 46 IU/L (17-59); BUN Creatinine Ratio 19.7 (6-22); Bilirubin Total 1.1 mg/dL (0.2-1.3); Blood Urea Nitrogen 14 mg/dL (9-20); C-Reactive Protein Quant 3.4 mg/dL (<1.0); Calcium 9.1 mg/dL (8.4-10.2); Carbon Dioxide 26 mmol/L (22-32); Chloride 96 mmol/L (98-107); Creatine Kinase 63 U/L (55-170); Estimated Glomerular Filt Rate > 60.0 mL/min (>60); Globulin 2.4 g/dL (1.7-4.1); Glucose 107 mg/dL (80-110); HEMOLYSIS < 15 (0-50); Potassium 3.4 mmol/L (3.4-5.1); Sodium 133 mmol/L (137-145); Total Protein 6.6 g/dL (6.3-8.2)
[2021-07-07 14:00] VITALS: BP 107/70; PULSE 102; RESP 17; O2SAT 94
[2021-07-07 14:03] LABS: Troponin I < 0.012 ng/mL (0.01-0.034)
[2021-07-07 14:05] LABS: D Dimer 267 ng/mL (<230)
[2021-07-07 14:08] LABS: Procalcitonin 0.08 ng/mL (<0.5)
[2021-07-07] MEDS: SODIUM CHLORIDE 0.9% 1,000 ML 250 ML IV (14:11)
[2021-07-07] MEDS: ACETAMINOPHEN 325 MG TABLET 975 MG PO (14:11)
[2021-07-07 14:28] LABS: Ferritin 237 ng/mL (18-464)
[2021-07-07 14:30] VITALS: BP 126/82; PULSE 102; RESP 25; O2SAT 97
[2021-07-07 15:00] VITALS: BP 133/82; PULSE 96; RESP 17; O2SAT 92
[2021-07-07 15:09] LABS: NT-proBNP (BNP-Adult 18+) 2170 pg/mL (<450)
[2021-07-07 15:30] VITALS: BP 107/63; PULSE 100; RESP 16; O2SAT 95
[2021-07-08 08:45] LABS: Acinetobacter baumannii Not Detected (Not Detect); Candida albicans Not Detected (Not Detect); E. coli Not Detected (Not Detect); Enterobacter cloacae complex Not Detected (Not Detect); Enterobacteriaceae species Detected (Not Detect); Enterococcus species Not Detected (Not Detect); Haemophilus influenzae Not Detected (Not Detect); KPC (carbapenem-resist gene) Not Detected (Not Detect); Listeria monocytogenes Not Detected (Not Detect); Methicillin-resistant gene Not Detected (Not Detect); Neisseria meningitidis Not Detected (Not Detect); Proteus species Not Detected (Not Detect); Pseudomonas aeruginosa Not Detected (Not Detect); Serratia marcescens Not Detected (Not Detect); Staphylococcus species Not Detected (Not Detect); Streptococcus agalactiae (Gr B Not Detected (Not Detect); Streptococcus pneumonia Not Detected (Not Detect); Streptococcus pyogenes (Gr A) Not Detected (Not Detect); Streptococcus species Not Detected (Not Detect); Vancomycin-rest genes A/B Not Detected (Not Detect)
[2021-07-08 08:46] LABS: Candida glabrata Not Detected (Not Detect); Candida krusei Not Detected (Not Detect); Candida parapsilosis Not Detected (Not Detect); Candida tropicalis Not Detected (Not Detect)
== END 2021-07-07 15:58 | disposition home or self-care (01) ==
PROVIDERS: Emergency Provider Emergency Medicine; Family Provider Family Medicine; PCP Family Medicine
DX: U07.1 COVID-19 (principal); B96.1 Klebsiella pneumoniae [K. pneumoniae] as the cause of diseases classified elsewhere; I48.91 Unspecified atrial fibrillation; Z79.01 Long term (current) use of anticoagulants
CPT/HCPCS: 36415; 71045; 80053; 82550; 82728; 83605; 83615; 83880; 84145; 84484; 85025; 85379; 86140; 87040; 87150; 87186; 87205; 93005; 93010; 96360; 96361; 99284

== ENCOUNTER 2021-07-08 11:02 | Emergency (ER) | payer MEDICARE, OTHER, SELFPAY ==
[2021-07-05 10:22] VITALS: BMI 25.3
[2021-07-08] VITALS (8 sets, daily range): BP systolic 108–130; BP diastolic 59–79; PULSE 82–109; RESP 14–34; TEMP 36.7–37; O2SAT 93–98; BMI 25.5
--- NOTE | 2021-07-08 11:18 | ED.GENADULT ---
HPI - General Adult General Chief complaint: Recheck/Abnormal Lab/Rx Stated complaint: Blood problems- ER doc said to be admitted Time Seen by Provider: 07/08/21 11:09 History of Present Illness HPI narrative: Patient is a kelly 85-year-old male history of CLL, atrial fibrillation on Eliquis presenting today at my request. I saw and evaluated for yesterday he has known COVID he actually started having symptoms June 23 tested positive on June 28. Yesterday he was still not feeling well and blood cultures came back positive today for Klebsiella pneumonia and Enterobacter. I called him he actually said that he was doing much better he continues to feel well. Yesterday unfortunately urinalysis was never collected but his workup was otherwise negative. He did have low-grade temperature here in the ED. Currently he is afebrile appears well and has no complaints. states today that he has lost 12 lb since his diagnosis of COVID. Related Data Home Medications Medication Instructions Recorded Confirmed atorvastatin 20 mg tablet (Lipitor) 20 mg PO QPM tab 09/18/20 06/28/21 Previous Rx's Medication Instructions Recorded irbesartan 150 2 tab PO QAM #180 tab 01/02/19 mg-hydrochlorothiazide 12.5 mg tablet amlodipine 5 mg tablet (Norvasc) 5 mg PO QDAY #90 tab 01/22/19 apixaban 5 mg tablet (Eliquis) 5 mg PO BID #60 tab 03/22/19 benzonatate 100 mg capsule 100 mg PO BID PRN #20 cap 06/28/21 (Tessalon Jarett) cefdinir 300 mg capsule 300 mg PO Q12H #14 cap 07/08/21 Allergies Allergy/AdvReac Type Severity Reaction Status Date / Time No Known Drug Allergies Allergy Verified 06/28/21 12:26 Review of Systems Review of Systems Narrative: GENERAL: See HPI HEENT: Denies sinus pain, ear pain, sore throat, difficulty swallowing, neck pain RESPIRATORY: Denies dyspnea, cough, wheezing, hemoptysis, sputum. CARDIOVASCULAR: Denies chest pain, palpitations, orthopnea, edema GASTROINTESTINAL: Denies nausea, vomiting, abdominal pain, diarrhea, constipation, melena. : Denies dysuria, frequency, incontinence, hematuria, urinary retention, flank pain. MUSCULOSKELETAL: Denies weakness, joint pain, or bony pain SKIN: No rash, no erythema, no pruritus NEUROLOGIC: Denies weakness, dizziness, headache, numbness, change in speech, confusion PSYCHIATRIC: No concerning psychosocial issues. 12 point review of systems is negative except for those stated above and HPI Patient History Medical History (Updated 07/08/21 @ 14:52 by Jami Munoz DO) Atrial fibrillation with controlled ventricular response (12/11/17) BCC (basal cell carcinoma), ear CLL (chronic lymphocytic leukemia) Hearing loss (~2007) History of cardiac radiofrequency ablation (RFA) (10/09/17) History of malignant neoplasm of prostate (12/01/17) Hyperlipidemia (10/09/17) Hypertension (10/09/17) Leukemia (~2016) Multiple actinic keratoses (08/13/02) Primary osteoarthritis of left knee (12/01/17) Prostate cancer (~2011) Skin cancer (~2009) Squamous cell skin cancer Vision abnormalities Surgical History (Updated 03/29/19 @ 20:30 by Devendra Toure MD) History of bilateral cataract extraction History of cardiac radiofrequency ablation (RFA) (~2003) History of cataract removal with insertion of prosthetic lens (~2014) History of inguinal hernia repair (~2012) History of knee replacement History of vasectomy Status post colonoscopy (10/08/13) Family History Brother Age: 79 Dementia Sister Age: 88 Dementia Brother No problems noted. Father No problems noted. Mother No problems noted. Sister No problems noted. Social History household members: spouse Smoking Status: Former smoker alcohol intake: current Smoking Status: Former smoker alcohol intake frequency: 0-2 drinks per day Substance Use Type: does not use Exam Initial Vital Signs Initial Vital Signs: Vital Signs Temperature 98.1 F 07/08/21 11:19 Pulse Rate 109 H 07/08/21 11:19 Respiratory Rate 22 07/08/21 11:19 Blood Pressure 125/79 07/08/21 11:19 Pulse Oximetry 98 07/08/21 11:19 GENERAL: Alert pleasant 85-year-old male no acute distress in no acute distress. HEENT: Head atraumatic,EOMI, pupils reactive, face symmetric, moist mucous membranes CARDIOVASCULAR: Regular rate and rhythm without murmurs, rubs or gallops. RESPIRATORY: Breath sounds equal bilaterally, no wheezes rales or rhonchi. ABDOMEN: Soft, nontender. Normoactive bowel sounds all 4 quadrants. No guarding or rebound. EXTREMITIES: Normal range of motion, no clubbing or edema. Neurovascularly intact NEUROLOGICAL: Alert and oriented x4.Normal gait and speech. Cranial nerves II through XII grossly intact. Good [id number], good [id number], strength equal bilaterally, no dysarthria or aphasia, sensation in tact to soft touch bilaterally, no visual changes, no facial droop] SKIN: Warm, dry, no laceration, no petechiae, no rashes or lesions. Course Orders Ordered: ED Orders 07/08/21 11:20 Complete Blood Count AUTO DIFF Stat Comprehensive Metabolic Panel Stat Lactate (Lactic Acid) Stat Procalcitonin Stat Troponin & CK Cardiac Panel Stat 07/08/21 11:48 EKG-12 Lead Stat 07/08/21 12:00 Blood Culture Stat 07/08/21 12:06 COVID19 - ADMIT (KNIFE GRINDER swab/PCR) Stat 07/08/21 14:00 Urinalysis and Microscopic Stat Discontinued Medications Ceftriaxone Sodium 2,000 mg/ (Sodium Chloride) 100 mls @ 200 mls/hr IV NOW ONE Stop: 07/08/21 11:10 Last Infusion: 07/08/21 13:58 Dose: 0 mls/hr Documented by: Admin: 07/08/21 12:34 Dose: 200 mls/hr Documented by: VKIY Sodium Chloride (Normal Saline 0.9%) 1,000 mls @ 125 mls/hr IV CONT LINSEY Last Infusion: 07/08/21 15:19 Dose: 125 mls/hr Documented by: Admin: 07/08/21 12:34 Dose: 125 mls/hr Documented by: VIKY Vital Signs Vital signs: Vital Signs - 8 hr 07/08/21 11:19 07/08/21 12:04 07/08/21 12:30 Temperature 98.1 F Pulse Rate 109 H 103 H 96 H Respiratory Rate 22 24 15 Blood Pressure 125/79 116/66 Pulse Oximetry 98 97 97 07/08/21 13:00 07/08/21 13:30 07/08/21 14:00 Temperature Pulse Rate 88 92 H 101 H Respiratory Rate 14 19 34 H Blood Pressure 108/59 L 117/64 111/70 Pulse Oximetry 98 98 98 07/08/21 14:30 07/08/21 15:00 Temperature 98.6 F Pulse Rate 82 93 H Respiratory Rate 17 16 Blood Pressure 129/72 130/68 Pulse Oximetry 97 94 Medical Decision Making Lab Data Result diagrams: 07/08/21 11:20 07/08/21 11:20 Labs: Lab Results 07/08/21 07/08/21 07/08/21 Range/Units 11:20 11:20 11:20 WBC 4.0 L (4.5-11.0) X10^3/uL RBC 4.59 (4.5-5.9) X10^6/uL Hgb 14.4 (13.5-17.5) g/dL Hct 41.9 (41-53) % MCV 91.2 (80-100) fL MCH 31.3 (26-34) PG MCHC 34.3 (30-36) % RDW 14.3 (11.6-14.8) % Plt Count 188 (150-400) X10^3/uL Neut % (Auto) 80.8 H (50-75) % Lymph % (Auto) 8.8 L (25-40) % [place] % (Auto) 8.7 (3-14) % Eos % (Auto) 1.5 L (2-4) % Baso % (Auto) 0.2 (0-2) % Neut # (Auto) 3200 (0455-9681) /uL Lymph # (Auto) 400 L (0638-1539) /uL [place] # (Auto) 300 (0-900) /uL Eos # (Auto) 100 (0-450) /uL Baso # (Auto) 0 (0-100) /uL Sodium 130 L (137-145) mmol/L Potassium 3.3 L (3.4-5.1) mmol/L Chloride 95 L (98-107) mmol/L Carbon Dioxide 27 (22-32) mmol/L BUN 15 (9-20) mg/dL Creatinine 0.80 (0.66-1.25) mg/dL Estimated GFR > 60.0 (>60) mL/min BUN/Creatinine Ratio 18.8 (6-22) Glucose 113 H (80-110) mg/dL Lactate 1.3 (0.7-2.1) mmol/L Calcium 9.0 (8.4-10.2) mg/dL Total Bilirubin 1.2 (0.2-1.3) mg/dL AST 44 (17-59) IU/L ALT 38 (<50) IU/L Alkaline Phosphatase 126 (38-126) U/L Total Creatine Kinase 74 (55-170) U/L CK-MB (CK-2) TNP CK-MB (CK-2) Rel Index TNP Troponin I 0.017 (0.01-0.034) ng/mL Total Protein 6.6 (6.3-8.2) g/dL Albumin 4.1 (3.5-5.0) g/dL Globulin 2.5 (1.7-4.1) g/dL Albumin/Globulin Ratio 1.6 (1.0-2.8) Procalcitonin 0.09 (<0.5) ng/mL Urine Color Urine Appearance Urine pH (4.5-8.0) Ur Specific [place] (1.000-1.035) Urine Protein (Negative) Urine Glucose (UA) (Negative) g/dL Urine Ketones (NEGATIVE) Urine Occult Blood (Negative) Urine Nitrate (Negative) Urine Bilirubin (NEGATIVE) Urine Urobilinogen (0.2) E.U./dL Ur Leukocyte Esterase (NEGATIVE) Urine RBC (0-5/HPF) Urine WBC (0-5/HPF) Ur Squamous Epith Cells (0-5/HPF) Urine Bacteria (None) Hyaline Casts (None) Urine Mucus (Negative) Ur Culture Indicated? SARS-CoV-2 (PCR) (Negative) 07/08/21 07/08/21 Range/Units 12:06 14:00 WBC (4.5-11.0) X10^3/uL RBC (4.5-5.9) X10^6/uL Hgb (13.5-17.5) g/dL Hct (41-53) % MCV (80-100) fL MCH (26-34) PG MCHC (30-36) % RDW (11.6-14.8) % Plt Count (150-400) X10^3/uL Neut % (Auto) (50-75) % Lymph % (Auto) (25-40) % [place] % (Auto) (3-14) % Eos % (Auto) (2-4) % Baso % (Auto) (0-2) % Neut # (Auto) (8502-1986) /uL Lymph # (Auto) (4740-7983) /uL [place] # (Auto) (0-900) /uL Eos # (Auto) (0-450) /uL Baso # (Auto) (0-100) /uL Sodium (137-145) mmol/L Potassium (3.4-5.1) mmol/L Chloride (98-107) mmol/L Carbon Dioxide (22-32) mmol/L BUN (9-20) mg/dL Creatinine (0.66-1.25) mg/dL Estimated GFR (>60) mL/min BUN/Creatinine Ratio (6-22) Glucose (80-110) mg/dL Lactate (0.7-2.1) mmol/L Calcium (8.4-10.2) mg/dL Total Bilirubin (0.2-1.3) mg/dL AST (17-59) IU/L ALT (<50) IU/L Alkaline Phosphatase (38-126) U/L Total Creatine Kinase (55-170) U/L CK-MB (CK-2) CK-MB (CK-2) Rel Index Troponin I (0.01-0.034) ng/mL Total Protein (6.3-8.2) g/dL Albumin (3.5-5.0) g/dL Globulin (1.7-4.1) g/dL Albumin/Globulin Ratio (1.0-2.8) Procalcitonin (<0.5) ng/mL Urine Color Yellow Urine Appearance Clear Urine pH 7.0 (4.5-8.0) Ur Specific [place] 1.010 (1.000-1.035) Urine Protein Trace H (Negative) Urine Glucose (UA) Negative (Negative) g/dL Urine Ketones Negative (NEGATIVE) Urine Occult Blood Negative (Negative) Urine Nitrate Negative (Negative) Urine Bilirubin Negative (NEGATIVE) Urine Urobilinogen 1.0 (0.2) E.U./dL Ur Leukocyte Esterase Negative (NEGATIVE) Urine RBC None seen (0-5/HPF) Urine WBC 0-1/hpf (0-5/HPF) Ur Squamous Epith Cells 0-1 /hpf (0-5/HPF) Urine Bacteria Occasional (0-1) (None) Hyaline Casts 1-5/lpf (None) Urine Mucus 1+ H (Negative) Ur Culture Indicated? Cult not indicated SARS-CoV-2 (PCR) Positive H (Negative) MDM Narrative Medical decision making narrative: Patient overall continues to look well blood work continues to be reassuring. Of course he continues to be COVID positive but is not really symptomatic from his COVID. O2 sats remain well above 90%. He is given 2 g of Rocephin in the emergency department. 12:53-Dr. Mobley updated on patient's symptoms and test results at this time since patient appears well and feels while he has repeat blood cultures pending at this time can be treated as an outpatient with oral cefdinir Bed status is extremely limited multiple people boarding in the emergency department. At this time I do think it is reasonable for patient to be treated as an outpatient. He received 1 dose of 2000 mg Rocephin. Will send him home on cefdinir as recommended for 1 week I have called and spoken with Dr. Carvalho on-call for patient's primary care provider. At this time he agrees to follow up with patient in the clinic. Patient is made aware that if he should have any new or worsening symptoms at to return to the emergency department. Discharge Plan Departure Patient Disposition: Home Clinical Impression: Bacteremia Instructions: Bacteremia Activity Restrictions/Additional Instructions: *You have been diagnosed with to have bacteria in your blood stream *What to do: At this time he received 1 dose of IV antibiotics you have blood cultures pending. Overall you look very good. I have discussed with the hospitalist him he agrees that you can go home with antibiotics. *Continue to take medications as directed Cefdinir 300 mg twice daily for 7 days--> SENT TO [facility] *Follow up with your primary care provider in 2-3 days *Return to ER if you should have increasing weakness, persistent fevers, cough shortness of breath or any new, worsening or concerning symptoms Prescriptions: New cefdinir 300 mg capsule 300 mg PO Q12H Qty: 14 RF: 0 No Action benzonatate [Tessalon Perles] 100 mg capsule 100 mg PO BID PRN (Reason: cough) Qty: 20 RF: 0 irbesartan-hydrochlorothiazide 150-12.5 mg tablet 2 tab PO QAM Qty: 180 RF: 3 amlodipine [Norvasc] 5 mg tablet 5 mg PO QDAY Qty: 90 RF: 3 Eliquis 5 mg tablet 5 mg PO BID Qty: 60 RF: 0 atorvastatin [Lipitor] 20 mg tablet 20 mg PO QPM RF: 0 Referrals: Tiffani Son DO [Primary Care Provider] -
[2021-07-08 11:27] LABS: Add Manual Diff / Slide Review NO; Basophils Absolute Auto 0 /uL (0-100); Basophils Percent Auto 0.2 % (0-2); Eosinophils Absolute Auto 100 /uL (0-450); Eosinophils Percent Auto 1.5 % (2-4); Hematocrit 41.9 % (41-53); Hemoglobin 14.4 g/dL (13.5-17.5); Lymphocytes Absolute Auto 400 /uL (1100-4500); Lymphocytes Percent Auto 8.8 % (25-40); Mean Corpuscular HGB Conc 34.3 % (30-36); Mean Corpuscular Hemoglobin 31.3 PG (26-34); Mean Corpuscular Volume 91.2 fL (80-100); Monocytes Absolute Auto 300 /uL (0-900); Monocytes Percent Auto 8.7 % (3-14); Neutrophils Absolute Auto 3200 /uL (1500-7000); Neutrophils Percent Auto 80.8 % (50-75); Platelet Count 188 X10^3/uL (150-400); Red Blood Cell Count 4.59 X10^6/uL (4.5-5.9); Red Cell Distribution Width 14.3 % (11.6-14.8)
[2021-07-08 11:39] LABS: Lactate (Lactic Acid) 1.3 mmol/L (0.7-2.1)
[2021-07-08 11:41] LABS: Alanine Aminotransferase 38 IU/L (<50); Albumin 4.1 g/dL (3.5-5.0); Albumin Globulin Ratio 1.6 (1.0-2.8); Alkaline Phosphatase 126 U/L (38-126); Aspartate Aminotransferase 44 IU/L (17-59); BUN Creatinine Ratio 18.8 (6-22); Bilirubin Total 1.2 mg/dL (0.2-1.3); Blood Urea Nitrogen 15 mg/dL (9-20); Carbon Dioxide 27 mmol/L (22-32); Chloride 95 mmol/L (98-107); Creatine Kinase 74 U/L (55-170); Estimated Glomerular Filt Rate > 60.0 mL/min (>60); Globulin 2.5 g/dL (1.7-4.1); Glucose 113 mg/dL (80-110); HEMOLYSIS < 15 (0-50); Potassium 3.3 mmol/L (3.4-5.1); Sodium 130 mmol/L (137-145); Total Protein 6.6 g/dL (6.3-8.2)
[2021-07-08 11:52] LABS: Troponin I 0.017 ng/mL (0.01-0.034)
[2021-07-08 11:57] LABS: Procalcitonin 0.09 ng/mL (<0.5)
--- NOTE | 2021-07-08 12:03 | PC.NURSE ---
Patient reports chills, has had no appetite due to loss of smell and taste.
[2021-07-08] MEDS: SODIUM CHLORIDE 0.9% 1,000 ML 125 ML IV (12:34)
[2021-07-08] MEDS: cefTRIAXone 2,000 MG in SODIUM CHLORIDE 0.9% 100 ML 200 ML IV (12:34)
[2021-07-08 13:00] LABS: COVID19 - ADMIT (NP swab/PCR) POSITIVE (Negative)
[2021-07-08 14:13] LABS: Appearance Urine UA CLEAR; Bilirubin Urine UA NEGATIVE (NEGATIVE); Color Urine UA YELLOW; Glucose Urine UA NEGATIVE (Negative); Ketones Urine UA NEGATIVE (NEGATIVE); Leukocyte Esterase Urine UA NEGATIVE (NEGATIVE); Nitrite Urine UA NEGATIVE (Negative); Occult Blood Urine UA NEGATIVE (Negative); Protein Urine UA TRACE (Negative)
[2021-07-08 14:38] LABS: Bacteria Urine Occasional (0-1); Hyaline Casts Urine 1-5/LPF; Mucus Urine 1+ (Negative); RBC Urine None Seen (0-5/HPF); Squamous Epithelial Cell Urine 0-1 /HPF (0-5/HPF); WBC Urine 0-1/HPF (0-5/HPF)
[2021-07-08 14:39] LABS: Culture Indicated Urine Cult Not Indicated
== END 2021-07-08 15:20 | disposition home or self-care (01) ==
PROVIDERS: Emergency Provider Emergency Medicine; Family Provider Family Medicine; PCP Family Medicine
DX: U07.1 COVID-19 (principal); R78.81 Bacteremia; B96.1 Klebsiella pneumoniae [K. pneumoniae] as the cause of diseases classified elsewhere; I10 Essential (primary) hypertension
CPT/HCPCS: 36415; 80053; 81001; 82550; 83605; 84145; 84484; 85025; 87040; 87635; 93005; 93010; 96361; 96365; 99284; C9803; J0696

== ENCOUNTER 2021-07-10 06:13 | Emergency (ER) | payer MEDICARE, OTHER, SELFPAY ==
[2021-07-05 10:22] VITALS: BMI 25.3
[2021-07-10] VITALS (7 sets, daily range): BP systolic 129–138; BP diastolic 73–74; PULSE 92–105; RESP 18; TEMP 36.5; O2SAT 97–99; BMI 25.5
[2021-07-10 06:58] LABS: Add Manual Diff / Slide Review NO; Basophils Absolute Auto 0 /uL (0-100); Basophils Percent Auto 0.4 % (0-2); Eosinophils Absolute Auto 0 /uL (0-450); Eosinophils Percent Auto 1.5 % (2-4); Hemoglobin 13.9 g/dL (13.5-17.5); Lymphocytes Absolute Auto 200 /uL (1100-4500); Lymphocytes Percent Auto 8.6 % (25-40); Mean Corpuscular HGB Conc 34.7 % (30-36); Mean Corpuscular Hemoglobin 31.3 PG (26-34); Mean Corpuscular Volume 90.3 fL (80-100); Monocytes Absolute Auto 200 /uL (0-900); Monocytes Percent Auto 7.7 % (3-14); Neutrophils Absolute Auto 2300 /uL (1500-7000); Neutrophils Percent Auto 81.8 % (50-75); Platelet Count 165 X10^3/uL (150-400); Red Blood Cell Count 4.43 X10^6/uL (4.5-5.9); Red Cell Distribution Width 14.6 % (11.6-14.8); White Blood Cell Count 2.8 X10^3/uL (4.5-11.0)
[2021-07-10 07:04] LABS: Alanine Aminotransferase 34 IU/L (<50); Albumin 3.6 g/dL (3.5-5.0); Albumin Globulin Ratio 1.4 (1.0-2.8); Alkaline Phosphatase 116 U/L (38-126); Aspartate Aminotransferase 45 IU/L (17-59); BUN Creatinine Ratio 18.3 (6-22); Bilirubin Total 1.1 mg/dL (0.2-1.3); Blood Urea Nitrogen 13 mg/dL (9-20); Calcium 8.7 mg/dL (8.4-10.2); Carbon Dioxide 26 mmol/L (22-32); Chloride 94 mmol/L (98-107); Estimated Glomerular Filt Rate > 60.0 mL/min (>60); Globulin 2.5 g/dL (1.7-4.1); Glucose 102 mg/dL (80-110); HEMOLYSIS < 15 (0-50); Sodium 130 mmol/L (137-145); Total Protein 6.1 g/dL (6.3-8.2)
--- NOTE | 2021-07-10 07:11 | ED.AMS ---
HPI - Altered Mental Status General Chief Complaint: Altered Mental Status Stated Complaint: having trouble sleeping, continued symptoms Time Seen by Provider: 07/10/21 06:24 Source: patient Mode of arrival: Ambulatory Limitations: no limitations History of Present Illness HPI narrative: The patient is concerned about memory issues. He apparently is having difficulty sleeping. His indicates he is losing his thoughts in mid conversation. He has no history of head injury, he has no headache. He recently has injured COVID-19. He was diagnosed on June 29. He thinks symptoms started June 23. He has been seen here in follow-up, this is his 3rd visit in rapid sequence. On the 1st visit he had an evaluation for his breathing, chest x-ray was clear. Labs included blood cultures. He had a positive Klebsiella culture. He was called back and re-evaluated. Follow-up cultures are no growth. He presents now with insomnia, in apparent memory issues. He has no visual changes, no speech changes, no numbness or weakness. He has no difficulty walking. He has no fever, chills or sweats. He is anticoagulated. He is having no chest pain, palpitations, or sensation of near syncope. Related Data Home Medications Medication Instructions Recorded Confirmed atorvastatin 20 mg tablet (Lipitor) 20 mg PO QPM tab 09/18/20 06/28/21 Previous Rx's Medication Instructions Recorded irbesartan 150 2 tab PO QAM #180 tab 01/02/19 mg-hydrochlorothiazide 12.5 mg tablet amlodipine 5 mg tablet (Norvasc) 5 mg PO QDAY #90 tab 01/22/19 apixaban 5 mg tablet (Eliquis) 5 mg PO BID #60 tab 03/22/19 cefdinir 300 mg capsule 300 mg PO Q12H #14 cap 07/08/21 benzonatate 100 mg capsule 100 mg PO BID PRN #20 cap 07/09/21 (Tesgail Densno) Allergies Allergy/AdvReac Type Severity Reaction Status Date / Time No Known Drug Allergies Allergy Verified 06/28/21 12:26 Review of Systems Review of Systems ROS Unobtainable: All systems reviewed & are unremarkable except as noted in HPI and below Constitutional Constitutional: Denies anorexia, Denies body ache(s), Denies chills, Denies fatigue, Denies fever(s) and Denies weakness Comments: Complains of insomnia. See HPI. Eyes Eyes: Denies change in vision and Denies loss of vision ENT Ears, Nose, Mouth, and Throat: Denies dizziness, Denies sinus pressure and Denies sore throat Cardiovascular Cardiovascular: Denies chest pain, Denies syncope, Denies pedal edema, Denies edema, Denies irregular heart rhythm and Denies dyspnea Respiratory Respiratory: Denies chest congestion, Denies cough and Denies dyspnea Gastrointestinal Gastrointestinal: Denies abdominal pain, Denies constipation, Denies nausea and Denies vomiting Genitourinary Comments: No urinary complaints. Musculoskeletal Musculoskeletal: Denies arthralgias, Denies back pain and Denies arthralgias Integumentary/Breasts Skin/Breast: Denies lesions and Denies rash Neurologic Neurologic: Denies behavioral changes, Denies confusion, Denies dizziness, Denies syncope, Denies loss of vision and Denies weakness Psychiatric Psychiatric: Denies anxiety, Denies behavioral changes and Denies confusion Endocrine Endocrine: Denies fatigue Hematologic/Lymphatic On Anticoagulants: Yes Patient History Medical History Atrial fibrillation with controlled ventricular response (12/11/17) BCC (basal cell carcinoma), ear CLL (chronic lymphocytic leukemia) (~2016) Hearing loss (~2007) History of cardiac radiofrequency ablation (RFA) (10/09/17) History of malignant neoplasm of prostate (12/01/17) Hyperlipidemia (10/09/17) Hypertension (10/09/17) Multiple actinic keratoses (08/13/02) Primary osteoarthritis of left knee (12/01/17) Prostate cancer (~2011) Skin cancer (~2009) Squamous cell skin cancer Trigger finger of left hand Vision abnormalities Surgical History History of bilateral cataract extraction History of cardiac radiofrequency ablation (RFA) (~2003) History of cataract removal with insertion of prosthetic lens (~2014) History of inguinal hernia repair (~2012) History of meniscectomy of left knee History of total left knee replacement (~11/2017) History of total right knee replacement History of vasectomy Status post colonoscopy (10/08/13) Family History Brother Age: 79 Dementia Sister Age: 88 Dementia Brother No problems noted. Father No problems noted. Mother No problems noted. Sister No problems noted. Social History household members: spouse Smoking Status: Former smoker alcohol intake: current Smoking Status: Former smoker alcohol intake frequency: 0-2 drinks per day Substance Use Type: does not use Exam Initial Vital Signs Initial Vital Signs: Vital Signs Temperature 97.7 F 07/10/21 06:20 Pulse Rate 105 H 07/10/21 06:20 Respiratory Rate 18 07/10/21 06:20 Blood Pressure 138/73 07/10/21 06:20 Pulse Oximetry 98 07/10/21 06:20 Const General: cooperative, comfortable, well developed and well groomed HENMT Head: normocephalic and atraumatic Throat: posterior oropharynx normal Eyes Conjunctivae: conjunctivae normal Sclera: sclerae normal Pupils: PERRL and other (No nystagmus) EOM: EOM intact bilaterally Neck Neck: full ROM and No JVD Resp Effort & Inspection: normal respiratory effort Auscultation: clear to auscultation bilaterally Cardio Rate: regular rate Rhythm: regular rhythm Heart Sounds: S1 normal, S2 normal and no murmurs GI Inspection: normal to inspection Palpation: soft, No mass and No tender Auscultation: normal bowel sounds Back/Spine/Pelvis Back: normal to inspection Skin General: no rashes or lesions noted Neuro General: patient alert, patient awake, patient oriented x3 and no focal motor deficits Extrem General: normal to inspection, full ROM, no pedal edema and no calf tenderness Psych Mental Status: mental status grossly normal Course Orders Ordered: ED Orders 07/10/21 06:45 CMP [Comprehensive Metabolic Panel] Stat Complete Blood Count AUTO DIFF Stat Lactate (Lactic Acid) Stat Procalcitonin Stat 07/10/21 08:13 CT head/brain wo con Stat Discontinued Medications Potassium Chloride (Potassium Chloride 20 Meq Tab) 40 meq PO NOW ONE Stop: 07/10/21 08:06 Last Admin: 07/10/21 08:34 Dose: 40 meq Documented by: EDIN Vital Signs Vital signs: Vital Signs - 8 hr 07/10/21 06:20 07/10/21 07:59 07/10/21 08:00 Temperature 97.7 F Pulse Rate 105 H 96 H 92 H Respiratory Rate 18 Blood Pressure 138/73 129/74 Pulse Oximetry 98 99 97 MDM - Altered Mental Status Lab Data Result diagrams: 07/10/21 06:45 07/10/21 06:45 Labs: Lab Results 07/10/21 07/10/21 07/10/21 Range/Units 06:45 06:45 06:45 WBC 2.8 L (4.5-11.0) X10^3/uL RBC 4.43 L (4.5-5.9) X10^6/uL Hgb 13.9 (13.5-17.5) g/dL Hct 40.0 L (41-53) % MCV 90.3 (80-100) fL MCH 31.3 (26-34) PG MCHC 34.7 (30-36) % RDW 14.6 (11.6-14.8) % Plt Count 165 (150-400) X10^3/uL Neut % (Auto) 81.8 H (50-75) % Lymph % (Auto) 8.6 L (25-40) % Mobile % (Auto) 7.7 (3-14) % Eos % (Auto) 1.5 L (2-4) % Baso % (Auto) 0.4 (0-2) % Neut # (Auto) 2300 (6874-2583) /uL Lymph # (Auto) 200 L (1238-8388) /uL Mobile # (Auto) 200 (0-900) /uL Eos # (Auto) 0 (0-450) /uL Baso # (Auto) 0 (0-100) /uL Sodium 130 L (137-145) mmol/L Potassium 3.0 L (3.4-5.1) mmol/L Chloride 94 L (98-107) mmol/L Carbon Dioxide 26 (22-32) mmol/L BUN 13 (9-20) mg/dL Creatinine 0.71 (0.66-1.25) mg/dL Estimated GFR > 60.0 (>60) mL/min BUN/Creatinine Ratio 18.3 (6-22) Glucose 102 (80-110) mg/dL Lactate 1.3 (0.7-2.1) mmol/L Calcium 8.7 (8.4-10.2) mg/dL Total Bilirubin 1.1 (0.2-1.3) mg/dL AST 45 (17-59) IU/L ALT 34 (<50) IU/L Alkaline Phosphatase 116 (38-126) U/L Total Protein 6.1 L (6.3-8.2) g/dL Albumin 3.6 (3.5-5.0) g/dL Globulin 2.5 (1.7-4.1) g/dL Albumin/Globulin Ratio 1.4 (1.0-2.8) Procalcitonin (<0.5) ng/mL 07/10/21 Range/Units 06:45 WBC (4.5-11.0) X10^3/uL RBC (4.5-5.9) X10^6/uL Hgb (13.5-17.5) g/dL Hct (41-53) % MCV (80-100) fL MCH (26-34) PG MCHC (30-36) % RDW (11.6-14.8) % Plt Count (150-400) X10^3/uL Neut % (Auto) (50-75) % Lymph % (Auto) (25-40) % Mobile % (Auto) (3-14) % Eos % (Auto) (2-4) % Baso % (Auto) (0-2) % Neut # (Auto) (8748-8023) /uL Lymph # (Auto) (3695-7122) /uL Mobile # (Auto) (0-900) /uL Eos # (Auto) (0-450) /uL Baso # (Auto) (0-100) /uL Sodium (137-145) mmol/L Potassium (3.4-5.1) mmol/L Chloride (98-107) mmol/L Carbon Dioxide (22-32) mmol/L BUN (9-20) mg/dL Creatinine (0.66-1.25) mg/dL Estimated GFR (>60) mL/min BUN/Creatinine Ratio (6-22) Glucose (80-110) mg/dL Lactate (0.7-2.1) mmol/L Calcium (8.4-10.2) mg/dL Total Bilirubin (0.2-1.3) mg/dL AST (17-59) IU/L ALT (<50) IU/L Alkaline Phosphatase (38-126) U/L Total Protein (6.3-8.2) g/dL Albumin (3.5-5.0) g/dL Globulin (1.7-4.1) g/dL Albumin/Globulin Ratio (1.0-2.8) Procalcitonin 0.10 (<0.5) ng/mL Imaging Data CT scan - head: Radiologist's Impression: [address] [address] [address] Scan Report Signed Patient: Rubin Cabrera MR#: [id number] : 1935 Acct:[id number] Age/Sex: 85 / M Date of Service: 07/10/21 Loc: ED Accession Number: [id number] ?? Procedure: CT head/brain wo con Ordering Provider: Fabrice Solis MD PROCEDURE:? CT HEAD/BRAIN WO CON ? INDICATIONS:? Mental status changes ? TECHNIQUE:? Noncontrast 4.5 mm thick angled axial sections acquired from the foramen magnum to the vertex, with coronal and sagittal reformats.? For radiation dose reduction, the following was used:? automated exposure control, adjustment of mA and/or kV according to patient size.? ? COMPARISON:? [facility], CT, NECK/CHEST/ABD/PEL W CONTRAST, 09/01/2017, 12:01. ? FINDINGS:? Image quality:? Excellent.? ? CSF spaces:? Basal cisterns are patent.? No extra-axial fluid collections.? The ventricles are symmetric in size and shape.? ? Brain:? No intracranial bleeds or masses.? There is cerebral volume loss for age, with resultant ventricular and sulcal prominence.? There are periventricular and deep white matter chronic small vessel ischemic changes.? There is intracranial internal carotid artery atherosclerosis.? ? Skull and face:? Calvarium and visualized facial bones appear intact, without suspicious lesions.? ? 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 ? Sinuses:? Visualized sinuses and mastoids are clear.? ? IMPRESSION:? ? Moderate atrophy and chronic ischemic change without intracranial hemorrhage or mass effect. ? 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 ? ? Approved by: Forrest Velez M.D. on 07/10/2021 at 7:57? MDM Narrative Medical decision making narrative: The patient has no obvious memory deficits or disorientation in my interview. There is no obvious suggestion of ongoing infection that could affect his memory. 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 This may be an issue. I gave him potassium due to hyperkalemia, I do not see this is a chronic issue. This should be rechecked with his PCM. He should discuss his memory issues with his PCM. Discharge Plan Departure Patient Disposition: Home Clinical Impression: Intermittent memory loss, Acute hypokalemia Instructions: DI for Altered Mental Status, Hypokalemia Activity Restrictions/Additional Instructions: Head CT reveals a degree of hardening of the arteries, but no obvious acute injury. There is no suggestion of infection or other issues that may be affecting your memory. Your potassium level was a little low, urine all medications that significantly impact her potassium. Follow-up with your doctor to recheck the potassium, and discuss memory issues. Return here as needed. Prescriptions: No Action irbesartan-hydrochlorothiazide 150-12.5 mg tablet 2 tab PO QAM Qty: 180 RF: 3 amlodipine [Norvasc] 5 mg tablet 5 mg PO QDAY Qty: 90 RF: 3 Eliquis 5 mg tablet 5 mg PO BID Qty: 60 RF: 0 benzonatate [Tessalon Perles] 100 mg capsule 100 mg PO BID PRN (Reason: cough) Qty: 20 RF: 0 atorvastatin [Lipitor] 20 mg tablet 20 mg PO QPM RF: 0 cefdinir 300 mg capsule 300 mg PO Q12H Qty: 14 RF: 0 Referrals: Tiffani Son DO [Primary Care Provider] -
--- NOTE | 2021-07-10 08:13 | DI.CT.S_ITS ---
PROCEDURE: CT HEAD/BRAIN WO CON INDICATIONS: Mental status changes TECHNIQUE: Noncontrast 4.5 mm thick angled axial sections acquired from the foramen magnum to the vertex, with coronal and sagittal reformats. For radiation dose reduction, the following was used: automated exposure control, adjustment of mA and/or kV according to patient size. COMPARISON: [facility], CT, NECK/CHEST/ABD/PEL W CONTRAST, 09/01/2017, 12:01. FINDINGS: Image quality: Excellent. CSF spaces: Basal cisterns are patent. No extra-axial fluid collections. The ventricles are symmetric in size and shape. Brain: No intracranial bleeds or masses. There is cerebral volume loss for age, with resultant ventricular and sulcal prominence. There are periventricular and deep white matter chronic small vessel ischemic changes. There is intracranial internal carotid artery atherosclerosis. Skull and face: Calvarium and visualized facial bones appear intact, without suspicious lesions. 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 Sinuses: Visualized sinuses and mastoids are clear. IMPRESSION: Moderate atrophy and chronic ischemic change without intracranial hemorrhage or mass effect. 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 on 07/10/2021 at 7:57
[2021-07-10] MEDS: POTASSIUM CHLORIDE 20 MEQ TAB 40 MEQ PO (08:34)
[2021-07-10 08:38] LABS: Lactate (Lactic Acid) 1.3 mmol/L (0.7-2.1)
== END 2021-07-10 09:51 | disposition home or self-care (01) ==
PROVIDERS: Emergency Medicine; Emergency Provider Emergency Medicine; Family Provider Family Medicine; PCP Family Medicine
DX: R41.3 Other amnesia (principal); E87.6 Hypokalemia
CPT/HCPCS: 70450; 80053; 83605; 84145; 85025; 99283; 99284

== ENCOUNTER 2021-07-14 16:17 | Emergency (ER) | payer MEDICARE, OTHER, SELFPAY ==
[2021-07-05 10:22] VITALS: BMI 25.3
[2021-07-14] VITALS (16 sets, daily range): BP systolic 88–156; BP diastolic 57–84; PULSE 98–119; RESP 17–26; TEMP 36.5; O2SAT 91–99; BMI 25.8
--- NOTE | 2021-07-14 16:50 | DI.RAD.S_ITS ---
PROCEDURE: XR CHEST 1V INDICATIONS: suspected sepsis TECHNIQUE: One view of the chest was acquired. COMPARISON: [facility], [place], XR CHEST 1V, 07/07/2021, 13:29. [facility], [place], CHEST 2 VIEW, 03/28/2017, 8:24. FINDINGS: Surgical changes and devices: None. Lungs and pleura: Increased right lung and left lung airspace opacity. No pleural effusions or pneumothorax. Mediastinum: Mediastinal contours appear unchanged. Heart size appears prominent, unchanged. Bones and chest wall: No suspicious bony lesions. Overlying soft tissues appear unremarkable. IMPRESSION: Increased bilateral patchy airspace opacity. Findings most consistent with multifocal pneumonia. Dictated by: Trevor Reddy M.D. on 07/14/2021 at 17:24 Approved by: Trevor Reddy M.D. on 07/14/2021 at 17:30
[2021-07-14] MEDS: SODIUM CHLORIDE 0.9% 1,000 ML 1000 ML IV ×2 (17:16→22:05)
[2021-07-14 17:27] LABS: Add Manual Diff / Slide Review NO; Basophils Absolute Auto 0 /uL (0-100); Basophils Percent Auto 0.2 % (0-2); Eosinophils Absolute Auto 0 /uL (0-450); Eosinophils Percent Auto 0.5 % (2-4); Hematocrit 39.1 % (41-53); Hemoglobin 13.5 g/dL (13.5-17.5); Lymphocytes Absolute Auto 200 /uL (1100-4500); Lymphocytes Percent Auto 4.7 % (25-40); Mean Corpuscular HGB Conc 34.5 % (30-36); Mean Corpuscular Hemoglobin 30.8 PG (26-34); Mean Corpuscular Volume 89.3 fL (80-100); Monocytes Absolute Auto 200 /uL (0-900); Monocytes Percent Auto 4.9 % (3-14); Neutrophils Absolute Auto 3200 /uL (1500-7000); Neutrophils Percent Auto 89.7 % (50-75); Platelet Count 179 X10^3/uL (150-400); Red Blood Cell Count 4.38 X10^6/uL (4.5-5.9); White Blood Cell Count 3.6 X10^3/uL (4.5-11.0)
[2021-07-14 17:41] LABS: Alanine Aminotransferase 60 IU/L (<50); Albumin 3.4 g/dL (3.5-5.0); Albumin Globulin Ratio 1.4 (1.0-2.8); Alkaline Phosphatase 114 U/L (38-126); Aspartate Aminotransferase 77 IU/L (17-59); BUN Creatinine Ratio 22.9 (6-22); Bilirubin Total 0.9 mg/dL (0.2-1.3); Blood Urea Nitrogen 19 mg/dL (9-20); Calcium 8.9 mg/dL (8.4-10.2); Carbon Dioxide 24 mmol/L (22-32); Chloride 94 mmol/L (98-107); Estimated Glomerular Filt Rate > 60.0 mL/min (>60); Globulin 2.4 g/dL (1.7-4.1); Glucose 110 mg/dL (80-110); HEMOLYSIS < 15 (0-50); Lipase 419 U/L (23-300); Potassium 3.2 mmol/L (3.4-5.1); Sodium 127 mmol/L (137-145); Total Protein 5.8 g/dL (6.3-8.2)
[2021-07-14 17:42] LABS: Lactate (Lactic Acid) 1.3 mmol/L (0.7-2.1)
[2021-07-14 17:56] LABS: Procalcitonin 0.18 ng/mL (<0.5)
--- NOTE | 2021-07-14 18:11 | ED_ITS ---
HPI - Fever General Chief Complaint: Fever Stated Complaint: Fatigue/feeling poorly COVID + Time Seen by Provider: 07/14/21 18:10 Source: patient Mode of arrival: Ambulatory Limitations: no limitations History of Present Illness HPI Narrative: 85-year-old male former smoker returns to the emergency department for generalized weakness. He has been here multiple times recently and has had COVID since the beginning of June. He denies any chest pain or difficulty in breathing. He has had no nausea or vomiting denies any change in his appetite. He states that he feels dizzy and lightheaded upon standing and worn out and fatigued. He denies any change in bowel habits and has no urinary complaints. Related Data Home Medications Medication Instructions Recorded Confirmed atorvastatin 20 mg tablet (Lipitor) 20 mg PO QPM tab 09/18/20 06/28/21 Previous Rx's Medication Instructions Recorded irbesartan 150 2 tab PO QAM #180 tab 01/02/19 mg-hydrochlorothiazide 12.5 mg tablet amlodipine 5 mg tablet (Norvasc) 5 mg PO QDAY #90 tab 01/22/19 apixaban 5 mg tablet (Eliquis) 5 mg PO BID #60 tab 03/22/19 benzonatate 100 mg capsule 100 mg PO BID PRN #20 cap 07/09/21 (Cristela Denson) Allergies Allergy/AdvReac Type Severity Reaction Status Date / Time No Known Drug Allergies Allergy Verified 07/14/21 16:44 Review of Systems Review of Systems Narrative: GENERAL: See HPI HEENT: Denies sinus pain, ear pain, sore throat, difficulty swallowing, dizziness. RESPIRATORY: Denies dyspnea, cough, wheezing, hemoptysis, sputum. CARDIOVASCULAR: Denies chest pain, palpitations, orthopnea, edema, GASTROINTESTINAL: Denies nausea, vomiting, abdominal pain, diarrhea, constipation, melena. : Denies dysuria, frequency, incontinence, hematuria, urinary retention. MUSCULOSKELETAL: denies weakness, joint pain, or bony pain SKIN: Denies rash, skin lesions, or other NEUROLOGIC: Denies weakness, headache, numbness, change in speech, confusion, seizures, incoordination. PSYCHIATRIC: No concerning psychosocial issues. 12 point review of systems is negative except for those stated above Patient History Medical History Atrial fibrillation with controlled ventricular response (12/11/17) BCC (basal cell carcinoma), ear CLL (chronic lymphocytic leukemia) (~2016) Hearing loss (~2007) History of cardiac radiofrequency ablation (RFA) (10/09/17) History of malignant neoplasm of prostate (12/01/17) Hyperlipidemia (10/09/17) Hypertension (10/09/17) Multiple actinic keratoses (08/13/02) Primary osteoarthritis of left knee (12/01/17) Prostate cancer (~2011) Skin cancer (~2009) Squamous cell skin cancer Trigger finger of left hand Vision abnormalities Surgical History History of bilateral cataract extraction History of cardiac radiofrequency ablation (RFA) (~2003) History of cataract removal with insertion of prosthetic lens (~2014) History of inguinal hernia repair (~2012) History of meniscectomy of left knee History of total left knee replacement (~11/2017) History of total right knee replacement History of vasectomy Status post colonoscopy (10/08/13) Family History Brother Age: 79 Dementia Sister Age: 88 Dementia Brother No problems noted. Father No problems noted. Mother No problems noted. Sister No problems noted. Social History household members: spouse Smoking Status: Former smoker alcohol intake: current Smoking Status: Former smoker alcohol intake frequency: 0-2 drinks per day Substance Use Type: does not use Exam Narrative Exam Narrative: GENERAL: [85 year old patient appears stated age. Well-developed patient, in mild distress. HEAD: Atraumatic. Normocephalic. EYES: Pupils equal round and reactive. Extraocular motions intact. No scleral icterus. No injection or drainage. ENT: Nose without bleeding, purulent drainage. Throat without erythema, tonsillar hypertrophy or exudate. Airway patent. NECK: Trachea midline. Non tender CARDIOVASCULAR: Regular rate and rhythm without murmurs, gallops, or rubs. RESPIRATORY: Clear to auscultation. Breath sounds equal bilaterally. No wheezes, rales, or rhonchi. GASTROINTESTINAL: Abdomen soft, non-tender, nondistended. EXTREMITIES: No edema or joint tenderness. BACK: Nontender without deformity or crepitance. No flank tenderness. NEURO: AOx3. SKIN: No rash or erythema of visible areas Initial Vital Signs Initial Vital Signs: Vital Signs Temperature 97.7 F 07/14/21 16:37 Pulse Rate 108 H 07/14/21 16:37 Respiratory Rate 20 07/14/21 16:37 Blood Pressure 88/57 L 07/14/21 16:37 Pulse Oximetry 94 07/14/21 16:37 Course Orders Ordered: ED Orders 07/14/21 16:50 XR chest 1V Stat EKG-12 Lead Stat RT Consult Eval and Treat Now 07/14/21 17:10 CRP [C-Reactive Protein Quant] Stat Complete Blood Count AUTO DIFF Stat Comprehensive Metabolic Panel Stat LDH [Lactate Dehydrogenase] Stat Lactate (Lactic Acid) Stat Lipase Stat Procalcitonin Stat 07/14/21 18:30 Respiratory Panel (Film Array) Stat 07/14/21 19:05 Blood Culture Stat 07/14/21 20:00 ABG [Arterial Blood Gas] Stat Discontinued Medications Sodium Chloride (Normal Saline 0.9%) 1,000 mls @ 1,000 mls/hr IV BOLUS ONE Stop: 07/14/21 17:49 Last Infusion: 07/14/21 18:59 Dose: 0 mls/hr Documented by: Admin: 07/14/21 17:16 Dose: 1,000 mls/hr Documented by: VLADIMIR Sodium Chloride (Normal Saline 0.9%) 1,000 mls @ 1,000 mls/hr IV BOLUS ONE Stop: 07/14/21 22:57 Last Infusion: 07/14/21 23:29 Dose: 0 mls/hr Documented by: Admin: 07/14/21 22:05 Dose: 1,000 mls/hr Documented by: GARCIA Vital Signs Vital signs: Vital Signs - 8 hr 07/14/21 17:22 07/14/21 18:49 07/14/21 19:00 Pulse Rate 109 H 99 H 98 H Pulse Rate [Orthostatic Lying] Pulse Rate [Orthostatic Sitting] Pulse Rate [Orthostatic Standing] Respiratory Rate 22 17 22 Blood Pressure 111/59 L 132/71 Blood Pressure [Orthostatic Lying] Blood Pressure [Orthostatic Sitting] Blood Pressure [Orthostatic Standing] Pulse Oximetry 95 96 95 07/14/21 19:30 07/14/21 20:00 07/14/21 20:03 Pulse Rate 107 H 101 H 100 H Pulse Rate [Orthostatic Lying] Pulse Rate [Orthostatic Sitting] Pulse Rate [Orthostatic Standing] Respiratory Rate 17 24 24 Blood Pressure 120/73 139/84 Blood Pressure [Orthostatic Lying] Blood Pressure [Orthostatic Sitting] Blood Pressure [Orthostatic Standing] Pulse Oximetry 95 94 93 07/14/21 20:30 07/14/21 20:46 07/14/21 20:48 Pulse Rate 98 H 108 H Pulse Rate [Orthostatic Lying] Pulse Rate [Orthostatic Sitting] Pulse Rate [Orthostatic Standing] Respiratory Rate 22 25 H Blood Pressure 123/73 128/67 126/60 Blood Pressure [Orthostatic Lying] Blood Pressure [Orthostatic Sitting] Blood Pressure [Orthostatic Standing] Pulse Oximetry 95 91 07/14/21 20:50 07/14/21 21:00 07/14/21 21:30 Pulse Rate 110 H 104 H Pulse Rate [Orthostatic Lying] 104 H Pulse Rate [Orthostatic Sitting] 110 H Pulse Rate [Orthostatic Standing] 119 H Respiratory Rate 26 H 24 Blood Pressure 113/69 133/80 Blood Pressure [Orthostatic Lying] 123/73 Blood Pressure [Orthostatic Sitting] 128/67 Blood Pressure [Orthostatic Standing] 126/61 Pulse Oximetry 95 99 07/14/21 22:00 07/14/21 22:30 07/14/21 23:00 Pulse Rate 104 H 100 H 99 H Pulse Rate [Orthostatic Lying] Pulse Rate [Orthostatic Sitting] Pulse Rate [Orthostatic Standing] Respiratory Rate 22 22 24 Blood Pressure 128/79 156/79 H 156/82 H Blood Pressure [Orthostatic Lying] Blood Pressure [Orthostatic Sitting] Blood Pressure [Orthostatic Standing] Pulse Oximetry 96 95 96 MDM - Fever Lab Data Result diagrams: 07/14/21 17:10 07/14/21 17:10 Labs: Lab Results 07/14/21 07/14/21 07/14/21 Range/Units 17:10 17:10 17:10 WBC 3.6 L (4.5-11.0) X10^3/uL RBC 4.38 L (4.5-5.9) X10^6/uL Hgb 13.5 (13.5-17.5) g/dL Hct 39.1 L (41-53) % MCV 89.3 (80-100) fL MCH 30.8 (26-34) PG MCHC 34.5 (30-36) % RDW 14.0 (11.6-14.8) % Plt Count 179 (150-400) X10^3/uL Neut % (Auto) 89.7 H (50-75) % Lymph % (Auto) 4.7 L (25-40) % [place] % (Auto) 4.9 (3-14) % Eos % (Auto) 0.5 L (2-4) % Baso % (Auto) 0.2 (0-2) % Neut # (Auto) 3200 (6361-5806) /uL Lymph # (Auto) 200 L (8283-8177) /uL [place] # (Auto) 200 (0-900) /uL Eos # (Auto) 0 (0-450) /uL Baso # (Auto) 0 (0-100) /uL ABG pH (7.35-7.45) ABG pCO2 (35-45) mmHg ABG pO2 (80-100) mmHg ABG HCO3 (22-26) mmol/L ABG Total CO2 (21-31) mmol/L ABG O2 Saturation (95-100) % ABG Base Excess (-2-2) mmol/L FiO2 Sodium 127 L (137-145) mmol/L Potassium 3.2 L (3.4-5.1) mmol/L Chloride 94 L (98-107) mmol/L Carbon Dioxide 24 (22-32) mmol/L BUN 19 (9-20) mg/dL Creatinine 0.83 (0.66-1.25) mg/dL Estimated GFR > 60.0 (>60) mL/min BUN/Creatinine Ratio 22.9 H (6-22) Glucose 110 (80-110) mg/dL Lactate 1.3 (0.7-2.1) mmol/L Calcium 8.9 (8.4-10.2) mg/dL Total Bilirubin 0.9 (0.2-1.3) mg/dL AST 77 H (17-59) IU/L ALT 60 H (<50) IU/L Alkaline Phosphatase 114 (38-126) U/L Lactate Dehydrogenase (313-618) U/L C-Reactive Protein (<1.0) mg/dL Total Protein 5.8 L (6.3-8.2) g/dL Albumin 3.4 L (3.5-5.0) g/dL Globulin 2.4 (1.7-4.1) g/dL Albumin/Globulin Ratio 1.4 (1.0-2.8) Lipase 419 H (23-300) U/L Procalcitonin 0.18 (<0.5) ng/mL Chlamy pneumoniae PCR (Not Detect) Adenovirus (PCR) (Not Detect) B. pertussis DNA (PCR) (Not Detecte) B.parapertussis DNA PCR (Not Detecte) Coronavirus OC43 (PCR) (Not Detect) Coronavirus HKU1 (PCR) (Not Detect) Coronavirus 229E (PCR) (Not Detect) SARS-CoV-2 (PCR) (Not Detecte) Coronavirus NL63 (PCR) (Not Detect) Human Metapneumovir PCR (Not Detect) Influenza Type A (PCR) (Not Detect) Influenza Type B (PCR) (Not Detect) M. pneumoniae (PCR) (Not Detect) Parainfluenza 1 (PCR) (Not Detect) Parainfluenza 2 (PCR) (Not Detect) Parainfluenza 3 (PCR) (Not Detect) Parainfluenza 4 (PCR) (Not Detect) RSV (PCR) (Not Detect) Entero/Rhino (PCR) (Not Detect) 07/14/21 07/14/21 07/14/21 Range/Units 17:10 18:30 20:00 WBC (4.5-11.0) X10^3/uL RBC (4.5-5.9) X10^6/uL Hgb (13.5-17.5) g/dL Hct (41-53) % MCV (80-100) fL MCH (26-34) PG MCHC (30-36) % RDW (11.6-14.8) % Plt Count (150-400) X10^3/uL Neut % (Auto) (50-75) % Lymph % (Auto) (25-40) % [place] % (Auto) (3-14) % Eos % (Auto) (2-4) % Baso % (Auto) (0-2) % Neut # (Auto) (3518-8432) /uL Lymph # (Auto) (5908-7510) /uL [place] # (Auto) (0-900) /uL Eos # (Auto) (0-450) /uL Baso # (Auto) (0-100) /uL ABG pH 7.48 H (7.35-7.45) ABG pCO2 28.6 L (35-45) mmHg ABG pO2 73 L (80-100) mmHg ABG HCO3 21 L (22-26) mmol/L ABG Total CO2 22 (21-31) mmol/L ABG O2 Saturation 96 (95-100) % ABG Base Excess -2.0 (-2-2) mmol/L FiO2 21 Sodium (137-145) mmol/L Potassium (3.4-5.1) mmol/L Chloride (98-107) mmol/L Carbon Dioxide (22-32) mmol/L BUN (9-20) mg/dL Creatinine (0.66-1.25) mg/dL Estimated GFR (>60) mL/min BUN/Creatinine Ratio (6-22) Glucose (80-110) mg/dL Lactate (0.7-2.1) mmol/L Calcium (8.4-10.2) mg/dL Total Bilirubin (0.2-1.3) mg/dL AST (17-59) IU/L ALT (<50) IU/L Alkaline Phosphatase (38-126) U/L Lactate Dehydrogenase 1094 H D (313-618) U/L C-Reactive Protein 7.6 H (<1.0) mg/dL Total Protein (6.3-8.2) g/dL Albumin (3.5-5.0) g/dL Globulin (1.7-4.1) g/dL Albumin/Globulin Ratio (1.0-2.8) Lipase (23-300) U/L Procalcitonin (<0.5) ng/mL Chlamy pneumoniae PCR Not detected (Not Detect) Adenovirus (PCR) Not detected (Not Detect) B. pertussis DNA (PCR) Not detected (Not Detecte) B.parapertussis DNA PCR Not detected (Not Detecte) Coronavirus OC43 (PCR) Not detected (Not Detect) Coronavirus HKU1 (PCR) Not detected (Not Detect) Coronavirus 229E (PCR) Not detected (Not Detect) SARS-CoV-2 (PCR) Detected H (Not Detecte) Coronavirus NL63 (PCR) Not detected (Not Detect) Human Metapneumovir PCR Not detected (Not Detect) Influenza Type A (PCR) Not detected (Not Detect) Influenza Type B (PCR) Not detected (Not Detect) M. pneumoniae (PCR) Not detected (Not Detect) Parainfluenza 1 (PCR) Not detected (Not Detect) Parainfluenza 2 (PCR) Not detected (Not Detect) Parainfluenza 3 (PCR) Not detected (Not Detect) Parainfluenza 4 (PCR) Not detected (Not Detect) RSV (PCR) Not detected (Not Detect) Entero/Rhino (PCR) Not detected (Not Detect) MDM Narrative Medical decision making narrative: Patient with known COVID has very reassuring history and physical exam. He has significant improvement after above-stated therapies. Orthostatic vital signs improve. He is in no significant respiratory distress, does not require supplemental oxygen. Return precautions discussed and questions answered to his apparent satisfaction Discharge Plan Departure Patient Disposition: Home Clinical Impression: Acute dehydration, COVID-19 Instructions: DI for Dehydration -- Adult Activity Restrictions/Additional Instructions: *You have been diagnosed with [COVID and dehydration. Your physical exam, labs, vital signs and response to fluids are very reassuring *What to do: *Please continue to take your regular medications as directed. [ ] New medication prescriptions sent to your pharmacy: [ ] [ ] New medication written as a paper prescription [x ] No new medications given *Please follow up with your primary care provider in 2-3 days, call for an appointment. Let them know you were seen in the Emergency Department and that we ask that you be seen in follow up. We will electronically transmit a record of today's note if your PCP is in our system *If you do not have a primary care provider please contact the [facility] Resource line at [phone]. They will ask some questions about your medical history and help get you set up with a doctor in the community. *Return to Emergency Department if you should have any new, worsening or concerning symptoms, such as [fever greater than 101 F, shaking chills, worsening pain, persistent vomiting or other bothersome symptoms] Prescriptions: No Action irbesartan-hydrochlorothiazide 150-12.5 mg tablet 2 tab PO QAM Qty: 180 3RF amlodipine [Norvasc] 5 mg tablet 5 mg PO QDAY Qty: 90 3RF Eliquis 5 mg tablet 5 mg PO BID Qty: 60 0RF benzonatate [Tessalon Perles] 100 mg capsule 100 mg PO BID PRN (Reason: cough) Qty: 20 0RF atorvastatin [Lipitor] 20 mg tablet 20 mg PO QPM 0RF Referrals: Tiffani Son DO [Primary Care Provider] -
[2021-07-14 18:55] LABS: C-Reactive Protein Quant 7.6 mg/dL (<1.0); Lactate Dehydrogenase 1094 U/L (313-618)
[2021-07-14 20:09] LABS: Adenovirus Not Detected (Not Detect); B. parapertussis Not Detected (Not Detecte); Bordetella pertussis Not Detected (Not Detecte); Chlamydophila pneumoniae Not Detected (Not Detect); Coronavirus 229E Not Detected (Not Detect); Coronavirus HKU1 Not Detected (Not Detect); Coronavirus NL 63 Not Detected (Not Detect); Coronavirus OC43 Not Detected (Not Detect); Human Metapneumovirus Not Detected (Not Detect); Human Rhinovirus/Enterovirus Not Detected (Not Detect); Influenza A Not Detected (Not Detect); Influenza B Not Detected (Not Detect); Parainfluenza Virus 1 Not Detected (Not Detect); Parainfluenza Virus 2 Not Detected (Not Detect); Parainfluenza Virus 3 Not Detected (Not Detect); Parainfluenza Virus 4 Not Detected (Not Detect); Respiratory Syncytial Virus Not Detected (Not Detect)
[2021-07-14 20:10] LABS: Mycoplasma pneumoniae Not Detected (Not Detect)
[2021-07-14 20:10] LABS: HCO3 ABG 21 mmol/L (22-26); Oxygen Saturation ABG 96 % (95-100); PCO2 ABG 28.6 mmHg (35-45); PO2 ABG 73 mmHg (80-100); TCO2 ABG 22 mmol/L (21-31); pH ABG 7.48 (7.35-7.45)
[2021-07-14 20:11] LABS: Fractionated Inspired Oxygen 21
[2021-07-14 20:11] LABS: SARS- CoV-2 Detected (Not Detecte)
== END 2021-07-14 23:31 | disposition home or self-care (01) ==
PROVIDERS: Emergency Medicine; Emergency Provider Emergency Medicine; Family Provider Family Medicine; PCP Family Medicine
DX: U07.1 COVID-19 (principal); E86.0 Dehydration; I10 Essential (primary) hypertension; Z87.891 Personal history of nicotine dependence
CPT/HCPCS: 36415; 36600; 71045; 80053; 82805; 83605; 83615; 83690; 84145; 85025; 86140; 87040; 87633; 93005; 96360; 96361; 99284

== ENCOUNTER → 2021-07-30 09:33 | Outpatient (CLI) | payer MEDICARE, OTHER, SELFPAY ==
[2021-07-05 10:22] VITALS: BMI 25.3
--- NOTE | 2021-07-30 09:36 | DI.RAD.S_ITS ---
PROCEDURE: XR CHEST 2V INDICATIONS: cough, night sweats TECHNIQUE: 2 views of the chest were acquired. COMPARISON: [facility], CR, XR CHEST 1V, 07/07/2021, 13:29. [facility], CR, XR CHEST 1V, 07/14/2021, 17:11. FINDINGS: Surgical changes and devices: None. Lungs and pleura: Patchy opacities noted in the lungs bilaterally. No pleural effusions or pneumothorax. Mediastinum: Mediastinal contours are normal. Heart size is normal. Bones and chest wall: No suspicious bony abnormalities. Soft tissues appear unremarkable. IMPRESSION: Bilateral lung opacities which could represent persistent multilobar pneumonia versus postinfectious scarring. Dictated by: Margot Faith MD, PhD on 07/30/2021 at 14:50 Approved by: Margot Faith MD, PhD on 07/30/2021 at 14:51
[2021-07-30 10:23] LABS: Add Manual Diff / Slide Review NO; Basophils Absolute Auto 0 /uL (0-100); Basophils Percent Auto 0.4 % (0-2); Eosinophils Absolute Auto 0 /uL (0-450); Eosinophils Percent Auto 0.8 % (2-4); Hematocrit 36.9 % (41-53); Hemoglobin 12.9 g/dL (13.5-17.5); Lymphocytes Absolute Auto 400 /uL (1100-4500); Mean Corpuscular HGB Conc 34.8 % (30-36); Mean Corpuscular Hemoglobin 31.1 PG (26-34); Mean Corpuscular Volume 89.2 fL (80-100); Monocytes Absolute Auto 500 /uL (0-900); Monocytes Percent Auto 7.6 % (3-14); Neutrophils Absolute Auto 5500 /uL (1500-7000); Neutrophils Percent Auto 85.2 % (50-75); Platelet Count 258 X10^3/uL (150-400); Red Blood Cell Count 4.14 X10^6/uL (4.5-5.9); Red Cell Distribution Width 14.2 % (11.6-14.8); White Blood Cell Count 6.4 X10^3/uL (4.5-11.0)
[2021-07-30 10:37] LABS: Alanine Aminotransferase 90 IU/L (<50); Albumin 2.7 g/dL (3.5-5.0); Albumin Globulin Ratio 1.1 (1.0-2.8); Alkaline Phosphatase 154 U/L (38-126); Aspartate Aminotransferase 93 IU/L (17-59); BUN Creatinine Ratio 16.4 (6-22); Bilirubin Total 0.9 mg/dL (0.2-1.3); Blood Urea Nitrogen 10 mg/dL (9-20); Calcium 9.1 mg/dL (8.4-10.2); Carbon Dioxide 31 mmol/L (22-32); Chloride 97 mmol/L (98-107); Estimated Glomerular Filt Rate > 60.0 mL/min (>60); Globulin 2.4 g/dL (1.7-4.1); Glucose 104 mg/dL (80-110); HEMOLYSIS < 15 (0-50); Potassium 3.8 mmol/L (3.4-5.1); Sodium 134 mmol/L (137-145); Total Protein 5.1 g/dL (6.3-8.2)
[2021-07-30 15:31] LABS: C-Reactive Protein Quant 8.6 mg/dL (<1.0); Lactate Dehydrogenase 850 U/L (313-618)
== END ==
PROVIDERS: Family Provider Family Medicine; PCP Family Medicine; Referring Provider Family Medicine; Visit Provider Family Medicine
DX: I10 Essential (primary) hypertension (principal); J18.9 Pneumonia, unspecified organism; U07.1 COVID-19; C91.90 Lymphoid leukemia, unspecified not having achieved remission
CPT/HCPCS: 36415; 71046; 80053; 83615; 85025; 86140

== ENCOUNTER → 2021-10-01 10:01 | Outpatient (CLI) | payer MEDICARE, OTHER, SELFPAY ==
[2021-07-05 10:22] VITALS: BMI 25.3
--- NOTE | 2021-10-01 | DI.RAD.S_ITS ---
PROCEDURE: XR CHEST 2V INDICATIONS: PNEUMONIA TECHNIQUE: 2 views of the chest were acquired. COMPARISON: [facility], CR, XR CHEST 2V, 07/30/2021, 9:33. FINDINGS: Surgical changes and devices: None. Lungs and pleura: Lungs are clear. No pleural effusions or pneumothorax. Interstitial prominence is unchanged compared to the prior study and is likely chronic. Mediastinum: Mediastinal contours are normal. Heart size is normal. Bones and chest wall: No suspicious bony abnormalities. Soft tissues appear unremarkable. IMPRESSION: No acute cardiopulmonary abnormality Dictated by: Mikey Roach M.D. on 10/01/2021 at 14:14 Approved by: Mikey Roach M.D. on 10/01/2021 at 14:14
== END ==
PROVIDERS: Family Provider Family Medicine; PCP Family Medicine; Referring Provider Internal Medicine Hematology & Oncology; Visit Provider Internal Medicine Hematology & Oncology
DX: U07.1 COVID-19 (principal); J12.82 Pneumonia due to coronavirus disease 2019
CPT/HCPCS: 71046

== ENCOUNTER → 2021-11-22 09:30 | Outpatient (CLI) | payer MEDICARE, OTHER, SELFPAY ==
[2021-07-05 10:22] VITALS: BMI 25.3
[2021-11-22 11:26] LABS: Add Manual Diff / Slide Review NO; Basophils Absolute Auto 0 /uL (0-100); Basophils Percent Auto 0.6 % (0-2); Eosinophils Absolute Auto 100 /uL (0-450); Eosinophils Percent Auto 2.2 % (2-4); Hematocrit 39.5 % (41-53); Hemoglobin 13.2 g/dL (13.5-17.5); Lymphocytes Absolute Auto 800 /uL (1100-4500); Lymphocytes Percent Auto 19.5 % (25-40); Mean Corpuscular HGB Conc 33.5 % (30-36); Mean Corpuscular Hemoglobin 30.4 PG (26-34); Mean Corpuscular Volume 90.7 fL (80-100); Monocytes Absolute Auto 500 /uL (0-900); Monocytes Percent Auto 11.6 % (3-14); Neutrophils Absolute Auto 2600 /uL (1500-7000); Neutrophils Percent Auto 66.1 % (50-75); Platelet Count 147 X10^3/uL (150-400); Red Blood Cell Count 4.35 X10^6/uL (4.5-5.9); Red Cell Distribution Width 13.4 % (11.6-14.8)
[2021-11-22 12:41] LABS: Alanine Aminotransferase 31 IU/L (<50); Albumin Globulin Ratio 2.1 (1.0-2.8); Alkaline Phosphatase 82 U/L (38-126); Aspartate Aminotransferase 31 IU/L (17-59); BUN Creatinine Ratio 20.5 (6-22); Bilirubin Total 0.6 mg/dL (0.2-1.3); Blood Urea Nitrogen 15 mg/dL (9-20); Calcium 9.4 mg/dL (8.4-10.2); Carbon Dioxide 26 mmol/L (22-32); Chloride 106 mmol/L (98-107); Estimated Glomerular Filt Rate > 60.0 mL/min (>60); Globulin 1.9 g/dL (1.7-4.1); Glucose 96 mg/dL (80-110); HEMOLYSIS < 15 (0-50); Potassium 4.1 mmol/L (3.4-5.1); Sodium 139 mmol/L (137-145); Total Protein 5.9 g/dL (6.3-8.2)
[2021-11-22 13:09] LABS: Prostate Specific Antigen 0.166 ng/mL (0.10-4.00)
== END ==
PROVIDERS: Family Provider Family Medicine; PCP Family Medicine; Referring Provider Urology; Visit Provider Urology
DX: I10 Essential (primary) hypertension (principal); Z85.46 Personal history of malignant neoplasm of prostate; C91.90 Lymphoid leukemia, unspecified not having achieved remission
CPT/HCPCS: 36415; 80053; 84153; 85025

== ENCOUNTER → 2022-05-04 07:31 | Outpatient (CLI) | payer MEDICARE, OTHER, SELFPAY ==
[2021-07-05 10:22] VITALS: BMI 25.3
[2022-05-04 09:10] LABS: Add Manual Diff / Slide Review NO; Basophils Absolute Auto 0 /uL (0-100); Basophils Percent Auto 0.5 % (0-2); Eosinophils Absolute Auto 100 /uL (0-450); Eosinophils Percent Auto 2.7 % (2-4); Hematocrit 38.9 % (41-53); Hemoglobin 13.2 g/dL (13.5-17.5); Lymphocytes Absolute Auto 1000 /uL (1100-4500); Lymphocytes Percent Auto 24.9 % (25-40); Mean Corpuscular HGB Conc 33.9 % (30-36); Mean Corpuscular Hemoglobin 32.4 PG (26-34); Mean Corpuscular Volume 95.8 fL (80-100); Monocytes Absolute Auto 500 /uL (0-900); Monocytes Percent Auto 11.7 % (3-14); Neutrophils Absolute Auto 2500 /uL (1500-7000); Neutrophils Percent Auto 60.2 % (50-75); Platelet Count 172 X10^3/uL (150-400); Red Blood Cell Count 4.06 X10^6/uL (4.5-5.9); Red Cell Distribution Width 15.7 % (11.6-14.8); White Blood Cell Count 4.2 X10^3/uL (4.5-11.0)
[2022-05-04 09:41] LABS: BUN Creatinine Ratio 19.7 (6-22); Blood Urea Nitrogen 13 mg/dL (9-20); Calcium 9.2 mg/dL (8.4-10.2); Carbon Dioxide 27 mmol/L (22-32); Chloride 107 mmol/L (98-107); Cholesterol 144 mg/dL (140-199); Estimated Glomerular Filt Rate > 60 mL/min (>60); Glucose 95 mg/dL (80-110); HDL Cholesterol 57 mg/dL (40-60); HEMOLYSIS < 15 (0-50); LDL Cholesterol Calculated 76 mg/dL (<100); Sodium 140 mmol/L (137-145); Triglycerides 55 mg/dL (35-150)
== END ==
PROVIDERS: Family Provider Family Medicine; PCP Pediatrics; Referring Provider Internal Medicine Cardiovascular Disease; Visit Provider Internal Medicine Cardiovascular Disease
DX: E78.5 Hyperlipidemia, unspecified (principal); Z79.01 Long term (current) use of anticoagulants; I48.19 Other persistent atrial fibrillation
CPT/HCPCS: 36415; 80048; 80061; 85025

== ENCOUNTER 2022-06-18 16:16 | Emergency (ER) | payer MEDICARE, OTHER, SELFPAY ==
[2021-07-05 10:22] VITALS: BMI 25.3
[2022-06-18] VITALS (10 sets, daily range): BP systolic 160–173; BP diastolic 88–102; PULSE 70–84; RESP 17–20; TEMP 36.6; O2SAT 96–99; BMI 27.3
--- NOTE | 2022-06-18 16:48 | DI.CT.S_ITS ---
PROCEDURE: CT HEAD/BRAIN WO CON INDICATIONS: head injury on eliquis TECHNIQUE: Noncontrast 4.5 mm thick angled axial sections acquired from the foramen magnum to the vertex, with coronal and sagittal reformats. For radiation dose reduction, the following was used: automated exposure control, adjustment of mA and/or kV according to patient size. COMPARISON: None. FINDINGS: Image quality: Excellent. CSF spaces: Basal cisterns are patent. No extra-axial fluid collections. The ventricles are symmetric in size and shape. Brain: No intracranial bleeds or masses. There is cerebral volume loss for age, with resultant ventricular and sulcal prominence. There are periventricular and deep white matter chronic small vessel ischemic changes. There is intracranial internal carotid artery atherosclerosis. Skull and face: Calvarium and visualized facial bones appear intact, without suspicious lesions. Sinuses: Visualized sinuses and mastoids are clear. IMPRESSION: 1. No CT evidence of acute intracranial trauma. 2. No significant soft tissue injury or underlying fracture. 3. Age-appropriate exam. Dictated by: Sri Galeano M.D. on 06/18/2022 at 16:41 Approved by: Sri Galeano M.D. on 06/18/2022 at 16:43
--- NOTE | 2022-06-18 16:48 | DI.CT.S_ITS ---
PROCEDURE: CT CERVICAL SPINE WO CON INDICATIONS: head injury on eliquis TECHNIQUE: Noncontrast 3 mm thick sections acquired from the skull base to the T4 level. Sagittal and coronal reformats were then constructed. For radiation dose reduction, the following was used: automated exposure control, adjustment of mA and/or kV according to patient size. COMPARISON: None. FINDINGS: Image quality: Excellent. Bones: No acute cervical spine fractures or pathologic subluxation. The craniocervical junction is intact. There is mild anterior subluxation of C1 on two. Wispy soft tissue calcifications and soft tissue thickening suggesting pannus formation surround the odontoid process. There are severe multilevel degenerative changes including disc height loss and facet arthropathy from C2 through C7. Moderate anterior endplate spurring is present. Degenerative irregularity of the endplate cortices. Soft tissues: Prevertebral soft tissues are normal in thickness. No paravertebral hematomas. No apical pneumothoraces. Moderate carotid bulb calcification bilaterally. There is soft tissue thickening posterior to the C2 vertebral body causing mild diffuse chronic narrowing the central canal. IMPRESSION: 1. No CT evidence of acute cervical spine trauma. 2. Severe multilevel degeneration. 3. There is soft tissue thickening and dystrophic calcification surrounding the dens and posterior to the C2 vertebral body, potentially related to an arthritic process and probably causing chronic central canal narrowing at this level. Dictated by: Sri Galeano M.D. on 06/18/2022 at 16:32 Approved by: Sri Galeano M.D. on 06/18/2022 at 16:41
--- NOTE | 2022-06-18 16:49 | DI.RAD.S_ITS ---
PROCEDURE: XR RIBS RT MIN 3V W CXR 1V INDICATIONS: fall TECHNIQUE: Three views of the right ribs were acquired, along with a single view chest. COMPARISON: None. FINDINGS: Surgical changes and devices: None. Bones and chest wall: No displaced right rib fractures. Multilevel degenerative changes seen throughout the thoracolumbar spine. Mild chronic appearing vertebral body height loss in the mid and lower thoracolumbar spine.. No suspicious bony lesions. Overlying soft tissues appear unremarkable. Lungs and pleura: No pleural effusions or pneumothorax. Lungs appear clear. Mediastinum: Mediastinal contours appear normal. Heart size is normal. IMPRESSION: 1. No visible displaced acute rib fractures. 2. Probable chronic and degenerative deformities of the thoracolumbar vertebral bodies. 3. No radiographic evidence of underlying lung trauma. Dictated by: Sri Galeano M.D. on 06/18/2022 at 16:52 Approved by: Sri Galeano M.D. on 06/18/2022 at 16:57
--- NOTE | 2022-06-18 16:49 | DI.RAD.S_ITS ---
PROCEDURE: XR WRIST RT MIN 3V INDICATIONS: fall TECHNIQUE: Four views of the wrist were acquired. COMPARISON: None. FINDINGS: Bones: No acute fractures or malalignment. Subcortical cystic changes throughout the carpal region and at the 1st metacarpal head. Joint space loss at the 1st CMC joint. Scaphoid view: No fractures. Soft tissues: Fairly extensive cartilaginous and ligamentous calcification at the triangular fibrocartilage, along the proximal carpal row extending to the base of the thumb. IMPRESSION: 1. No visible fracture. If there is continued concern for occult fracture, immobilization and reimaging in 7-10 days is recommended. 2. Fairly extensive cartilaginous in ligamentous calcification seen throughout the wrist and proximal hand. 3. Osteoarthritic changes present at the 1st CMC joint. Dictated by: Sri Galeano M.D. on 06/18/2022 at 16:28 Approved by: Sri Galeano M.D. on 06/18/2022 at 16:32
--- NOTE | 2022-06-18 17:54 | ED_ITS ---
HPI - Fall <Giuseppe Walden PA-C - Last Filed: 06/18/22 19:48> General Chief Complaint: Trauma Stated Complaint: Fell off steps, Unresposive for .5~1 min Time Seen by Provider: 06/18/22 16:20 Source: patient Mode of arrival: Ambulatory History of Present Illness HPI Narrative: Patient is a 86-year-old male presents to the emergency room today with complaint of fall today at about 4:00 p.m.. Patient states he was walking out to short steps tripped and fell. Does not remember hitting his head but his daughter witnessed the fall and also states she did not witness him hitting his head but saw some scrapes on the back of his head. Patient denies falls in the past denies any neurological concerns that could possibly cause a fall. Also admits to current history of atrial fibrillation and takes Eliquis. Admits to history of CLL dyslipidemia enlarged prostate and post herpetic neuropathy. Patient states she is had CLL for about a year now and has a follow-up coming soon. Related Data Home Medications Medication Instructions Recorded Confirmed atorvastatin 20 mg tablet (Lipitor) 40 mg PO BEDTIME 09/18/20 06/18/22 cholecalciferol (vitamin D3) PO 12/16/21 06/13/22 ergocalciferol (vitamin D2) 1 cap PO DAILY 06/13/22 06/13/22 [Vitamin D2] metoprolol succinate 50 mg 50 mg PO DAILY 06/13/22 06/18/22 tablet,extended release 24 hr niacinamide 500 mg tablet 500 mg PO BID 06/13/22 06/18/22 tamsulosin 0.4 mg capsule 0.4 mg PO DAILY 06/13/22 06/18/22 trospium 20 mg tablet 20 mg PO DAILY 06/13/22 06/18/22 valacyclovir 500 mg tablet 500 mg PO BID 06/13/22 06/18/22 gabapentin 100 mg capsule 300 mg PO BEDTIME 06/18/22 06/18/22 Previous Rx's Medication Instructions Recorded amlodipine 5 mg tablet (Norvasc) 5 mg PO QDAY #90 tabs 01/22/19 apixaban 5 mg tablet (Eliquis) 5 mg PO BID #60 tabs 03/22/19 irbesartan 150 1 tab PO QAM #90 tabs 09/14/21 mg-hydrochlorothiazide 12.5 mg tablet Allergies Allergy/AdvReac Type Severity Reaction Status Date / Time No Known Drug Allergies Allergy Verified 06/18/22 16:54 Review of Systems <Giuseppe Walden PA-C - Last Filed: 06/18/22 19:48> Review of Systems Narrative: R.O.S.: General: No fever, chills or fatigue. Cardiovascular: No chest pain or palpitations Respiratory: No S.O.B. HEENT: No congestion, ear pain, rhinorrhea, sore throat or tinnitus Gastrointestinal: No nausea or vomiting : No urinary concerns Skin: No rash or associated abnormalities Musculoskeletal: No pain in muscles or joints, no limitation of range of motion, no paresthesia or numbness. ?? Neurological: Awake, alert and in not apparent distress. No Headaches, changes in vision or other related neurological concerns. Patient History <Giuseppe Walden PA-C - Last Filed: 06/18/22 19:48> Medical History (Updated 06/18/22 @ 19:42 by Giuseppe Walden PA-C) Atrial fibrillation with controlled ventricular response (12/11/17) BCC (basal cell carcinoma), ear CLL (chronic lymphocytic leukemia) (~2016) COVID-19 Hearing loss (~2007) History of cardiac radiofrequency ablation (RFA) (10/09/17) History of malignant neoplasm of prostate (12/01/17) Hyperlipidemia (10/09/17) Hypertension (10/09/17) Multiple actinic keratoses (08/13/02) Pneumonia Primary osteoarthritis of left knee (12/01/17) Prostate cancer (~2011) Skin cancer (~2009) Squamous cell skin cancer Trigger finger of left hand Vision abnormalities Surgical History History of bilateral cataract extraction History of cardiac radiofrequency ablation (RFA) (~2003) History of cataract removal with insertion of prosthetic lens (~2014) History of inguinal hernia repair (~2012) History of meniscectomy of left knee History of total left knee replacement (~11/2017) History of total right knee replacement History of vasectomy Status post colonoscopy (10/08/13) Family History Brother Age: 80 Dementia Sister Age: 89 Dementia Brother No problems noted. Father No problems noted. Mother No problems noted. Sister No problems noted. Social History household members: spouse Smoking Status: Former smoker alcohol intake: current Smoking Status: Former smoker alcohol intake frequency: 0-2 drinks per day Substance Use Type: does not use Exam <Giuseppe Walden PA-C - Last Filed: 06/18/22 19:48> Narrative Exam Narrative: Physical Exam: ? General: normal appearance, well developed, well nourished, alert, and awake. Not in acute distress. ? Head: Normocephalic, no lesions. Chest: Lungs CTAB, no rales, rhonchi or wheezes. ?? Heart: RRR, no murmurs, rubs or gallops. Eyes: PERRLA, EOM's full, conjunctivae clear. ? Neuro: Physiological, no localizing findings, CN3-12 intact. Patient has good tandem walk tiptoe walk and heel walk. Patient also does good heel-jimenez ma neuvers bilaterally. Patient neurologically and vascularly intact in all extremities. Extremities: Warm, well perfused, FROM, no deformities, no edema. ?? Skin: Normal, no rashes, no lesions noted. ?? PSYCHIATRIC: The mood is good, no blunted affect. Speech is clear. Thought process is linear, thought content is appropriate. The voice is without significant inflection. Gastrointestinal: Soft; NT; ND; Pos BS with Neg. rebound tenderness. No scars or major deformities noted on Visual Inspection. Initial Vital Signs Initial Vital Signs: Vital Signs Temperature 98 F 06/18/22 16:50 Pulse Rate 75 06/18/22 16:50 Respiratory Rate 17 06/18/22 16:50 Blood Pressure 160/88 H 06/18/22 16:50 Pulse Oximetry 99 06/18/22 16:50 Oxygen Delivery Method 06/18/22 16:50 <Chuy Patel DO - Last Filed: 06/18/22 20:39> Initial Vital Signs Initial Vital Signs: Vital Signs Temperature 98 F 06/18/22 16:50 Pulse Rate 75 06/18/22 16:50 Respiratory Rate 17 06/18/22 16:50 Blood Pressure 160/88 H 06/18/22 16:50 Pulse Oximetry 99 06/18/22 16:50 Oxygen Delivery Method 06/18/22 16:50 Course <Giuseppe Walden PA-C - Last Filed: 06/18/22 19:48> Orders Ordered: ED Orders 06/18/22 16:48 CT cervical spine wo con Stat CT head/brain wo con Stat 06/18/22 16:49 XR ribs RT min 3V w CXR1V Stat XR wrist RT min 3V Stat 06/18/22 18:07 EKG-12 Lead Stat 06/18/22 18:25 CBC Auto Diff [Complete Blood Count AUTO DIFF] Stat CMP [Comprehensive Metabolic Panel] Stat PT [Prothrombin Time INR] Stat PTT [Partial Thromboplastin Time] Stat Troponin & CK Cardiac Panel Stat Discontinued Medications Diphtheria/Tetanus/Acell Pertussis (Tet,Diph,Pertuss(Acell),Vac/Pf 0.5 Ml S yringe) 0.5 ml IM .ONCE ONE Stop: 06/18/22 16:58 Last Admin: 06/18/22 18:11 Dose: 0.5 ml Documented By: MEGHANA Vital Signs Vital signs: Vital Signs - 8 hr 06/18/22 16:50 06/18/22 16:51 06/18/22 16:51 Temperature 98 F Pulse Rate 75 79 Respiratory Rate 17 Blood Pressure 160/88 H 173/97 H Pulse Oximetry 99 98 Oxygen Delivery Method Room Air Room Air 06/18/22 17:10 06/18/22 17:30 06/18/22 18:00 Temperature Pulse Rate 76 70 70 Respiratory Rate Blood Pressure Pulse Oximetry 99 99 98 Oxygen Delivery Method Room Air Room Air Room Air 06/18/22 18:30 06/18/22 18:31 06/18/22 18:31 Temperature Pulse Rate 84 79 Respiratory Rate Blood Pressure 172/93 H Pulse Oximetry 98 96 Oxygen Delivery Method Room Air Room Air 06/18/22 19:00 06/18/22 19:01 06/18/22 19:01 Temperature Pulse Rate 71 72 Respiratory Rate Blood Pressure 163/102 H Pulse Oximetry 96 98 Oxygen Delivery Method 06/18/22 19:10 06/18/22 19:10 Temperature Pulse Rate 75 Respiratory Rate 20 Blood Pressure 166/99 H Pulse Oximetry 98 Oxygen Delivery Method <Chuy Patel DO - Last Filed: 06/18/22 20:39> Orders Ordered: ED Orders 06/18/22 16:48 CT cervical spine wo con Stat CT head/brain wo con Stat 06/18/22 16:49 XR ribs RT min 3V w CXR1V Stat XR wrist RT min 3V Stat 06/18/22 18:07 EKG-12 Lead Stat 06/18/22 18:25 CBC Auto Diff [Complete Blood Count AUTO DIFF] Stat CMP [Comprehensive Metabolic Panel] Stat PT [Prothrombin Time INR] Stat PTT [Partial Thromboplastin Time] Stat Troponin & CK Cardiac Panel Stat Discontinued Medications Diphtheria/Tetanus/Acell Pertussis (Tet,Diph,Pertuss(Acell),Vac/Pf 0.5 Ml Syringe) 0.5 ml IM .ONCE ONE Stop: 06/18/22 16:58 Last Admin: 06/18/22 18:11 Dose: 0.5 ml Documented By: MEGHANA Vital Signs Vital signs: Vital Signs - 8 hr 06/18/22 16:50 06/18/22 16:51 06/18/22 16:51 Temperature 98 F Pulse Rate 75 79 Respiratory Rate 17 Blood Pressure 160/88 H 173/97 H Pulse Oximetry 99 98 Oxygen Delivery Method Room Air Room Air 06/18/22 17:10 06/18/22 17:30 06/18/22 18:00 Temperature Pulse Rate 76 70 70 Respiratory Rate Blood Pressure Pulse Oximetry 99 99 98 Oxygen Delivery Method Room Air Room Air Room Air 06/18/22 18:30 06/18/22 18:31 06/18/22 18:31 Temperature Pulse Rate 84 79 Respiratory Rate Blood Pressure 172/93 H Pulse Oximetry 98 96 Oxygen Delivery Method Room Air Room Air 06/18/22 19:00 06/18/22 19:01 06/18/22 19:01 Temperature Pulse Rate 71 72 Respiratory Rate Blood Pressure 163/102 H Pulse Oximetry 96 98 Oxygen Delivery Method 06/18/22 19:10 06/18/22 19:10 Temperature Pulse Rate 75 Respiratory Rate 20 Blood Pressure 166/99 H Pulse Oximetry 98 Oxygen Delivery Method MDM - Fall <Giuseppe Walden PA-C - Last Filed: 06/18/22 19:48> Lab Data Result diagrams: 06/18/22 18:25 06/18/22 18:25 Labs: Lab Results 10/22/22 10/22/22 10/22/22 Range/Units 18:25 18:25 18:25 WBC 5.7 (4.5-11.0) X10^3/uL RBC 4.04 L (4.5-5.9) X10^6/uL Hgb 13.7 (13.5-17.5) g/dL Hct 40.0 L (41-53) % MCV 99.1 (80-100) fL MCH 33.9 (26-34) PG MCHC 34.2 (30-36) % RDW 15.4 H (11.6-14.8) % Plt Count 132 L (150-400) X10^3/uL Neut % (Auto) 76.1 H (50-75) % Lymph % (Auto) 14.8 L (25-40) % Citrus % (Auto) 7.7 (3-14) % Eos % (Auto) 1.0 L (2-4) % Baso % (Auto) 0.4 (0-2) % Neut # (Auto) 4300 (1061-9122) /uL Lymph # (Auto) 800 L (3997-4393) /uL Citrus # (Auto) 400 (0-900) /uL Eos # (Auto) 100 (0-450) /uL Baso # (Auto) 0 (0-100) /uL PT 14.4 H (10.1-12.7) SECONDS INR 1.3 (0.9-1.3) APTT 34 (26-36) SECONDS Sodium 138 (137-145) mmol/L Potassium 3.8 (3.4-5.1) mmol/L Chloride 103 (98-107) mmol/L Carbon Dioxide 24 (22-32) mmol/L BUN 17 (9-20) mg/dL Creatinine 0.67 (0.66-1.25) mg/dL Estimated GFR > 60 (>60) mL/min BUN/Creatinine Ratio 25.4 H (6-22) Glucose 101 (80-110) mg/dL Calcium 9.1 (8.4-10.2) mg/dL Total Bilirubin 0.9 (0.2-1.3) mg/dL AST 49 (17-59) IU/L ALT 61 H (<50) IU/L Alkaline Phosphatase 106 (38-126) U/L Total Creatine Kinase 58 (55-170) U/L CK-MB (CK-2) TNP CK-MB (CK-2) Rel Index TNP Troponin I < 0.012 (0.01-0.034) ng/mL Total Protein 7.1 (6.3-8.2) g/dL Albumin 4.5 (3.5-5.0) g/dL Globulin 2.6 (1.7-4.1) g/dL Albumin/Globulin Ratio 1.7 (1.0-2.8) Urine Dip Bedside Urine Glucose Negative Bedside Urine Bilirubin - Negative Bedside Urine Ketone - Negative Urine Specific [place] 1.015 Bedside Urine Occult Blood - Negative Bedside Urine pH 6.0 Bedside Urine Protein - Negative Bedside Urine Urobilinogen - Negative Bedside Urine Nitrite - Negative Bedside Urine Leukocytes - Negative Esterase Imaging Data CT scan - head: Radiologist's Impression: [address] [address] [address] Scan Report Signed Patient: Rubin Cabrera MR#: [id number] : 1935 Acct:[id number] Age/Sex: 86 / M Date of Service: 06/18/22 Loc: ED Accession Number: [id number] ?? Procedure: CT head/brain wo con Ordering Provider: Candido Burton D.O. PROCEDURE:? CT HEAD/BRAIN WO CON ? INDICATIONS:? head injury on eliquis ? TECHNIQUE:? Noncontrast 4.5 mm thick angled axial sections acquired from the foramen magnum to the vertex, with coronal and sagittal reformats.? For radiation dose reduction, the following was used:? automated exposure control, adjustment of mA and/or kV according to patient size.? ? COMPARISON:? None. ? FINDINGS:? Image quality:? Excellent.? ? CSF spaces:? Basal cisterns are patent.? No extra-axial fluid collections.? The ventricles are symmetric in size and shape.? ? Brain:? No intracranial bleeds or masses.? There is cerebral volume loss for age, with resultant ventricular and sulcal prominence.? There are periventricular and deep white matter chronic small vessel ischemic changes.? There is intracranial internal carotid artery atherosclerosis.? ? Skull and face:? Calvarium and visualized facial bones appear intact, without suspicious lesions.? ? Sinuses:? Visualized sinuses and mastoids are clear.? ? IMPRESSION:? ? 1. No CT evidence of acute intracranial trauma. ? 2. No significant soft tissue injury or underlying fracture.? ? 3. Age-appropriate exam.? ? ? Dictated by: Sri Galeano M.D. on 06/18/2022 at 16:41 ? ? Approved by: Sri Galeano M.D. on 06/18/2022 at 16:43 ? CT - cervical spine: Radiologist's Impression: [address] [address] [address] Scan Report Signed Patient: Rubin Cabrera MR#: [id number] : 1935 Acct:[id number] Age/Sex: 86 / M Date of Service: 06/18/22 Loc: ED Accession Number: [id number] ?? Procedure: CT cervical spine wo con Ordering Provider: Candido Burton D.O. PROCEDURE:? CT CERVICAL SPINE WO CON ? INDICATIONS:? head injury on eliquis ? TECHNIQUE:? Noncontrast 3 mm thick sections acquired from the skull base to the T4 level.? Sagittal and coronal reformats were then constructed.? For radiation dose reduction, the following was used:? automated exposure control, adjustment of mA and/or kV according to patient size.? ? COMPARISON:? None. ? FINDINGS:? Image quality:? Excellent.? ? Bones:? No acute cervical spine fractures or pathologic subluxation.? The craniocervical junction is intact.? There is mild anterior subluxation of C1 on two.? Wispy soft tissue calcifications and soft tissue thickening suggesting pannus formation surround the odontoid process. ? ? There are severe multilevel degenerative changes including disc height loss and facet arthropathy from C2 through C7.? Moderate anterior endplate spurring is pres ent.? Degenerative irregularity of the endplate cortices. ? Soft tissues:? Prevertebral soft tissues are normal in thickness.? No paravertebral hematomas.? No apical pneumothoraces.? Moderate carotid bulb calcification bilaterally.? There is soft tissue thickening posterior to the C2 vertebral body causing mild diffuse chronic narrowing the central canal. ? ? IMPRESSION:? ? 1. No CT evidence of acute cervical spine trauma. ? 2. Severe multilevel degeneration. ? 3. There is soft tissue thickening and dystrophic calcification surrounding the dens and posterior to the C2 vertebral body, potentially related to an arthritic process and probably causing chronic central canal narrowing at this level.? Dictated by: Sri Galeano M.D. on 06/18/2022 at 16:32 ? ? Approved by: Sri Galeano M.D. on 06/18/2022 at 16:41 ? Extremity x-ray #1: Radiologist's Impression: [address] [address] XRay Report Signed Patient: Rubin Cabrera MR#: [id number] : 1935 Acct:[id number] Age/Sex: 86 / M Date of Service: 06/18/22 Loc: ED Accession Number: [id number] ?? Procedure: XR wrist RT min 3V Ordering Provider: Candido Burton D.O. PROCEDURE:? XR WRIST RT MIN 3V ? INDICATIONS: fall ? TECHNIQUE:? Four views of the wrist were acquired.? ? COMPARISON:? None. ? FINDINGS:? ? Bones:? No acute fractures or malalignment.? Subcortical cystic changes throughout the carpal region and at the 1st metacarpal head.? Joint space loss at the 1st CMC joint. ? Scaphoid view:? No fractures. ? Soft tissues:? Fairly extensive cartilaginous and ligamentous calcification at the triangular fibrocartilage, along the proximal carpal row extending to the base of the thumb. ? IMPRESSION:? ? 1. No visible fracture.? If there is continued concern for occult fracture,? immobilization and reimaging in 7-10 days is recommended. ? 2. Fairly extensive cartilaginous in ligamentous calcification seen throughout the wrist and proximal hand. ? 3. Osteoarthritic changes present at the 1st CMC joint.? ? ? Dictated by: Sri Galeano M.D. on 06/18/2022 at 16:28 ? ? Approved by: Sri Galeano M.D. on 06/18/2022 at 16:32 ? X ray of Ribs: Radiologist's Impression: [address] [address] XRay Report Signed Patient: Rubin Cabrera MR#: [id number] : 1935 Acct:[id number] Age/Sex: 86 / M Date of Service: 06/18/22 Loc: ED Accession Number: [id number] ?? Procedure: XR ribs RT min 3V w CXR1V Ordering Provider: Candido Burton D.O. PROCEDURE:? XR RIBS RT MIN 3V W CXR 1V ? INDICATIONS:? fall ? TECHNIQUE:? Three views of the right ribs were acquired, along with a single view chest.? ? ? COMPARISON:? None. ? FINDINGS:? ? Surgical changes and devices:? None.? ? Bones and chest wall:? No displaced right rib fractures.? Multilevel degenerative changes seen throughout the thoracolumbar spine.? Mild chronic appearing vertebral body height loss in the mid and lower thoracolumbar spine..? No suspicious bony lesions.? Overlying soft tissues appear unremarkable.? ? Lungs and pleura:? No pleural effusions or pneumothorax.? Lungs appear clear.? ? Mediastinum:? Mediastinal contours appear normal.? Heart size is normal.? ? IMPRESSION:? ? 1. No visible displaced acute rib fractures. ? 2. Probable chronic and degenerative deformities of the thoracolumbar vertebral bodies. ? 3. No radiographic evidence of underlying lung trauma.? ? Dictated by: Sri Galeano M.D. on 06/18/2022 at 16:52 ? ? Approved by: Sri Galeano M.D. on 06/18/2022 at 16:57 ? ECG Data Interpretation: EKG has Atrial Fibrillation with no obvious left bundle-branch block, ST segment elevation or ST depression with T wave inversion or obvious Q-wave pathology. MDM Narrative Medical decision making narrative: Patient presents to emergency room status post fall denies history of falls and denies any medical conditions that could be related to a fall. Routine labs and diagnostics were done to rule out cardiac pulmonary neurological etiology that could possibly cause fall. If negative patient will be discharged home to follow with his PCP if any concerns arise. Labs and diagnostics were negative for any emergent concerns regarding the patient's fall and brief loss of consciousness. Patient was counseled on urgent emergent concerns and advised to follow his primary care provider should any nonemergent concerns arise. Patient advised to return to the emergency room if any emergent concerns arise. Patient agrees with plan <Chuy Patel DO - Last Filed: 06/18/22 20:39> Lab Data Labs: Lab Results 06/18/22 06/18/22 06/18/22 Range/Units 18:25 18:25 18:25 WBC 5.7 (4.5-11.0) X10^3/uL RBC 4.04 L (4.5-5.9) X10^6/uL Hgb 13.7 (13.5-17.5) g/dL Hct 40.0 L (41-53) % MCV 99.1 (80-100) fL MCH 33.9 (26-34) PG MCHC 34.2 (30-36) % RDW 15.4 H (11.6-14.8) % Plt Count 132 L (150-400) X10^3/uL Neut % (Auto) 76.1 H (50-75) % Lymph % (Auto) 14.8 L (25-40) % Citrus % (Auto) 7.7 (3-14) % Eos % (Auto) 1.0 L (2-4) % Baso % (Auto) 0.4 (0-2) % Neut # (Auto) 4300 (8784-0326) /uL Lymph # (Auto) 800 L (4352-9161) /uL Citrus # (Auto) 400 (0-900) /uL Eos # (Auto) 100 (0-450) /uL Baso # (Auto) 0 (0-100) /uL PT 14.4 H (10.1-12.7) SECONDS INR 1.3 (0.9-1.3) APTT 34 (26-36) SECONDS Sodium 138 (137-145) mmol/L Potassium 3.8 (3.4-5.1) mmol/L Chloride 103 (98-107) mmol/L Carbon Dioxide 24 (22-32) mmol/L BUN 17 (9-20) mg/dL Creatinine 0.67 (0.66-1.25) mg/dL Estimated GFR > 60 (>60) mL/min BUN/Creatinine Ratio 25.4 H (6-22) Glucose 101 (80-110) mg/dL Calcium 9.1 (8.4-10.2) mg/dL Total Bilirubin 0.9 (0.2-1.3) mg/dL AST 49 (17-59) IU/L ALT 61 H (<50) IU/L Alkaline Phosphatase 106 (38-126) U/L Total Creatine Kinase 58 (55-170) U/L CK-MB (CK-2) TNP CK-MB (CK-2) Rel Index TNP Troponin I < 0.012 (0.01-0.034) ng/mL Total Protein 7.1 (6.3-8.2) g/dL Albumin 4.5 (3.5-5.0) g/dL Globulin 2.6 (1.7-4.1) g/dL Albumin/Globulin Ratio 1.7 (1.0-2.8) Urine Dip Bedside Urine Glucose Negative Bedside Urine Bilirubin - Negative Bedside Urine Ketone - Negative Urine Specific [place] 1.015 Bedside Urine Occult Blood - Negative Bedside Urine pH 6.0 Bedside Urine Protein - Negative Bedside Urine Urobilinogen - Negative Bedside Urine Nitrite - Negative Bedside Urine Leukocytes - Negative Esterase Discharge Plan Departure Patient Disposition: Home Clinical Impression: Fall, Chronic lymphocytic leukemia, Atrial fibrillation Instructions: DI for Atrial Fibrillation, How to Prevent Falls Activity Restrictions/Additional Instructions: *You have been diagnosed with fall. Physical exam Labs and diagnostics were don e to rule out potential etiologies for your fall and brief loss of consciousness. Physical exam labs and diagnostics were unremarkable for additional etiologies. Your being discharged now suggested follow-up with your primary care provider in regards to your eye conditions. Also turned to the [facility] room for any emergent concerns arise. [ ] *What to do: *Please continue to take your regular medications as directed. [ ] New medication prescriptions sent to your pharmacy: [ ] [ ] New medication written as a paper prescription [x] No new medications given *Please follow up with your primary care provider in 2-3 days, call for an appointment. Let them know you were seen in the Emergency Department and that we ask that you be seen in follow up. We will electronically transmit a record of today's note if your PCP is in our system *If you do not have a primary care provider please contact the [facility] Resource line at [phone]. They will ask some questions about your medical history and help get you set up with a doctor in the community. *Return to Emergency Department if you should have any new, worsening or concerning symptoms, such as [fever greater than 101 F, shaking chills, worsening pain, persistent vomiting or other bothersome symptoms] Prescriptions: No Action amlodipine [Norvasc] 5 mg tablet 5 mg PO QDAY Qty: 90 3RF Eliquis 5 mg tablet 5 mg PO BID Qty: 60 0RF irbesartan-hydrochlorothiazide 150-12.5 mg tablet 1 tab PO QAM Qty: 90 3RF Hold Instructions: while sick to avoid dehydration cholecalciferol (vitamin D3) PO atorvastatin [Lipitor] 20 mg tablet 40 mg PO BEDTIME metoprolol succinate 50 mg tablet extended release 24 hr 50 mg PO DAILY tamsulosin 0.4 mg capsule 0.4 mg PO DAILY Label Comments: take 1 capsule by mouth once daily trospium 20 mg tablet 20 mg PO DAILY Label Comments: take 1 tablet by mouth every morning valacyclovir 500 mg tablet 500 mg PO BID Label Comments: take 1 tablet by mouth twice a day niacinamide 500 mg tablet 500 mg PO BID ergocalciferol (vitamin D2) [Vitamin D2] 1 cap PO DAILY gabapentin 100 mg capsule 300 mg PO BEDTIME Referrals: Lyly Ford DO [Primary Care Provider] - Visit Report Forms: Patient Portal/API <Chuy Patel DO - Last Filed: 06/18/22 20:39> Cosign ED Attending Cosignature Attestation: Dr Patel Co-Sign Statement: I was available for consultation during this patient's emergency department visit. This chart is signed by myself for administrative purposes only. I did not have direct contact with this patient during this visit. They were seen independently by the APC.
[2022-06-18] MEDS: TET,DIPH,PERTUSS(ACELL),VAC/PF 0.5 ML SYRINGE IM (18:11)
[2022-06-18 18:33] LABS: Add Manual Diff / Slide Review NO; Basophils Absolute Auto 0 /uL (0-100); Basophils Percent Auto 0.4 % (0-2); Eosinophils Absolute Auto 100 /uL (0-450); Hemoglobin 13.7 g/dL (13.5-17.5); Lymphocytes Absolute Auto 800 /uL (1100-4500); Lymphocytes Percent Auto 14.8 % (25-40); Mean Corpuscular HGB Conc 34.2 % (30-36); Mean Corpuscular Hemoglobin 33.9 PG (26-34); Mean Corpuscular Volume 99.1 fL (80-100); Monocytes Absolute Auto 400 /uL (0-900); Monocytes Percent Auto 7.7 % (3-14); Neutrophils Absolute Auto 4300 /uL (1500-7000); Neutrophils Percent Auto 76.1 % (50-75); Platelet Count 132 X10^3/uL (150-400); Red Blood Cell Count 4.04 X10^6/uL (4.5-5.9); Red Cell Distribution Width 15.4 % (11.6-14.8); White Blood Cell Count 5.7 X10^3/uL (4.5-11.0)
[2022-06-18 18:45] LABS: Alanine Aminotransferase 61 IU/L (<50); Albumin 4.5 g/dL (3.5-5.0); Albumin Globulin Ratio 1.7 (1.0-2.8); Alkaline Phosphatase 106 U/L (38-126); Aspartate Aminotransferase 49 IU/L (17-59); BUN Creatinine Ratio 25.4 (6-22); Bilirubin Total 0.9 mg/dL (0.2-1.3); Blood Urea Nitrogen 17 mg/dL (9-20); Calcium 9.1 mg/dL (8.4-10.2); Carbon Dioxide 24 mmol/L (22-32); Chloride 103 mmol/L (98-107); Creatine Kinase 58 U/L (55-170); Estimated Glomerular Filt Rate > 60 mL/min (>60); Globulin 2.6 g/dL (1.7-4.1); Glucose 101 mg/dL (80-110); HEMOLYSIS < 15 (0-50); Potassium 3.8 mmol/L (3.4-5.1); Sodium 138 mmol/L (137-145); Total Protein 7.1 g/dL (6.3-8.2)
[2022-06-18 18:57] LABS: Troponin I < 0.012 ng/mL (0.01-0.034)
[2022-06-18 19:42] LABS: INR 1.3 (0.9-1.3); Prothrombin Time 14.4 SECONDS (10.1-12.7)
[2022-06-18 19:45] LABS: PTT Partial Thromboplastin Tim 34 SECONDS (26-36)
== END 2022-06-18 19:58 | disposition home or self-care (01) ==
PROVIDERS: Emergency Provider Physician Assistant; Family Provider Family Medicine; PCP Family Medicine
DX: S09.90XA Unspecified injury of head, initial encounter (principal); C91.90 Lymphoid leukemia, unspecified not having achieved remission; I48.91 Unspecified atrial fibrillation; Z79.01 Long term (current) use of anticoagulants; W01.0XXA Fall on same level from slipping, tripping and stumbling without subsequent striking against object, initial encounter; Z23 Encounter for immunization
CPT/HCPCS: 36415; 70450; 71101; 72125; 73110; 80053; 81003; 82550; 84484; 85025; 85610; 85730; 90471; 93005; 93010; 99284; 90715

== ENCOUNTER → 2022-11-16 14:56 | Outpatient (CLI) | payer MEDICARE, OTHER, SELFPAY ==
[2021-07-05 10:22] VITALS: BMI 25.3
--- NOTE | 2022-11-16 14:58 | DI.RAD.S_ITS ---
PROCEDURE: XR THORACIC SPINE 3V INDICATIONS: low back pain TECHNIQUE: 3 views of the thoracic spine were acquired. COMPARISON: [facility], CT, NECK/CHEST/ABD/PEL W CONTRAST, 09/01/2017, 12:01. [facility], CR, XR LUMBAR SPINE MIN 4V, 11/16/2022, 15:06. FINDINGS: Bones: No acute fractures or dislocations. Mild height loss at T11, appears unchanged. No suspicious bony lesions. Mild scoliosis. 12 pairs of ribs are noted, and appear intact where visualized. Soft tissues: No paravertebral stripe thickening. IMPRESSION: Mild height loss at T11, unchanged. Dictated by: Trevor Reddy M.D. on 11/16/2022 at 17:13 Approved by: Trevor Reddy M.D. on 11/16/2022 at 17:15
--- NOTE | 2022-11-16 14:58 | DI.RAD.S_ITS ---
PROCEDURE: XR LUMBAR SPINE MIN 4V INDICATIONS: low back pain TECHNIQUE: 5 views of the lumbar spine acquired, including flexion and extension views. COMPARISON: [facility], CT, NECK/CHEST/ABD/PEL W CONTRAST, 09/01/2017, 12:01. FINDINGS: Bones: 5 nonrib-bearing vertebrae are present. Mild levoscoliosis. Minimal height loss at T11, L1, and L2, appears unchanged. No suspicious bony lesions. Lower lumbar spine facet joint hypertrophy. Soft tissues: Overlying bowel gas pattern is normal. No suspicious soft tissue calcifications. Flexion/extension: Decreased range of motion, with preserved normal alignment. IMPRESSION: Mild compression fractures at T11, L1, and L2 appear similar to 2018. Multilevel DDD. Mild levoscoliosis. Dictated by: Trevor Reddy M.D. on 11/16/2022 at 17:09 Approved by: Trevor Reddy M.D. on 11/16/2022 at 17:13
== END ==
PROVIDERS: Family Provider Family Medicine; PCP Family Medicine; Referring Provider Family Medicine; Visit Provider Family Medicine
DX: M51.36 Other intervertebral disc degeneration, lumbar region (principal); M41.9 Scoliosis, unspecified; M48.55XS Collapsed vertebra, not elsewhere classified, thoracolumbar region, sequela of fracture; M48.56XS Collapsed vertebra, not elsewhere classified, lumbar region, sequela of fracture; M54.6 Pain in thoracic spine; M54.50 Low back pain, unspecified
CPT/HCPCS: 72072; 72110

== ENCOUNTER 2023-10-02 02:02 | Observation (INO) | payer MEDICARE, OTHER, SELFPAY ==
[2021-07-05 10:22] VITALS: BMI 25.3
[2023-10-02] VITALS (19 sets, daily range): BP systolic 102–167; BP diastolic 65–93; PULSE 61–92; RESP 10–20; TEMP 35.7–36.7; O2SAT 90–99; BMI 27.3
--- NOTE | 2023-10-02 | PATH_ITS ---
[facility] Accession Number: [id number] No. of containers..03 Tissue . 01 Material submitted: . PART A: gastrointestinal site - ANTRUM PART B: gastrointestinal site - MID GASTRIC LESION PART C: gastrointestinal site - FUNDUS . 01 Diagnosis: A. Stomach, Antrum, Biopsy: Mild chronic gastritis with intestinal metaplasia. Negative for Helicobacter by immunohistochemistry. Intestial metaplasia is present in one of four fragments. Negative for dysplasia and malignancy. . B. Mid Gastric Lesion, Biopsy: Fundic gland polyp. No evidence of Helicobacter organisms on H/E stain. Negative for intestinal metaplasia. Negative for dysplasia and malignancy. . C. Stomach, Fundus, Biopsy: Body-type mucosa with no diagnostic abnormalty. Negative for Helicobacter by immunohistochemistry. Negative for intestinal metaplasia. Negative for dysplasia and malignancy. [facility] 10/05/2023 1832 Local . 01 Electronically signed: . Sharon Guardado MD, Pathologist NPI- [id number] . 01 Gross description: . Part A: ANTRUM: Received in formalin are 3 fragment(s) of soto, soft tissue measuring 0.1 x 0.1 x 0.1 cm to 0.3 x 0.3 x 0.2 cm submitted entirely in 1 cassette(s) Part B: MID GASTRIC LESION: Received in formalin are 2 fragment(s) of soto, soft tissue measuring 0.3 x 0.2 x 0.2 cm to 0.4 x 0.2 x 0.2 cm submitted entirely in 1 cassette(s) Part C: FUNDUS: Received in formalin are 2 fragment(s) of soto, soft tissue measuring 0.3 x 0.3 x 0.2 cm to 0.4 x 0.2 x 0.2 cm submitted entirely in 1 cassette(s) /[facility] 10/03/2023 2228 Local . 01 Microscopic: . A. An immunohistochemical stain was performed to evaluate for Helicobacter organisms and is negative. The control stain showed appropriate reactivity. . C. An immunohistochemical stain was performed to evaluate for Helicobacter organisms and is negative. The control stain showed appropriate reactivity. . * This test was developed and its performance characteristics determined by [facility]. It has not been cleared or approved by the U.S. Food and Drug Administration. The FDA has determined that such clearance or approval is not necessary. This test is used for clinical purposes. It should not be regarded as investigational or for research. . 01 Pathologist provided ICD-10: K31.A0, K31.7 . 01 CPT . 429912, 770142, 439759, [id number] Performed at: 01 [facility] [address] [place] [address], [place], [place] [id number] MD Ramos Zavala MD Phone: [phone]
[2023-10-02 02:54] LABS: Add Manual Diff / Slide Review NO; Basophils Absolute Auto 0 /uL (0-100); Basophils Percent Auto 0.1 % (0-2); Eosinophils Absolute Auto 0 /uL (0-450); Eosinophils Percent Auto 0.5 % (2-4); Hematocrit 31.3 % (41-53); Hemoglobin 10.1 g/dL (13.5-17.5); Lymphocytes Absolute Auto 200 /uL (1100-4500); Lymphocytes Percent Auto 3.8 % (25-40); Mean Corpuscular HGB Conc 32.2 % (30-36); Mean Corpuscular Hemoglobin 25.4 PG (26-34); Mean Corpuscular Volume 78.8 fL (80-100); Monocytes Absolute Auto 400 /uL (0-900); Monocytes Percent Auto 5.7 % (3-14); Neutrophils Absolute Auto 5600 /uL (1500-7000); Neutrophils Percent Auto 89.9 % (50-75); Platelet Count 176 X10^3/uL (150-400); Red Blood Cell Count 3.97 X10^6/uL (4.5-5.9); Red Cell Distribution Width 17.7 % (11.6-14.8); White Blood Cell Count 6.2 X10^3/uL (4.5-11.0)
[2023-10-02] MEDS: ONDANSETRON 4 MG/2 ML INJ IV (02:59)
[2023-10-02] MEDS: PANTOPRAZOLE 40 MG VIAL 80 MG IV (03:00)
[2023-10-02 03:04] LABS: INR 1.3 (0.9-1.3); Prothrombin Time 14.7 SECONDS (9.4-12.5)
[2023-10-02 03:06] LABS: PTT Partial Thromboplastin Tim 35 SECONDS (25.1-36.5)
[2023-10-02 03:07] LABS: Alanine Aminotransferase 29 IU/L (<50); Albumin 4.2 g/dL (3.5-5.0); Albumin Globulin Ratio 1.8 (1.0-2.8); Alkaline Phosphatase 119 U/L (38-126); Aspartate Aminotransferase 30 IU/L (17-59); BUN Creatinine Ratio 25.9 (6-22); Blood Urea Nitrogen 14 mg/dL (9-20); Calcium 9.2 mg/dL (8.4-10.2); Carbon Dioxide 24 mmol/L (22-32); Chloride 103 mmol/L (98-107); Estimated Glomerular Filt Rate > 60 mL/min (>60); Globulin 2.3 g/dL (1.7-4.1); Glucose 125 mg/dL (80-110); HEMOLYSIS < 15 (0-50); Sodium 135 mmol/L (137-145); Total Protein 6.5 g/dL (6.3-8.2)
--- NOTE | 2023-10-02 03:12 | ED_ITS ---
HPI - GI Bleed General Chief complaint: GI Bleed Stated complaint: coughing up blood Time Seen by Provider: 10/02/23 02:22 Source: patient Mode of arrival: Ambulatory History of Present Illness HPI Narrative: This is an 88-year-old man with a history of atrial fibrillation on Eliquis CLL and prostate cancer. He is here with 6 hours of hematemesis reports 5 or 6 episodes of hematemesis of dark red blood. He has not had melena he has not having abdominal pain. He has not had this before. No previous endoscopies to the best of his knowledge. He last took his Eliquis this morning prior to being seen, he did not take the evening dose of Eliquis. Not having chest pain or shortness of breath no diaphoresis no syncope or near-syncope. No history of liver disease. Related Data Home Medications Medication Instructions Recorded Confirmed metoprolol succinate 50 mg 50 mg PO DAILY 06/13/22 08/23/23 tablet,extended release 24 hr atorvastatin 40 mg tablet 40 mg PO DAILY 05/22/23 08/23/23 valacyclovir 500 mg tablet 500 mg PO BID 05/22/23 08/23/23 Previous Rx's Medication Instructions Recorded apixaban 5 mg tablet (Eliquis) 5 mg PO BID #60 tabs 03/22/19 irbesartan 150 See Rx Instructions .Route 01/02/23 mg-hydrochlorothiazide 12.5 mg .COMPLEX #90 tabs tablet amlodipine 5 mg tablet (Norvasc) 5 mg PO QDAY #90 tabs 03/01/23 trazodone 50 mg tablet 25 mg (1/2 x 50 mg) PO BEDTIME PRN 08/23/23 sleep #30 tabs Allergies Allergy/AdvReac Type Severity Reaction Status Date / Time No Known Drug Allergies Allergy Verified 08/23/23 16:06 Patient History Medical History (Updated 10/02/23 @ 03:38 by Rayshawn Grace MD) COVID-19 Pneumonia Trigger finger of left hand Squamous cell skin cancer BCC (basal cell carcinoma), ear Vision abnormalities Hearing loss (~2007) Skin cancer (~2009) Prostate cancer (~2011) Atrial fibrillation with controlled ventricular response (12/11/17) Primary osteoarthritis of left knee (12/01/17) History of malignant neoplasm of prostate (12/01/17) History of cardiac radiofrequency ablation (RFA) (10/09/17) Hypertension (10/09/17) Hyperlipidemia (10/09/17) Multiple actinic keratoses (08/13/02) CLL (chronic lymphocytic leukemia) (~2016) Surgical History History of total right knee replacement History of meniscectomy of left knee History of total left knee replacement (~11/2017) History of vasectomy History of bilateral cataract extraction History of inguinal hernia repair (~2012) Status post colonoscopy (10/08/13) History of cardiac radiofrequency ablation (RFA) (~2003) History of cataract removal with insertion of prosthetic lens (~2014) Family History Brother Age: 81 Dementia Sister Age: 90 Dementia Brother No problems noted. Father No problems noted. Mother No problems noted. Sister No problems noted. Social History household members: spouse Smoking Status: Former smoker alcohol intake: current Smoking Status: Former smoker alcohol intake frequency: 0-2 drinks per day Alcohol type: wine Substance Use Type: does not use Exam Initial Vital Signs Initial Vital Signs: Vital Signs Temperature 97.8 F 10/02/23 02:09 Pulse Rate 84 10/02/23 02:09 Respiratory Rate 16 10/02/23 02:09 Blood Pressure 155/85 H 10/02/23 02:09 Pulse Oximetry 98 10/02/23 02:09 Oxygen Delivery Method Room Air 10/02/23 02:09 Const General: No acute distress [facility] Head: normocephalic and atraumatic Resp Effort & Inspection: normal respiratory effort Auscultation: clear to auscultation bilaterally Cardio Other: Irregularly irregular no murmur rub or gallop GI Inspection: normal to inspection Palpation: soft and No tender Rectal Exam: normal sphincter tone, heme positive stool and other (No melena, stool color is normal) Skin General: no rashes or lesions noted, dry skin and warm Neuro General: patient alert and patient oriented x3 Course Orders Ordered: ED Orders 10/02/23 02:15 EKG-12 Lead Stat 10/02/23 02:35 Complete Blood Count AUTO DIFF Stat Comprehensive Metabolic Panel Stat PTT Partial Thromboplastin Ike Stat Prothrombin Time INR Stat 10/02/23 03:15 Type and Screen Stat 10/02/23 03:40 Consult to General Surgery Stat Acetaminophen (Acetaminophen 325 Mg Tablet) 650 mg PO Q6H LINSEY Amlodipine Besylate (Amlodipine 5 Mg Tablet) 5 mg PO DAILY LINSEY Sodium Chloride (Normal Saline 0.9%) 1,000 mls @ 100 mls/hr IV CONT LINSEY Metoprolol Succinate (Metoprolol Er 50 Mg Tablet) 50 mg PO DAILY LINSEY Morphine Sulfate (Morphine 4 Mg/Ml Inj) 2 mg IV Q2HR LINSEY Naloxone HCl (Naloxone 0.4 Mg/Ml Vial) 0.2 mg IV Q2MIN PRN PRN Reason: Opiate Reversal Ondansetron HCl (Ondansetron 4 Mg/2 Ml Inj) 4 mg IV NOW PRN PRN Reason: Nausea And Vomiting Last Admin: 10/02/23 02:59 Dose: 4 mg Documented By: AB Ondansetron HCl (Ondansetron 4 Mg Odt) 4 mg SL NOW PRN PRN Reason: Nausea And Vomiting Discontinued Medications Pantoprazole Sodium (Pantoprazole 40 Mg Vial) 80 mg IV NOW ONE Stop: 10/02/23 02:16 Last Admin: 10/02/23 03:00 Dose: 80 mg Documented By: Consultations Consultation #1: Discussed with general surgery Dr. Luther, requested consult for endoscopy Consultation #2: D/W Hospitalist, Dr Emanuel, accepts admission Vital Signs Vital signs: Vital Signs - 8 hr 10/02/23 02:09 Temperature 97.8 F Pulse Rate 84 Respiratory Rate 16 Blood Pressure 155/85 H Pulse Oximetry 98 Oxygen Delivery Method Room Air MDM - GI Bleed Lab Data Lab results narrative: CBC with diff remarkable for hemoglobin of 10.1, platelets are normal. In May hemoglobin was 13. CMP is unremarkable, INR slightly prolonged at 1.3. 10/02/23 02:35 10/02/23 02:35 Labs: Lab Results 10/02/23 Range/Units 02:35 WBC 6.2 (4.5-11.0) X10^3/uL RBC 3.97 L (4.5-5.9) X10^6/uL Hgb 10.1 L (13.5-17.5) g/dL Hct 31.3 L (41-53) % MCV 78.8 L (80-100) fL MCH 25.4 L (26-34) PG MCHC 32.2 (30-36) % RDW 17.7 H (11.6-14.8) % Plt Count 176 (150-400) X10^3/uL Neut % (Auto) 89.9 H (50-75) % Lymph % (Auto) 3.8 L (25-40) % [place] % (Auto) 5.7 (3-14) % Eos % (Auto) 0.5 L (2-4) % Baso % (Auto) 0.1 (0-2) % Neut # (Auto) 5600 (0664-0317) /uL Lymph # (Auto) 200 L (9101-8782) /uL [place] # (Auto) 400 (0-900) /uL Eos # (Auto) 0 (0-450) /uL Baso # (Auto) 0 (0-100) /uL PT 14.7 H (9.4-12.5) SECONDS INR 1.3 (0.9-1.3) APTT 35 (25.1-36.5) SECONDS Sodium 135 L (137-145) mmol/L Potassium 4.0 (3.4-5.1) mmol/L Chloride 103 (98-107) mmol/L Carbon Dioxide 24 (22-32) mmol/L BUN 14 (9-20) mg/dL Creatinine 0.54 L (0.66-1.25) mg/dL Estimated GFR > 60 (>60) mL/min BUN/Creatinine Ratio 25.9 H (6-22) Glucose 125 H (80-110) mg/dL Calcium 9.2 (8.4-10.2) mg/dL Total Bilirubin 1.0 (0.2-1.3) mg/dL AST 30 (17-59) IU/L ALT 29 (<50) IU/L Alkaline Phosphatase 119 (38-126) U/L Total Protein 6.5 (6.3-8.2) g/dL Albumin 4.2 (3.5-5.0) g/dL Globulin 2.3 (1.7-4.1) g/dL Albumin/Globulin Ratio 1.8 (1.0-2.8) MDM Narrative Medical decision making narrative: 88-year-old male anticoagulated on Eliquis for atrial fibrillation presenting with hematemesis. He has been normotensive and although he reported multiple episodes of hematemesis prior to being seen is not having ongoing hematemesis and does not have melena on rectal exam. No known history of esophageal varices. He has been given a bolus of IV Protonix, he will be admitted to the hospitalist service with surgery consulting for endoscopy. Discharge Plan Departure Patient Disposition: Admitted As Inpatient Clinical Impression: Acute GI bleeding Admit Date/Time: 10/02/23 03:49 Admit Provider: Chuy Emanuel
[2023-10-02 04:40] LABS: Add Manual Diff / Slide Review NO; Basophils Absolute Auto 0 /uL (0-100); Basophils Percent Auto 0.2 % (0-2); Eosinophils Absolute Auto 0 /uL (0-450); Eosinophils Percent Auto 0.2 % (2-4); Hematocrit 30.2 % (41-53); Hemoglobin 9.7 g/dL (13.5-17.5); Lymphocytes Absolute Auto 300 /uL (1100-4500); Lymphocytes Percent Auto 5.2 % (25-40); Mean Corpuscular HGB Conc 32.1 % (30-36); Mean Corpuscular Hemoglobin 25.4 PG (26-34); Mean Corpuscular Volume 79.3 fL (80-100); Monocytes Absolute Auto 200 /uL (0-900); Monocytes Percent Auto 4.7 % (3-14); Neutrophils Absolute Auto 4600 /uL (1500-7000); Neutrophils Percent Auto 89.7 % (50-75); Platelet Count 157 X10^3/uL (150-400); Red Blood Cell Count 3.81 X10^6/uL (4.5-5.9); Red Cell Distribution Width 17.1 % (11.6-14.8); White Blood Cell Count 5.1 X10^3/uL (4.5-11.0)
--- NOTE | 2023-10-02 05:50 | PC.NURSE ---
Pt arrived AOx4 on room air. SBA from wheelchair to bed. No vomiting, n/v. Tele placed, VS taken. Lungs clear, Afib controlled. Instructed to use call light for any needs.
--- NOTE | 2023-10-02 05:56 | PC.NURSE ---
Dr. Grace completed guiac at bedside, advised this nurse of result
[2023-10-02] MEDS: SODIUM CHLORIDE 0.9% 1,000 ML 100 ML IV (06:08)
[2023-10-02 06:54] LABS: Alanine Aminotransferase 27 IU/L (<50); Albumin Globulin Ratio 1.8 (1.0-2.8); Alkaline Phosphatase 111 U/L (38-126); Aspartate Aminotransferase 29 IU/L (17-59); BUN Creatinine Ratio 24.1 (6-22); Bilirubin Total 1.3 mg/dL (0.2-1.3); Blood Urea Nitrogen 13 mg/dL (9-20); Calcium 9.1 mg/dL (8.4-10.2); Carbon Dioxide 25 mmol/L (22-32); Chloride 103 mmol/L (98-107); Estimated Glomerular Filt Rate > 60 mL/min (>60); Globulin 2.2 g/dL (1.7-4.1); Glucose 112 mg/dL (80-110); HEMOLYSIS < 15 (0-50); Potassium 3.9 mmol/L (3.4-5.1); Sodium 136 mmol/L (137-145); Total Protein 6.2 g/dL (6.3-8.2)
--- NOTE | 2023-10-02 07:16 | P.HP_ITS ---
History of Present Illness History of Present Illness Date Patient Seen: 10/02/23 Time Patient Seen: 07:16 Chief complaint: coughing up blood Narrative: The pt is a 88 yo who is on Eliquis chronically for his a-fib who started developing sudden onset of hemoptysis last night starting around midnight. He has vomited 5-6 episodes of dark bloody emesis prior to coming to the ER tonight. Since admission he has not had any emesis. He denies any pain, NSAIDS use at home, problems with GERD, gastric ulcers in the past. No hx of endoscopy's to his memory, no recent illness, no weight loss. Currently he states he is without complaints. [facility] Medical History (Updated 10/02/23 @ 07:20 by Chuy Emanuel MD) COVID-19 Pneumonia Trigger finger of left hand Squamous cell skin cancer BCC (basal cell carcinoma), ear Vision abnormalities Hearing loss (~2007) Skin cancer (~2009) Prostate cancer (~2011) Atrial fibrillation with controlled ventricular response (12/11/17) Primary osteoarthritis of left knee (12/01/17) History of malignant neoplasm of prostate (12/01/17) History of cardiac radiofrequency ablation (RFA) (10/09/17) Hypertension (10/09/17) Hyperlipidemia (10/09/17) Multiple actinic keratoses (08/13/02) CLL (chronic lymphocytic leukemia) (~2016) Surgical History History of total right knee replacement History of meniscectomy of left knee History of total left knee replacement (~11/2017) History of vasectomy History of bilateral cataract extraction History of inguinal hernia repair (~2012) Status post colonoscopy (10/08/13) History of cardiac radiofrequency ablation (RFA) (~2003) History of cataract removal with insertion of prosthetic lens (~2014) Family History Brother Age: 81 Dementia Sister Age: 90 Dementia Brother No problems noted. Father No problems noted. Mother No problems noted. Sister No problems noted. Social History household members: spouse Smoking Status: Former smoker alcohol intake: current Meds Home Medications and Allergies Home Medications Medication Instructions Recorded Confirmed Type apixaban 5 mg tablet (Eliquis) 5 mg PO BID #60 tabs 03/22/19 10/02/23 Rx metoprolol succinate 50 mg 50 mg PO DAILY 06/13/22 10/02/23 History tablet,extended release 24 hr irbesartan 150 See Rx Instructions .Route 01/02/23 10/02/23 Rx mg-hydrochlorothiazide 12.5 mg .COMPLEX #90 tabs tablet amlodipine 5 mg tablet (Norvasc) 5 mg PO QDAY #90 tabs 03/01/23 10/02/23 Rx atorvastatin 40 mg tablet 40 mg PO DAILY 05/22/23 10/02/23 History valacyclovir 500 mg tablet 500 mg PO BID 05/22/23 10/02/23 History ergocalciferol (vitamin D2) See Rx Instructions .Route .COMPLEX 10/02/23 10/02/23 History niacinamide 500 mg tablet 500 mg PO BID 10/02/23 10/02/23 History Allergies Allergy/AdvReac Type Severity Reaction Status Date / Time No Known Drug Allergies Allergy Verified 08/23/23 16:06 Exam Vital Signs (past 8 hours): - 10/02/23 02:09 10/02/23 02:24 10/02/23 02:25 Temperature 97.8 F Pulse Rate 84 92 H Respiratory Rate 16 Blood Pressure 155/85 H 167/92 H Pulse Oximetry 98 98 Oxygen Delivery Method Room Air Oxygen Flow Rate 10/02/23 02:30 10/02/23 02:46 10/02/23 02:46 Temperature Pulse Rate 92 H 89 Respiratory Rate Blood Pressure 134/90 Pulse Oximetry 99 96 Oxygen Delivery Method Room Air Oxygen Flow Rate 10/02/23 03:00 10/02/23 03:00 10/02/23 03:30 Temperature Pulse Rate 85 83 Respiratory Rate 20 15 Blood Pressure 145/87 H Pulse Oximetry 98 96 Oxygen Delivery Method Room Air Oxygen Flow Rate 10/02/23 03:30 10/02/23 04:00 10/02/23 04:00 Temperature Pulse Rate 88 Respiratory Rate 16 Blood Pressure 141/72 H 142/81 H Pulse Oximetry 97 Oxygen Delivery Method Oxygen Flow Rate 10/02/23 04:30 10/02/23 04:30 10/02/23 05:00 Temperature Pulse Rate 83 Respiratory Rate 14 Blood Pressure 137/81 157/93 H Pulse Oximetry 97 Oxygen Delivery Method Oxygen Flow Rate 10/02/23 05:00 10/02/23 05:41 10/02/23 05:49 Temperature 96.9 F L Pulse Rate 91 H 79 Respiratory Rate 10 L 17 Blood Pressure 147/85 H Pulse Oximetry 97 99 Oxygen Delivery Method Room Air Room Air Oxygen Flow Rate 0 Oxygen Delivery Method Room Air Oxygen Flow Rate 0 Const General: cooperative and healthy appearing Resp Auscultation: clear to auscultation bilaterally Cardio Rate: regular rate Rhythm: regular rhythm Extrem General: no clubbing, cyanosis or edema Objective Labs 10/02/23 04:30 10/02/23 06:10 Labs: Laboratory Results - last 24 hr 10/02/23 10/02/23 10/02/23 02:35 03:15 04:30 WBC 6.2 5.1 RBC 3.97 L 3.81 L Hgb 10.1 L 9.7 L Hct 31.3 L 30.2 L MCV 78.8 L 79.3 L MCH 25.4 L 25.4 L MCHC 32.2 32.1 RDW 17.7 H 17.1 H Plt Count 176 157 Neut % (Auto) 89.9 H 89.7 H Lymph % (Auto) 3.8 L 5.2 L [place] % (Auto) 5.7 4.7 Eos % (Auto) 0.5 L 0.2 L Baso % (Auto) 0.1 0.2 Neut # (Auto) 5600 4600 Lymph # (Auto) 200 L 300 L [place] # (Auto) 400 200 Eos # (Auto) 0 0 Baso # (Auto) 0 0 PT 14.7 H INR 1.3 APTT 35 Sodium 135 L Potassium 4.0 Chloride 103 Carbon Dioxide 24 BUN 14 Creatinine 0.54 L Estimated GFR > 60 BUN/Creatinine Ratio 25.9 H Glucose 125 H Calcium 9.2 Total Bilirubin 1.0 AST 30 ALT 29 Alkaline Phosphatase 119 Total Protein 6.5 Albumin 4.2 Globulin 2.3 Albumin/Globulin Ratio 1.8 Blood Type AB Positive Antibody Screen Negative 10/02/23 06:10 WBC RBC Hgb Hct MCV MCH MCHC RDW Plt Count Neut % (Auto) Lymph % (Auto) [place] % (Auto) Eos % (Auto) Baso % (Auto) Neut # (Auto) Lymph # (Auto) [place] # (Auto) Eos # (Auto) Baso # (Auto) PT INR APTT Sodium 136 L Potassium 3.9 Chloride 103 Carbon Dioxide 25 BUN 13 Creatinine 0.54 L Estimated GFR > 60 BUN/Creatinine Ratio 24.1 H Glucose 112 H Calcium 9.1 Total Bilirubin 1.3 AST 29 ALT 27 Alkaline Phosphatase 111 Total Protein 6.2 L Albumin 4.0 Globulin 2.2 Albumin/Globulin Ratio 1.8 Blood Type Antibody Screen Assessment & Plan Assessment and plan (1) Acute GI bleeding: Status: Acute (2) Atrial fibrillation with controlled ventricular response: Status: Chronic (3) Acute blood loss anemia: Status: Acute Plan Will admit the pt for monitoring, I have discussed the pt's case with the ER provider, monitoring the hgb q6 hours, currently hgb is 9.7, on protonix BID, Dr. Luther, gen surgery has been consulted and will see today. holding the Eliquis, Endoscopy today. appearing very stable at this time.
--- NOTE | 2023-10-02 09:05 | P.CONS_ITS ---
History of Present Illness Consult details Date Patient Seen: 10/02/23 Time Patient Seen: 09:05 Chief complaint: coughing up blood Narrative: Gume is an 88-year-old man who presented to the emergency department yesterday evening complaining of several episodes of hematemesis starting yesterday evening. He has not had any more hematemesis since since admission. He does have some upper abdominal pain this morning. He has not noted any melena or hematochezia. He has never had similar events before. He does take Eliquis for atrial fibrillation. He does not believe he has had an EGD in the past. His hemoglobin was 9.7 on this admission. His baseline hemoglobin is about 13. Meds Home Medications and Allergies Home Medications Medication Instructions Recorded Confirmed Type apixaban 5 mg tablet (Eliquis) 5 mg PO BID #60 tabs 03/22/19 10/02/23 Rx metoprolol succinate 50 mg 50 mg PO DAILY 06/13/22 10/02/23 History tablet,extended release 24 hr irbesartan 150 See Rx Instructions .Route 01/02/23 10/02/23 Rx mg-hydrochlorothiazide 12.5 mg .COMPLEX #90 tabs tablet amlodipine 5 mg tablet (Norvasc) 5 mg PO QDAY #90 tabs 03/01/23 10/02/23 Rx atorvastatin 40 mg tablet 40 mg PO DAILY 05/22/23 10/02/23 History valacyclovir 500 mg tablet 500 mg PO BID 05/22/23 10/02/23 History ergocalciferol (vitamin D2) See Rx Instructions .Route .COMPLEX 10/02/23 10/02/23 History niacinamide 500 mg tablet 500 mg PO BID 10/02/23 10/02/23 History Allergies Allergy/AdvReac Type Severity Reaction Status Date / Time No Known Drug Allergies Allergy Verified 08/23/23 16:06 Exam Vital Signs (past 8 hours): - 10/02/23 02:09 10/02/23 02:24 10/02/23 02:25 Temperature 97.8 F Pulse Rate 84 92 H Respiratory Rate 16 Blood Pressure 155/85 H 167/92 H Pulse Oximetry 98 98 Oxygen Delivery Method Room Air Oxygen Flow Rate 10/02/23 02:30 10/02/23 02:46 10/02/23 02:46 Temperature Pulse Rate 92 H 89 Respiratory Rate Blood Pressure 134/90 Pulse Oximetry 99 96 Oxygen Delivery Method Room Air Oxygen Flow Rate 10/02/23 03:00 10/02/23 03:00 10/02/23 03:30 Temperature Pulse Rate 85 83 Respiratory Rate 20 15 Blood Pressure 145/87 H Pulse Oximetry 98 96 Oxygen Delivery Method Room Air Oxygen Flow Rate 10/02/23 03:30 10/02/23 04:00 10/02/23 04:00 Temperature Pulse Rate 88 Respiratory Rate 16 Blood Pressure 141/72 H 142/81 H Pulse Oximetry 97 Oxygen Delivery Method Oxygen Flow Rate 10/02/23 04:30 10/02/23 04:30 10/02/23 05:00 Temperature Pulse Rate 83 Respiratory Rate 14 Blood Pressure 137/81 157/93 H Pulse Oximetry 97 Oxygen Delivery Method Oxygen Flow Rate 10/02/23 05:00 10/02/23 05:41 10/02/23 05:49 Temperature 96.9 F L Pulse Rate 91 H 79 Respiratory Rate 10 L 17 Blood Pressure 147/85 H Pulse Oximetry 97 99 Oxygen Delivery Method Room Air Room Air Oxygen Flow Rate 0 Oxygen Delivery Method Room Air Oxygen Flow Rate 0 Resp Effort & Inspection: normal respiratory effort GI Palpation: soft Neuro General: patient alert Objective Labs 10/02/23 04:30 10/02/23 06:10 Labs: Laboratory Results - last 24 hr 10/02/23 10/02/23 10/02/23 02:35 03:15 04:30 WBC 6.2 5.1 RBC 3.97 L 3.81 L Hgb 10.1 L 9.7 L Hct 31.3 L 30.2 L MCV 78.8 L 79.3 L MCH 25.4 L 25.4 L MCHC 32.2 32.1 RDW 17.7 H 17.1 H Plt Count 176 157 Neut % (Auto) 89.9 H 89.7 H Lymph % (Auto) 3.8 L 5.2 L [place] % (Auto) 5.7 4.7 Eos % (Auto) 0.5 L 0.2 L Baso % (Auto) 0.1 0.2 Neut # (Auto) 5600 4600 Lymph # (Auto) 200 L 300 L [place] # (Auto) 400 200 Eos # (Auto) 0 0 Baso # (Auto) 0 0 PT 14.7 H INR 1.3 APTT 35 Sodium 135 L Potassium 4.0 Chloride 103 Carbon Dioxide 24 BUN 14 Creatinine 0.54 L Estimated GFR > 60 BUN/Creatinine Ratio 25.9 H Glucose 125 H Calcium 9.2 Total Bilirubin 1.0 AST 30 ALT 29 Alkaline Phosphatase 119 Total Protein 6.5 Albumin 4.2 Globulin 2.3 Albumin/Globulin Ratio 1.8 Blood Type AB Positive Antibody Screen Negative 10/02/23 06:10 WBC RBC Hgb Hct MCV MCH MCHC RDW Plt Count Neut % (Auto) Lymph % (Auto) [place] % (Auto) Eos % (Auto) Baso % (Auto) Neut # (Auto) Lymph # (Auto) [place] # (Auto) Eos # (Auto) Baso # (Auto) PT INR APTT Sodium 136 L Potassium 3.9 Chloride 103 Carbon Dioxide 25 BUN 13 Creatinine 0.54 L Estimated GFR > 60 BUN/Creatinine Ratio 24.1 H Glucose 112 H Calcium 9.1 Total Bilirubin 1.3 AST 29 ALT 27 Alkaline Phosphatase 111 Total Protein 6.2 L Albumin 4.0 Globulin 2.2 Albumin/Globulin Ratio 1.8 Blood Type Antibody Screen [facility] Medical History (Updated 10/02/23 @ 07:20 by Chuy Emanuel MD) COVID-19 Pneumonia Trigger finger of left hand Squamous cell skin cancer BCC (basal cell carcinoma), ear Vision abnormalities Hearing loss (~2007) Skin cancer (~2009) Prostate cancer (~2011) Atrial fibrillation with controlled ventricular response (12/11/17) Primary osteoarthritis of left knee (12/01/17) History of malignant neoplasm of prostate (12/01/17) History of cardiac radiofrequency ablation (RFA) (10/09/17) Hypertension (10/09/17) Hyperlipidemia (10/09/17) Multiple actinic keratoses (08/13/02) CLL (chronic lymphocytic leukemia) (~2016) Surgical History History of total right knee replacement History of meniscectomy of left knee History of total left knee replacement (~11/2017) History of vasectomy History of bilateral cataract extraction History of inguinal hernia repair (~2012) Status post colonoscopy (10/08/13) History of cardiac radiofrequency ablation (RFA) (~2003) History of cataract removal with insertion of prosthetic lens (~2014) Family History Brother Age: 81 Dementia Sister Age: 90 Dementia Brother No problems noted. Father No problems noted. Mother No problems noted. Sister No problems noted. Social History household members: spouse Tobacco & Substance Use Smoking Status: Former smoker alcohol intake: current Assessment & Plan Assessment and plan (1) Acute blood loss anemia: Status: Acute Plan I recommended we proceed with an esophagogastroduodenoscopy for hematemesis. He is NPO and we will plan to proceed this afternoon.
[2023-10-02] MEDS: METOPROLOL ER 50 MG TABLET PO (09:49)
[2023-10-02] MEDS: PANTOPRAZOLE 40 MG VIAL IV (09:49)
[2023-10-02] MEDS: ACETAMINOPHEN 325 MG TABLET 650 MG PO (09:50)
[2023-10-02 10:02] LABS: Add Manual Diff / Slide Review NO; Basophils Absolute Auto 0 /uL (0-100); Basophils Percent Auto 0.4 % (0-2); Eosinophils Absolute Auto 0 /uL (0-450); Hematocrit 31.9 % (41-53); Hemoglobin 10.4 g/dL (13.5-17.5); Lymphocytes Absolute Auto 300 /uL (1100-4500); Lymphocytes Percent Auto 7.2 % (25-40); Mean Corpuscular HGB Conc 32.4 % (30-36); Mean Corpuscular Hemoglobin 25.8 PG (26-34); Mean Corpuscular Volume 79.5 fL (80-100); Monocytes Absolute Auto 400 /uL (0-900); Monocytes Percent Auto 8.2 % (3-14); Neutrophils Absolute Auto 4100 /uL (1500-7000); Neutrophils Percent Auto 84.2 % (50-75); Platelet Count 167 X10^3/uL (150-400); Red Blood Cell Count 4.02 X10^6/uL (4.5-5.9); Red Cell Distribution Width 17.4 % (11.6-14.8); White Blood Cell Count 4.8 X10^3/uL (4.5-11.0)
[2023-10-02 10:50] LABS: Bacteria Urine None Seen; Culture Indicated Urine Cult Not Indicated; RBC Urine None Seen (0-5/HPF); Squamous Epithelial Cell Urine None Seen (0-5/HPF); Urine Volume 10mL (spun); WBC Urine None Seen (0-5/HPF)
--- NOTE | 2023-10-02 11:26 | PC.NURSE ---
Assess- Patient is alert and oriented x4. He denies nausea or emesis. He has been npo, except for a drink of water with his blood pressure medications and tylenol. Up to the bathroom with 1PA, patient is resting now. BT hypoactive x4 quad.
--- NOTE | 2023-10-02 12:00 | P.HP_ITS ---
History of Present Illness History of Present Illness Date Patient Seen: 10/02/23 Time Patient Seen: 10:00 Chief complaint: coughing up blood Narrative: Per overnight provider, The pt is a 88 yo who is on Eliquis chronically for his a-fib who started developing sudden onset of hemoptysis last night starting around midnight. He has vomited 5-6 episodes of dark bloody emesis prior to coming to the ER tonight. Since admission he has not had any emesis. He denies any pain, NSAIDS use at home, problems with GERD, gastric ulcers in the past. No hx of endoscopy's to his memory, no recent illness, no weight loss. Currently he states he is without complaints. To me patient does report intermittent ibuprofen use, but not reguarly. Otherwise history noted above is reconfirmed. Plan for today is for endoscopy this afternoon. He has had no further episodes today. H/h is stable this morning around 10. PFSH Medical History COVID-19 Pneumonia Trigger finger of left hand Squamous cell skin cancer BCC (basal cell carcinoma), ear Vision abnormalities Hearing loss (~2007) Skin cancer (~2009) Prostate cancer (~2011) Atrial fibrillation with controlled ventricular response (12/11/17) Primary osteoarthritis of left knee (12/01/17) History of malignant neoplasm of prostate (12/01/17) History of cardiac radiofrequency ablation (RFA) (10/09/17) Hypertension (10/09/17) Hyperlipidemia (10/09/17) Multiple actinic keratoses (08/13/02) CLL (chronic lymphocytic leukemia) (~2016) Surgical History History of total right knee replacement History of meniscectomy of left knee History of total left knee replacement (~11/2017) History of vasectomy History of bilateral cataract extraction History of inguinal hernia repair (~2012) Status post colonoscopy (10/08/13) History of cardiac radiofrequency ablation (RFA) (~2003) History of cataract removal with insertion of prosthetic lens (~2014) Family History Brother Age: 81 Dementia Sister Age: 90 Dementia Brother No problems noted. Father No problems noted. Mother No problems noted. Sister No problems noted. Social History household members: spouse Smoking Status: Former smoker alcohol intake: current Meds Home Medications and Allergies Home Medications Medication Instructions Recorded Confirmed Type apixaban 5 mg tablet (Eliquis) 5 mg PO BID #60 tabs 03/22/19 10/02/23 Rx metoprolol succinate 50 mg 50 mg PO DAILY 06/13/22 10/02/23 History tablet,extended release 24 hr irbesartan 150 See Rx Instructions .Route 01/02/23 10/02/23 Rx mg-hydrochlorothiazide 12.5 mg .COMPLEX #90 tabs tablet amlodipine 5 mg tablet (Norvasc) 5 mg PO QDAY #90 tabs 03/01/23 10/02/23 Rx atorvastatin 40 mg tablet 40 mg PO DAILY 05/22/23 10/02/23 History valacyclovir 500 mg tablet 500 mg PO BID 05/22/23 10/02/23 History ergocalciferol (vitamin D2) See Rx Instructions .Route .COMPLEX 10/02/23 10/02/23 History niacinamide 500 mg tablet 500 mg PO BID 10/02/23 10/02/23 History Allergies Allergy/AdvReac Type Severity Reaction Status Date / Time No Known Drug Allergies Allergy Verified 08/23/23 16:06 Review of Systems Review of Systems Narrative: All other systems reviewed with the patient and are negative unless otherwise stated. Exam Vital Signs (past 8 hours): - 10/02/23 04:30 10/02/23 04:30 10/02/23 05:00 Temperature Pulse Rate 83 Respiratory Rate 14 Blood Pressure 137/81 157/93 H Pulse Oximetry 97 Oxygen Delivery Method Oxygen Flow Rate 10/02/23 05:00 10/02/23 05:41 10/02/23 05:49 Temperature 96.9 F L Pulse Rate 91 H 79 Respiratory Rate 10 L 17 Blood Pressure 147/85 H Pulse Oximetry 97 99 Oxygen Delivery Method Room Air Room Air Oxygen Flow Rate 0 10/02/23 08:00 Temperature 98.1 F Pulse Rate 65 Respiratory Rate 16 Blood Pressure 141/85 H Pulse Oximetry 98 Oxygen Delivery Method Oxygen Flow Rate Oxygen Delivery Method Room Air Oxygen Flow Rate 0 Narrative Exam Narrative: General:? Patient is well developed and well nourished, in no distress at this time. HEENT:? Normocephalic, atraumatic Chest:? Normal AP diameter and contour without kyphoscoliosis, no tachypnea, equal chest rise bilaterally. Cardio:?regular rate with irregularly irregular rhythm Abdomen: S NT ND. Musculoskeletal:? Muscle strength and tone are equal within normal limits, no deformity. Extremities: No edema or joint effusions. No cyanosis or clubbing. Skin:? Pale,? Warm to touch,dry and intact without rashes, ulcerations or petechiae.? Neuro:? Alert and orientated x3,?no gross deficits noted of cranial nerves. Psych:? Patient has a well-kept appearance, appropriate affect, mental status attitude thought context and judgment are appropriate for age. Objective Labs 10/02/23 09:56 10/02/23 06:10 Labs: Laboratory Results - last 24 hr 10/02/23 10/02/23 10/02/23 02:35 03:15 04:30 WBC 6.2 5.1 RBC 3.97 L 3.81 L Hgb 10.1 L 9.7 L Hct 31.3 L 30.2 L MCV 78.8 L 79.3 L MCH 25.4 L 25.4 L MCHC 32.2 32.1 RDW 17.7 H 17.1 H Plt Count 176 157 Neut % (Auto) 89.9 H 89.7 H Lymph % (Auto) 3.8 L 5.2 L [place] % (Auto) 5.7 4.7 Eos % (Auto) 0.5 L 0.2 L Baso % (Auto) 0.1 0.2 Neut # (Auto) 5600 4600 Lymph # (Auto) 200 L 300 L [place] # (Auto) 400 200 Eos # (Auto) 0 0 Baso # (Auto) 0 0 PT 14.7 H INR 1.3 APTT 35 Sodium 135 L Potassium 4.0 Chloride 103 Carbon Dioxide 24 BUN 14 Creatinine 0.54 L Estimated GFR > 60 BUN/Creatinine Ratio 25.9 H Glucose 125 H Calcium 9.2 Total Bilirubin 1.0 AST 30 ALT 29 Alkaline Phosphatase 119 Total Protein 6.5 Albumin 4.2 Globulin 2.3 Albumin/Globulin Ratio 1.8 Urine RBC Urine WBC Ur Squamous Epith Cells Urine Bacteria Ur Culture Indicated? Vol Urine Centrifuged Blood Type AB Positive Antibody Screen Negative 02/01/1810/02/23 10/02/23 06:10 09:56 10:35 WBC 4.8 RBC 4.02 L Hgb 10.4 L Hct 31.9 L MCV 79.5 L MCH 25.8 L MCHC 32.4 RDW 17.4 H Plt Count 167 Neut % (Auto) 84.2 H Lymph % (Auto) 7.2 L [place] % (Auto) 8.2 Eos % (Auto) 0.0 L Baso % (Auto) 0.4 Neut # (Auto) 4100 Lymph # (Auto) 300 L [place] # (Auto) 400 Eos # (Auto) 0 Baso # (Auto) 0 PT INR APTT Sodium 136 L Potassium 3.9 Chloride 103 Carbon Dioxide 25 BUN 13 Creatinine 0.54 L Estimated GFR > 60 BUN/Creatinine Ratio 24.1 H Glucose 112 H Calcium 9.1 Total Bilirubin 1.3 AST 29 ALT 27 Alkaline Phosphatase 111 Total Protein 6.2 L Albumin 4.0 Globulin 2.2 Albumin/Globulin Ratio 1.8 Urine RBC None seen Urine WBC None seen Ur Squamous Epith Cells None seen Urine Bacteria None seen Ur Culture Indicated? Cult not indicated Vol Urine Centrifuged 10ml (spun) Blood Type Antibody Screen Assessment & Plan Assessment & Plan narrative: 1. Acute blood loss anemia due to presumed upper GI bleed, present on admission - h/h stable around 10 since admission, continue to monitor with frequent q6 h/h for now. - stop eliquis and continue IV PPI BID - EGD planned for this afternoon, appreciate general surgery consultation. 2. persistent atrial fibrillation - continue home metoprolol 3. HTN - can continue home ARB and diuretic and amlodipine. - low threshold to stop if BP lower depending on h/h trend. 4. HLD - continue home atorvastatin 40. Code: Full, surrogate daughter DVT: SCDs I have utilized all available immediate resources to obtain, update, or review the patient's current medications. Dispo: admitted observation, depending on EGD results possible discharge home this afternoon or tomorrow.
[2023-10-02] MEDS: LACTATED RINGERS 1,000 ML 42 ML IV (14:44)
--- NOTE | 2023-10-02 15:53 | PM.OP.EGD ---
Operative Date/Time/Diagnoses Date of procedure: 10/02/23 Time of procedure: 15:53 Pre-op diagnosis: Hematemesis Post-op diagnosis: same Procedure & Clinicians Study performed: Esophagogastroduodenoscopy Same procedure as scheduled: Yes Surgeon: Benigno Lomax Procedure Notes Procedure in detail: Surgeon: Benigno Lomax MD Anesthesia: Caleb Adan MD A timeout was performed. A bite blocked was placed. The patient was positioned in the left lateral decubitus position. Anesthesia was administered. The endoscope was inserted through the bite block and passed through the esophagus and stomach and into the duodenum. The duodenal mucosa appeared normal. The scope was withdrawn into the duodenal bulb and no other abnormalities were seen. The scope was withdrawn into the stomach. There was some mild antritis and random biopsies were taken from the antrum with cold forceps. There was a flat polypoid lesion in the mid to distal third of the gastric body which was biopsied with cold forceps. There was some persistent bleeding from biopsy site and so a hemostatic clip was applied with good effect. The scope was retroflexed and there was some gastritis involving the fundus and random biopsies were taken with cold forceps. The scope was withdrawn into the esophagus and no other abnormalities were seen. The remainder of the esophagus was normal. The scope was withdrawn. The patient was awakened and brought to recovery. Sedation time: 16 minutes Findings: Antritis, gastritis and a flat polypoid lesion in the mid to slightly distal gastric body Post-procedure Disposition: PACU
--- NOTE | 2023-10-02 16:36 | CM.DANOTE ---
DCP Assessment Note Pt is an 88yo M here following blood loss/GI concern. Pt to get an EGD this afternoon. PCP Lyly Ford Payer Medicare and [facility] for [facility] BUTTING SAW OPERATOR reviewed EMR. Per RN, pt eager to dc home. Standby assist no walker. Likely no CM needs. BUTTING SAW OPERATOR entered room and introduced self and role. pt accompanied by spouse and dtr (Pamela, p [phone]). Pt active/indep at baseline. 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 Dtr confirms her and her brother are going to stay with them over the next few days to support pt and spouse after dc. 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 Plan: pt to dc home when stable, no additional CM needs identified. Dtr to transport home and stay with pt for night. CM team will follow as needed. MAURIZIO Velez Discharge Planning/Care Management CM Discharge Assessment Start: 10/02/23 16:35 Freq: Status: Active Protocol: Document 10/02/23 16:35 (Rec: 10/02/23 16:36 [id number]) Discharge Planning Assessment Assigned Orange Grower MAURIZIO Davey DPOA/Assigned Designee Name shameka Muse Contact Information [phone] Advance Directives? Yes: polst Advance Directives on File Yes History Provided By Patient,Medical Record Prior Living Arrangements House Household Members spouse Type of transporation used prior to Drives own vehicle admit Independent with ADL's Yes Is patient alert and oriented? Yes Barriers to Discharge No Discharge Plan Home Transportation Arrangement dtr to drive pt home Referrals Initiated None needed Whiteboard Updated in Patient Room with Yes name and ext. # of Orange Grower Review Status In Process Next Review Type Continued Stay Review
[2023-10-02 17:33] LABS: Add Manual Diff / Slide Review NO; Basophils Absolute Auto 0 /uL (0-100); Basophils Percent Auto 0.3 % (0-2); Eosinophils Absolute Auto 0 /uL (0-450); Hematocrit 32.4 % (41-53); Hemoglobin 10.3 g/dL (13.5-17.5); Lymphocytes Absolute Auto 500 /uL (1100-4500); Lymphocytes Percent Auto 10.8 % (25-40); Mean Corpuscular HGB Conc 31.9 % (30-36); Mean Corpuscular Hemoglobin 25.5 PG (26-34); Mean Corpuscular Volume 80.2 fL (80-100); Monocytes Absolute Auto 600 /uL (0-900); Neutrophils Absolute Auto 3300 /uL (1500-7000); Neutrophils Percent Auto 75.9 % (50-75); Platelet Count 167 X10^3/uL (150-400); Red Blood Cell Count 4.04 X10^6/uL (4.5-5.9); Red Cell Distribution Width 17.7 % (11.6-14.8); White Blood Cell Count 4.4 X10^3/uL (4.5-11.0)
--- NOTE | 2023-10-02 18:30 | PM.DS.1 ---
History of Present Illness History of Present Illness Date Patient Seen: 10/02/23 Time Patient Seen: 18:31 Chief complaint: coughing up blood Narrative: Per overnight provider, The pt is a 88 yo who is on Eliquis chronically for his a-fib who started developing sudden onset of hemoptysis last night starting around midnight. He has vomited 5-6 episodes of dark bloody emesis prior to coming to the ER tonight. Since admission he has not had any emesis. He denies any pain, NSAIDS use at home, problems with GERD, gastric ulcers in the past. No hx of endoscopy's to his memory, no recent illness, no weight loss. Currently he states he is without complaints. To me patient does report intermittent ibuprofen use, but not reguarly. Otherwise history noted above is reconfirmed. Plan for today is for endoscopy this afternoon. He has had no further episodes today. H/h is stable this morning around 10. Discharge Providers Provider Date of admission: 10/02/23 03:49 Discharge Date: 10/02/23 Primary care physician: Lyly Ford DO Consults: 10/02/23 03:40 Consult to General Surgery Stat Comment: Consulting Provider: Cuate Luther Reason for consultation: gi bleed Has provider been notified: Yes 10/02/23 03:52 Consult to Physician Routine Comment: Consulting Provider: Cuate Luther Reason for consultation: GI bleed Has provider been notified: Yes Discharge provider: Henry Mobley DO Summary Hospital Course Discharge Diagnosis: 1. Acute blood loss anemia due to presumed upper GI bleed, present on admission 2. persistent atrial fibrillation 3. HTN 4. HLD Hospital Course: This is an 88 year old male with PMH of persistent afib, HTN, HLD who presented with hematemesis. His Hg was lower than previous values but stayed stable over the course of his admission around 10. He had no recurrence of symptoms during the course of his stay. He had an EGD which showed mild antritis and gastritis and a flat polypoid lesion that was biopsied. Results of biopsy are pending at the time of writing. Recommend continued outpatient follow up with PCP. His home eliquis was held and should continue to be held on discharge pending biopsy results. He was also started on a daily PPI for the gastritis. Recommend reconsideration of eliquis in 2-4 weeks with primary care. No other changes to his home medications were recommended at the time of discharge. Time Spent with Patient Time spent: Less than 30 minutes Exam Vital Signs (past 8 hours): - 10/02/23 13:00 10/02/23 14:35 10/02/23 15:55 Temperature 97.5 F L 97.2 F L 97.2 F L Pulse Rate 65 73 72 Respiratory Rate 16 16 20 Blood Pressure 140/65 152/80 H 102/74 Pulse Oximetry 98 97 90 L Oxygen Delivery Method Room Air Room Air Oxygen Flow Rate 10/02/23 16:01 10/02/23 16:06 10/02/23 16:13 Temperature 97.2 F L Pulse Rate 70 67 83 Respiratory Rate 18 18 16 Blood Pressure 135/88 133/81 129/87 Pulse Oximetry 94 95 95 Oxygen Delivery Method Nasal Cannula Room Air Room Air Oxygen Flow Rate 2 Oxygen Delivery Method Room Air Oxygen Flow Rate 2 Narrative Exam Narrative: General:? Patient is well developed and well nourished, in no distress at this time. HEENT:? Normocephalic, atraumatic Chest:? Normal AP diameter and contour without kyphoscoliosis, no tachypnea, equal chest rise bilaterally. Cardio:?regular rate with irregularly irregular rhythm Abdomen: S NT ND. Musculoskeletal:? Muscle strength and tone are equal within normal limits, no deformity. Extremities: No edema or joint effusions. No cyanosis or clubbing. Skin:? Pale,? Warm to touch,dry and intact without rashes, ulcerations or petechiae.? Neuro:? Alert and orientated x3,?no gross deficits noted of cranial nerves. Psych:? Patient has a well-kept appearance, appropriate affect, mental status attitude thought context and judgment are appropriate for age. Objective Labs 10/02/23 17:28 10/02/23 06:10 Labs: Laboratory Results - last 24 hr 10/02/23 10/02/23 10/02/23 02:35 03:15 04:30 WBC 6.2 5.1 RBC 3.97 L 3.81 L Hgb 10.1 L 9.7 L Hct 31.3 L 30.2 L MCV 78.8 L 79.3 L MCH 25.4 L 25.4 L MCHC 32.2 32.1 RDW 17.7 H 17.1 H Plt Count 176 157 Neut % (Auto) 89.9 H 89.7 H Lymph % (Auto) 3.[address] [place] % (Auto) 5.7 4.7 Eos % (Auto) 0.5 L 0.2 L Baso % (Auto) 0.1 0.2 Neut # (Auto) 5600 4600 Lymph # (Auto) [address] [place] # (Auto) 400 200 Eos # (Auto) 0 0 Baso # (Auto) 0 0 PT 14.7 H INR 1.3 APTT 35 Sodium 135 L Potassium 4.0 Chloride 103 Carbon Dioxide 24 BUN 14 Creatinine 0.54 L Estimated GFR > 60 BUN/Creatinine Ratio 25.9 H Glucose 125 H Calcium 9.2 Total Bilirubin 1.0 AST 30 ALT 29 Alkaline Phosphatase 119 Total Protein 6.5 Albumin 4.2 Globulin 2.3 Albumin/Globulin Ratio 1.8 Urine RBC Urine WBC Ur Squamous Epith Cells Urine Bacteria Ur Culture Indicated? Vol Urine Centrifuged Blood Type AB Positive Antibody Screen Negative 10/02/23 10/02/23 10/02/23 06:10 09:56 10:35 WBC 4.8 RBC 4.02 L Hgb 10.4 L Hct 31.9 L MCV 79.5 L MCH 25.8 L MCHC 32.4 RDW 17.4 H Plt Count 167 Neut % (Auto) 84.2 H Lymph % (Auto) 7.[address] [place] % (Auto) 8.2 Eos % (Auto) 0.0 L Baso % (Auto) 0.4 Neut # (Auto) 4100 Lymph # (Auto) [address] [place] # (Auto) 400 Eos # (Auto) 0 Baso # (Auto) 0 PT INR APTT Sodium 136 L Potassium 3.9 Chloride 103 Carbon Dioxide 25 BUN 13 Creatinine 0.54 L Estimated GFR > 60 BUN/Creatinine Ratio 24.1 H Glucose 112 H Calcium 9.1 Total Bilirubin 1.3 AST 29 ALT 27 Alkaline Phosphatase 111 Total Protein 6.2 L Albumin 4.0 Globulin 2.2 Albumin/Globulin Ratio 1.8 Urine RBC None seen Urine WBC None seen Ur Squamous Epith Cells None seen Urine Bacteria None seen Ur Culture Indicated? Cult not indicated Vol Urine Centrifuged 10ml (spun) Blood Type Antibody Screen 10/02/23 17:28 WBC 4.4 L RBC 4.04 L Hgb 10.3 L Hct 32.4 L MCV 80.2 MCH 25.5 L MCHC 31.9 RDW 17.7 H Plt Count 167 Neut % (Auto) 75.9 H Lymph % (Auto) 10.[address] [place] % (Auto) 13.0 Eos % (Auto) 0.0 L Baso % (Auto) 0.3 Neut # (Auto) 3300 Lymph # (Auto) [address] [place] # (Auto) 600 Eos # (Auto) 0 Baso # (Auto) 0 PT INR APTT Sodium Potassium Chloride Carbon Dioxide BUN Creatinine Estimated GFR BUN/Creatinine Ratio Glucose Calcium Total Bilirubin AST ALT Alkaline Phosphatase Total Protein Albumin Globulin Albumin/Globulin Ratio Urine RBC Urine WBC Ur Squamous Epith Cells Urine Bacteria Ur Culture Indicated? Vol Urine Centrifuged Blood Type Antibody Screen [facility] Medical History COVID-19 Pneumonia Trigger finger of left hand Squamous cell skin cancer BCC (basal cell carcinoma), ear Vision abnormalities Hearing loss (~2007) Skin cancer (~2009) Prostate cancer (~2011) Atrial fibrillation with controlled ventricular response (12/11/17) Primary osteoarthritis of left knee (12/01/17) History of malignant neoplasm of prostate (12/01/17) History of cardiac radiofrequency ablation (RFA) (10/09/17) Hypertension (10/09/17) Hyperlipidemia (10/09/17) Multiple actinic keratoses (08/13/02) CLL (chronic lymphocytic leukemia) (~2016) Surgical History History of total right knee replacement History of meniscectomy of left knee History of total left knee replacement (~11/2017) History of vasectomy History of bilateral cataract extraction History of inguinal hernia repair (~2012) Status post colonoscopy (10/08/13) History of cardiac radiofrequency ablation (RFA) (~2003) History of cataract removal with insertion of prosthetic lens (~2014) Family History Brother Age: 81 Dementia Sister Age: 90 Dementia Brother No problems noted. Father No problems noted. Mother No problems noted. Sister No problems noted. Social History household members: spouse Smoking Status: Former smoker alcohol intake: current Discharge Plan Discharge Plan Patient Disposition: Home Provider Discharge Comment: You were admitted to the hospital with likely stomach bleeding, no discrete source could be found but there were some polyps that were biopsied and mild inflammation. Recommend holding eliquis for 2-4 weeks, starting daily omeprazole / pantoprazole 40 mg. Please follow up with PCP for continued discussion regarding resuming eliquis. Discharge orders & Medications Prescriptions: New pantoprazole 40 mg tablet,delayed release (DR/EC) 40 mg PO DAILY 30 Days Qty: 30 0RF Continued irbesartan-hydrochlorothiazide 150-12.5 mg tablet See Rx Instructions .ROUTE .COMPLEX Qty: 90 3RF Hold Instructions: while sick to avoid dehydration Dose Instruction: TAKE 1 TABLET EVERY MORNING Rx Instructions: TAKE 1 TABLET EVERY MORNING amlodipine [Norvasc] 5 mg tablet 5 mg PO QDAY Qty: 90 3RF metoprolol succinate 50 mg tablet extended release 24 hr 50 mg PO DAILY atorvastatin 40 mg tablet 40 mg PO DAILY valacyclovir 500 mg tablet 500 mg PO BID ergocalciferol (vitamin D2) See Rx Instructions .ROUTE .COMPLEX Rx Instructions: 1 cap PO daily niacinamide 500 mg Tablet 500 mg PO BID Discontinued Eliquis 5 mg tablet 5 mg PO BID Qty: 60 0RF Follow up/Referrals: Lyly Ford DO [Primary Care Provider] - Diet/Activity/Treatments Diet: Diet as Tolerated and Regular Diet comment: As tolerated no restrictions Activity: As tolerated. Visit Report/Discharge Packet Instructions: DI for Gastroesophageal Reflux Disease (GERD), DI for Gastritis, DI for Stomach Polyps Stand Alone Forms: Patient Portal/API, Stroke Signs & Symptoms Discharge Data Primary Care Provider: Lyly Ford Attending Provider: Chuy Emanuel Admit Date/Time: 10/02/23 03:49
== END 2023-10-02 18:55 | disposition home or self-care (01) ==
LOC: ED 03:38 → AC 05:07
PROVIDERS: Surgery; Admitting Provider Internal Medicine; Emergency Provider Emergency Medicine; Family Provider Family Medicine; PCP Family Medicine; Referring Provider Emergency Medicine; Visit Provider Internal Medicine
PROC: 0DJ08ZZ Inspection of Upper Intestinal Tract, Via Natural or Artificial Opening Endoscopic (ICD-10-PCS; CPT 43235; principal; 2023-10-02 15:30)
DX: R04.2 Hemoptysis (principal); I48.19 Other persistent atrial fibrillation; D62 Acute posthemorrhagic anemia; Z79.01 Long term (current) use of anticoagulants; I10 Essential (primary) hypertension; E78.5 Hyperlipidemia, unspecified; Z87.891 Personal history of nicotine dependence; K29.50 Unspecified chronic gastritis without bleeding; K31.A11 Gastric intestinal metaplasia without dysplasia, involving the antrum
CPT/HCPCS: 43239; 43255; 36415; 80053; 81003; 81015; 82272; 85025; 85610; 85730; 86850; 86900; 86901; 96374; 96375; 96376; 99284; 99285; G0378; C9113; J2405; J2704

== ENCOUNTER 2023-10-28 22:43 | Emergency (ER) | payer MEDICARE, OTHER, SELFPAY ==
[2023-10-02 04:40] VITALS: BMI 27.3
[2023-10-28 22:49] VITALS: PULSE 68; RESP 28; O2SAT 98
[2023-10-28 23:00] VITALS: BP 145/87; PULSE 72; RESP 19; O2SAT 97
[2023-10-28 23:06] VITALS: BP 145/87; PULSE 60; RESP 18; TEMP 36.9; O2SAT 97; BMI 27.3
--- NOTE | 2023-10-28 23:12 | DI.RAD.S_ITS ---
PROCEDURE: XR FOREARM RT 2V INDICATIONS: fall with arm deformity TECHNIQUE: 2 views of the forearm were acquired. COMPARISON: [facility], CR, XR WRIST RT MIN 3V, 10/28/2023, 23:27. FINDINGS: Bones: There is a moderately displaced, impacted distal radius fracture, with dorsal angulation of the fracture fragments. There is intra-articular involvement. There is a mildly displaced ulnar styloid fracture. Generalized degenerative changes are seen. Soft tissues: No suspicious soft tissue calcifications or masses. IMPRESSION: Distal radius fracture, with impaction and dorsal angulation. There is intra-articular involvement. There is an ulnar styloid fracture. Dictated by: Nando Cooley M.D. on 10/28/2023 at 22:45 Approved by: Nando Cooley M.D. on 10/28/2023 at 22:46
--- NOTE | 2023-10-28 23:12 | DI.RAD.S_ITS ---
PROCEDURE: XR WRIST RT MIN 3V INDICATIONS: fall with arm deformity TECHNIQUE: 2 views of the wrist were acquired. COMPARISON: [facility], CR, XR FOREARM RT 2V, 10/28/2023, 23:27. [facility], CR, XR WRIST RT MIN 3V, 06/18/2022, 16:50. FINDINGS: Bones: There is a distal radius fracture, with impaction fracture fragments and dorsal angulation. There is intra-articular involvement. There is a mildly displaced ulnar styloid fracture. Degenerative changes are seen throughout, which are most prominent involving the 1st carpometacarpal joint. Milder degenerative changes are seen elsewhere. Soft tissues: Calcification of the triangular fibrocartilage can be seen. IMPRESSION: Distal radius fracture, with impaction fracture fragments and dorsal angulation. There is intra-articular involvement. There is an associated ulnar styloid fracture. Dictated by: Nando Cooley M.D. on 10/28/2023 at 22:46 Approved by: Nando Cooley M.D. on 10/28/2023 at 22:47
--- NOTE | 2023-10-28 23:15 | PC.NURSE ---
Pt states that since his GI bleed he has been receiving Outpatient iron infusions.
[2023-10-28 23:30] VITALS: BP 141/87; PULSE 76; RESP 29; O2SAT 95
--- NOTE | 2023-10-28 23:32 | DI.RAD.S_ITS ---
PROCEDURE: XR CHEST 1V INDICATIONS: fall vs syncope TECHNIQUE: One view of the chest was acquired. COMPARISON: [facility], CR, XR CHEST 2V, 07/30/2021, 9:33. [facility], CR, XR FOREARM RT 2V, 10/28/2023, 23:27. [facility], CR, XR WRIST RT MIN 3V, 10/28/2023, 23:27. [facility], CT, CT CERVICAL SPINE WO CON, 10/28/2023, 23:59. [facility], CT, CT HEAD/BRAIN WO CON, 10/28/2023, 23:59. [facility], CR, XR CHEST 2V, 10/01/2021, 11:18. FINDINGS: Surgical changes and devices: None. Lungs and pleura: Low lung volumes are noted. This causes a crowded appearance to the lung markings and limits evaluation. Multifocal patchy interstitial prominence can be seen. No pneumothorax is seen. The pleural effusion seen on the accompanying cervical spine CT is not seen on this study. Mediastinum: The cardiac contours are within normal limits. The aorta demonstrates calcification and tortuosity. Bones and chest wall: No displaced fractures can be seen on this single view examination No suspicious bony lesions. Age-appropriate bony degenerative changes are seen. Mild dextroconvex scoliotic curvature is seen. Overlying soft tissues appear unremarkable. IMPRESSION: No acute posttraumatic abnormality is seen. Low lung volumes with patchy interstitial prominence. Please consider pulmonary edema versus atypical infiltrate. This patient has a known right-sided pleural effusion that is not seen on this single view plain film study. Dictated by: Nando Cooley M.D. on 10/28/2023 at 23:34 Approved by: Nando Cooley M.D. on 10/28/2023 at 23:36
--- NOTE | 2023-10-28 23:32 | DI.CT.S_ITS ---
PROCEDURE: CT HEAD/BRAIN WO CON INDICATIONS: fall vs syncope, hit head TECHNIQUE: Noncontrast 4.5 mm thick angled axial sections acquired from the foramen magnum to the vertex, with coronal and sagittal reformats. For radiation dose reduction, the following was used: automated exposure control, adjustment of mA and/or kV according to patient size. COMPARISON: [facility], CT, CT HEAD/BRAIN WO CON, 07/10/2021, 8:23. [facility], CR, XR CHEST 1V, 10/29/2023, 0:06. [facility], CT, CT CERVICAL SPINE WO CON, 10/28/2023, 23:59. [facility], CT, CT HEAD/BRAIN WO CON, 06/18/2022, 16:52. FINDINGS: Image quality: Diagnostic. CSF spaces: Basal cisterns are patent. No extra-axial fluid collections. The ventricles are symmetric in size and shape. Brain: No intracranial bleeds or masses. There is cerebral volume loss for age, with resultant ventricular and sulcal prominence. There are periventricular and deep white matter chronic small vessel ischemic changes. There is intracranial internal carotid artery atherosclerosis. Skull and face: Calvarium and visualized facial bones appear intact, without suspicious lesions. Sinuses: Visualized sinuses and mastoids are clear. IMPRESSION: No acute intracranial hemorrhage is seen. No acute intracranial pathology. Dictated by: Nando Cooley M.D. on 10/28/2023 at 23:30 Approved by: Nando Cooley M.D. on 10/28/2023 at 23:32
--- NOTE | 2023-10-28 23:34 | ED.FALL ---
HPI - Fall General Chief Complaint: Fall Stated Complaint: GLF Time Seen by Provider: 10/28/23 23:32 Source: EMS Mode of arrival: EMS History of Present Illness HPI Narrative: 88-year-old male history of AFib on Eliquis, CLL prostate cancer. Patient had a fall to see evening. He does not recall exactly why he fell he states he remembers about hit the ground but does not know how that is started. Patient states he did hit his head. He states no headache. No chest pain, no shortness of breath no neck pain. He complains of pain in his right wrist. Denies any abdominal back pain. Denies any nausea or vomiting, no diarrhea constipation, no other GI or urinary symptoms. Patient states he is on iron infusions. He states he has had no major surgeries. He denies any tobacco, at [employer] glass of wine this evening which he states is his usual, no recreational drugs. Dr. Ford is his primary care physician. Related Data Home Medications Medication Instructions Recorded Confirmed metoprolol succinate 50 mg 50 mg PO DAILY 06/13/22 10/02/23 tablet,extended release 24 hr atorvastatin 40 mg tablet 40 mg PO DAILY 05/22/23 10/02/23 valacyclovir 500 mg tablet 500 mg PO BID 05/22/23 10/02/23 ergocalciferol (vitamin D2) See Rx Instructions .Route .COMPLEX 10/02/23 10/02/23 niacinamide 500 mg tablet 500 mg PO BID 10/02/23 10/02/23 Previous Rx's Medication Instructions Recorded irbesartan 150 See Rx Instructions .Route 01/02/23 mg-hydrochlorothiazide 12.5 mg .COMPLEX #90 tabs tablet amlodipine 5 mg tablet (Norvasc) 5 mg PO QDAY #90 tabs 03/01/23 pantoprazole 20 mg tablet,delayed 20 mg PO DAILY #90 tabs 10/12/23 release trazodone 50 mg tablet 50 mg PO BEDTIME PRN sleep #90 tabs 10/12/23 hydrocodone 5 mg-acetaminophen 325 1 tab PO QID PRN pain #10 tabs 10/29/23 mg tablet Allergies Allergy/AdvReac Type Severity Reaction Status Date / Time No Known Drug Allergies Allergy Verified 08/23/23 16:06 Review of Systems Review of Systems ROS Unobtainable: All systems reviewed & are unremarkable except as noted in HPI and below Patient History Medical History COVID-19 Pneumonia Trigger finger of left hand Squamous cell skin cancer BCC (basal cell carcinoma), ear Vision abnormalities Hearing loss (~2007) Skin cancer (~2009) Prostate cancer (~2011) Atrial fibrillation with controlled ventricular response (12/11/17) Primary osteoarthritis of left knee (12/01/17) History of malignant neoplasm of prostate (12/01/17) History of cardiac radiofrequency ablation (RFA) (10/09/17) Hypertension (10/09/17) Hyperlipidemia (10/09/17) Multiple actinic keratoses (08/13/02) CLL (chronic lymphocytic leukemia) (~2016) Surgical History History of total right knee replacement History of meniscectomy of left knee History of total left knee replacement (~11/2017) History of vasectomy History of bilateral cataract extraction History of inguinal hernia repair (~2012) Status post colonoscopy (10/08/13) History of cardiac radiofrequency ablation (RFA) (~2003) History of cataract removal with insertion of prosthetic lens (~2014) Family History Brother Age: 82 Dementia Sister Age: 91 Dementia Brother No problems noted. Father No problems noted. Mother No problems noted. Sister No problems noted. Social History household members: spouse Smoking Status: Former smoker alcohol intake: current Smoking Status: Former smoker alcohol intake frequency: 0-2 drinks per day Alcohol type: wine Substance Use Type: does not use Exam Narrative Exam Narrative: GEN: Patient appears in mild distress. HEAD: No evidence of trauma, no raccoon/Vasquez sign. NECK: Nontender, painless range of motion, trachea midline Negative Nexus criteria, no midline line tenderness, distracting injury, altered mental status, neuro deficit, recent EtOH. EYES: PERRLA, EOMI ENT: External inspection normal, trachea is midline, TM's are normal no hemotypanum, Nares are clear, no septal hematoma, no dental or oral injury, airway is normal and with normal occlusion, No bony tenderness RESP: Chest is nontender and has symmetric movement, no ecchymosis, breath sounds are normal no crackles, wheezes or rales CVS: Heart sounds are normal, no murmur noted, No JVD. ABG/GI: Nontender, soft, normal bowel sounds, no distention, no organomegaly, pelvic rock is negative NEURO: Oriented AOx3, neuro is grossly intact, sensation and motor is normal all 4 extremities moving, cranial nerves II through XII are intact, GCS is[default value] PSYCH: Normal mood and affect SKIN: Intact, warm and dry, no crepitus and without decubitus BACK: No CVA tenderness, no vertebral tenderness, no step-off's, no crepitus EXT: Patient has obvious deformity at the right wrist. 2+ radial pulse. Full range of motion of all 5 fingers sensation intact in all 5 fingers with cap refill less than 2 seconds., hips are nontender, no pedal edema, normal color and temperature, normal range of motion of extremities with normal tendon exam, 2+ pulses in all four extremities Initial Vital Signs Initial Vital Signs: Vital Signs Pulse Rate 68 10/28/23 22:49 Respiratory Rate 28 H 10/28/23 22:49 Pulse Oximetry 98 10/28/23 22:[address] Head Rule Patient on blood thinners: Yes GCS < 15 at 2 hr post trauma: No Suspected open or depressed skull fracture: No Any sign of basilar skull fracture (hemotympanum, raccoon eyes, Vasquez's sign, CSF alecia-/rhinorrhea): No Two or more episodes of vomiting: No Age greater or equal to 65 years: Yes Retrograde amnesia to the event greater or equal to 30 min: No Dangerous Mechanism (pedestrian vs. mv, occupant ejected from mv, fall from >3 ft or > 5 stairs): No Recommendation: Consider CT. The [place] Head CT Rule cannot rule out need for Imaging. GCS Kathy coma scale eye opening: Spontaneous Kathy coma scale verbal response: Orientated Kathy coma scale motor response: Obey commands [place] coma scale total score: 15 Nexus Score for C-Spine Focal Neurologic deficit present: No Midline spinal tenderness present: No Altered level of conciousness present: No Intoxication present: Yes Course Orders Ordered: ED Orders 10/28/23 23:12 XR forearm RT 2V Stat XR wrist RT min 3V Stat 10/28/23 23:32 CT head/brain wo con Stat XR chest 1V Stat EKG-12 Lead Stat 10/28/23 23:37 CT cervical spine wo con Stat 10/28/23 23:59 Complete Blood Count AUTO DIFF Stat Comprehensive Metabolic Panel Stat Lipase Stat PTT Partial Thromboplastin Ike Stat Prothrombin Time INR Stat Troponin & CK Cardiac Panel Stat Discontinued Medications Morphine Sulfate (Morphine 2 Mg/Ml Inj) 2 mg IV NOW ONE Stop: 10/29/23 01:54 Last Admin: 10/29/23 02:00 Dose: 2 mg Documented By: HNG Vital Signs Vital signs: Vital Signs - 8 hr 10/28/23 22:49 10/28/23 23:00 10/28/23 23:00 Temperature Pulse Rate 68 72 Respiratory Rate 28 H 19 Blood Pressure 145/87 H Pulse Oximetry 98 97 Oxygen Delivery Method 10/28/23 23:06 10/28/23 23:30 10/28/23 23:30 Temperature 98.5 F Pulse Rate 60 76 Respiratory Rate 18 29 H Blood Pressure 145/87 H 141/87 H Pulse Oximetry 97 95 Oxygen Delivery Method Room Air 10/29/23 00:13 10/29/23 00:30 10/29/23 01:00 Temperature Pulse Rate 78 76 77 Respiratory Rate 15 16 Blood Pressure Pulse Oximetry 94 93 94 Oxygen Delivery Method 10/29/23 01:30 10/29/23 02:00 10/29/23 02:05 Temperature Pulse Rate 77 81 Respiratory Rate 23 28 H Blood Pressure 151/95 H Pulse Oximetry 98 96 Oxygen Delivery Method 10/29/23 02:05 10/29/23 02:30 10/29/23 02:30 Temperature Pulse Rate 78 76 Respiratory Rate 22 24 Blood Pressure 156/87 H Pulse Oximetry 96 Oxygen Delivery Method MDM - Fall Lab Data 10/28/23 23:59 10/28/23 23:59 Labs: Lab Results 10/28/23 Range/Units 23:59 WBC 6.8 (4.5-11.0) X10^3/uL RBC 4.02 L (4.5-5.9) X10^6/uL Hgb 10.7 L (13.5-17.5) g/dL Hct 33.4 L (41-53) % MCV 83.3 (80-100) fL MCH 26.7 (26-34) PG MCHC 32.1 (30-36) % RDW 23.1 H (11.6-14.8) % Plt Count 151 (150-400) X10^3/uL Neut % (Auto) 80.9 H (50-75) % Lymph % (Auto) 9.3 L (25-40) % [place] % (Auto) 8.2 (3-14) % Eos % (Auto) 1.3 L (2-4) % Baso % (Auto) 0.3 (0-2) % Neut # (Auto) 5500 (9595-5243) /uL Lymph # (Auto) 600 L (4004-1768) /uL [place] # (Auto) 600 (0-900) /uL Eos # (Auto) 100 (0-450) /uL Baso # (Auto) 0 (0-100) /uL RBC Morphology See below Poikilocytosis 1+ H Anisocytosis 2+ H Ovalocytes 1+ H PT 12.4 (9.4-12.5) SECONDS INR 1.1 (0.9-1.3) APTT 38 H (25.1-36.5) SECONDS Sodium 142 (137-145) mmol/L Potassium 3.4 (3.4-5.1) mmol/L Chloride 111 H (98-107) mmol/L Carbon Dioxide 22 (22-32) mmol/L BUN 16 (9-20) mg/dL Creatinine 0.71 (0.66-1.25) mg/dL Estimated GFR > 60 (>60) mL/min BUN/Creatinine Ratio 22.5 H (6-22) Glucose 93 (80-110) mg/dL Calcium 9.2 (8.4-10.2) mg/dL Total Bilirubin 0.6 (0.2-1.3) mg/dL AST 35 (17-59) IU/L ALT 34 (<50) IU/L Alkaline Phosphatase 113 (38-126) U/L Total Creatine Kinase 64 (55-170) U/L Troponin I < 0.012 (0.01-0.034) ng/mL Total Protein 6.6 (6.3-8.2) g/dL Albumin 4.3 (3.5-5.0) g/dL Globulin 2.3 (1.7-4.1) g/dL Albumin/Globulin Ratio 1.9 (1.0-2.8) Lipase 199 (23-300) U/L Imaging Data CT scan - head: Radiologist's Impression: Close Cervical Spine CT (Signed) Nando Cooley - 10/28/[address] (Signed) Caldwell,Nando - 10/28/23 Chest X-Ray (Signed) Yasir,Nando - 10/28/23 Wrist X-Ray (Signed) CaldwellNando fox - 10/28/23 Forearm X-Ray (Signed) Nando Cooley - 10/28/23 Telemetry Strips 10/02/23 Thoracic Spine X-Ray (Signed) Call,Trevor - 11/16/22 Lumbar Spine X-Ray (Signed) Call,Trevor - 11/16/22 Wrist X-Ray (Signed) Froylan,Sri - 06/18/22 Ribs X-Ray (Signed) Froylan,Sri - 06/18/[address] (Signed) Froylan,Sri - 06/18/[address] (Signed) Froylan,Sri - 06/18/22 Chest X-Ray (Signed) Mikey Roach - 10/01/21 Chest X-Ray (Signed) Margot Faith - 07/30/21 Chest X-Ray (Signed) Call,Trevor - 07/14/[address] (Signed) Forrest Velez - 07/10/21 Chest X-Ray (Signed) Nando Cooley - 07/07/21 PET, Tumor Imaging Skull-Mid Thigh (Signed) Lacy Robles - 03/06/19 Knee X-Ray (Signed) Nando Cooley - 03/29/[address] [address] [address] Scan Report Signed Patient: Rubin Cabrera MR#: [id number] : 1935 Acct:[id number] Age/Sex: 88 / M Date of Service: 10/28/23 Loc: ED Accession Number: [id number] Procedure: CT head/brain wo con Ordering Provider: Abimbola Anthony D.O. PROCEDURE: CT HEAD/BRAIN WO CON INDICATIONS: fall vs syncope, hit head TECHNIQUE: Noncontrast 4.5 mm thick angled axial sections acquired from the foramen magnum to the vertex, with coronal and sagittal reformats. For radiation dose reduction, the following was used: automated exposure control, adjustment of mA and/or kV according to patient size. COMPARISON: [facility], CT, CT HEAD/BRAIN WO CON, 07/10/2021, 8:23. [facility], CR, XR CHEST 1V, 10/29/2023, 0:06. [facility], CT, CT CERVICAL SPINE WO CON, 10/28/2023, 23:59. [facility], CT, CT HEAD/BRAIN WO CON, 06/18/2022, 16:52. FINDINGS: Image quality: Diagnostic. CSF spaces: Basal cisterns are patent. No extra-axial fluid collections. The ventricles are symmetric in size and shape. Brain: No intracranial bleeds or masses. There is cerebral volume loss for age, with resultant ventricular and sulcal prominence. There are periventricular and deep white matter chronic small vessel ischemic changes. There is intracranial internal carotid artery atherosclerosis. Skull and face: Calvarium and visualized facial bones appear intact, without suspicious lesions. Sinuses: Visualized sinuses and mastoids are clear. IMPRESSION: No acute intracranial hemorrhage is seen. No acute intracranial pathology. Dictated by: Nando Cooley M.D. on 10/28/2023 at 23:30 Approved by: Nando Cooley M.D. on 10/28/2023 at 23:32 CT - cervical spine: Radiologist's Impression: Close Cervical Spine CT (Signed) Nando Cooley - 10/28/[address] (Signed) Nando Cooley - 10/28/23 Chest X-Ray (Signed) Nando Cooley - 10/28/23 Wrist X-Ray (Signed) Nando Cooley - 10/28/23 Forearm X-Ray (Signed) Nando Cooley - 10/28/23 Telemetry Strips 10/02/23 Thoracic Spine X-Ray (Signed) Trevor Reddy - 11/16/22 Lumbar Spine X-Ray (Signed) Trevor Reddy - 11/16/22 Wrist X-Ray (Signed) Sri Galeano - 06/18/22 Ribs X-Ray (Signed) Froylan,Sri - 06/18/[address] (Signed) Froylan,Sri - 06/18/[address] (Signed) Froylan,Sri - 06/18/22 Chest X-Ray (Signed) Mikey Roach - 10/01/21 Chest X-Ray (Signed) Margot Faith - 07/30/21 Chest X-Ray (Signed) Trevor Reddy - 07/14/[address] (Signed) Velez,Forrest - 07/10/21 Chest X-Ray (Signed) Nando Cooley - 07/07/21 PET, Tumor Imaging Skull-Mid Thigh (Signed) Lacy Robles - 03/06/19 Knee X-Ray (Signed) Nando Cooley - 03/29/18 Launch[facility] [address] CT Scan Report Signed Patient: Rubin Cabrera MR#: [id number] : 1935 Acct:[id number] Age/Sex: 88 / M Date of Service: 10/28/23 Loc: ED Accession Number: [id number] Procedure: CT cervical spine wo con Ordering Provider: Abimbola Antohny D.O. PROCEDURE: CT CERVICAL SPINE WO CON INDICATIONS: fall, etoh TECHNIQUE: Noncontrast 3 mm thick sections acquired from the skull base to the T4 level. Sagittal and coronal reformats were then constructed. For radiation dose reduction, the following was used: automated exposure control, adjustment of mA and/or kV according to patient size. COMPARISON: [facility], CR, XR CHEST 1V, 10/29/2023, 0:06. [facility], CT, CT HEAD/BRAIN WO CON, 10/28/2023, 23:59. [facility], CT, CT CERVICAL SPINE WO CON, 06/18/2022, 16:52. FINDINGS: Image quality: This examination is somewhat limited by quantum mottle artifact. Bones: No fractures or dislocations. Visualized superior ribs are intact. Prominent generalized degenerative changes are seen. There is focal calcification seen posterior to the dens, with moderate central canal narrowing. Soft tissues: Prevertebral soft tissues are normal in thickness. No paravertebral hematomas. No apical pneumothoraces. There is a right-sided pleural effusion partially seen. Atherosclerotic calcification is noted. IMPRESSION: No displaced fracture or traumatic subluxation. Significant generalized degenerative changes are seen. There is a right-sided pleural effusion partially seen, which is new compared to the prior CT. Dictated by: Nando Cooley M.D. on 10/28/2023 at 23:32 Approved by: Nando Cooley M.D. on 10/28/2023 at 23:34 Chest x-ray: Radiologist's Impression: [address] [address] XRay Report Signed Patient: Rubin Cabrera MR#: [id number] : 1935 Acct:[id number] Age/Sex: 88 / M Date of Service: 10/28/23 Loc: ED Accession Number: [id number] Procedure: XR chest 1V Ordering Provider: Abimbola Anthony D.O. PROCEDURE: XR CHEST 1V INDICATIONS: fall vs syncope TECHNIQUE: One view of the chest was acquired. COMPARISON: [facility], CR, XR CHEST 2V, 07/30/2021, 9:33. [facility], CR, XR FOREARM RT 2V, 10/28/2023, 23:27. [facility], CR, XR WRIST RT MIN 3V, 10/28/2023, 23:27. [facility], CT, CT CERVICAL SPINE WO CON, 10/28/2023, 23:59. [facility], CT, CT HEAD/BRAIN WO CON, 10/28/2023, 23:59. [facility], CR, XR CHEST 2V, 10/01/2021, 11:18. FINDINGS: Surgical changes and devices: None. Lungs and pleura: Low lung volumes are noted. This causes a crowded appearance to the lung markings and limits evaluation. Multifocal patchy interstitial prominence can be seen. No pneumothorax is seen. The pleural effusion seen on the accompanying cervical spine CT is not seen on this study. Mediastinum: The cardiac contours are within normal limits. The aorta demonstrates calcification and tortuosity. Bones and chest wall: No displaced fractures can be seen on this single view examination No suspicious bony lesions. Age-appropriate bony degenerative changes are seen. Mild dextroconvex scoliotic curvature is seen. Overlying soft tissues appear unremarkable. IMPRESSION: No acute posttraumatic abnormality is seen. Low lung volumes with patchy interstitial prominence. Please consider pulmonary edema versus atypical infiltrate. This patient has a known right-sided pleural effusion that is not seen on this single view plain film study. Dictated by: Nando Cooley M.D. on 10/28/2023 at 23:34 Approved by: Nando Cooley M.D. on 10/28/2023 at 23:36 Extremity x-ray #1: Radiologist's Impression: Rubin Cabrera?(Art)??He/Him/His??88??M??1935 ? Allergy/Adv: No Known Drug Allergies (More??) Close Cervical Spine CT (Signed) Nando Cooley - 10/28/[address] (Signed) Nando Cooley - 10/28/23 Chest X-Ray (Signed) Nando Cooley - 10/28/23 Wrist X-Ray (Signed) Nando Cooley - 10/28/23 Forearm X-Ray (Signed) Nando Cooley - 10/28/23 Telemetry Strips 10/02/23 Thoracic Spine X-Ray (Signed) CallTrevor - 11/16/22 Lumbar Spine X-Ray (Signed) Call,Trevor - 11/16/22 Wrist X-Ray (Signed) Sri Galeano - 06/18/22 Ribs X-Ray (Signed) Froylan,Sri - 06/18/[address] (Signed) Sri Galeano - 06/18/[address] (Signed) Sri Galeano - 06/18/22 Chest X-Ray (Signed) Mikey Roach - 10/01/21 Chest X-Ray (Signed) Margot Faith - 07/30/21 Chest X-Ray (Signed) CallTrevor - 07/14/[address] (Signed) Forrest Velez - 07/10/21 Chest X-Ray (Signed) Nando Cooley - 07/07/21 PET, Tumor Imaging Skull-Mid Thigh (Signed) Lacy Robles - 03/06/19 Knee X-Ray (Signed) Nando Cooley - 03/29/18 [facility] [address] [address] XRay Report Signed Patient: Rubin Cabrera MR#: [id number] : 1935 Acct:[id number] Age/Sex: 88 / M Date of Service: 10/28/23 Loc: ED Accession Number: [id number] Procedure: XR wrist RT min 3V Ordering Provider: Abimbola Anthony D.O. PROCEDURE: XR WRIST RT MIN 3V INDICATIONS: fall with arm deformity TECHNIQUE: 2 views of the wrist were acquired. COMPARISON: [facility], CR, XR FOREARM RT 2V, 10/28/2023, 23:27. [facility], CR, XR WRIST RT MIN 3V, 06/18/2022, 16:50. FINDINGS: Bones: There is a distal radius fracture, with impaction fracture fragments and dorsal angulation. There is intra-articular involvement. There is a mildly displaced ulnar styloid fracture. Degenerative changes are seen throughout, which are most prominent involving the 1st carpometacarpal joint. Milder degenerative changes are seen elsewhere. Soft tissues: Calcification of the triangular fibrocartilage can be seen. IMPRESSION: Distal radius fracture, with impaction fracture fragments and dorsal angulation. There is intra-articular involvement. There is an associated ulnar styloid fracture. Dictated by: Nando Cooley M.D. on 10/28/2023 at 22:46 Approved by: Nando Cooley M.D. on 10/28/2023 at 22:47 Extremity x-ray #2: Radiologist's Impression: Rubin Cabrera?(Art)??He/Him/His??88??M??1935 ? Allergy/Adv: No Known Drug Allergies (More??) Close Cervical Spine CT (Signed) Nnado Cooley - 10/28/[address] (Signed) Nando Cooley - 10/28/23 Chest X-Ray (Signed) Nando Cooley - 10/28/23 Wrist X-Ray (Signed) Nando Cooley - 10/28/23 Forearm X-Ray (Signed) YasirNando paulino - 10/28/23 Telemetry Strips 10/02/23 Thoracic Spine X-Ray (Signed) Call,Trevor - 11/16/22 Lumbar Spine X-Ray (Signed) Call,Trevor - 11/16/22 Wrist X-Ray (Signed) Froylan,Sri - 06/18/22 Ribs X-Ray (Signed) Froylan,Sri - 06/18/[address] (Signed) Froylan,Sri - 06/18/[address] (Signed) Froylan,Sri - 06/18/22 Chest X-Ray (Signed) MarleyMikey - 10/01/21 Chest X-Ray (Signed) Margot Faith - 07/30/21 Chest X-Ray (Signed) Call,Trevor - 07/14/[address] (Signed) Forrest Velez - 07/10/21 Chest X-Ray (Signed) Nando Cooley - 07/07/21 PET, Tumor Imaging Skull-Mid Thigh (Signed) Lacy Robles - 03/06/19 Knee X-Ray (Signed) Nando Cooley - 03/29/18 Launch[facility] [address] XRay Report Signed Patient: Rubin Cabrera MR#: [id number] : 1935 Acct:[id number] Age/Sex: 88 / M Date of Service: 10/28/23 Loc: ED Accession Number: [id number] Procedure: XR forearm RT 2V Ordering Provider: Abimbola Anthony D.O. PROCEDURE: XR FOREARM RT 2V INDICATIONS: fall with arm deformity TECHNIQUE: 2 views of the forearm were acquired. COMPARISON: [facility], CR, XR WRIST RT MIN 3V, 10/28/2023, 23:27. FINDINGS: Bones: There is a moderately displaced, impacted distal radius fracture, with dorsal angulation of the fracture fragments. There is intra-articular involvement. There is a mildly displaced ulnar styloid fracture. Generalized degenerative changes are seen. Soft tissues: No suspicious soft tissue calcifications or masses. IMPRESSION: Distal radius fracture, with impaction and dorsal angulation. There is intra-articular involvement. There is an ulnar styloid fracture. Dictated by: Nando oColey M.D. on 10/28/2023 at 22:45 Approved by: Nando Cooley M.D. on 10/28/2023 at 22:46 ECG Data Attestation: I personally reviewed and interpreted this ECG as follows: Prior ECG tracings: available for review Interpretation: AFib rate of 63 QRS of 106 QTC of 423. No acute ST changes appreciated. Patient does prior with no acute change. MDM Narrative Medical decision making narrative: 88-year-old male who presents with complaint of possible fall versus syncopal episode he does not remember exactly why he fell. Patient states no anticoagulants but has Eliquis at as of the 02 of October was taking Eliquis. States he did hit his head, states he had 2 alcoholic drinks earlier in the evening. He is other he is alert appropriate his only complaint is right wrist which does not appear deformed. Labs white count of 6.8, hemoglobin of 10 platelets of 151. INR 1.1. Sodium 142, potassium 3 4, chloride 111, CO2 22, BUN 60 creatinine 0.71. Glucose of 93- LFTs. Negative troponin. EKG shows AFib incomplete right bundle. No acute ST changes. Appears similar to priors. Head CT head CT shows no acute intracranial change. CT C-spine right-sided pleural effusion partially seen no fracture or subluxation. Chest x-ray patient has patchy interstitial prominence consider pulmonary edema versus atypical infiltrate known right-sided pleural effusion not seen on single view study. Wrist x-ray distal radius fracture with a back fracture fragments and dorsal angulation. There is no intra-articular involvement. Associated ulnar styloid fracture. Patient placed in a splint. Neurovascularly intact. Discharge Plan Departure Patient Disposition: Home Clinical Impression: Right wrist fracture Activity Restrictions/Additional Instructions: Follow up with Orthopedic surgery. Call set up an appointment. Follow up in the next week. Continue your medications as prescribed. Splint Care: Keep splint clean and dry. Elevated affected body part to decrease swelling. OK to use ice pack on the affected body part. Use for 15-20 minutes each time, for 5-6x per day. If you develop worsening pain, numbness, tingling, discoloration of the affected body part, loosen the splint by loosening the RHONDA wrap, and either see your doctor for an urgent re-assessment, or return to the Emergency Department. Return to the Emergency Department for any new or worsening symptoms. Prescriptions: New hydrocodone-acetaminophen 5-325 mg tablet 1 tab PO QID PRN (Reason: pain) Qty: 10 0RF No Action irbesartan-hydrochlorothiazide 150-12.5 mg tablet See Rx Instructions .ROUTE .COMPLEX Qty: 90 3RF Hold Instructions: while sick to avoid dehydration Dose Instruction: TAKE 1 TABLET EVERY MORNING Rx Instructions: TAKE 1 TABLET EVERY MORNING amlodipine [Norvasc] 5 mg tablet 5 mg PO QDAY Qty: 90 3RF metoprolol succinate 50 mg tablet extended release 24 hr 50 mg PO DAILY atorvastatin 40 mg tablet 40 mg PO DAILY valacyclovir 500 mg tablet 500 mg PO BID pantoprazole 20 mg tablet,delayed release (DR/EC) 20 mg PO DAILY Qty: 90 3RF trazodone 50 mg tablet 50 mg PO BEDTIME PRN (Reason: sleep) Qty: 90 3RF ergocalciferol (vitamin D2) See Rx Instructions .ROUTE .COMPLEX Rx Instructions: 1 cap PO daily niacinamide 500 mg Tablet 500 mg PO BID Referrals: Jackson Randall MD [Physician] - Lyly Ford DO [Primary Care Provider] - Stand Alone Forms: Patient Portal/API
--- NOTE | 2023-10-28 23:37 | DI.CT.S_ITS ---
PROCEDURE: CT CERVICAL SPINE WO CON INDICATIONS: fall, etoh TECHNIQUE: Noncontrast 3 mm thick sections acquired from the skull base to the T4 level. Sagittal and coronal reformats were then constructed. For radiation dose reduction, the following was used: automated exposure control, adjustment of mA and/or kV according to patient size. COMPARISON: [facility], CR, XR CHEST 1V, 10/29/2023, 0:06. [facility], CT, CT HEAD/BRAIN WO CON, 10/28/2023, 23:59. [facility], CT, CT CERVICAL SPINE WO CON, 06/18/2022, 16:52. FINDINGS: Image quality: This examination is somewhat limited by quantum mottle artifact. Bones: No fractures or dislocations. Visualized superior ribs are intact. Prominent generalized degenerative changes are seen. There is focal calcification seen posterior to the dens, with moderate central canal narrowing. Soft tissues: Prevertebral soft tissues are normal in thickness. No paravertebral hematomas. No apical pneumothoraces. There is a right-sided pleural effusion partially seen. Atherosclerotic calcification is noted. IMPRESSION: No displaced fracture or traumatic subluxation. Significant generalized degenerative changes are seen. There is a right-sided pleural effusion partially seen, which is new compared to the prior CT. Dictated by: Nando Cooley M.D. on 10/28/2023 at 23:32 Approved by: Nando Cooley M.D. on 10/28/2023 at 23:34
[2023-10-29] VITALS (7 sets, daily range): BP systolic 151–156; BP diastolic 87–95; PULSE 76–81; RESP 15–28; O2SAT 93–98
[2023-10-29 00:15] LABS: INR 1.1 (0.9-1.3); Prothrombin Time 12.4 SECONDS (9.4-12.5)
[2023-10-29 00:19] LABS: Alanine Aminotransferase 34 IU/L (<50); Albumin 4.3 g/dL (3.5-5.0); Albumin Globulin Ratio 1.9 (1.0-2.8); Alkaline Phosphatase 113 U/L (38-126); Aspartate Aminotransferase 35 IU/L (17-59); BUN Creatinine Ratio 22.5 (6-22); Bilirubin Total 0.6 mg/dL (0.2-1.3); Blood Urea Nitrogen 16 mg/dL (9-20); Calcium 9.2 mg/dL (8.4-10.2); Carbon Dioxide 22 mmol/L (22-32); Chloride 111 mmol/L (98-107); Creatine Kinase 64 U/L (55-170); Estimated Glomerular Filt Rate > 60 mL/min (>60); Globulin 2.3 g/dL (1.7-4.1); Glucose 93 mg/dL (80-110); HEMOLYSIS < 15 (0-50); Lipase 199 U/L (23-300); Potassium 3.4 mmol/L (3.4-5.1); Sodium 142 mmol/L (137-145); Total Protein 6.6 g/dL (6.3-8.2)
[2023-10-29 00:23] LABS: Add Manual Diff / Slide Review NO; Basophils Absolute Auto 0 /uL (0-100); Basophils Percent Auto 0.3 % (0-2); Eosinophils Absolute Auto 100 /uL (0-450); Eosinophils Percent Auto 1.3 % (2-4); Hematocrit 33.4 % (41-53); Hemoglobin 10.7 g/dL (13.5-17.5); Lymphocytes Absolute Auto 600 /uL (1100-4500); Lymphocytes Percent Auto 9.3 % (25-40); Mean Corpuscular HGB Conc 32.1 % (30-36); Mean Corpuscular Hemoglobin 26.7 PG (26-34); Mean Corpuscular Volume 83.3 fL (80-100); Monocytes Absolute Auto 600 /uL (0-900); Monocytes Percent Auto 8.2 % (3-14); Neutrophils Absolute Auto 5500 /uL (1500-7000); Neutrophils Percent Auto 80.9 % (50-75); Platelet Count 151 X10^3/uL (150-400); Red Blood Cell Count 4.02 X10^6/uL (4.5-5.9); Red Cell Distribution Width 23.1 % (11.6-14.8); White Blood Cell Count 6.8 X10^3/uL (4.5-11.0)
[2023-10-29 00:25] LABS: PTT Partial Thromboplastin Tim 38 SECONDS (25.1-36.5)
[2023-10-29 00:31] LABS: Troponin I < 0.012 ng/mL (0.01-0.034)
[2023-10-29 00:37] LABS: Anisocytosis 2+; Ovalocytes 1+; Poikilocytosis 1+
[2023-10-29] MEDS: MORPHINE 2 MG/ML INJ IV (02:00)
== END 2023-10-29 03:12 | disposition home or self-care (01) ==
PROVIDERS: Emergency Provider Emergency Medicine; Family Provider Family Medicine; PCP Family Medicine
DX: S52.501A Unspecified fracture of the lower end of right radius, initial encounter for closed fracture (principal); S09.90XA Unspecified injury of head, initial encounter; Z79.01 Long term (current) use of anticoagulants; C61 Malignant neoplasm of prostate; W19.XXXA Unspecified fall, initial encounter; I48.91 Unspecified atrial fibrillation; I45.10 Unspecified right bundle-branch block
CPT/HCPCS: 36415; 70450; 71045; 72125; 73090; 73110; 80053; 82550; 83690; 84484; 85025; 85610; 85730; 93005; 93010; 96374; 99284; J2270

== ENCOUNTER 2024-05-15 19:23 | Emergency (ER) | payer MEDICARE, OTHER, SELFPAY ==
[2024-05-14 12:04] VITALS: BMI 27.3
[2024-05-15] VITALS (16 sets, daily range): BP systolic 165–195; BP diastolic 95–117; PULSE 58–89; RESP 15–28; TEMP 36.6; O2SAT 94–98; BMI 26.6
--- NOTE | 2024-05-15 19:47 | DI.RAD.S_ITS ---
PROCEDURE: XR CHEST 1V INDICATIONS: Possible stroke TECHNIQUE: One view of the chest was acquired. COMPARISON: [facility], CR, XR CHEST 2V, 05/02/2024, 12:49. [facility], CR, XR CHEST 1V, 10/29/2023, 0:06. FINDINGS: Surgical changes and devices: None. Lungs and pleura: Low lung volumes. No dense airspace disease or pleural effusions. Mediastinum: Heart size is at the upper limit of normal, unchanged. Questionable retrocardiac opacity. Bones and chest wall: Degenerative findings IMPRESSION: No dense airspace disease or pleural effusion. Limited single view radiograph with low lung volumes. Possible retrocardiac opacity, which may be hiatal hernia, though indeterminate on single view radiograph Dictated by: Malcom Nava M.D. on 05/15/2024 at 20:36 Approved by: Malcom Nava M.D. on 05/15/2024 at 20:38
--- NOTE | 2024-05-15 19:47 | EKG_ITS ---
[address] [address] Test Date: 2024-05-15 Pat Name: Rubin Cabrera Department: Room: Gender: Male Order Processing Clerk: JASON : 1935 Requested By: Order Number: [id number] Reading MD: Henry Mobley Measurements Intervals [place] Rate: 68 P: [place]: QRS: 25 QRSD: 100 T: 29 QT: 374 QTc: 397 Interpretive Statements Atrial fibrillation Electronically Signed On 05-16-2024 19:52:06 PDT by Henry Mobley
--- NOTE | 2024-05-15 19:48 | DI.CT.S_ITS ---
PROCEDURE: CT HEAD/BRAIN WO CON INDICATIONS: difficulty speak last apx 10 minutes TECHNIQUE: Noncontrast 4.5 mm thick angled axial sections acquired from the foramen magnum to the vertex, with coronal and sagittal reformats. For radiation dose reduction, the following was used: automated exposure control, adjustment of mA and/or kV according to patient size. COMPARISON: [facility], CT, CT HEAD/BRAIN WO CON, 10/28/2023, 23:59. FINDINGS: Image quality: Diagnostic CSF spaces: Basal cisterns are patent. Lateral ventricles are symmetric. Volume: Vascular calcifications. Periventricular white matter disease is commonly seen with chronic microangiopathy. Volume loss is present. These findings are moderate Brain: No intracranial hemorrhage. Dunn-white differentiation is grossly maintained. Craniofacial structures: No significant paranasal sinus opacity. IMPRESSION: No acute intracranial pathology. If there is high concern for parenchymal pathology, consider further evaluation with MRI. Dictated by: Malcom Nava M.D. on 05/15/2024 at 20:08 Approved by: Malcom Nava M.D. on 05/15/2024 at 20:10
[2024-05-15 20:02] LABS: Add Manual Diff / Slide Review NO; Basophils Absolute Auto 0 /uL (0-100); Basophils Percent Auto 0.5 % (0-2); Eosinophils Absolute Auto 200 /uL (0-450); Eosinophils Percent Auto 2.5 % (2-4); Hemoglobin 13.7 g/dL (13.5-17.5); Lymphocytes Absolute Auto 1400 /uL (1100-4500); Lymphocytes Percent Auto 21.4 % (25-40); Mean Corpuscular HGB Conc 34.1 % (30-36); Mean Corpuscular Hemoglobin 33.4 PG (26-34); Monocytes Absolute Auto 700 /uL (0-900); Monocytes Percent Auto 10.3 % (3-14); Neutrophils Absolute Auto 4100 /uL (1500-7000); Neutrophils Percent Auto 65.3 % (50-75); Platelet Count 157 X10^3/uL (150-400); Red Blood Cell Count 4.08 X10^6/uL (4.5-5.9); Red Cell Distribution Width 13.2 % (11.6-14.8); White Blood Cell Count 6.3 X10^3/uL (4.5-11.0)
[2024-05-15 20:17] LABS: INR 1.3 (0.9-1.3); Prothrombin Time 14.9 SECONDS (9.4-12.5)
[2024-05-15 20:20] LABS: PTT Partial Thromboplastin Tim 39 SECONDS (25.1-36.5)
[2024-05-15 20:22] LABS: Alanine Aminotransferase 32 IU/L (<50); Albumin 4.5 g/dL (3.5-5.0); Albumin Globulin Ratio 1.9 (1.0-2.8); Alkaline Phosphatase 101 U/L (38-126); Aspartate Aminotransferase 35 IU/L (17-59); BUN Creatinine Ratio 24.7 (6-22); Bilirubin Total 0.9 mg/dL (0.2-1.3); Blood Urea Nitrogen 18 mg/dL (9-20); Calcium 9.6 mg/dL (8.4-10.2); Carbon Dioxide 24 mmol/L (22-32); Chloride 104 mmol/L (98-107); Creatine Kinase 49 U/L (55-170); Estimated Glomerular Filt Rate > 60 mL/min (>60); Globulin 2.4 g/dL (1.7-4.1); Glucose 96 mg/dL (80-110); HEMOLYSIS 19 (0-50); Potassium 3.8 mmol/L (3.4-5.1); Sodium 137 mmol/L (137-145); Total Protein 6.9 g/dL (6.3-8.2)
[2024-05-15 20:33] LABS: Troponin I < 0.012 ng/mL (0.01-0.034)
[2024-05-15 21:16] LABS: UR Morphine/Opiate cutoff 300 Negative (Negative); Ur Creatinine Normal (Normal); Ur Specific Gravity Normal (Normal); Urine Amphetamines Negative (Negative); Urine Barbiturates Negative (Negative); Urine Benzodiazepines Negative (Negative); Urine Cocaine Negative (Negative); Urine MDMA Negative (Negative); Urine Methadone Negative (Negative); Urine Methamphetamines Negative (Negative); Urine Oxycodone Negative (Negative); Urine Phencyclidine Negative (Negative); Urine Tetrahydrocannabinol Negative (Negative); Urine Tricyclic Antidepressant Positive (Negative); Urine pH Normal (Normal)
--- NOTE | 2024-05-15 22:07 | ED.NEUROSD ---
HPI - Neuro Symptoms/Deficit General Chief Complaint: Neuro Symptoms/Deficit Stated Complaint: Episode of Not Making Sense Speaking Time Seen by Provider: 05/15/24 21:04 Source: patient History of Present Illness HPI Narrative: 88-year-old gentleman with a history of atrial fibrillation anticoagulated on Eliquis, hypertension that is treated and typically at home blood pressures are running in the 140 systolic range brought in by his daughter today. Apparently they had a good day, had gone up for lunch, were chatting over dinner when at 6:45 p.m. he had a 10 minute episode of word salad. He recognized that he was having difficulty finding words. Symptoms resolved daughter brings him in for further evaluation. Patient has a another episode with more confusion and speech fluency along with acute memory issues starting it 10:00 p.m. tonight. He is reassessed at 10:10 p.m. found to have a blood pressure of 195/117 (mild aphasia and unclear about month and age), NIH=3 There have been no reports of fevers, cough, chills, chest pain, palpitations, nausea, vomiting, diarrhea. There has been no alcohol use today, no regular drug use. His daughter notes that he has been the primary caregiver for his with increasing dementia with poor overall sleep however over the last couple of nights has been sleeping much better. On Anticoagulants: Yes (eliquis) Related Data Home Medications Medication Instructions Recorded Confirmed metoprolol succinate 50 mg 50 mg PO DAILY 06/13/22 05/02/24 tablet,extended release 24 hr atorvastatin 40 mg tablet 40 mg PO DAILY 05/22/23 05/02/24 niacinamide 500 mg tablet 500 mg PO BID 10/02/23 05/02/24 pantoprazole 40 mg tablet,delayed 40 mg PO DAILY 10/31/23 05/02/24 release apixaban 5 mg tablet (Eliquis) 2.5 mg PO BID 01/12/24 05/02/24 Previous Rx's Medication Instructions Recorded amlodipine 5 mg tablet (Norvasc) 5 mg PO QDAY #90 tabs 03/01/23 irbesartan 150 See Rx Instructions .Route 12/05/23 mg-hydrochlorothiazide 12.5 mg .COMPLEX #90 tabs tablet hydroxocobalamin 1,000 mcg/mL 1,000 mcg IM QWEEK PRN fatigue, 05/15/24 intramuscular solution depression #30 mL trazodone 50 mg tablet 50 - 100 mg (1 - 2 x 50 mg) PO 05/15/24 BEDTIME PRN sleep, depression #90 tabs Allergies Allergy/AdvReac Type Severity Reaction Status Date / Time No Known Drug Allergies Allergy Verified 05/02/24 12:01 Review of Systems Review of Systems Narrative: Pertinent positive and negative findings as per HPI Hematologic/Lymphatic On Anticoagulants: Yes (eliquis) Patient History Medical History History of GI bleed (~09/2023) History of vertebral compression fracture (~2017) COVID-19 Pneumonia Trigger finger of left hand Squamous cell skin cancer BCC (basal cell carcinoma), ear Vision abnormalities Hearing loss (~2007) Skin cancer (~2009) Atrial fibrillation with controlled ventricular response (12/11/17) Primary osteoarthritis of left knee (12/01/17) History of malignant neoplasm of prostate (12/01/17) History of cardiac radiofrequency ablation (RFA) (10/09/17) Hypertension (10/09/17) Hyperlipidemia (10/09/17) Multiple actinic keratoses (08/13/02) CLL (chronic lymphocytic leukemia) (~2016) Surgical History History of total right knee replacement History of meniscectomy of left knee History of total left knee replacement (~11/2017) History of vasectomy History of bilateral cataract extraction History of inguinal hernia repair (~2012) Status post colonoscopy (10/08/13) History of cardiac radiofrequency ablation (RFA) (~2003) History of cataract removal with insertion of prosthetic lens (~2014) Family History Brother Age: 82 Dementia Sister Age: 91 Dementia Brother No problems noted. Father No problems noted. Mother No problems noted. Sister No problems noted. Social History household members: spouse Smoking Status: Former smoker alcohol intake: current Smoking Status: Former smoker alcohol intake frequency: 0-2 drinks per day Alcohol type: wine and hard liquor Substance Use Type: does not use Exam Initial Vital Signs Initial Vital Signs: Vital Signs Temperature 97.8 F 05/15/24 19:35 Pulse Rate 77 05/15/24 19:35 Respiratory Rate 17 05/15/24 19:35 Blood Pressure 165/95 H 05/15/24 19:35 Pulse Oximetry 98 05/15/24 19:35 Oxygen Delivery Method Room Air 05/15/24 19:35 General: Healthy appearing, in no acute distress. Well-nourished well-developed HEENT: Moist mucous membranes, normal sclera with reactive pupils, no facial droop Neck: No JVD, supple Respiratory: Lungs are clear to auscultation, no wheezing no rales no rhonchi. Full and symmetrical air movement Cardiac: Irregular rhythm no murmurs no bruits Abdomen: Soft, nontender, good bowel tones, no flank pain Skin: Warm and dry, no rashes Neurologic: Acute change in that he is no longer oriented to place, time, name. Some minor word-finding difficulties. NIH score equals 3 Extremities: No trauma, well perfused Psych: Cooperative, NIH Stroke Scale/Score (NIHSS) 05/15/2024 1015pm RESULT SUMMARY: 3 points NIH Stroke Scale INPUTS: 1A: Level of consciousness ?> 0 = Alert; keenly responsive 1B: Ask month and age ?> 2 = 0 questions right 1C: 'Blink eyes' & 'squeeze hands' ?> 0 = Performs both tasks 2: Horizontal extraocular movements ?> 0 = Normal 3: Visual quiñones ?> 0 = No visual loss 4: Facial palsy ?> 0 = Normal symmetry 5A: Left arm motor drift ?> 0 = No drift for 10 seconds 5B: Right arm motor drift ?> 0 = No drift for 10 seconds 6A: Left leg motor drift ?> 0 = No drift for 5 seconds 6B: Right leg motor drift ?> 0 = No drift for 5 seconds 7: Limb Ataxia ?> 0 = No ataxia 8: Sensation ?> 0 = Normal; no sensory loss 9: Language/aphasia ?> 1 = Mild-moderate aphasia: some obvious changes, without significant limitation 10: Dysarthria ?> 0 = Normal 11: Extinction/inattention ?> 0 = No abnormality Course Orders Ordered: ED Orders 05/15/24 22:13 CT angio head and neck Stat Discontinued Medications Nicardipine HCl 25 mg/ Sodium (Chloride) 250 mls @ 50 mls/hr IV TITRATE LINSEY; Protocol Last Admin: 05/16/24 00:58 Dose: Not Given Documented By: DM Ondansetron HCl (Ondansetron 4 Mg/2 Ml Inj) 4 mg IV NOW PRN PRN Reason: Nausea And Vomiting Ondansetron HCl (Ondansetron 4 Mg Odt) 4 mg SL NOW PRN PRN Reason: Nausea And Vomiting Vital Signs Vital signs: Vital Signs - 8 hr 05/15/24 23:00 05/15/24 23:03 05/15/24 23:03 Pulse Rate 78 87 Respiratory Rate 22 27 H Blood Pressure 180/110 H Pulse Oximetry 96 94 05/15/24 23:30 05/15/24 23:30 05/16/24 00:00 Pulse Rate 78 88 Respiratory Rate 28 H 18 Blood Pressure 189/106 H Pulse Oximetry 96 95 05/16/24 00:01 05/16/24 00:30 05/16/24 00:30 Pulse Rate 90 78 Respiratory Rate 20 20 Blood Pressure 178/93 H Pulse Oximetry 96 95 MDM - Neuro Symptoms/Deficit Lab Data 05/15/24 19:50 05/15/24 19:50 Labs: Lab Results 05/15/24 05/15/24 Range/Units 19:50 21:06 WBC 6.3 (4.5-11.0) X10^3/uL RBC 4.08 L (4.5-5.9) X10^6/uL Hgb 13.7 (13.5-17.5) g/dL Hct 40.0 L (41-53) % MCV 98.0 (80-100) fL MCH 33.4 (26-34) PG MCHC 34.1 (30-36) % RDW 13.2 (11.6-14.8) % Plt Count 157 (150-400) X10^3/uL Neut % (Auto) 65.3 (50-75) % Lymph % (Auto) 21.4 L (25-40) % [place]ett % (Auto) 10.3 (3-14) % Eos % (Auto) 2.5 (2-4) % Baso % (Auto) 0.5 (0-2) % Neut # (Auto) 4100 (5190-1336) /uL Lymph # (Auto) 1400 (8026-6717) /uL [place]ett # (Auto) 700 (0-900) /uL Eos # (Auto) 200 (0-450) /uL Baso # (Auto) 0 (0-100) /uL PT 14.9 H (9.4-12.5) SECONDS INR 1.3 (0.9-1.3) APTT 39 H (25.1-36.5) SECONDS Sodium 137 (137-145) mmol/L Potassium 3.8 (3.4-5.1) mmol/L Chloride 104 (98-107) mmol/L Carbon Dioxide 24 (22-32) mmol/L BUN 18 (9-20) mg/dL Creatinine 0.73 (0.66-1.25) mg/dL Estimated GFR > 60 (>60) mL/min BUN/Creatinine Ratio 24.7 H (6-22) Glucose 96 (80-110) mg/dL Calcium 9.6 (8.4-10.2) mg/dL Magnesium 2.0 (1.6-2.3) mg/dL Total Bilirubin 0.9 (0.2-1.3) mg/dL AST 35 (17-59) IU/L ALT 32 (<50) IU/L Alkaline Phosphatase 101 (38-126) U/L Total Creatine Kinase 49 L (55-170) U/L Troponin I < 0.012 (0.01-0.034) ng/mL Total Protein 6.9 (6.3-8.2) g/dL Albumin 4.5 (3.5-5.0) g/dL Globulin 2.4 (1.7-4.1) g/dL Albumin/Globulin Ratio 1.9 (1.0-2.8) U Opiates 300ng/mL cut Negative (Negative) Ur Oxycodone Screen Negative (Negative) Urine Methadone Screen Negative (Negative) Ur Barbiturates Screen Negative (Negative) U Tricyclic Antidepress Positive H (Negative) Ur Phencyclidine Scrn Negative (Negative) Ur Amphetamines Screen Negative (Negative) U Methamphetamines Scrn Negative (Negative) Ur MDMA Scrn (Ecstasy) Negative (Negative) U Benzodiazepines Scrn Negative (Negative) Urine Cocaine Screen Negative (Negative) U Marijuana (THC) Screen Negative (Negative) Urine pH Normal (Normal) Urine Specific [place] Normal (Normal) Ur Creatinine Normal (Normal) Urine Dip Bedside Urine Glucose Negative Bedside Urine Bilirubin - Negative Bedside Urine Ketone - Negative Urine Specific [place] 1.015 Bedside Urine Occult Blood - Negative Bedside Urine pH 5.5 Bedside Urine Protein - Negative Bedside Urine Urobilinogen - Negative Bedside Urine Nitrite - Negative Bedside Urine Leukocytes - Negative Esterase MDM Narrative Medical decision making narrative: CC: Acute confusion, mild aphasia Complicating co-morbidities: Anticoagulated for atrial fibrillation, hypertension, hyperlipidemia Data collected from: patient, daughter Medical records reviewed: Primary care notes from today are reviewed. Concern for deep motivation, possible depression Differential considered: Stroke, TIA, hypertensive crisis, intracranial hemorrhage Exam documented above, pertinent findings include: Patient is acutely not oriented to person time and place, mild aphasia, continued chronic rate controlled atrial fibrillation. No motor or sensory abnormalities appreciated Lab Test results independently reviewed as above. Pertinent findings: Independently reviewed EKG: Imaging studies independently reviewed: Consultations: 1020pm requested Telestroke consult. CTA head and neck ordered. Nicardipine gtt initiated 10:57 Dr Gmóez Hodgson - near occlusion prox L ICA and B Cavernous ICA. Is perfusing into MCAs. Rec keeping head of bed flat. Transfer to recommended - ED to ED Dr Young, accepting BP 200/120 goal with meds as needed Treatments: Transfer for closer monitoring if intervention indicated. Re-evaluations: 11:05 still with retrograde memory loss, a bit of word-finding difficulty but orientation to person place and events are better than they were initially Discussion: 88-year-old gentleman with an episode of word-finding difficulty at 6:45 a.m. this evening. Lasted approximately [address] was unremarkable. By 10:00 p.m. had another episode with CTA performed in discussion with tele stroke neurologist at [facility], Dr. Hodgson. His read on the CT angiogram is concerning for near occlusion of the left internal carotid artery and bilateral cavernous ICA. He isn't sure if intervention would be offered or appropriate but did recommend that the patient be transferred for closer observation and availability for intervention if deemed appropriate. In discussion with the patient and his daughter both would want to have any interventions offered and agree with transfer. Transfer we will be ED to ED with Dr. Young as the accepting physician. He will discuss care with the emergency department and I will work on transport at this time. Patient is fully aware of findings concerns and reasons for transport questions have been answered. Stroke Core Measures Contraindications for TPA in CVA: SBP>185;DBP>110 Despite Repeated Treatment and Determinations (full stroke diagnosis is not completely clear with initial ER eval) Critical Care Time Critical Care Time Critical Care Time: Yes Total Critical Care Time: 34 Attestation: Critical care time is separate from other billable procedures. There is a high probability of a significant, sudden or life-threatening deterioration that requires my full and direct attention, intervention and personal management. This critical care time includes consultation with family and other consulting doctors, review of records, and interpretation of data from labs, EKGs and imaging as well as managements of acute neurologic events Discharge Plan Departure Patient Disposition: [facility] Clinical Impression: Stroke Qualifiers: CVA mechanism: unspecified Qualified Code(s): I63.9 - Cerebral infarction, unspecified Prescriptions: No Action amlodipine [Norvasc] 5 mg tablet 5 mg PO QDAY Qty: 90 3RF irbesartan-hydrochlorothiazide 150-12.5 mg tablet See Rx Instructions .ROUTE .COMPLEX Qty: 90 3RF Hold Instructions: while sick to avoid dehydration Dose Instruction: TAKE 1 TABLET EVERY MORNING Rx Instructions: TAKE 1 TABLET EVERY MORNING Eliquis 5 mg tablet 2.5 mg PO BID metoprolol succinate 50 mg tablet extended release 24 hr 50 mg PO DAILY atorvastatin 40 mg tablet 40 mg PO DAILY pantoprazole 40 mg tablet,delayed release (DR/EC) 40 mg PO DAILY trazodone 50 mg tablet 50 - 100 mg PO BEDTIME PRN (Reason: sleep, depression) Qty: 90 3RF hydroxocobalamin 1,000 mcg/mL solution 1,000 mcg IM QWEEK PRN (Reason: fatigue, depression) Qty: 30 0RF Rx Instructions: Can use weekly initially, after 1 month move to monthly. niacinamide 500 mg Tablet 500 mg PO BID Referrals: Lyly Ford DO [Primary Care Provider] -
--- NOTE | 2024-05-15 22:09 | PC.NURSE ---
Went into the room to do a patient check and patient struggled to recall where he was and what brought him in. Reoriented the patient to the situation and checked for other deficits, patients voice was clear and coherent, NIH score remains a 0. Provider made aware.
--- NOTE | 2024-05-15 22:13 | DI.CT.S_ITS ---
PROCEDURE: CT ANGIO HEAD AND NECK INDICATIONS: tia TECHNIQUE: After the administration of intravenous contrast, 1 mm thick sections acquired from the aortic arch through the [place] of [place]. 3-dimensional lcefpee-xwyhhlqup-siodysmhwx (MIP) and/or volume rendering reformats were acquired of the central intracranial vasculature and neck separately. For radiation dose reduction, the following was used: automated exposure control, adjustment of mA and/or kV according to patient size. COMPARISON: [facility], CT, CT CERVICAL SPINE WO CON, 10/28/2023, 23:59. [facility], CT, CT HEAD/BRAIN WO CON, 10/28/2023, 23:59. [facility], CT, CT HEAD/BRAIN WO CON, 05/15/2024, 19:53. FINDINGS: Image quality: Diagnostic HEAD ANGIOGRAPHY: Anterior circulation: ICAs: Ietp-zp-omvlrzuy cavernous carotid calcifications ACAs: Relatively hypoplastic left A1 segment, probably congenital. ACAs otherwise patent MCAs: Patent AComm: No aneurysm Venous sinuses: Not well assessed on this study Posterior circulation: Dominance: Left Vertebral arteries: Mild calcifications Basilar artery: Patent PComms: No aneurysm core inserter: Patent NECK ANGIOGRAPHY: Aortic arch and subclavian arteries: Gkbt-pd-nxnhijbe calcifications CCAs: No stenosis, occlusion, or aneurysm. ICA origins (by NASCET criteria): Nfio-br-dsotehhv right-sided calcifications, there is about 50% narrowing. Moderate to severe left-sided calcifications. 70-80% narrowing. ICAs: No stenosis, occlusion or aneurysm. ECAs: Origins are patent. Vertebral arteries: Mild calcifications near the origins bilaterally. Otherwise patent. The left vertebral rising directly from the aorta Soft tissues: No significant mass, aneurysm, or lymphadenopathy Lung apices: No pneumothorax Bones: Degenerative changes. Hypoplastic maxillary sinuses with mild mucosal thickening Nonacute widening of the C1 on C2 on atlanto-dental interval. IMPRESSION: No intracranial large vessel occlusion. 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 Moderate to severe left-sided calcifications at the ICA origin, over 70%. About 50% narrowing is seen at the right-sided ICA origins. Other findings as above. If there is high concern for infarct, consider MRI. Any quantitative measurements of stenosis were performed using NASCET criteria. Dictated by: Malcom Nava M.D. on 05/15/2024 at 23:13 Approved by: Malcom Nava M.D. on 05/15/2024 at 23:19
--- NOTE | 2024-05-15 23:30 | PC.NURSE ---
pt resting quietly on stretcher, oriented to name, unsure of place or situation, laying supine on stretcher, daughter at bedside. call light in reach. waiting for transport, no c/o at this time
[2024-05-16] VITALS: PULSE 88; RESP 18; O2SAT 95
[2024-05-16 00:01] VITALS: PULSE 90; RESP 20; O2SAT 96
[2024-05-16 00:30] VITALS: BP 178/93; PULSE 78; RESP 20; O2SAT 95
== END 2024-05-16 01:06 | disposition short-term general hospital (02) ==
PROVIDERS: Emergency Provider Emergency Medicine; Family Provider Family Medicine; PCP Family Medicine
DX: I63.9 Cerebral infarction, unspecified (principal); R29.703 NIHSS score 3; I10 Essential (primary) hypertension; I48.91 Unspecified atrial fibrillation; Z79.01 Long term (current) use of anticoagulants
CPT/HCPCS: 36415; 70450; 70496; 70498; 71045; 80048; 80053; 80061; 80305; 81003; 82550; 83735; 83880; 84443; 84484; 85025; 85027; 85610; 85730; 93005; 99284; 99291; Q9967

== ENCOUNTER → 2024-06-20 10:18 | Outpatient (CLI) | payer MEDICARE, OTHER, SELFPAY ==
[2024-05-14 12:04] VITALS: BMI 27.3
[2024-06-20 13:17] LABS: BUN Creatinine Ratio 26.9 (6-22); Blood Urea Nitrogen 18 mg/dL (9-20); Calcium 9.6 mg/dL (8.4-10.2); Carbon Dioxide 25 mmol/L (22-32); Chloride 106 mmol/L (98-107); Estimated Glomerular Filt Rate > 60 mL/min (>60); Glucose 99 mg/dL (80-110); HEMOLYSIS < 15 (0-50); Potassium 4.4 mmol/L (3.4-5.1); Sodium 137 mmol/L (137-145)
== END ==
LOC: LAB 10:20
PROVIDERS: Family Provider Family Medicine; PCP Family Medicine; Referring Provider Internal Medicine Cardiovascular Disease; Visit Provider Internal Medicine Cardiovascular Disease
DX: I48.11 Longstanding persistent atrial fibrillation (principal)
CPT/HCPCS: 36415; 80048

== ENCOUNTER → 2024-06-27 | Outpatient (CLI) | payer MEDICARE, OTHER, SELFPAY ==
[2024-05-14 12:04] VITALS: BMI 27.3
--- NOTE | 2024-06-27 20:14 | DI.NM.S_ITS ---
DATE OF SERVICE: 06/27/2024 PROCEDURE: Exercise perfusion study. INDICATIONS: Abnormal echo, fatigue, persistent AFib, likely CAD with hypertension and hyperlipidemia. RADIOPHARMACEUTICAL: 26 mCi technetium-99m Myoview IV was injected at stress and 11.1 mCi technetium-99m Myoview IV was injected at rest. CARDIAC STRESS: The patient underwent exercise perfusion study under the supervision of an attending staff. He walked on Erasto protocol for 3 minutes and 20 seconds, achieved maximum heart rate of 131 which was 140% of target heart rate. 4.6 METs of workload. Flat blood pressure response. Resting blood pressure was 142/76. Baseline rhythm is atrial fibrillation with controlled ventricular rate with nonspecific ST-T changes. During stress, no new convincing ischemic changes. The patient remained in atrial fibrillation. The patient had significant shortness of breath. No chest pain. RAW DATA: There is increased subdiaphragmatic activity. Gut shadow encroaching the inferior and inferolateral border of the heart. Heart is almost vertical. GATED STUDY: Resting LV ejection fraction 71% and stress LV ejection fraction is 74% without any obvious wall motion abnormalities. Resting end-diastolic volume 98 mL. TID ratio 0.94, which is within normal limits. Lung/heart ratio 0.40, which is within normal limits. MYOCARDIAL PERFUSION SCAN: Please note, this patient does not have any stress prone images. Stress supine and resting supine images were compared to each other. 1. There is a predominantly fixed, moderate size, mild to moderately decreased perfusion of inferior wall extending into the inferior apex. 2. There is a small size, mild, reversible perfusion defect involving the distal anterior wall. No prone images. CONCLUSIONS: 1. I will call this study likely an abnormal myocardial perfusion study with mild reversible ischemia of distal anterior wall. 2. Predominantly fixed inferior wall and infero-apical defect, likely due to tissue attenuation artifact as on raw images gut shadow encroaching the inferior and inferolateral border of the heart. The patient has preserved wall motion abnormalities. Hence, likely, this is a tissue attenuation artifact rather than true inferior wall and infero- apical myocardial infarction. Diminished exercise tolerance. The patient had significant shortness of breath and fatigue. Ischemic burden is not significant. Correlate clinically. DeborahRubin - PARVIN/fn/HI doc#: [id number]/job#: [id number] dd: 06/27/2024 17:00:00 dt: 06/27/2024 19:48:00 DICTATING MD/COPIES TO: Naheed Aldrich MD COPIES MNE: JOSE;
== END ==
PROVIDERS: Family Provider Family Medicine; PCP Family Medicine; Referring Provider Internal Medicine Cardiovascular Disease; Visit Provider Internal Medicine Cardiovascular Disease
DX: R06.09 Other forms of dyspnea (principal); R94.39 Abnormal result of other cardiovascular function study; R94.31 Abnormal electrocardiogram [ECG] [EKG]; R53.83 Other fatigue; I48.19 Other persistent atrial fibrillation; I10 Essential (primary) hypertension; E78.5 Hyperlipidemia, unspecified
CPT/HCPCS: 78452; 93017; A9502